=== PATIENT | male | born 1940 | race Caucasian/White ===

== ENCOUNTER 2017-02-22 09:05 | Inpatient (IN) | payer MEDICARE, OTHER, SELFPAY ==
[2017-02-22 09:07] VITALS: BP 136/71; PULSE 72; RESP 18; TEMP 36.7; O2SAT 98; BMI 29.0
--- NOTE | 2017-02-22 09:27 | CT_ITS ---
STUDY: CT ABDOMEN WITH CONTRAST REASON FOR EXAM: Male, 77 years old. Abdominal pain. The patient has a history of chronic lymphocytic leukemia. RADIATION DOSAGE (If Supplied By Facility): CTDIvol = ( 19.66 ) mGy, DLP = ( 1001.85 ) mGycm TECHNIQUE: Transaxial images were obtained post I.V. administration of 100 ml of Isovue 300 contrast, and without oral contrast. Sagittal and coronal images were reconstructed. Individualized dose optimization techniques were used for this CT. COMPARISON: Comparison is made with prior study dated February 20, 2017. FINDINGS: Mild degree of increased interstitial markings at the lung bases suggestive of scarring. The visualized portions of the heart are within normal limits. There is a 1.1 cm hypodensity in the posterior aspect of the dome of the right lobe of the liver. This is unchanged. There are multiple gallstones. There is severe splenomegaly. There now is evidence of a small amount of perisplenic fluid. Mild interval originating of the spleen. Normal pancreas. Normal bilateral adrenal glands. Normal right kidney. There is a 1.8 cm cyst in the inferior lateral portion of the left kidney. Normal visualized stomach. Normal small intestine. There are multiple colonic diverticula consistent with diverticulosis. The appendix is visualized and appears normal. There is diffuse atherosclerotic calcification of the abdominal aorta, without a demonstrated aneurysm. Normal inferior vena cava. There is borderline retroperitoneal lymphadenopathy with enlarged nodes no greater than 10mm in the short axis diameter. Nonspecific increased markings within the fat involving the root of the mesentery as well as in the bilateral thyroid colloid gutters and pelvis. This is nonspecific. There is a small umbilical hernia containing fat. There are diffuse degenerative changes of the visualized lumbar spine. Status post right total hip replacement. CT/Abdomen/Pelvis W IV Cont ONLY IMPRESSION: Small amount of perisplenic fluid. Marked splenomegaly. Nonspecific increased markings in the peritoneal fat as described. This is unchanged. Electronically Signed: Theron Whitehead MD at 11:29 EDT Tel [phone], Service support ,
--- NOTE | 2017-02-22 09:39 | ED.VISSUMM ---
- ER Visit Summary Date of Service: 02/22/17 Chief Complaint: Abdominal pain History of Present Illness: The patient is a 77 M with medical history significant for CLL who just started chemotherapy a week ago presents to the emergency Department abdominal pain. Patient was actually seen here 2 days ago. At that time, he had lab work is relatively unremarkable. He underwent a noncontrast CT of the abdomen pelvis which showed reactive adenopathy within the pelvis. There is concerned that it may be a diverticulitis or colitis given history of immunosuppression. He was continued on the Cipro and Flagyl. He states that it seems that every time he takes antibiotics, the pain worsens. His stool has become more firm, but he continues to have some loose bowel movements. He states today, he had move his bowels twice. He was getting severe bouts of pain that he describes as a band across his abdomen into his back. He has had similar symptoms in the past with colitis. Physical Examination: Vital signs reviewed General: Well-nourished, well-developed Head: Normocephalic, atraumatic Eyes: Pupils equal and reactive, extraocular muscles intact Neck, supple, no lymphadenopathy Heart: Regular rate and rhythm Respiratory: No distress, clear bilaterally Abdomen: Soft, tender in the left lower quadrant without guarding, nondistended, no peritoneal signs Back: Nontender Extremities: Nontender, no edema, no cords Skin: Normal color no rash Neuro: Alert and oriented, no focal or lateralizing deficits Test Results: [] Emergency Department Course and Treatment: Patient presents with worsening abdominal pain. I did discuss the patient with Dr. Beyer on his arrival. There was concern that he may have intra-abdominal abscess. Screening labs show pancytopenia, consistent with the patient's history of cancer. The CT does not demonstrate any acute abscess or significant colitis. However, the patient has had persistent pain despite home analgesics. I am going to broaden his antibiotics. The patient was discussed with the hospitalist will be admitted for pain control and reevaluation. Treatment Plan: [] Disposition: Admission 1. Impression: 1. Acute abdominal pain 2. History of CLL 3. Adenitis versus colitis ED Disposition - Plan for ED Patient: Disposition: Acute Care Hospital [facility] Chief Complaint: Abd Pain
[2017-02-22] MEDS: Ondansetron 4 MG/2 ML Vial IV ×3 (09:46→14:22)
[2017-02-22] MEDS: 0.9% Normal Saline 1,000 ML 1000 ML IV (09:46)
[2017-02-22] MEDS: HYDROmorphone 1 MG/ML Syringe IV ×4 (09:46→15:36)
[2017-02-22 09:53] LABS: Absolute Lymphocyte Count 0.14 X10^3/ul (0.83-4.51); Absolute Neutrophil Count 1.8 X10^3/uL (2.0-7.7); Basophil# 0.01 X10^3/uL; Basophil% 0.5 % (0-1); Eosinophil# 0.07 X10^3/uL; Eosinophils% 3.2 % (0-5); Hematocrit 35.1 % (40-54); Lymphocyte # 0.14 X10^3/ul (4.0); Lymphocyte % 6.5 % (19-41); Mean Corp Hgb Conc 31.3 g/gl (32-36); Mean Corpuscular Hgb 24.3 pg (27.0-32.0); Mean Corpuscular Volume 77.7 fL (80-94); Monocyte# 0.15 X10^3/uL; Monocyte% 6.9 % (0-10); Neutrophil # 1.77 X10^3/uL (2.7-7.7); Platelet Count 83 K/mm3 (150-450); RBC Distribution Width CV 15.8 % (11.6-14.6); RBC Distribution Width SD 43.2 fl (35.1-43.9); Red Blood Count 4.52 M/mm3 (4.6-6.2); White Blood Count 2.2 K/mm3 (4.4-11.0)
[2017-02-22 09:54] LABS: Differential Indicated SCAN CRITERIA MET; POSITIVE COUNT NO; POSITIVE DIFFERENTIAL YES; POSITIVE MORPHOLOGY NO
[2017-02-22 10:19] LABS: Differential Comment SCANNED; Hypochromasia 1+; Microcytosis 2+; Platelet Estimate MKD DEC (ADEQ)
[2017-02-22 10:26] LABS: ALB/GLOB Ratio 0.9 RATIO (0.9-2.4); AST(SGOT) 32 U/L (15-37); Alanine Aminotransfer ALT/SGPT 38 U/L (12-78); Albumin, Serum 3.2 g/dL (3.4-5.0); Alkaline Phosphatase 110 U/L (45-117); Anion Gap 8 (5-15); BUN 12 mg/dL (7-18); BUN/Creat Ratio 12.9 RATIO (10-20); Calcium,Total 8.7 mg/dL (8.5-10.1); Chloride 104 mmol/L (98-107); Creatinine, Serum 0.93 mg/dL (0.70-1.30); EST Glomerular Filtration Rate 84 mL/min (>60); Est Glom Filt Rate - Afr Amer 102 mL/min (>60); Globulin 3.7 g/dL (2.2-4.2); Glucose 168 mg/dL (70-110); Potassium 3.6 mmol/L (3.5-5.1); Protein, Total 6.9 g/dL (6.4-8.2); Sodium Level 139 mmol/L (136-145)
[2017-02-22 11:16] VITALS: BP 108/53; PULSE 64; RESP 18; O2SAT 96
[2017-02-22 12:04] VITALS: BP 116/59; PULSE 60; RESP 18; O2SAT 95
--- NOTE | 2017-02-22 12:08 | HP.PCM_ITS ---
Problem List (1) CLL (chronic lymphocytic leukemia) Status: Chronic (2) Diarrhea Status: Acute Qualifiers: Diarrhea type: unspecified type Qualified Code(s): R19.7 - Diarrhea, unspecified (3) Type 2 diabetes mellitus Status: Chronic Qualifiers: Diabetes mellitus complication status: with unspecified complications Diabetes mellitus ad terminal makeup operator insulin use: without ad terminal makeup operator use Qualified Code( s): E11.8 - Type 2 diabetes mellitus with unspecified complications History of Present Illness Date of Admission: 02/22/17 Chief Complaint: Diarrhea, abdominal pain The patient is a 77 year old M with CLL, on chemotherapy, following Dr. Mitchell in the outpatient, hypertension, hyperlipidemia who comes in with complaints of abdominal pain and diarrhea, on-going for the past 12 days. Patient appears to be in so much pain, most of the history was taken from his . He last had chemotherapy exactly a week ago. He had the back and anterior abdominal wall pain before his chemotherapy. He describes his pain as starting from the low back, CVA more than 10 out of 10, radiates to the anterior abdominal wall, nothing makes it better or worse, no tingling or numbness with this. Associated with the pain is nonbloody diarrhea about 4 times a day. Of note is that he had not had any diarrhea since he is being admitted. he denied any fever or chills. Admits to nausea but no vomiting. He was in the emergency department 2 days ago, and at that time lab work was unremarkable and noncontrast CT scan of the abdomen and pelvis showed reactive adenopathy within the pelvis. Discharge home on Cipro and Flagyl but pain persisted as well as diarrhea and he came back to the ED. Repeat CT scan of the abdomen did not demonstrate any acute abscess or significant colitis. Patient is being admitted for pain control because of persistent pain despite home analgesics. Past Medical History Past Medical History (Chronic Problems): Chronic Problems CLL (chronic lymphocytic leukemia) (Chronic) GERD (gastroesophageal reflux disease) (Chronic) Hyperlipemia (Chronic) Osteoarthritis (Chronic) Type 2 diabetes mellitus (Chronic) Allergies acetaminophen [From Vicodin] Allergy (Verified 02/22/17 09:09) Rash cefazolin sodium [From Ancef] Allergy (Verified 02/22/17 09:09) Rash hydrocodone bitartrate [From Vicodin] Allergy (Verified 02/22/17 09:09) Rash Home Medications: Ambulatory Orders Medication Instructions Recorded Aspirin [Aspirin, Baby] 81 mg PO DAILY@0800 03/25/15 Glimepiride [Amaryl] 4 mg PO DAILY 03/25/15 Metformin HCl [Glucophage] 1,000 mg PO BIDCM 03/25/15 Naproxen Sodium [Aleve] 220 mg PO DAILY PRN PRN 03/25/15 [place]-3 Fatty Acids/Fish Oil 1 each PO DAILY 03/25/15 [[place] 3 1,000 mg Softgel] Rosuvastatin Calcium [Crestor] 20 mg PO QHS 03/25/15 Allopurinol 300 mg PO DAILY 02/20/17 Ciprofloxacin [Cipro] 500 mg PO BID 02/20/17 Famotidine [Pepcid] 20 mg PO BID 02/20/17 Hydrochlorothiazide 12.5 mg PO DAILY 02/20/17 Loperamide [Imodium] 2 mg PO Q2H PRN PRN 02/20/17 Losartan Potassium 100 mg PO 02/20/17 Melatonin 1 mg PO QHS 02/20/17 Metronidazole [Flagyl] 500 mg PO TID 02/20/17 MorphINE Soln [Roxanol] 5 mg PO Q3H PRN 02/20/17 Prochlorperazine Maleate 10 mg PO Q6H PRN 02/20/17 [Compazine] Sitagliptin Phosphate [Januvia] 50 mg PO DAILY 02/20/17 Tamsulosin HCl [Flomax] 0.8 mg PO DAILY 02/20/17 Surgical History: total hip arthroplasty, - - Hip surgery Psychiatric History: No pertinent psych hx Lives: Spouse/ Significant Other Smoking Status: Former smoker Tobacco Use: Non-smoker Alcohol: None Drugs: None - *Family History Paternal History Items: - - Parkinson's disease Maternal History Items: No pertinent history Sibling History Items: Heart Disease Review of Systems Constitutional: Denies: Anorexia, Chills, Fever, Malaise, Weakness, Weight Change Eyes: Denies: Blurred vision, Cataracts, Conjunctivae Inflammation HEENT: Denies: Difficulty Hearing, Difficulty Swallowing, Head Aches, Nasal Congestion, Sinus Congestion, Sinus Drainage, Sore Throat Cardiovascular: Denies: Chest Pain, Claudication, Orthopnea, Palpitations, Paroxysmal Noc. Dyspnea, Syncope Respiratory: Denies: Cough, Shortness of Breath, Shortness of breath at rest, Shortness of breath upon exertion, Sputum production Gastrointestinal: Reports: Abdominal Pain, Diarrhea, Nausea. Denies: Hematemesis, Hematochezia, Melena, Vomiting Genitourinary: Denies: Dysuria, Frequency Musculoskeletal: Denies: Joint Pain, Joint stiffness, Joint swelling, Joint Tenderness Skin: Denies: Dryness, Jaundice, Rash, Wounds Neurological: Denies: Difficulty swallowing, Focal weakness, Numbness, Tingling Psychiatric: Denies: Anxiety, Depression, Homicidal Ideations, Suicidal Ideations Hematologic/ Lymphatic: Denies: Easy Bruising, Easy Bleeding VTE Information - Inpt Only VTE Present on Admission: No VTE Pharm Prophylaxis ordered?: Yes - Physical Exam General: Alert, Oriented x3, Cooperative, - - in distress HEENT: Atraumatic, PERRLA, EOMI, Normocephalic Oral: Moist Mucosa Neck: Supple, No JVD Lungs: Clear to auscultation, Normal air movement Cardiovascular: Regular rate, Regular Rhythm, Normal S1, Normal S2, No murmurs Abdomen: Bowel Sounds Present, Soft, Non-Distended, No Hepato-splenomegaly, Obese, Tender Extremities: No edema Skin: No rashes Musculoskeletal: No Tenderness to Palpation of Joints or Extremities Lymphatic: No Cervical, Supraclavicular, or Inguinal Adenopathy Neurological: Cranial nerves II-XII grossly intact, Neuro grossly intact Psych/Mental Status: Normal Affect, Appropriate Vital Signs Temp Pulse Resp BP Pulse Ox 98.1 F 64 18 108/53 96 02/22/17 09:07 02/22/17 11:16 02/22/17 11:16 02/22/17 11:16 02/22/17 11:16 Oxygen Delivery Method Room Air Weight: 86.5 kg Body Mass Index (BMI) 29.0 Laboratory Tests Past 24 Hrs 02/22/17 02/22/17 02/22/17 09:41 09:41 09:41 WBC 2.2 L RBC 4.52 L Hgb 11.0 L Hct 35.1 L MCV 77.7 L MCH 24.3 L MCHC 31.3 L RDW 15.8 H RDW Differential 43.2 Plt Count 83 L MPV 10.0 Immature Gran % (Auto) 0.900 Neut % (Auto) 82.0 H Lymph % (Auto) 6.5 L [place] % (Auto) 6.9 Eos % (Auto) 3.2 Baso % (Auto) 0.5 Absolute Neuts (auto) 1.8 L Absolute Lymphs (auto) 0.14 L Total Counted Not Reportable Differential Comment SCANNED Diff Path Review May foll Platelet Estimate MKD DEC Hypochromasia 1+ Microcytosis 2+ Sodium 139 Potassium 3.6 Chloride 104 Carbon Dioxide 27.0 Anion Gap 8 BUN 12 Creatinine 0.93 Estim Creat Clear Calc 66.40 Est GFR (MDRD) Af Amer 102 Est GFR (MDRD) Non-Af 84 BUN/Creatinine Ratio 12.9 Glucose 168 H Lactic Acid 1.0 Calcium 8.7 Total Bilirubin 0.60 AST 32 ALT 38 Alkaline Phosphatase 110 Total Protein 6.9 Albumin 3.2 L Globulin 3.7 Albumin/Globulin Ratio 0.9 Assessment/Plan 77-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 Abdominal pain, unclear etiology, CT scan of the abdomen and pelvis showed non-specific increased marking within peritoneal fat at the root of the mesentery and pericolic gutters. Likely related to gastroenteritis Plan: Admit patient for pain control, Dilaudid IV 1 mg every 3 hours, add stool prophylaxis if constipation develops, continue to monitor patient. 2. Diarrhea, acute, history of Salmonella gastroenteritis a couple of years ago , will need to rule out C. difficile, will place on contact isolation, stool for enteric panel, continue IV hydration, will continue on meropenem stay in the ER, if laboratory investigations come back negative and no improvement in diarrhea would discontinue meropenem. 3. Pancytopenia due to recent chemotherapy, ANC count is 2000, would monitor with repeat labs in am. 4. CLL, following oncology in the outpatient, last chemotherapy was a week ago, will consult Dr. Mitchell 5. Hypertension, controlled 6. Hyperlipidemia, on statin 7. Type II DM, on glimepiride, Januvia and metformin, would hold Januvia and metformin, continue glimepiride, will check blood sugars. Accu-Cheks and low- dose insulin sliding scale 8. DVT prophylaxis with Lovenox subcu
[2017-02-22 12:49] VITALS: BMI 27.6
[2017-02-22 13:02] LABS: Bacteria 0 SEEN /hpf (None Seen); Mucous, Urine 0 SEEN /hpf (<or=2+); Squamous Epithelial Cells - UA 0 SEEN /hpf (0-5)
[2017-02-22 13:03] LABS: Color, Urine Yellow (Yellow); Glucose, Dipstick Normal (Normal); Ketone-Dipstick 5 mg/dl (Negative); Leukocyte Esterase-Dipstick 25 /ul (Negative); Nitrite-Dipstick Negative (Negative); Occult Blood-Urine 10 /ul (Negative); Protein-Dipstick 15 mg/dl (Negative); Urine Bilirubin Dipstick Negative (Negative); Urine Clarity Clear (Clear); Urine Urobilinogen Normal (Normal)
[2017-02-22 13:06] VITALS: BP 127/64; PULSE 77; RESP 16; TEMP 35.4; O2SAT 94
[2017-02-22 13:08] LABS: Red Blood Cells-Urine 0-5 SEEN /hpf (0-5); White Blood Cells 0-5 SEEN /hpf (0-5)
[2017-02-22] MEDS: 0.9% Normal Saline 1,000 ML 100 ML IV (15:36)
[2017-02-22 17:59] VITALS: BP 119/57; PULSE 69; RESP 16; TEMP 36.3; O2SAT 97
[2017-02-22 20:10] VITALS: BP 121/60; PULSE 74; RESP 16; TEMP 36.5; O2SAT 94
[2017-02-22] MEDS: Famotidine 20 MG Tablet PO (21:59)
[2017-02-22] MEDS: Atorvastatin Calcium 40 MG Tablet PO (21:59)
[2017-02-22 22:00] LABS: Bedside Glucose 173 mg/dL (70-110)
[2017-02-23] MEDS: 0.9% Normal Saline 1,000 ML 100 ML IV (01:52)
[2017-02-23 03:30] VITALS: BP 119/61; PULSE 65; RESP 16; TEMP 36.8; O2SAT 97
[2017-02-23 06:31] LABS: Bedside Glucose 138 mg/dL (70-110)
--- NOTE | 2017-02-23 07:39 | CON.PCM_ITS ---
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 My final recommendation will be communicated to Dr. Treviño and also by electronic medical records. 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 He also has a history of hypertension, hyperlipidemia who comes in with complaints of abdominal pain and diarrhea, on-going for the past 2 weeks. He has symptom of colitis with diarrhea but initially improved with Imodium. After starting chemotherapy last week, patient presented with severe acute abdominal pain at the left lower quadrant. Patient was diagnosed with acute diverticulitis and was started on oral ciprofloxacin and Flagyl last . He was also taking morphine and instructed to go on a full liquid mechanically soft diet. Although he has no fever or chills, nausea, vomiting, patient continues to have loose stool and diarrhea. He was in the emergency room on Wednesday with severe pain in the left lower quadrant and left flank area. CT scan of the abdomen show no evidence of perforation or abscess. Nonspecific mesenteric fat stranding seen. After he was given pain medication he was sent home on full liquid diet and continue antibiotics. He turned to emergency room yesterday with severe back and lower abdominal pain. He describes his pain as starting from the low back, left CVA more than 10 out of 10, radiates to the anterior abdominal wall to the lower abdomen, nothing makes it better or worse. Lower abdominal pain is sharp and stabbing. He denied per a chest pain or left shoulder pain. Associated with the dominant pain pain is nonbloody diarrhea about [address] scan of the abdomen did not demonstrate any acute abscess or significant colitis or perforation. There is nonspecific fluid in the pelvis. Patient is being admitted for pain control because of persistent pain despite home analgesics and antibiotics for acute diverticulitis/colitis. Past Medical History Past Medical History (Chronic Problems): Chronic Problems CLL (chronic lymphocytic leukemia) (Chronic) GERD (gastroesophageal reflux disease) (Chronic) Hyperlipemia (Chronic) Osteoarthritis (Chronic) Type 2 diabetes mellitus (Chronic) Allergies acetaminophen [From Vicodin] Allergy (Verified 02/22/17 09:09) Rash cefazolin sodium [From Ancef] Allergy (Verified 02/22/17 09:09) Rash hydrocodone bitartrate [From Vicodin] Allergy (Verified 02/22/17 09:09) Rash Home Medications: Ambulatory Orders Medication Instructions Recorded Aspirin [Aspirin, Baby] 81 mg PO DAILY@0800 03/25/15 Glimepiride [Amaryl] 4 mg PO DAILY 03/25/15 Metformin HCl [Glucophage] 1,000 mg PO BIDCM 03/25/15 Naproxen Sodium [Aleve] 220 mg PO DAILY PRN PRN 03/25/15 [place]-3 Fatty Acids/Fish Oil 1 each PO DAILY 03/25/15 [[place] 3 1,000 mg Softgel] Rosuvastatin Calcium [Crestor] 20 mg PO QHS 03/25/15 Allopurinol 300 mg PO DAILY 02/20/17 Ciprofloxacin [Cipro] 500 mg PO BID 02/20/17 Famotidine [Pepcid] 20 mg PO BID 02/20/17 Hydrochlorothiazide 12.5 mg PO DAILY 02/20/17 Loperamide [Imodium] 2 mg PO Q2H PRN PRN 02/20/17 Losartan Potassium 100 mg PO 02/20/17 Melatonin 1 mg PO QHS 02/20/17 Metronidazole [Flagyl] 500 mg PO TID 02/20/17 MorphINE Soln [Roxanol] 5 mg PO Q3H PRN 02/20/17 Prochlorperazine Maleate 10 mg PO Q6H PRN 02/20/17 [Compazine] Sitagliptin Phosphate [Januvia] 50 mg PO DAILY 02/20/17 Tamsulosin HCl [Flomax] 0.8 mg PO DAILY 02/20/17 Surgical History: total hip arthroplasty, - - Hip surgery Psychiatric History: No pertinent psych hx Lives: Spouse/ Significant Other Smoking Status: Former smoker Tobacco Use: Non-smoker Alcohol: None Drugs: None - *Family History Paternal History Items: - - Parkinson's disease Maternal History Items: No pertinent history Sibling History Items: Heart Disease Review of Systems Constitutional: Denies: Anorexia, Chills, Fever, Malaise, Weakness, Weight Change Eyes: Denies: Blurred vision, Cataracts, Conjunctivae Inflammation HEENT: Denies: Difficulty Hearing, Difficulty Swallowing, Head Aches, Nasal Congestion, Sinus Congestion, Sinus Drainage, Sore Throat Cardiovascular: Denies: Chest Pain, Claudication, Orthopnea, Palpitations, Paroxysmal Noc. Dyspnea, Syncope Respiratory: Denies: Cough, Shortness of Breath, Shortness of breath at rest, Shortness of breath upon exertion, Sputum production Gastrointestinal: Reports: Abdominal Pain, Diarrhea, Nausea. Denies: Hematemesis, Hematochezia, Melena, Vomiting Genitourinary: Denies: Dysuria, Frequency Musculoskeletal: Denies: Joint Pain, Joint stiffness, Joint swelling, Joint Tenderness Skin: Denies: Dryness, Jaundice, Rash, Wounds Neurological: Denies: Difficulty swallowing, Focal weakness, Numbness, Tingling Psychiatric: Denies: Anxiety, Depression, Homicidal Ideations, Suicidal Ideations Hematologic/ Lymphatic: Denies: Easy Bruising, Easy Bleeding - Physical Exam General: Alert, Oriented x3, Cooperative, - - in distress HEENT: Atraumatic, PERRLA, EOMI, Normocephalic Oral: Moist Mucosa Neck: Supple, No JVD Lungs: Clear to auscultation, Normal air movement Cardiovascular: Regular rate, Regular Rhythm, Normal S1, Normal S2, No murmurs Abdomen: Bowel Sounds Present, Soft, Non-Distended, + splenomegaly down to the left pelvic area but nontender to palpation, no tenderness left lower quadrant, no rebound tenderness or guarding. Extremities: No edema Skin: No rashes Musculoskeletal: No Tenderness to Palpation of Joints or Extremities Lymphatic: No Cervical, Supraclavicular, or Inguinal Adenopathy Neurological: Cranial nerves II-XII grossly intact, Neuro grossly intact Psych/Mental Status: Normal Affect, Appropriate Vital Signs - 24 hr Temp Pulse Resp BP Pulse Ox 02/23/17 03:30 98.2 F 65 16 119/61 97 02/22/17 20:10 97.7 F 74 16 121/60 94 02/22/17 17:59 97.4 F 69 16 119/57 97 02/22/17 13:06 95.8 F 77 16 127/64 94 02/22/17 12:04 60 18 116/59 95 02/22/17 11:16 64 18 108/53 96 02/22/17 09:07 98.1 F 72 18 136/71 98 Oxygen Delivery Method Room Air Weight: 86.5 kg Body Mass Index (BMI) 29.0 Laboratory Tests Past 24 Hrs 02/22/17 02/22/17 02/22/17 09:41 09:41 09:41 WBC 2.2 L RBC 4.52 L Hgb 11.0 L Hct 35.1 L MCV 77.7 L MCH 24.3 L MCHC 31.3 L RDW 15.8 H RDW Differential 43.2 Plt Count 83 L MPV 10.0 Immature Gran % (Auto) 0.900 Neut % (Auto) 82.0 H Lymph % (Auto) 6.5 L [place] % (Auto) 6.9 Eos % (Auto) 3.2 Baso % (Auto) 0.5 Absolute Neuts (auto) 1.8 L Absolute Lymphs (auto) 0.14 L Total Counted Not Reportable Differential Comment SCANNED Diff Path Review May foll Platelet Estimate MKD DEC Hypochromasia 1+ Microcytosis 2+ Sodium 139 Potassium 3.6 Chloride 104 Carbon Dioxide 27.0 Anion Gap 8 BUN 12 Creatinine 0.93 Estim Creat Clear Calc 66.40 Est GFR (MDRD) Af Amer 102 Est GFR (MDRD) Non-Af 84 BUN/Creatinine Ratio 12.9 Glucose 168 H Lactic Acid 1.0 Calcium 8.7 Total Bilirubin 0.60 AST 32 ALT 38 Alkaline Phosphatase 110 Total Protein 6.9 Albumin 3.2 L Globulin 3.7 Albumin/Globulin Ratio 0.9 Assessment/Plan 77-year-old male with stage IV SLL, on chemotherapy days ago. history of diarrhea and abdominal pain consistent with acute diverticulitis/colitis, failed outpatient management with diet and oral antibiotics. Diarrhea and abdominal pain improved since he been kept nothing by mouth with IV antibiotics. 1. Abdominal pain secondary to colitis/diverticulitis CT scan of the abdomen and pelvis showed non-specific increased marking within peritoneal fat at the root of the mesentery and pericolic gutters. There are no further thickening of the sigmoid colon seen in his previous scan. Plan: Admit patient for pain control, Dilaudid IV 1 mg every 3 hours, -continue NPO and advance diet later tonight or tomorrow morning if he has no pain or diarrhea. -Continue IV antibiotics. 2. Diarrhea secondary to colitis, rule out C. difficile, will place on contact isolation, stool for enteric panel pending -continue IV hydration 3. Pancytopenia due to recent chemotherapy, ANC count is 2000 -Platelet count stable after chemotherapy. 4. CLL/SLL, -following oncology in the outpatient this Wednesday. 5. Back pain- probably secondary arthritis - Muscle relaxant and pain medication for back pain. - Consult pain management if needed. cc: Dr. Joe Mitchell; Dr. Olamide Singer; Dr. Sherman De Los Santos III
[2017-02-23 08:22] LABS: Absolute Lymphocyte Count 0.12 X10^3/ul (0.83-4.51); Absolute Neutrophil Count 1.1 X10^3/uL (2.0-7.7); Basophil# 0.01 X10^3/uL; Basophil% 0.7 % (0-1); Eosinophil# 0.07 X10^3/uL; Eosinophils% 4.9 % (0-5); Hematocrit 33.3 % (40-54); Lymphocyte # 0.12 X10^3/ul (4.0); Lymphocyte % 8.3 % (19-41); Mean Corpuscular Hgb 23.9 pg (27.0-32.0); Mean Corpuscular Volume 79.7 fL (80-94); Mean Platelet Vol. 9.4 fl (6.2-12.0); Monocyte# 0.13 X10^3/uL; Neutrophil # 1.11 X10^3/uL (2.7-7.7); Neutrophil % 77.1 % (47-70); Platelet Count 61 K/mm3 (150-450); RBC Distribution Width CV 16.2 % (11.6-14.6); RBC Distribution Width SD 46.4 fl (35.1-43.9); Red Blood Count 4.18 M/mm3 (4.6-6.2)
[2017-02-23 08:24] LABS: Differential Indicated SCAN CRITERIA MET; POSITIVE COUNT YES; POSITIVE DIFFERENTIAL YES; POSITIVE MORPHOLOGY NO; White Blood Count 1.4 K/mm3 (4.4-11.0)
[2017-02-23 08:42] LABS: Anion Gap 8 (5-15); BUN 10 mg/dL (7-18); BUN/Creat Ratio 10.4 RATIO (10-20); Calcium,Total 7.7 mg/dL (8.5-10.1); Chloride 106 mmol/L (98-107); Creatinine, Serum 0.96 mg/dL (0.70-1.30); EST Glomerular Filtration Rate 81 mL/min (>60); Est Glom Filt Rate - Afr Amer 98 mL/min (>60); Estimated Creatinine Clearance 64.32 ml/min; Glucose 178 mg/dL (70-110); Potassium 3.4 mmol/L (3.5-5.1); Sodium Level 142 mmol/L (136-145)
[2017-02-23] MEDS: Glimepiride 2 MG Tablet 4 MG PO (08:56)
[2017-02-23] MEDS: Aspirin 81 MG TAB.CHEW PO (08:56)
[2017-02-23] MEDS: Allopurinol 300 MG Tablet PO (08:56)
[2017-02-23] MEDS: HYDROmorphone 1 MG/ML Syringe 2 MG IV ×2 (08:59→19:26)
[2017-02-23] MEDS: HYDROCHLOROTHIAZIDE 12.5 MG CAPSULE PO (09:02)
[2017-02-23] MEDS: Famotidine 20 MG Tablet PO ×2 (09:02→21:40)
[2017-02-23 09:31] VITALS: BP 131/65; PULSE 76; RESP 18; TEMP 36.6; O2SAT 94
[2017-02-23 10:36] LABS: Pathologist Review Reviewed
[2017-02-23 12:16] LABS: Bedside Glucose 149 mg/dL (70-110)
[2017-02-23] MEDS: Piperacil/Tazobactam 3.375 GM/50 ML ML IV ×2 (14:08→21:44)
[2017-02-23 16:30] VITALS: BP 139/66; PULSE 68; RESP 16; TEMP 36.6; O2SAT 97
[2017-02-23] MEDS: Tamsulosin HCl 0.4 MG Capsule 0.8 MG PO (16:49)
[2017-02-23 17:01] LABS: Bedside Glucose 93 mg/dL (70-110)
--- NOTE | 2017-02-23 17:23 | PCM.PN.HOSP ---
Subjective: Patient seen and examined. No abdominal pain, has been having frequent stools more than 10 times this morning, nonbloody, watery, stool for C. difficile has been negative, stool enteric panel negative. He denied any fever or chills. Objective: Physical Exam General: Alert, Oriented x3, Cooperative, not pale, not jaundiced HEENT: Atraumatic, PERRLA, EOMI, Normocephalic Oral: Moist Mucosa Neck: Supple, No JVD Lungs: Clear to auscultation, Normal air movement Cardiovascular: Regular rate, Regular Rhythm, Normal S1, Normal S2, No murmurs Abdomen: Bowel Sounds Present, Soft, Non-Distended, No Hepato-splenomegaly, Obese, non-tender Extremities: No edema Skin: No rashes Musculoskeletal: No Tenderness to Palpation of Joints or Extremities Lymphatic: No Cervical, Supraclavicular, or Inguinal Adenopathy Neurological: Cranial nerves II-XII grossly intact, Neuro grossly intact Psych/Mental Status: Normal Affect, Appropriate Vitals/I&O's: Vital Signs Temp Pulse Resp BP Pulse Ox 97.8 F 68 16 139/66 97 02/23/17 16:30 02/23/17 16:30 02/23/17 16:30 02/23/17 16:30 02/23/17 16:30 Oxygen Delivery Method Room Air Laboratory Results 02/23/17 16:38: POC Glucose 93 Current Medications Allopurinol (Zyloprim) 300 mg PO DAILY@0800 [facility] Last Admin: 02/23/17 08:56 Dose: 300 mg Aspirin (Aspirin, Baby) 81 mg PO DAILY@0800 [facility] Last Admin: 02/23/17 08:56 Dose: 81 mg Atorvastatin Calcium (Lipitor) 40 mg PO QHS [facility] Last Admin: 02/22/17 21:59 Dose: 40 mg Dextrose (D50w Syringe) 0 gm IV X1 PRN; Protocol PRN Reason: Hypoglycemia Famotidine (Pepcid) 20 mg PO BID [facility] Last Admin: 02/23/17 09:02 Dose: 20 mg Glimepiride (Amaryl) 4 mg PO DAILYCM [facility] Last Admin: 02/23/17 08:56 Dose: 4 mg Glucagon () 1 mg IM .X1 PRN PRN Reason: Hypoglycemia Hydrochlorothiazide (Hydrochlorothiazide) 12.5 mg PO DAILY [facility] Last Admin: 02/23/17 09:02 Dose: 12.5 mg Hydromorphone HCl (Dilaudid) 2 mg IV Q3H PRN PRN PRN Reason: SEVERE PAIN (6-02/09) Last Admin: 02/23/17 08:59 Dose: 2 mg Piperacillin Sod/Tazobactam Sod (Zosyn) 3.375 gm in 50 mls @ 12.5 mls/hr IV Q8 [facility] Last Admin: 02/23/17 14:08 Dose: 12.5 mls/hr Insulin Aspart (Novolog Flexpen (Bkc)) 0 units SC ACHS [facility] PRN Reason: Protocol Last Admin: 02/23/17 16:49 Dose: Not Given Loperamide HCl (Imodium) 2 mg PO Q2H PRN PRN PRN Reason: Diarrhea Ondansetron HCl (Zofran) 4 mg IV Q6H PRN PRN PRN Reason: NAUSEA Last Admin: 02/22/17 14:22 Dose: 4 mg Prochlorperazine Maleate (Compazine) 10 mg PO Q6H PRN PRN Reason: NAUSEA Sodium Chloride () 5 - 30 ml IV UD PRN PRN Reason: SALINE FLUSH Tamsulosin HCl (Flomax) 0.8 mg PO DAILY@1730 [facility] Last Admin: 02/23/17 16:49 Dose: 0.8 mg Assessment/Plan 77-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 Abdominal pain, unclear etiology, likely related to gastroenteritis, improved, CT scan of the abdomen and pelvis showed non-specific increased marking within peritoneal fat at the root of the mesentery and pericolic gutters. Plan: Will continue to manage conservatively 2. Diarrhea, acute, stool lactoferrin positive, c. diff negative, enteric panel negative, continue on meropenem for now, will consider de-escalating it tomorrow to Cipro and Flagyl. 3. Pancytopenia due to recent chemotherapy, ANC count is 1000, would continue to monitor 4. CLL, following Dr. Mitchell, last chemotherapy was a week ago 5. Hypertension, controlled 6. Hyperlipidemia, on statin 7. Type II DM, blood sugars have been stable, continue glimepiride 8. DVT prophylaxis with Lovenox subcu
--- NOTE | 2017-02-23 17:30 | PN_ITS ---
Subjective: Patient seen and examined. No abdominal pain, has been having frequent stools more than 10 times this morning, nonbloody, watery, stool for C. difficile has been negative, stool enteric panel negative. He denied any fever or chills. Objective: Physical Exam General: Alert, Oriented x3, Cooperative, not pale, not jaundiced HEENT: Atraumatic, PERRLA, EOMI, Normocephalic Oral: Moist Mucosa Neck: Supple, No JVD Lungs: Clear to auscultation, Normal air movement Cardiovascular: Regular rate, Regular Rhythm, Normal S1, Normal S2, No murmurs Abdomen: Bowel Sounds Present, Soft, Non-Distended, No Hepato-splenomegaly, Obese, non-tender Extremities: No edema Skin: No rashes Musculoskeletal: No Tenderness to Palpation of Joints or Extremities Lymphatic: No Cervical, Supraclavicular, or Inguinal Adenopathy Neurological: Cranial nerves II-XII grossly intact, Neuro grossly intact Psych/Mental Status: Normal Affect, Appropriate Vitals/I&O's: Vital Signs Temp Pulse Resp BP Pulse Ox 97.8 F 68 16 139/66 97 02/23/17 16:30 02/23/17 16:30 02/23/17 16:30 02/23/17 16:30 02/23/17 16:30 Oxygen Delivery Method Room Air Laboratory Results 02/23/17 16:38: POC Glucose 93 Current Medications Allopurinol (Zyloprim) 300 mg PO DAILY@0800 [facility] Last Admin: 02/23/17 08:56 Dose: 300 mg Aspirin (Aspirin, Baby) 81 mg PO DAILY@0800 [facility] Last Admin: 02/23/17 08:56 Dose: 81 mg Atorvastatin Calcium (Lipitor) 40 mg PO QHS [facility] Last Admin: 02/22/17 21:59 Dose: 40 mg Dextrose (D50w Syringe) 0 gm IV X1 PRN; Protocol PRN Reason: Hypoglycemia Famotidine (Pepcid) 20 mg PO BID [facility] Last Admin: 02/23/17 09:02 Dose: 20 mg Glimepiride (Amaryl) 4 mg PO DAILYCM [facility] Last Admin: 02/23/17 08:56 Dose: 4 mg Glucagon () 1 mg IM .X1 PRN PRN Reason: Hypoglycemia Hydrochlorothiazide (Hydrochlorothiazide) 12.5 mg PO DAILY [facility] Last Admin: 02/23/17 09:02 Dose: 12.5 mg Hydromorphone HCl (Dilaudid) 2 mg IV Q3H PRN PRN PRN Reason: SEVERE PAIN (6-02/09) Last Admin: 02/23/17 08:59 Dose: 2 mg Piperacillin Sod/Tazobactam Sod (Zosyn) 3.375 gm in 50 mls @ 12.5 mls/hr IV Q8 [facility] Last Admin: 02/23/17 14:08 Dose: 12.5 mls/hr Insulin Aspart (Novolog Flexpen (Bkc)) 0 units SC ACHS [facility] PRN Reason: Protocol Last Admin: 02/23/17 16:49 Dose: Not Given Loperamide HCl (Imodium) 2 mg PO Q2H PRN PRN PRN Reason: Diarrhea Ondansetron HCl (Zofran) 4 mg IV Q6H PRN PRN PRN Reason: NAUSEA Last Admin: 02/22/17 14:22 Dose: 4 mg Prochlorperazine Maleate (Compazine) 10 mg PO Q6H PRN PRN Reason: NAUSEA Sodium Chloride () 5 - 30 ml IV UD PRN PRN Reason: SALINE FLUSH Tamsulosin HCl (Flomax) 0.8 mg PO DAILY@1730 [facility] Last Admin: 02/23/17 16:49 Dose: 0.8 mg Assessment/Plan 77-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 Abdominal pain, unclear etiology, likely related to gastroenteritis, improved, CT scan of the abdomen and pelvis showed non-specific increased marking within peritoneal fat at the root of the mesentery and pericolic gutters. Plan: Will continue to manage conservatively 2. Diarrhea, acute, stool lactoferrin positive, c. diff negative, enteric panel negative, continue on meropenem for now, will consider de-escalating it tomorrow to Cipro and Flagyl. 3. Pancytopenia due to recent chemotherapy, ANC count is 1000, would continue to monitor 4. CLL, following Dr. Mitchell, last chemotherapy was a week ago 5. Hypertension, controlled 6. Hyperlipidemia, on statin 7. Type II DM, blood sugars have been stable, continue glimepiride 8. DVT prophylaxis with Lovenox subcu
[2017-02-23] MEDS: Atorvastatin Calcium 40 MG Tablet PO (21:39)
[2017-02-23 21:46] VITALS: BP 131/69; PULSE 69; RESP 16; TEMP 36.8; O2SAT 98
[2017-02-23 23:51] LABS: Bedside Glucose 126 mg/dL (70-110)
[2017-02-24 03:45] VITALS: BP 132/64; PULSE 68; RESP 16; TEMP 35.9; O2SAT 95
[2017-02-24] MEDS: Piperacil/Tazobactam 3.375 GM/50 ML ML IV ×3 (06:29→21:27)
[2017-02-24] MEDS: Loperamide 2 MG Capsule PO (07:15)
[2017-02-24 07:16] LABS: Bedside Glucose 149 mg/dL (70-110)
--- NOTE | 2017-02-24 08:17 | PCM.PROGNOTE ---
Subjective: Patient denies sharp lower abdominal pain at this time. However, he had several episode of diarrhea after eating, and later abdominal cramps. He has no fever, nausea, vomiting or stomatitis. Stool culture and C. difficile toxins were negative. He is currently on Zosyn. - Physical Exam General: Alert, No apparent distress Oral: No Gingival or Mucosal Lesions/ Ulcerations Neck: Supple, No JVD Lungs: Clear to auscultation Cardiovascular: Regular rate, Regular Rhythm, Normal S1, Normal S2, No murmurs Abdomen: Bowel Sounds Present, Non Tender, Splenomegaly Extremities: No clubbing, No cyanosis, No edema Skin: No rashes Lymphatic: No Cervical, Supraclavicular, or Inguinal Adenopathy Neurological: Neuro grossly intact Psych/Mental Status: Normal Affect Vital Signs Temp Pulse Resp BP Pulse Ox 96.6 F 68 16 132/64 95 02/24/17 03:45 02/24/17 03:45 02/24/17 03:45 02/24/17 03:45 02/24/17 03:45 Oxygen Delivery Method Room Air Intake and Output for Last 24 Hours 02/22/17 02/23/17 02/24/17 23:59 23:59 23:59 Intake Total 436 Balance 436 POC Glucose 02/24/17 02/23/17 02/23/17 07:08 21:38 16:38 POC Glucose 149 H 126 H 93 Assessment/Plan 1. Abdominal pain secondary to colitis/diverticulitis CT scan of the abdomen and pelvis showed non-specific increased marking within peritoneal fat at the root of the mesentery and pericolic gutters. There are no further thickening of the sigmoid colon seen in his previous scan. Plan: -Continue Dilaudid IV 1 mg every 3 hours, -continue NPO because of diarrhea. May resume clear liquid diet when diarrhea improved. -Continue IV Zosyn. 2. Diarrhea secondary to colitis, rule out C. difficile, will place on contact isolation, stool for enteric panel was negative. -continue IV hydration -Start Sandostatin 100mcg IV 3 times a day 3. Pancytopenia due to recent chemotherapy, ANC count is 1000 -Platelet count stable after chemotherapy. -Start Granix 300 mcg sq daily if ANC < 1000 today. 4. 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 -follow up with me in the outpatient office this Wednesday.
[2017-02-24 08:58] LABS: Absolute Lymphocyte Count 0.16 X10^3/ul (0.83-4.51); Absolute Neutrophil Count 1.1 X10^3/uL (2.0-7.7); Basophil# 0.01 X10^3/uL; Basophil% 0.7 % (0-1); Eosinophil# 0.04 X10^3/uL; Hematocrit 31.9 % (40-54); Hemoglobin 9.6 g/dl (13.0-16.5); Lymphocyte # 0.16 X10^3/ul (4.0); Lymphocyte % 11.9 % (19-41); Mean Corp Hgb Conc 30.1 g/gl (32-36); Mean Corpuscular Hgb 23.9 pg (27.0-32.0); Mean Corpuscular Volume 79.4 fL (80-94); Mean Platelet Vol. 9.7 fl (6.2-12.0); Monocyte# 0.08 X10^3/uL; Monocyte% 5.9 % (0-10); Neutrophil # 1.06 X10^3/uL (2.7-7.7); Neutrophil % 78.5 % (47-70); Platelet Count 56 K/mm3 (150-450); RBC Distribution Width CV 15.9 % (11.6-14.6); RBC Distribution Width SD 45.8 fl (35.1-43.9); Red Blood Count 4.02 M/mm3 (4.6-6.2)
[2017-02-24] MEDS: HYDROCHLOROTHIAZIDE 12.5 MG CAPSULE PO (08:59)
[2017-02-24] MEDS: Aspirin 81 MG TAB.CHEW PO (08:59)
[2017-02-24] MEDS: Glimepiride 2 MG Tablet 4 MG PO (08:59)
[2017-02-24] MEDS: Allopurinol 300 MG Tablet PO (08:59)
[2017-02-24] MEDS: Famotidine 20 MG Tablet PO ×2 (09:00→21:29)
[2017-02-24 09:01] LABS: Differential Indicated SCAN CRITERIA MET; POSITIVE COUNT YES; POSITIVE DIFFERENTIAL YES; POSITIVE MORPHOLOGY NO
[2017-02-24 09:02] LABS: White Blood Count 1.4 K/mm3 (4.4-11.0)
[2017-02-24 09:07] VITALS: BP 140/68; PULSE 73; RESP 18; TEMP 36.4; O2SAT 98
[2017-02-24 09:26] LABS: Anion Gap 9 (5-15); BUN 8 mg/dL (7-18); BUN/Creat Ratio 9.2 RATIO (10-20); Calcium,Total 7.9 mg/dL (8.5-10.1); Chloride 105 mmol/L (98-107); Creatinine, Serum 0.87 mg/dL (0.70-1.30); EST Glomerular Filtration Rate 91 mL/min (>60); Est Glom Filt Rate - Afr Amer 110 mL/min (>60); Estimated Creatinine Clearance 70.98 ml/min; Glucose 142 mg/dL (70-110); Potassium 3.2 mmol/L (3.5-5.1); Sodium Level 141 mmol/L (136-145)
--- NOTE | 2017-02-24 09:36 | PN_ITS ---
Subjective: Patient was seen and examined. Had 2 episodes of abdominal pain requiring the use of Dilaudid. Still having diarrhea, 3 times this morning, kept n.p.o. by Dr. Mitchell. Denies any fever or chills. Not in isolation because his C. difficile and stool for enteric panel was negative. Denies any nausea or vomiting Objective: Physical Exam General: Alert, Oriented x3, Cooperative, not pale, not jaundiced HEENT: Atraumatic, PERRLA, EOMI, Normocephalic Oral: Moist Mucosa Neck: Supple, No JVD Lungs: Clear to auscultation, Normal air movement Cardiovascular: Regular rate, Regular Rhythm, Normal S1, Normal S2, No murmurs Abdomen: Bowel Sounds Present, Soft, Non-Distended, No Hepato-splenomegaly, Obese, non-tender Extremities: No edema Skin: No rashes Musculoskeletal: No Tenderness to Palpation of Joints or Extremities Lymphatic: No Cervical, Supraclavicular, or Inguinal Adenopathy Neurological: Cranial nerves II-XII grossly intact, Neuro grossly intact Psych/Mental Status: Normal Affect, Appropriate Vitals/I&O's: Vital Signs Temp Pulse Resp BP Pulse Ox 97.6 F 73 18 140/68 98 02/24/17 09:07 02/24/17 09:07 02/24/17 09:07 02/24/17 09:07 02/24/17 09:07 Oxygen Delivery Method Room Air Intake and Output for Last 24 Hours 02/22/17 02/23/17 02/24/17 23:59 23:59 23:59 Intake Total 436 Balance 436 Laboratory Results 02/23/17 16:38: POC Glucose 93 02/23/17 21:38: POC Glucose 126 H 02/24/17 07:08: POC Glucose 149 H 02/24/17 08:40: WBC 1.4 L*, RBC 4.02 L, Hgb 9.6 L, Hct 31.9 L, MCV 79.4 L, MCH 23.9 L, MCHC 30.1 L, RDW 15.9 H, RDW Differential 45.8 H, Plt Count 56 L, MPV 9.7, Immature Gran % (Auto) 0.000, Neut % (Auto) 78.5 H, Lymph % (Auto) 11.9 L, Bryan % (Auto) 5.9, Eos % (Auto) 3.0, Baso % (Auto) 0.7, Absolute Neuts (auto) 1.1 L, Absolute Lymphs (auto) 0.16 L, Total Counted Pending 02/24/17 08:40: Sodium 141, Potassium 3.2 L, Chloride 105, Carbon Dioxide 27.0, Anion Gap 9, BUN 8, Creatinine 0.87, Estim Creat Clear Calc 70.98, Est GFR (MDRD ) Af Amer 110, Est GFR (MDRD) Non-Af 91, BUN/Creatinine Ratio 9.2 L, Glucose 142 H, Calcium 7.9 L Current Medications Allopurinol (Zyloprim) 300 mg PO DAILY@0800 [facility] Last Admin: 02/24/17 08:59 Dose: 300 mg Aspirin (Aspirin, Baby) 81 mg PO DAILY@0800 [facility] Last Admin: 02/24/17 08:59 Dose: 81 mg Atorvastatin Calcium (Lipitor) 40 mg PO QHS [facility] Last Admin: 02/23/17 21:39 Dose: 40 mg Dextrose (D50w Syringe) 0 gm IV X1 PRN; Protocol PRN Reason: Hypoglycemia Famotidine (Pepcid) 20 mg PO BID [facility] Last Admin: 02/24/17 09:00 Dose: 20 mg [facility] ([facility]l) [facility] Last Admin: 02/24/17 08:59 Dose: 4 mg Glucagon () 1 mg IM .X1 PRN PRN Reason: Hypoglycemia Hydrochlorothiazide (Hydrochlorothiazide) 12.5 mg PO DAILY [facility] Last Admin: 02/24/17 08:59 Dose: 12.5 mg Hydromorphone HCl (Dilaudid) 2 mg IV Q3H PRN PRN PRN Reason: SEVERE PAIN (6-1010) Last Admin: 02/23/17 19:26 Dose: 2 mg Piperacillin Sod/Tazobactam Sod (Zosyn) 3.375 gm in 50 mls @ 12.5 mls/hr IV Q8 [facility] Last Admin: 02/24/17 06:29 Dose: 12.5 mls/hr Insulin Aspart (Novolog Flexpen (Bkc)) 0 units SC ACHS [facility] PRN Reason: Protocol Last Admin: 02/24/17 07:04 Dose: Not Given Loperamide HCl (Imodium) 2 mg PO Q2H PRN PRN PRN Reason: Diarrhea Last Admin: 02/24/17 07:15 Dose: 2 mg Octreotide Acetate (Sandostatin) 0.1 mg IV TID [facility] Ondansetron HCl (Zofran) 4 mg IV Q6H PRN PRN PRN Reason: NAUSEA Last Admin: 02/22/17 14:22 Dose: 4 mg Prochlorperazine Maleate (Compazine) 10 mg PO Q6H PRN PRN Reason: NAUSEA Sodium Chloride () 5 - 30 ml IV UD PRN PRN Reason: SALINE FLUSH Tamsulosin HCl (Flomax) 0.8 mg PO DAILY@1730 [facility] Last Admin: 02/23/17 16:49 Dose: 0.8 mg Assessment/Plan 77-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 Abdominal pain, unclear etiology, likely related to gastroenteritis, improved, continue to monitor and treat conservatively 2. Diarrhea, acute, etiology is likely viral vs partially treated bacteria infection; partially treated because he was on antibiotics prior to admission, stool lactoferrin is positive, c. diff negative, enteric panel negative, will continue on Zosyn until tomorrow and then was switched to oral antibiotics to complete a total of 7 days of antibiotics. We will add lactobacillus to prevent C. difficile. We will continue on IV fluids and Imodium as needed whilst kept n.p.o. 3. Pancytopenia due to recent chemotherapy, ANC count is 1000, would continue to monitor 4. CLL, following Dr. Mitchell, last chemotherapy was a week ago 5. Hypertension, controlled 6. Hyperlipidemia, on statin 7. Type II DM, blood sugars have been stable, continue glimepiride 8. DVT prophylaxis with Lovenox subcu This note was generated with [employer] dictation software. It may contain incorrect words, spelling, and punctuation that were not noted in checking the note before signing.
[2017-02-24 09:58] LABS: Pathologist Review Reviewed
[2017-02-24] MEDS: 0.9% Normal Saline 1,000 ML 75 ML IV (12:36)
[2017-02-24] MEDS: 0.9% NaCl Peripheral Flush Adult/Peds IV (12:40)
[2017-02-24 12:46] LABS: Bedside Glucose 142 mg/dL (70-110)
[2017-02-24 14:16] LABS: Pathologist Review Reviewed
--- NOTE | 2017-02-24 14:20 | CASEMGMT ---
RN CM met [id number] with patient to complete RN CM assessment. Patient laying in bed with spouse at bedside, patient is alert and oriented, agreeable to participate in RN CM assessment. See attached link for full assessment. Disposition Plan: Home with support of spouse and with follow-up plans in place. Patient is to follow-up with Dr. Mitchell on Wednesday.
[2017-02-24] MEDS: Octreotide 0.1 MG/ML ML IV ×2 (14:46→21:25)
[2017-02-24 15:00] VITALS: BP 133/48; PULSE 62; RESP 18; TEMP 36.7; O2SAT 97
[2017-02-24] MEDS: Tamsulosin HCl 0.4 MG Capsule 0.8 MG PO (17:55)
[2017-02-24 18:11] LABS: Bedside Glucose 115 mg/dL (70-110)
[2017-02-24 20:25] VITALS: BP 138/63; PULSE 64; RESP 18; TEMP 36.6; O2SAT 98
[2017-02-24] MEDS: Atorvastatin Calcium 40 MG Tablet PO (21:29)
--- NOTE | 2017-02-24 23:40 | NURSING ---
when pt informed I would be back between 2 and 3 am to get his blood pressure and assess him, he requested I let him sleep. Pt was agreeable to being waken up between 4 and 5.
[2017-02-24 23:46] LABS: Bedside Glucose 118 mg/dL (70-110)
[2017-02-25] MEDS: 0.9% Normal Saline 1,000 ML 75 ML IV (01:50)
[2017-02-25 05:10] VITALS: BP 131/64; PULSE 61; RESP 20; TEMP 36.6; O2SAT 98
[2017-02-25] MEDS: Octreotide 0.1 MG/ML ML IV ×3 (05:19→22:14)
[2017-02-25] MEDS: Piperacil/Tazobactam 3.375 GM/50 ML ML IV ×3 (05:21→22:05)
[2017-02-25 05:37] LABS: Bedside Glucose 113 mg/dL (70-110)
[2017-02-25 05:59] LABS: Absolute Lymphocyte Count 0.14 X10^3/ul (0.83-4.51); Absolute Neutrophil Count 0.8 X10^3/uL (2.0-7.7); Basophil# 0.01 X10^3/uL; Basophil% 0.9 % (0-1); Eosinophil# 0.04 X10^3/uL; Eosinophils% 3.4 % (0-5); Hematocrit 29.5 % (40-54); Hemoglobin 8.9 g/dl (13.0-16.5); Lymphocyte # 0.14 X10^3/ul (4.0); Lymphocyte % 12.1 % (19-41); Mean Corp Hgb Conc 30.2 g/gl (32-36); Mean Corpuscular Volume 79.5 fL (80-94); Mean Platelet Vol. 10.4 fl (6.2-12.0); Monocyte# 0.16 X10^3/uL; Monocyte% 13.8 % (0-10); Neutrophil # 0.81 X10^3/uL (2.7-7.7); Neutrophil % 69.8 % (47-70); Platelet Count 65 K/mm3 (150-450); RBC Distribution Width CV 16.2 % (11.6-14.6); Red Blood Count 3.71 M/mm3 (4.6-6.2)
[2017-02-25 06:02] LABS: Differential Indicated SCAN CRITERIA MET; POSITIVE COUNT YES; POSITIVE DIFFERENTIAL YES; POSITIVE MORPHOLOGY NO; White Blood Count 1.2 K/mm3 (4.4-11.0)
[2017-02-25 06:11] LABS: Anion Gap 9 (5-15); BUN 8 mg/dL (7-18); BUN/Creat Ratio 10.3 RATIO (10-20); Calcium,Total 7.7 mg/dL (8.5-10.1); Chloride 107 mmol/L (98-107); Creatinine, Serum 0.77 mg/dL (0.70-1.30); EST Glomerular Filtration Rate 104 mL/min (>60); Est Glom Filt Rate - Afr Amer 126 mL/min (>60); Estimated Creatinine Clearance 61.75 ml/min; Glucose 109 mg/dL (70-110); Potassium 3.3 mmol/L (3.5-5.1); Sodium Level 143 mmol/L (136-145)
--- NOTE | 2017-02-25 07:50 | PN_ITS ---
Subjective: Patient was seen and examined. Denies any abdominal pain the last 24 hours. Has had 2 bowel movements in the last 24 hours. Denies any fever or chills. No nausea or vomiting. Diet has been advanced by Dr. Mitchell. Objective: Physical Exam General: Alert, Oriented x3, Cooperative, not pale, not jaundiced HEENT: Atraumatic, PERRLA, EOMI, Normocephalic Oral: Moist Mucosa Neck: Supple, No JVD Lungs: Clear to auscultation, Normal air movement Cardiovascular: Regular rate, Regular Rhythm, Normal S1, Normal S2, No murmurs Abdomen: Bowel Sounds Present, Soft, Non-Distended, No Hepato-splenomegaly, Obese, non-tender Extremities: No edema Skin: No rashes Musculoskeletal: No Tenderness to Palpation of Joints or Extremities Lymphatic: No Cervical, Supraclavicular, or Inguinal Adenopathy Neurological: Cranial nerves II-XII grossly intact, Neuro grossly intact Psych/Mental Status: Normal Affect, Appropriate Vitals/I&O's: Vital Signs Temp Pulse Resp BP Pulse Ox 97.8 F 61 20 131/64 98 02/25/17 05:10 02/25/17 05:10 02/25/17 05:10 02/25/17 05:10 02/25/17 05:10 Oxygen Delivery Method Room Air Intake and Output for Last 24 Hours 02/23/17 02/24/17 02/25/17 23:59 23:59 23:59 Intake Total 938 1089 Balance 938 1089 Laboratory Results 02/24/17 08:40: WBC 1.4 L*, RBC 4.02 L, Hgb 9.6 L, Hct 31.9 L, MCV 79.4 L, MCH 23.9 L, MCHC 30.1 L, RDW 15.9 H, RDW Differential 45.8 H, Plt Count 56 L, MPV 9.7, Immature Gran % (Auto) 0.000, Neut % (Auto) 78.5 H, Lymph % (Auto) 11.9 L, Millard % (Auto) 5.9, Eos % (Auto) 3.0, Baso % (Auto) 0.7, Absolute Neuts (auto) 1.1 L, Absolute Lymphs (auto) 0.16 L, Total Counted Not Reportable, Differential Comment , Diff Path Review Reviewed 02/24/17 08:40: Sodium 141, Potassium 3.2 L, Chloride 105, Carbon Dioxide 27.0, Anion Gap 9, BUN 8, Creatinine 0.87, Estim Creat Clear Calc 70.98, Est GFR (MDRD ) Af Amer 110, Est GFR (MDRD) Non-Af 91, BUN/Creatinine Ratio 9.2 L, Glucose 142 H, Calcium 7.9 L 02/24/17 12:35: POC Glucose 142 H 02/24/17 17:53: POC Glucose 115 H 02/24/17 23:36: POC Glucose 118 H 02/25/17 05:22: WBC 1.2 L*, RBC 3.71 L, Hgb 8.9 L, Hct 29.5 L, MCV 79.5 L, MCH 24.0 L, MCHC 30.2 L, RDW 16.2 H, RDW Differential 44.0 H, Plt Count 65 L, MPV 10.4, Immature Gran % (Auto) 0.000, Neut % (Auto) 69.8, Lymph % (Auto) 12.1 L, Millard % (Auto) 13.8 H, Eos % (Auto) 3.4, Baso % (Auto) 0.9, Absolute Neuts (auto ) 0.8 L, Absolute Lymphs (auto) 0.14 L, Total Counted Not Reportable, Diff Path Review May 02/25/17 05:22: Sodium 143, Potassium 3.3 L, Chloride 107, Carbon Dioxide 27.0, Anion Gap 9, BUN 8, Creatinine 0.77, Estim Creat Clear Calc 61.75, Est GFR (MDRD ) Af Amer 126, Est GFR (MDRD) Non-Af 104, BUN/Creatinine Ratio 10.3, Glucose 109 , Calcium 7.7 L 02/25/17 05:26: POC Glucose 113 H Current Medications Allopurinol (Zyloprim) 300 mg PO DAILY@0800 [facility] Last Admin: 02/24/17 08:59 Dose: 300 mg Aspirin (Aspirin, Baby) 81 mg PO DAILY@0800 [facility] Last Admin: 02/24/17 08:59 Dose: 81 mg Atorvastatin Calcium (Lipitor) 40 mg PO QHS [facility] Last Admin: 02/24/17 21:29 Dose: 40 mg Dextrose (D50w Syringe) 0 gm IV X1 PRN; Protocol PRN Reason: Hypoglycemia Famotidine (Pepcid) 20 mg PO BID [facility] Last Admin: 02/24/17 21:29 Dose: 20 mg [facility]) [facility] Last Admin: 02/24/17 08:59 Dose: 4 mg Glucagon () 1 mg IM .X1 PRN PRN Reason: Hypoglycemia Hydrochlorothiazide (Hydrochlorothiazide) 12.5 mg PO DAILY [facility] Last Admin: 02/24/17 08:59 Dose: 12.5 mg Hydromorphone HCl (Dilaudid) 2 mg IV Q3H PRN PRN PRN Reason: SEVERE PAIN (6-02/09) Last Admin: 02/23/17 19:26 Dose: 2 mg Piperacillin Sod/Tazobactam Sod (Zosyn) 3.375 gm in 50 mls @ 12.5 mls/hr IV Q8 [facility] Last Admin: 02/25/17 05:21 Dose: 12.5 mls/hr Sodium Chloride () 1,000 mls @ 75 mls/hr IV .[id number] [facility] Stop: 02/25/17 14:34 Last Admin: 02/25/17 01:50 Dose: 75 mls/hr Insulin Aspart (Novolog Flexpen (Bkc)) 0 units SC Q6 [facility] PRN Reason: Protocol Last Admin: 02/25/17 05:28 Dose: Not Given Lactobacillus Acidophilus (Acidophilus) 1 tablet PO TID [facility] Last Admin: 02/25/17 05:22 Dose: 1 tablet Loperamide HCl (Imodium) 2 mg PO Q2H PRN PRN PRN Reason: Diarrhea Last Admin: 02/24/17 07:15 Dose: 2 mg Octreotide Acetate (Sandostatin) 0.1 mg IV TID [facility] Last Admin: 02/25/17 05:19 Dose: 0.1 mg Ondansetron HCl (Zofran) 4 mg IV Q6H PRN PRN PRN Reason: NAUSEA Last Admin: 02/22/17 14:22 Dose: 4 mg Potassium Chloride (K-Dur) 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 Abdominal pain likely related to gastroenteritis, improving 2. Diarrhea, acute, likely bacteria gastroenteritis, worsened with last chemotherapy. I do not think this is due to acute diverticulitis as the CT scan of the abdomen did not point to diverticulitis. Stool lactoferrin was positive but stool for enteric panel and C. difficile were negative. Been on antibiotics in the outpatient for which he failed, on IV antibiotics in the last 24 hours. will continue on Zosyn until tomorrow and will stop IV antibiotics as he would have had 5 days parenteral antibiotics. Upon review of the clinical picture, would not recommend follow-up in the outpatient with antibiotics 3. Pancytopenia due to recent chemotherapy, ANC count is 800, started on Granix by oncology. 4. CLL, following Dr. Mitchell, last chemotherapy was a week ago 5. Hypertension, controlled 6. Hyperlipidemia, on statin 7. Type II DM, blood sugars have been stable, continue glimepiride 8. DVT prophylaxis with Lovenox subcu This note was generated with [employer] dictation software. It may contain incorrect words, spelling, and punctuation that were not noted in checking the note before signing.
--- NOTE | 2017-02-25 07:57 | PN_ITS ---
Subjective: Overall, feeling better. He denies abdominal pain. No fever or chills, nausea or stomatitis. He had 2 episodes of diarrhea last night and this morning, but stool is thickening. No blood per rectum. - Physical Exam General: Alert, Oriented x3, Cooperative, No apparent distress HEENT: Atraumatic, PERRLA, EOMI Oral: Moist Mucosa, No Gingival or Mucosal Lesions/ Ulcerations Neck: Supple, No JVD Lungs: Clear to auscultation Cardiovascular: Regular rate, Regular Rhythm, Normal S1, Normal S2 Abdomen: Bowel Sounds Present, Soft, Non Tender, Non-Distended, Splenomegaly Extremities: No clubbing, No cyanosis, No edema Skin: No rashes Lymphatic: No Cervical, Supraclavicular, or Inguinal Adenopathy Neurological: Neuro grossly intact Psych/Mental Status: Normal Affect Vital Signs Temp Pulse Resp BP Pulse Ox 97.8 F 61 20 131/64 98 02/25/17 05:10 02/25/17 05:10 02/25/17 05:10 02/25/17 05:10 02/25/17 05:10 Oxygen Delivery Method Room Air Intake and Output for Last 24 Hours 02/23/17 02/24/17 02/25/17 23:59 23:59 23:59 Intake Total 938 1089 Balance 938 1089 Laboratory Tests Past 24 Hrs 02/24/17 02/24/17 02/25/17 08:40 08:40 05:22 WBC 1.4 L* 1.2 L* RBC 4.02 L 3.71 L Hgb 9.6 L 8.9 L Hct 31.9 L 29.5 L MCV 79.4 L 79.5 L MCH 23.9 L 24.0 L MCHC 30.1 L 30.2 L RDW 15.9 H 16.2 H RDW Differential 45.8 H 44.0 H Plt Count 56 L 65 L MPV 9.7 10.4 Immature Gran % (Auto) 0.000 0.000 Neut % (Auto) 78.5 H 69.8 Lymph % (Auto) 11.9 L 12.1 L Saunders % (Auto) 5.9 13.8 H Eos % (Auto) 3.0 3.4 Baso % (Auto) 0.7 0.9 Absolute Neuts (auto) 1.1 L 0.8 L Absolute Lymphs (auto) 0.16 L 0.14 L Total Counted Not Reportable Not Reportable Differential Comment Diff Path Review Reviewed May foll Sodium 141 Potassium 3.2 L Chloride 105 Carbon Dioxide 27.0 Anion Gap 9 BUN 8 Creatinine 0.87 Estim Creat Clear Calc 70.98 Est GFR (MDRD) Af Amer 110 Est GFR (MDRD) Non-Af 91 BUN/Creatinine Ratio 9.2 L Glucose 142 H Calcium 7.9 L 02/25/17 05:22 WBC RBC Hgb Hct MCV MCH MCHC RDW RDW Differential Plt Count MPV Immature Gran % (Auto) Neut % (Auto) Lymph % (Auto) Saunders % (Auto) Eos % (Auto) Baso % (Auto) Absolute Neuts (auto) Absolute Lymphs (auto) Total Counted Differential Comment Diff Path Review Sodium 143 Potassium 3.3 L Chloride 107 Carbon Dioxide 27.0 Anion Gap 9 BUN 8 Creatinine 0.77 Estim Creat Clear Calc 61.75 Est GFR (MDRD) Af Amer 126 Est GFR (MDRD) Non-Af 104 BUN/Creatinine Ratio 10.3 Glucose 109 Calcium 7.7 L POC Glucose 02/25/17 02/24/17 02/24/17 05:26 23:36 17:53 POC Glucose 113 H 118 H 115 H 02/24/17 12:35 POC Glucose 142 H Assessment/Plan 1. Abdominal pain secondary to colitis/diverticulitis CT scan of the abdomen and pelvis showed non-specific increased marking within peritoneal fat at the root of the mesentery and pericolic gutters. There are no further thickening of the sigmoid colon seen in his previous scan. Plan: -Continue Dilaudid IV 1 mg every 3 hours, -May resume clear liquid diet today and advance as tolerated. -Continue IV Zosyn. -May switch back to oral Flagyl & ciprofloxacin as a symptom improved. 2. Diarrhea secondary to colitis, rule out C. difficile, stool for enteric panel was negative. -continue IV hydration and replace potassium -Continue Sandostatin 100mcg IV 3 times a day 3. Pancytopenia due to recent chemotherapy, ANC count is 1000 -Platelet count stable after chemotherapy. -Start Granix 300 mcg sq daily neutropenia. 4. 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 -follow up with me in the outpatient office in 2 weeks.
[2017-02-25 08:38] VITALS: BP 132/62; PULSE 65; RESP 16; TEMP 36.7; O2SAT 98
[2017-02-25] MEDS: Allopurinol 300 MG Tablet PO (09:35)
[2017-02-25] MEDS: HYDROCHLOROTHIAZIDE 12.5 MG CAPSULE PO (09:35)
[2017-02-25] MEDS: Famotidine 20 MG Tablet PO ×2 (09:36→22:06)
[2017-02-25] MEDS: TBO-FILGRASTIM 300 MCG/0.5 ML ML SC (09:39)
[2017-02-25 11:56] VITALS: BP 133/67; PULSE 68; RESP 16; TEMP 36.4; O2SAT 98
[2017-02-25 16:09] VITALS: BP 129/73; PULSE 60; RESP 16; TEMP 36.2; O2SAT 97
[2017-02-25 16:25] LABS: Bedside Glucose 179 mg/dL (70-110)
[2017-02-25] MEDS: Tamsulosin HCl 0.4 MG Capsule 0.8 MG PO (18:00)
[2017-02-25 20:00] VITALS: BP 126/74; PULSE 66; RESP 18; TEMP 36.8; O2SAT 100
[2017-02-25] MEDS: 0.9% NaCl Peripheral Flush Adult/Peds IV ×3 (20:25→22:29)
[2017-02-25] MEDS: Atorvastatin Calcium 40 MG Tablet PO (22:08)
[2017-02-25 23:41] LABS: Bedside Glucose 130 mg/dL (70-110)
[2017-02-26 06:14] LABS: Absolute Lymphocyte Count 0.34 X10^3/ul (0.83-4.51); Absolute Neutrophil Count 4.2 X10^3/uL (2.0-7.7); Basophil# 0.03 X10^3/uL; Basophil% 0.6 % (0-1); Eosinophil# 0.06 X10^3/uL; Eosinophils% 1.2 % (0-5); Hemoglobin 9.6 g/dl (13.0-16.5); Lymphocyte # 0.34 X10^3/ul (4.0); Mean Corpuscular Hgb 24.4 pg (27.0-32.0); Mean Corpuscular Volume 78.9 fL (80-94); Mean Platelet Vol. 9.7 fl (6.2-12.0); Monocyte# 0.22 X10^3/uL; Monocyte% 4.5 % (0-10); Neutrophil # 4.23 X10^3/uL (2.7-7.7); Neutrophil % 86.5 % (47-70); POSITIVE COUNT NO; POSITIVE DIFFERENTIAL YES; POSITIVE MORPHOLOGY NO; Platelet Count 73 K/mm3 (150-450); RBC Distribution Width CV 16.4 % (11.6-14.6); RBC Distribution Width SD 44.2 fl (35.1-43.9); Red Blood Count 3.93 M/mm3 (4.6-6.2); White Blood Count 4.9 K/mm3 (4.4-11.0)
[2017-02-26 06:15] LABS: Differential Indicated SCAN CRITERIA MET
[2017-02-26 06:35] LABS: Anion Gap 9 (5-15); BUN 6 mg/dL (7-18); BUN/Creat Ratio 6.9 RATIO (10-20); Calcium,Total 7.8 mg/dL (8.5-10.1); Chloride 108 mmol/L (98-107); Creatinine, Serum 0.87 mg/dL (0.70-1.30); EST Glomerular Filtration Rate 91 mL/min (>60); Est Glom Filt Rate - Afr Amer 110 mL/min (>60); Estimated Creatinine Clearance 70.98 ml/min; Glucose 139 mg/dL (70-110); Potassium 3.6 mmol/L (3.5-5.1); Sodium Level 142 mmol/L (136-145)
[2017-02-26] MEDS: Piperacil/Tazobactam 3.375 GM/50 ML ML IV (06:43)
[2017-02-26] MEDS: Octreotide 0.1 MG/ML ML IV (06:44)
[2017-02-26] MEDS: 0.9% NaCl Peripheral Flush Adult/Peds IV (06:45)
[2017-02-26 06:51] VITALS: BP 124/55; PULSE 62; RESP 18; TEMP 36.5; O2SAT 97
[2017-02-26 07:01] LABS: Bedside Glucose 133 mg/dL (70-110)
[2017-02-26 07:31] VITALS: BP 126/64; PULSE 61; RESP 16; TEMP 36.9; O2SAT 98
--- NOTE | 2017-02-26 07:46 | PCM.PROGNOTE ---
Subjective: Patient has no complaint today. Denied abdominal pain or diarrhea. Tolerating diet. No nausea, vomiting or stomatitis. Denied cough or shortness of breath. No fever since admission. - Physical Exam General: Alert, Oriented x3, Cooperative, No apparent distress HEENT: Atraumatic, PERRLA, EOMI Oral: Moist Mucosa, No Gingival or Mucosal Lesions/ Ulcerations Neck: Supple, No JVD Lungs: Clear to auscultation, Normal air movement Cardiovascular: Regular rate, Regular Rhythm, Normal S1, Normal S2, No murmurs Abdomen: Bowel Sounds Present, Soft, Non Tender, Non-Distended, Splenomegaly Extremities: No clubbing, No cyanosis, No edema Skin: No rashes Lymphatic: No Cervical, Supraclavicular, or Inguinal Adenopathy Neurological: Neuro grossly intact Psych/Mental Status: Normal Affect Vital Signs Temp Pulse Resp BP Pulse Ox 98.4 F 61 16 126/64 98 02/26/17 07:31 02/26/17 07:31 02/26/17 07:31 02/26/17 07:31 02/26/17 07:31 Oxygen Delivery Method Room Air Weight: 181 lb 7.047 oz Intake and Output for Last 24 Hours 02/24/17 02/25/17 02/26/17 23:59 23:59 23:59 Intake Total 938 2276 527 Balance 938 2276 527 Laboratory Tests Past 24 Hrs 02/26/17 02/26/17 05:36 05:36 WBC 4.9 RBC 3.93 L Hgb 9.6 L Hct 31.0 L MCV 78.9 L MCH 24.4 L MCHC 31.0 L RDW 16.4 H RDW Differential 44.2 H Plt Count 73 L MPV 9.7 Immature Gran % (Auto) 0.200 Neut % (Auto) 86.5 H Lymph % (Auto) 7.0 L Hardin % (Auto) 4.5 Eos % (Auto) 1.2 Baso % (Auto) 0.6 Absolute Neuts (auto) 4.2 Absolute Lymphs (auto) 0.34 L Total Counted Not Reportable Sodium 142 Potassium 3.6 Chloride 108 H Carbon Dioxide 25.0 Anion Gap 9 BUN 6 L Creatinine 0.87 Estim Creat Clear Calc 70.98 Est GFR (MDRD) Af Amer 110 Est GFR (MDRD) Non-Af 91 BUN/Creatinine Ratio 6.9 L Glucose 139 H Calcium 7.8 L POC Glucose 02/26/17 02/25/17 02/25/17 06:40 22:13 16:06 POC Glucose 133 H 130 H 179 H Assessment/Plan 1. Abdominal pain secondary to colitis/diverticulitis (resolved) Plan: -May advance as tolerated. -Discontinue IV Zosyn. -May switch back to oral Flagyl & ciprofloxacin as a symptom improved. -Possible discharge home this afternoon. 2. Diarrhea secondary to colitis, rule out C. difficile, stool for enteric panel was negative. (Resolved) -Continue Flagyl ciprofloxacin x 5 more days at home 3. Pancytopenia due to recent chemotherapy, ANC is improving with G-CSF -Platelet count and anemia stable after chemotherapy. -Give Granix 300 mcg sq today. -Stop allopurinol. 4. 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 -follow up with me in the outpatient office in 2 weeks before his next cycle of chemotherapy. cc: Dr. Joe Mitchell
[2017-02-26] MEDS: HYDROCHLOROTHIAZIDE 12.5 MG CAPSULE PO (10:32)
[2017-02-26] MEDS: Famotidine 20 MG Tablet PO (10:32)
[2017-02-26] MEDS: TBO-FILGRASTIM 300 MCG/0.5 ML ML SC (10:32)
[2017-02-26] MEDS: Glimepiride 2 MG Tablet 4 MG PO (10:32)
[2017-02-26 11:08] LABS: Pathologist Review Reviewed
--- NOTE | 2017-02-26 11:14 | PCM.DC ---
- Discharge Diagnoses Current Active Problems: Current Active and Chronic Problems CLL (chronic lymphocytic leukemia) (Chronic) Reason(s) for Visit for Discharge Instructions: Abdominal pain, diarrhea You will use the following diet at home:: Calorie/Carbohydrate Controlled (specify 1200, 1400, etc) Your food should be the consistency of: Regular Your liquids should be the consistency of: Regular/Thin Discharge Activity: Return to Normal Activity Allergies/Adverse Reactions: Allergies acetaminophen [From Vicodin] Allergy (Verified 02/22/17 09:09) Rash cefazolin sodium [From Ancef] Allergy (Verified 02/22/17 09:09) Rash hydrocodone bitartrate [From Vicodin] Allergy (Verified 02/22/17 09:09) Rash Medications to take at Discharge Aspirin [Aspirin, Baby] 81 mg PO DAILY@0800 03/25/15 Glimepiride [Amaryl] 4 mg PO DAILY 03/25/15 Metformin HCl [Glucophage] 1,000 mg PO BIDCM 03/25/15 Naproxen Sodium [Aleve] 220 mg PO DAILY PRN PRN 03/25/15 [place]-3 Fatty Acids/Fish Oil [[place] 3 1,000 mg Softgel] 1 each PO DAILY 03/25/15 Rosuvastatin Calcium [Crestor] 20 mg PO QHS 03/25/15 Famotidine [Pepcid] 20 mg PO BID 02/20/17 Hydrochlorothiazide 12.5 mg PO DAILY 02/20/17 Loperamide [Imodium] 2 mg PO Q2H PRN PRN 02/20/17 Losartan Potassium 100 mg PO 02/20/17 Melatonin 1 mg PO QHS 02/20/17 MorphINE Soln [Roxanol] 5 mg PO Q3H PRN 02/20/17 Prochlorperazine Maleate [Compazine] 10 mg PO Q6H PRN 02/20/17 Sitagliptin Phosphate [Januvia] 50 mg PO DAILY 02/20/17 Tamsulosin HCl [Flomax] 0.8 mg PO DAILY 02/20/17 Ciprofloxacin [Cipro] 500 mg PO BID #10 tablet 02/26/17 Lactobacillus Acidophilus [Acidophilus] 1 tablet PO TID #14 tablet 02/26/17 Metronidazole [Flagyl] 500 mg PO TID #15 tab 02/26/17 Potassium Chloride [K-Dur] 40 meq PO BIDCM #6 tablet 02/26/17 The following prescriptions were given: Ciprofloxacin [Cipro] 500 mg PO BID #10 tablet Potassium Chloride [K-Dur] 40 meq PO BIDCM #6 tablet Lactobacillus Acidophilus [Acidophilus] 1 tablet PO TID #14 tablet Metronidazole [Flagyl] 500 mg PO TID #15 tab Orders to be completed after discharge: Basic Metabolic Profile (BMP) Time Frame: 3 Days, Location: Determined By Patient Primary Care Physician: Sherman De Los Santos III, MD [Primary Care Provider] - Please follow up with your Primary Care Physician in: within 1-2 weeks Proposed Discharge Date: 02/26/17
--- NOTE | 2017-02-26 11:20 | DCINST_ITS ---
- Discharge Diagnoses Current Active Problems: Current Active and Chronic Problems CLL (chronic lymphocytic leukemia) (Chronic) Reason(s) for Visit for Discharge Instructions: Abdominal pain, diarrhea You will use the following diet at home:: Calorie/Carbohydrate Controlled ( specify 1200, 1400, etc) Your food should be the consistency of: Regular Your liquids should be the consistency of: Regular/Thin Discharge Activity: Return to Normal Activity Allergies/Adverse Reactions: Allergies acetaminophen [From Vicodin] Allergy (Verified 02/22/17 09:09) Rash cefazolin sodium [From Ancef] Allergy (Verified 02/22/17 09:09) Rash hydrocodone bitartrate [From Vicodin] Allergy (Verified 02/22/17 09:09) Rash Medications to take at Discharge Aspirin [Aspirin, Baby] 81 mg PO DAILY@0800 03/25/15 Glimepiride [Amaryl] 4 mg PO DAILY 03/25/15 Metformin HCl [Glucophage] 1,000 mg PO BIDCM 03/25/15 Naproxen Sodium [Aleve] 220 mg PO DAILY PRN PRN 03/25/15 [place]-3 Fatty Acids/Fish Oil [[place] 3 1,000 mg Softgel] 1 each PO DAILY Rosuvastatin Calcium [Crestor] 20 mg PO QHS 03/25/15 Famotidine [Pepcid] 20 mg PO BID 02/20/17 Hydrochlorothiazide 12.5 mg PO DAILY 02/20/17 Loperamide [Imodium] 2 mg PO Q2H PRN PRN 02/20/17 Losartan Potassium 100 mg PO 02/20/17 Melatonin 1 mg PO QHS 02/20/17 MorphINE Soln [Roxanol] 5 mg PO Q3H PRN 02/20/17 Prochlorperazine Maleate [Compazine] 10 mg PO Q6H PRN 02/20/17 Sitagliptin Phosphate [Januvia] 50 mg PO DAILY 02/20/17 Tamsulosin HCl [Flomax] 0.8 mg PO DAILY 02/20/17 Ciprofloxacin [Cipro] 500 mg PO BID #10 tablet 02/26/17 Lactobacillus Acidophilus [Acidophilus] 1 tablet PO TID #14 tablet 02/26/17 Metronidazole [Flagyl] 500 mg PO TID #15 tab 02/26/17 Potassium Chloride [K-Dur] 40 meq PO BIDCM #6 tablet 02/26/17 The following prescriptions were given: Ciprofloxacin [Cipro] 500 mg PO BID #10 tablet Potassium Chloride [K-Dur] 40 meq PO BIDCM #6 tablet Lactobacillus Acidophilus [Acidophilus] 1 tablet PO TID #14 tablet Metronidazole [Flagyl] 500 mg PO TID #15 tab Orders to be completed after discharge: Basic Metabolic Profile (BMP) Time Frame: 3 Days, Location: Determined By Patient Primary Care Physician: Sherman De Los Santos III, MD [Primary Care Provider] - Please follow up with your Primary Care Physician in: within 1-2 weeks Proposed Discharge Date: 02/26/17
--- NOTE | 2017-02-26 16:48 | PCM.DC.SUM ---
Discharge Date and Diagnosis Date of Admission: 02/22/17 Date of Discharge: 02/26/17 - Primary Discharge Diagnosis Abdominal pain Diarrhea - Secondary Discharge Diagnosis Chronic Problems CLL (chronic lymphocytic leukemia) (Chronic) GERD (gastroesophageal reflux disease) (Chronic) Hyperlipemia (Chronic) Osteoarthritis (Chronic) Type 2 diabetes mellitus (Chronic) Hospital Course and Treatment Imaging Results: Clinical Impression(s) from Imaging Studies Abdomen/Pelvis CT 02/22/17 09:27 IMPRESSION: Small amount of perisplenic fluid. Marked splenomegaly. Nonspecific increased markings in the peritoneal fat as described. This is unchanged. Electronically Signed: Theron Whitehead MD at 11:29 EDT Tel [phone], Service support , Oncology Dr. Mitchell Operations: None Procedures: None Summary of Care Provided: 77-year-old male with CLL, on chemotherapy who comes in with a 12 day history of diarrhea and severe abdominal pain, status post failed outpatient management with antibiotics. Active management has been as follows: 1. Abdominal pain likely related to gastroenteritis, improved with conservative management with pain medication (parenteral) IV fluids, IV antibiotics, 2. Diarrhea, acute, likely gastroenteritis, worsened with last chemotherapy. No acute diverticulitis seen on the CT scan of the abdomen. Stool lactoferrin was positive but stool for enteric panel and C. difficile were negative. Managed by oncologist as acute diverticulitis, antibiotics was continued in the hospital and oncologist wanted patient discharged on Cipro and Flagyl for the next 5 days-up in the outpatient with antibiotics. 3. Pancytopenia due to recent chemotherapy, given Granix by oncology 2 days before discharge, with improvement in the white cell count, need to follow-up with oncology in the outpatient 4. CLL, following Dr. Mitchell, 5. Hypertension, controlled. 6. Hyperlipidemia, on statin. 7. Type II DM, blood sugars have been stable, on glimepiride. Discharge Diet: Low fat/ Low Cholesterol, 2000 mg Sodium Diet Discharge Activity: Return to Normal Activity Home Medications: Medications to take at Discharge RX: Aspirin [Aspirin, Baby] 81 mg PO DAILY@0800 03/25/15 RX: Glimepiride [Amaryl] 4 mg PO DAILY 03/25/15 RX: Metformin HCl [Glucophage] 1,000 mg PO BIDCM 03/25/15 RX: Naproxen Sodium [Aleve] 220 mg PO DAILY PRN PRN 03/25/15 RX: [place]-3 Fatty Acids/Fish Oil [[place] 3 1,000 mg Softgel] 1 each PO DAILY 03/25/15 RX: Rosuvastatin Calcium [Crestor] 20 mg PO QHS 03/25/15 RX: Famotidine [Pepcid] 20 mg PO BID 02/20/17 RX: Hydrochlorothiazide 12.5 mg PO DAILY 02/20/17 RX: Loperamide [Imodium] 2 mg PO Q2H PRN PRN 02/20/17 RX: Losartan Potassium 100 mg PO 02/20/17 RX: Melatonin 1 mg PO QHS 02/20/17 RX: MorphINE Soln [Roxanol] 5 mg PO Q3H PRN 02/20/17 RX: Prochlorperazine Maleate [Compazine] 10 mg PO Q6H PRN 02/20/17 RX: Sitagliptin Phosphate [Januvia] 50 mg PO DAILY 02/20/17 RX: Tamsulosin HCl [Flomax] 0.8 mg PO DAILY 02/20/17 Ciprofloxacin [Cipro] 500 mg PO BID #10 tablet 02/26/17 RX: Lactobacillus Acidophilus [Acidophilus] 1 tablet PO TID #14 tablet 02/26/17 RX: Metronidazole [Flagyl] 500 mg PO TID #15 tab 02/26/17 RX: Potassium Chloride [K-Dur] 40 meq PO BIDCM #6 tablet 02/26/17 Following Prescrptions Were Given to Patient: Ciprofloxacin [Cipro] 500 mg PO BID #10 tablet RX: Potassium Chloride [K-Dur] 40 meq PO BIDCM #6 tablet RX: Lactobacillus Acidophilus [Acidophilus] 1 tablet PO TID #14 tablet RX: Metronidazole [Flagyl] 500 mg PO TID #15 tab Other Amb Orders: Basic Metabolic Profile (BMP) Time Frame: 3 Days, Location: Determined By Patient Primary Care Physician: Sherman De Los Santos III, MD [Primary Care Provider] - Please follow up with your Primary Care Physician in: within 1-2 weeks Disposition: Home Minutes spent on discharge:: 25 Patient Condition:: Stable Meaningful Use Info Meaningful Use Diagnoses (Choose all that apply): None applicable
--- NOTE | 2017-02-26 16:56 | DS.PCM_ITS ---
Discharge Date and Diagnosis Date of Admission: 02/22/17 Date of Discharge: 02/26/17 - Primary Discharge Diagnosis Abdominal pain Diarrhea - Secondary Discharge Diagnosis Chronic Problems CLL (chronic lymphocytic leukemia) (Chronic) GERD (gastroesophageal reflux disease) (Chronic) Hyperlipemia (Chronic) Osteoarthritis (Chronic) Type 2 diabetes mellitus (Chronic) Hospital Course and Treatment Imaging Results: Clinical Impression(s) from Imaging Studies Abdomen/Pelvis CT 02/22/17 09:27 IMPRESSION: Small amount of perisplenic fluid. Marked splenomegaly. Nonspecific increased markings in the peritoneal fat as described. This is unchanged. Electronically Signed: Theron Whitehead MD at 11:29 EDT Tel [phone], Service support , Oncology Dr. Mitchell Operations: None Procedures: None Summary of Care Provided: 77-year-old male with CLL, on chemotherapy who comes in with a 12 day history of diarrhea and severe abdominal pain, status post failed outpatient management with antibiotics. Active management has been as follows: 1. Abdominal pain likely related to gastroenteritis, improved with conservative management with pain medication (parenteral) IV fluids, IV antibiotics, 2. Diarrhea, acute, likely gastroenteritis, worsened with last chemotherapy. No acute diverticulitis seen on the CT scan of the abdomen. Stool lactoferrin was positive but stool for enteric panel and C. difficile were negative. Managed by oncologist as acute diverticulitis, antibiotics was continued in the hospital and oncologist wanted patient discharged on Cipro and Flagyl for the next 5 days-up in the outpatient with antibiotics. 3. Pancytopenia due to recent chemotherapy, given Granix by oncology 2 days before discharge, with improvement in the white cell count, need to follow-up with oncology in the outpatient 4. CLL, following Dr. Mitchell, 5. Hypertension, controlled. 6. Hyperlipidemia, on statin. 7. Type II DM, blood sugars have been stable, on glimepiride. Discharge Diet: Low fat/ Low Cholesterol, 2000 mg Sodium Diet Discharge Activity: Return to Normal Activity Home Medications: Medications to take at Discharge RX: Aspirin [Aspirin, Baby] 81 mg PO DAILY@0800 03/25/15 RX: Glimepiride [Amaryl] 4 mg PO DAILY 03/25/15 RX: Metformin HCl [Glucophage] 1,000 mg PO BIDCM 03/25/15 RX: Naproxen Sodium [Aleve] 220 mg PO DAILY PRN PRN 03/25/15 RX: [place]-3 Fatty Acids/Fish Oil [[place] 3 1,000 mg Softgel] 1 each PO DAILY RX: Rosuvastatin Calcium [Crestor] 20 mg PO QHS 03/25/15 RX: Famotidine [Pepcid] 20 mg PO BID 02/20/17 RX: Hydrochlorothiazide 12.5 mg PO DAILY 02/20/17 RX: Loperamide [Imodium] 2 mg PO Q2H PRN PRN 02/20/17 RX: Losartan Potassium 100 mg PO 02/20/17 RX: Melatonin 1 mg PO QHS 02/20/17 RX: MorphINE Soln [Roxanol] 5 mg PO Q3H PRN 02/20/17 RX: Prochlorperazine Maleate [Compazine] 10 mg PO Q6H PRN 02/20/17 RX: Sitagliptin Phosphate [Januvia] 50 mg PO DAILY 02/20/17 RX: Tamsulosin HCl [Flomax] 0.8 mg PO DAILY 02/20/17 Ciprofloxacin [Cipro] 500 mg PO BID #10 tablet 02/26/17 RX: Lactobacillus Acidophilus [Acidophilus] 1 tablet PO TID #14 tablet 02/26/17 RX: Metronidazole [Flagyl] 500 mg PO TID #15 tab 02/26/17 RX: Potassium Chloride [K-Dur] 40 meq PO BIDCM #6 tablet 02/26/17 Following Prescrptions Were Given to Patient: Ciprofloxacin [Cipro] 500 mg PO BID #10 tablet RX: Potassium Chloride [K-Dur] 40 meq PO BIDCM #6 tablet RX: Lactobacillus Acidophilus [Acidophilus] 1 tablet PO TID #14 tablet RX: Metronidazole [Flagyl] 500 mg PO TID #15 tab Other Amb Orders: Basic Metabolic Profile (BMP) Time Frame: 3 Days, Location: Determined By Patient Primary Care Physician: Sherman De Los Santos III, MD [Primary Care Provider] - Please follow up with your Primary Care Physician in: within 1-2 weeks Disposition: Home Minutes spent on discharge:: 25 Patient Condition:: Stable Meaningful Use Info Meaningful Use Diagnoses (Choose all that apply): None applicable
== END 2017-02-26 13:30 | disposition home or self-care (01) | DRG 391 ==
PROVIDERS: Internal Medicine Hematology & Oncology; Admitting Provider Internal Medicine; Emergency Provider Emergency Medicine; Family Provider Family Medicine; PCP Family Medicine; Visit Provider Internal Medicine
DX: K52.9 Noninfective gastroenteritis and colitis, unspecified (principal); D61.810 Antineoplastic chemotherapy induced pancytopenia; E43 Unspecified severe protein-calorie malnutrition; C91.10 Chronic lymphocytic leukemia of B-cell type not having achieved remission; E11.9 Type 2 diabetes mellitus without complications; I88.9 Nonspecific lymphadenitis, unspecified; K57.92 Diverticulitis of intestine, part unspecified, without perforation or abscess without bleeding; I10 Essential (primary) hypertension; E78.5 Hyperlipidemia, unspecified; Z79.84 Long term (current) use of oral hypoglycemic drugs; M19.90 Unspecified osteoarthritis, unspecified site; Z87.891 Personal history of nicotine dependence; T45.1X5A Adverse effect of antineoplastic and immunosuppressive drugs, initial encounter; Z68.29 Body mass index [BMI] 29.0-29.9, adult; K21.9 Gastro-esophageal reflux disease without esophagitis; Z79.899 Other long term (current) drug therapy; K57.90 Diverticulosis of intestine, part unspecified, without perforation or abscess without bleeding; R16.1 Splenomegaly, not elsewhere classified; E66.9 Obesity, unspecified; Z79.2 Long term (current) use of antibiotics; Z79.82 Long term (current) use of aspirin; Z79.4 Long term (current) use of insulin
CPT/HCPCS: 36415; 74176; 80048; 80053; 80076; 81001; 82962; 83605; 83630; 83690; 85025; 87086; 87493; 87506; 96361; 96374; 96375; 97802; 99284; J2185; J7030; A4216; J1447; J2354; J2405

== ENCOUNTER 2018-03-10 09:00 | Outpatient (RCR) | payer MEDICARE, OTHER, SELFPAY ==
--- NOTE | 2018-02-21 14:33 | HP.PTEVAL ---
Patient's Visit Information ALIZA OSEI is a 78 year old M referred to Physical Therapy by Sherman De Los Santos with a diagnosis of Bilateral Shoulder Pain. Date of Evaluation: 02/21/18 Physical Therapist: Vinita Adan - Visit Plan Frequency: 2-3x /Week Duration: 4 Weeks Plan: Focus on UE ROM, strength, scapular s/s with TENS modality - Subjective Subjective: Pain in bilateral shoulders- about 4-5 weeks- putting on/off a coat has really bothered him. Pain is located in the upper trap and into the shoulder and into the neck. Left is worse than the right- right hand dominate. has a massage that helped but the pain came back. Pain radiates to the elbow. Puts his coat on left arm first. Describes the pain as sharp/shooting pain. The pain goes down when he returnes his arms to neutral. Worst: 1010 Agg: putting on his coat or moving his arms above 90 degrees. Eases: nothing Best: 10. It comes and goes. Sleep: side sleeper- disturbed- wakes him up. Has had back problems and had an MRI on Wednesday for his back-Dr. Robbins does injections. No LIANG, blurred vision and dizziness. Retired- so he does some work around the house but is not as active as he was before- does not exercise- was doing it in the pool for years but not currently. PMHx:cancer about a year ago (remission), right THR 2000, right knee is shot with injections, problems with his liver, DM Meds: see list. - Objective Posture: poor in sitting and standing- FH, RS, increased kyphosis- required verbal and tacile cues to facilitate normal posture but was unable to maintain. Gait: little trunk sway and decreased arm swing- slight rigidity. Palpation: tender along medial border of the scapula, supraspinatus above the spine of the scapula, bicipital groove and down to the elbow bilaterally left worse than right. Pain along cervical paraspinals and into the insertion of the levator scapulae. ROM: cervical spine: flexion: decreased by 50%, extn: decreased by 50%, Sb: decreased bt 75% with pain, Rot: decreased by 75% with pain. Shoulder: AROM: LEFT: Flexion- 150 degrees, abd: 80 degrees, IR: L2, ER: 50 degrees RIGHT: flexion: 160 degrees, abd: 100 degrees, IR: L4. AAROM: WFL in all planes PROM: guarding- more ROM gained with cane exercises. patient reported pain in all directions with PROM, AROM, and AAROM. 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 Special Test: impingment: positive, empty can: positive - Goals Goal 1:: Patient will be I with HEP and progression Goal Time Frame: 4-6 Weeks Goal 2:: Patient will demo full AROM of bilateral shoulders Goal Time Frame: 4-6 Weeks Goal 3:: Patient will maintain proper posture t/o tx session to demo increased scap s/s. Goal Time Frame: 4-6 Weeks Goal 4:: Patient will demo ability to put on his coat wtih 0/10 pain Goal Time Frame: 4-6 Weeks - Rehabilitation Potential Physical Therapy Diagnosis: Patient presents with hypomobility-he has decreased ROM, strength and muscular endurance leading to poor posture and increased pain with ADL's. Rehabilitation Potential: Good - Anticipated Interventions Patient/Client Instruction: Educate patient on: Benefits of Fitness Program Therapeutic Exercise to Include: Strength training, Endurance training, Balance training, Agility training, Body mechanics, Postural training, Passive ROM, Active ROM, Scapular Strength/Stabilization For the Purpose of:: To improve muscle performance and motor function TENS: Yes Cryotherapy (ice pack, ice massage): Yes Thermo therapy (hot pack): Yes Ultrasound (thermal/non thermal): No - Secondary to Leukemia For the Purpose of:: To decrease pain Thank you for the opportunity to evaluate your patient. For Medicare and Medicare HMO plans, please review the plan of care and approve it. It will need to be FAXED BACK to us at [phone] for Medicare purposes. Please let me know if there are questions or concerns regarding this plan of care. Physician Signature: Date:
== END 2018-03-10 19:00 | disposition home or self-care (01) ==
LOC: PT 09:00
PROVIDERS: Family Provider Family Medicine; PCP Family Medicine; Referring Provider Family Medicine; Visit Provider Family Medicine
DX: M25.511 Pain in right shoulder (principal); M25.512 Pain in left shoulder
CPT/HCPCS: 97110; 97161

== ENCOUNTER 2019-03-09 09:19 | Emergency (ER) | payer MEDICARE, OTHER, SELFPAY ==
[2019-03-09 09:19] VITALS: BP 130/53; PULSE 84; RESP 18; TEMP 36.6; O2SAT 98; BMI 27.6
[2019-03-09 10:02] LABS: Absolute Lymphocyte Count 0.37 X10^3/uL (0.83-4.51); Absolute Neutrophil Count 2.5 X10^3/uL (2.0-7.7); Basophil# 0.01 X10^3/uL; Basophil% 0.3 % (0-1); Eosinophil# 0.05 X10^3/uL; Eosinophils% 1.5 % (0-5); Hematocrit 36.7 % (40-54); Hemoglobin 11.8 g/dL (13.0-16.5); Lymphocyte # 0.37 X10^3/ul (4.0); Lymphocyte % 11.3 % (19-41); Mean Corp Hgb Conc 32.2 g/dL (32-36); Mean Corpuscular Volume 90.2 fL (80-94); Mean Platelet Vol. 10.8 fl (6.2-12.0); Monocyte# 0.27 X10^3/uL; Monocyte% 8.3 % (0-10); NRBC Flagged by Analyzer 0 % (0-5); Neutrophil # 2.54 X10^3/uL (2.7-7.7); POSITIVE COUNT YES; POSITIVE DIFFERENTIAL YES; RBC Distribution Width CV 14.6 % (11.6-14.6); RBC Distribution Width SD 48.1 fl (35.1-43.9); Red Blood Count 4.07 M/mm3 (4.6-6.2); White Blood Count 3.3 K/mm3 (4.4-11.0)
[2019-03-09 10:06] LABS: Differential Indicated SCAN CRITERIA MET; Platelet Count 17 K/mm3 (150-450)
--- NOTE | 2019-03-09 10:33 | ED.DCSUM_ITS ---
History of Present Illness Chief Complaint: Nosebleed Informant: Patient Onset: Today Current Severity: Mild Maximum Severity: Mild Narrative: Patient presents with nosebleed from the right nare that started this morning. He denies any recent URI symptoms or trauma. Patient does have a history of CLL and is followed for low platelet count. He had no other source of bleeding. Past Medical History - Allergies and Home Meds Allergies/Adverse Reactions: Allergies acetaminophen [From Vicodin] Allergy (Verified 03/09/19 09:21) Rash cefazolin sodium [From Ancef] Allergy (Verified 03/09/19 09:21) Rash clindamycin Allergy (Verified 03/09/19 09:22) Chest tightness hydrocodone bitartrate [From Vicodin] Allergy (Verified 03/09/19 09:21) Rash Primary Care Physician: Butch Mascorro MD [STAFF PHYSICIAN] - 3-5 Days Doctors: Dr. Mitchell Prior records reviewed: Yes Past Medical History: - - Reviewed Surgical History: total hip arthroplasty, - - Hip surgery Smoking Status: Former smoker - Family History Paternal Family History: Reports: - - Parkinson's disease Maternal Family History: Reports: No pertinent history Sibling Family History: Reports: Heart Disease Review of Systems General: Denies: Chills, Fever Eyes: Denies: Visual changes - bilaterally ENT: Reports: - - Epistaxis right nare. Denies: Bilateral ear pain Cardiovascular: Denies: Chest pain Respiratory: Denies: Dyspnea, Cough Gastrointestinal: Denies: Abdominal pain, Nausea, Vomiting, Diarrhea Musculoskeletal: Denies: Extremity Pain Skin: Denies: Rash Neurological: Denies: Headache Allergy: Denies: Uticaria Physical Exam Vital Signs/Narrative: Vital Signs Temp Pulse Resp BP Pulse Ox 03/09/19 09:19 97.9 F 84 18 130/53 H 98 Inital Vital Signs reviewed: Yes General: Well nourished, Well developed ENT: - - Nasal clamp in place. Mild bleeding noted proximal right nare. Left nare clear. Neck: Supple Cardiovascular: Regular rate, Regular rhythm Respiratory: No distress, CTA bilaterally Abdomen: Soft, Nontender Extremities: Nontender Skin: Normal color, - - Appearing ecchymoses on arms. No petechiae. Neurological: Alert, Oriented x3 Psychological: Normal affect Diagnostic/Tx/Re-eval Laboratory Results 03/09/19 09:53 WBC 3.3 L RBC 4.07 L Hgb 11.8 L Hct 36.7 L MCV 90.2 MCH 29.0 MCHC 32.2 RDW Std Deviation 48.1 H RDW Coeff of Trell 14.6 Plt Count 17 L* MPV 10.8 Immature Gran % (Auto) 0.600 Neut % (Auto) 78.0 H Lymph % (Auto) 11.3 L [place] % (Auto) 8.3 Eos % (Auto) 1.5 Baso % (Auto) 0.3 Absolute Neuts (auto) 2.5 Absolute Lymphs (auto) 0.37 L Nucleated RBC % 0 Differential Comment COMMENT Diff Path Review May foll - Medical Decision Making Cetacaine and Afrin were applied to the right nares. Initially a 5.5 cm Rhino Rocket was placed which controlled bleeding well. Due to the patient's thrombocytopenia I did contact his oncologist. Dr. Mitchell advises that as long as the bleeding is controlled with the packing there is nothing further needs to be done now. When I went back into explain this to the family he had started to bleed slightly around the anterior portion of the packing. 5.5 cm Rhino Rocket is changed out to a 7.5 cm. Following this bleeding has subsided. Patient is given antibiotic to cover for sinusitis and will be referred to ENT for follow- up. ED Disposition - Plan for ED Patient: Disposition: Home or Assisted Living Diagnosis: Epistaxis, Thrombocytopenia Instructions: Nosebleed Prescriptions: Azithromycin [Zithromax Z-Joseph] 250 mg PO UD #1 box Prescription Printed Referrals: Butch Mascorro MD [STAFF PHYSICIAN] - 3-5 Days
[2019-03-09] MEDS: Acetaminophen 325 MG Tablet 650 MG PO (12:20)
[2019-03-09] MEDS: Tetracaine/Benzocaine/Butamben 1 APPLIC TOPICAL (12:33)
[2019-03-09] MEDS: Oxymetazoline 0.05% 1 SPRAY SPRAY.BTL 2 SPRAY NASAL (12:33)
[2019-03-10 13:45] LABS: Pathologist Review Reviewed
== END 2019-03-09 13:16 | disposition home or self-care (01) ==
PROVIDERS: Emergency Provider Emergency Medicine; Family Provider Family Medicine; PCP Family Medicine
DX: R04.0 Epistaxis (principal); D69.6 Thrombocytopenia, unspecified; Z85.6 Personal history of leukemia; Z79.899 Other long term (current) drug therapy; Z87.891 Personal history of nicotine dependence
CPT/HCPCS: 30901; 85025; 99282

== ENCOUNTER → 2019-05-10 13:53 | Outpatient (CLI) | payer MEDICARE, OTHER, SELFPAY ==
[2019-04-20 13:11] VITALS: BMI 28.4
--- NOTE | 2019-05-10 13:55 | ECHOD_ITS ---
Reason For Study: ARRHYTHMIA Procedure This was a 2D Doppler, Color Flow transthoracic echocardiogram. The exam was of adequate technical quality. Exam performed in department. Left Ventricle Normal LV size. Left ventricular systolic function is normal. The estimated ejection fraction is 65 %. No evidence for diastolic dysfunction. No regional wall motion abnormalities noted. Right Ventricle Normal RV size. Normal systolic function. Atria The left atrium is mildly enlarged. Normal right atrium. No doppler evidence for ASD. Mitral Valve There is no mitral annular calcification. Normal mitral valve. Trivial mitral valve insufficiency. Tricuspid Valve Mild tricuspid valve insufficiency. Right ventricular systolic pressure estimated to be 27 mmHg. Aortic Valve Trisinus/trileaflet aortic valve. Normal aortic valve. Pulmonic Valve The pulmonic valve is not well visualized. Trivial pulmonic valve insufficiency. Great Vessels Borderline to mildly dilated aortic root. Pericardium/Pleural No pericardial effusion. MMode/2D Measurements & Calculations LVIDd: 5.2 cm IVSd: 1.0 cm Ao root diam: 3.9 cm LVIDs: 3.2 cm LVPWd: 0.99 cm RVDd: 3.7 cm FS: 38.7 % LAV(MOD-bp): 68.3 ml LA A4 area: 21.2 cm2 LA dimension(2D): 3.9 cm LAV(MOD-bp) Indexed: 34.4 ml/m2 LAV(MOD-sp2): 68.0 ml LAV(MOD-sp4): 69.5 ml RA A4 area: 15.5 cm2 Time Measurements MV dec time: 0.18 sec Doppler Measurements & Calculations MV E max rené: 83.4 cm/sec Lat Peak E' René: 9.2 cm/sec Med Peak E' René: 6.1 cm/sec MV A max rené: 91.0 cm/sec E/E' lat: 9.1 E/E' med: 13.7 MV E/A: 0.92 Ao V2 max: 109.7 cm/sec LV V1 max: 87.1 cm/sec PA V2 max: 108.9 cm/sec Ao max P.8 mmHg LV V1 max P.0 mmHg TR max rené: 245.0 cm/sec TR max P.0 mmHg Interpretation Summary Left ventricular systolic function is normal. The estimated ejection fraction is 65 %. The left atrium is mildly enlarged. Trivial mitral valve insufficiency. Mild tricuspid valve insufficiency. Trivial pulmonic valve insufficiency. Borderline to mildly dilated aortic root. Right ventricular systolic pressure estimated to be 27 mmHg. No evidence for diastolic dysfunction. Ordering Physician: Rock Guzman Referring Physician: Sherman De Los Santos Performed By: Kerri Carrington, VALE, RVT
== END ==
PROVIDERS: Family Provider Family Medicine; PCP Family Medicine; Referring Provider Internal Medicine Cardiovascular Disease; Visit Provider Internal Medicine Cardiovascular Disease
DX: I48.0 Paroxysmal atrial fibrillation (principal)
CPT/HCPCS: 93306

== ENCOUNTER → 2019-09-30 09:47 | Outpatient (CLI) | payer MEDICARE, OTHER, SELFPAY ==
[2019-04-20 13:11] VITALS: BMI 28.4
[2019-09-30] VITALS (8 sets, daily range): BP systolic 108–123; BP diastolic 54–62; PULSE 63–73; RESP 16; TEMP 36.2–37.1; O2SAT 97–100; BMI 25.7
[2019-09-30 10:23] LABS: Hematocrit 34.9 % (40-54); Hemoglobin 11.1 g/dL (13.0-16.5); Mean Corp Hgb Conc 31.8 g/dL (32-36); Mean Corpuscular Hgb 27.8 pg (27.0-32.0); Mean Corpuscular Volume 87.3 fL (80-94); POSITIVE COUNT YES; RBC Distribution Width CV 15.6 % (11.6-14.6); RBC Distribution Width SD 49.2 fl (35.1-43.9); White Blood Count 3.9 K/mm3 (4.4-11.0)
[2019-09-30 10:29] LABS: Scan Indicated on CBC? Y/N YES- FLAGS NOTED
[2019-09-30 10:51] LABS: Platelet Count 7 K/mm3 (150-450)
[2019-09-30] MEDS: Acetaminophen 325 MG Tablet 650 MG PO (12:24)
[2019-09-30] MEDS: Immune Globulin 20 gm Premixed Solution 36 BAG IV (12:32)
[2019-09-30] MEDS: Immune Globulin 20 gm Premixed Solution 2 BAG IV (14:45)
--- NOTE | 2019-09-30 15:21 | NURSING ---
1330- golf ball hematoma obs to lt old iv attempt site. monika wrap on with compression. will monitor
[2019-09-30] MEDS: Immune Globulin 20 gm Premixed Solution 4 BAG IV (16:03)
[2019-09-30] MEDS: Immune Globulin 10 gm Premixed Solution 4.5 BAG IV (16:51)
[2019-10-02 11:57] LABS: Pathologist Review Reviewed
== END ==
PROVIDERS: PCP Family Medicine; Visit Provider Internal Medicine Hematology & Oncology
DX: C91.11 Chronic lymphocytic leukemia of B-cell type in remission (principal); D69.6 Thrombocytopenia, unspecified; K76.6 Portal hypertension; D61.818 Other pancytopenia; D73.1 Hypersplenism; K70.30 Alcoholic cirrhosis of liver without ascites
CPT/HCPCS: 36415; 36430; 85027; 86644; 86900; 86901; 86965; P9037; J1568

== ENCOUNTER → 2019-10-31 09:00 | Outpatient (CLI) | payer MEDICARE, OTHER, SELFPAY ==
[2019-10-26 06:24] VITALS: BMI 26.6
[2019-10-31] VITALS (8 sets, daily range): BP systolic 81–118; BP diastolic 38–58; PULSE 66–90; RESP 16; TEMP 36.4–37; O2SAT 96–100; BMI 24.4
[2019-10-31] MEDS: 0.9% NaCl PICC Flush IV (09:42)
[2019-10-31] MEDS: Acetaminophen 325 MG Tablet 650 MG PO (09:42)
== END ==
PROVIDERS: PCP Family Medicine; Referring Provider Internal Medicine Hematology & Oncology; Visit Provider Internal Medicine Hematology & Oncology
DX: K92.2 Gastrointestinal hemorrhage, unspecified (principal)
CPT/HCPCS: 36430; 86850; 86900; 86901; 86920; 86922; J7040; P9016; A4216

== ENCOUNTER 2020-12-01 11:24 | Inpatient (IN) | payer MEDICARE, OTHER, SELFPAY ==
[2020-07-01 10:13] VITALS: BMI 27.8
[2020-12-01] VITALS (20 sets, daily range): BP systolic 83–119; BP diastolic 41–55; PULSE 90–117; RESP 18–36; TEMP 36.9–39.4; O2SAT 91–98; BMI 27.9
--- NOTE | 2020-12-01 12:01 | EKG12_ITS ---
Test Reason : FALL Blood Pressure : / mmHG Vent. Rate : 101 BPM Atrial Rate : 101 BPM P-R Int : 146 ms QRS Dur : 098 ms QT Int : 374 ms P-R-T Axes : 026 017 024 degrees QTc Int : 484 ms Sinus tachycardia Low voltage QRS Incomplete right bundle branch block Borderline ECG Confirmed by CELESTE WAKEFIELD, LUCINA ([id number]), sound editor NANCY VAZQUEZ ([id number]) on 12/05/2020 1:24:27 PM Referred By: ANSON Confirmed By:LUCINA ALONSO MD
--- NOTE | 2020-12-01 12:01 | CT_ITS ---
EXAM: CT ABDOMEN AND PELVIS WITH INTRAVENOUS CONTRAST : 1940 CLINICAL INDICATION: abd pain -- IV PO Contrast, weakness, fever, hx-cll TECHNIQUE: Helically acquired images were obtained of the abdomen and pelvis with intravenous contrast. This CT exam was performed using one or more of the following dose reduction techniques: automated exposure control, adjustment of the mA and/or kV according to patient size, and/or use of iterative reconstruction technique. This report was created using [employer] report generation technology. CONTRAST: IV 100mL Isovue-370 COMPARISON: 02/22/2017 FINDINGS: LOWER THORAX: Unremarkable. Lung bases are clear. No cardiomegaly. No significant pericardial effusion. ABDOMEN: LIVER: There is a low-density lesion near the dome of the liver which is stable and may represent a cyst or hemangioma. GALLBLADDER AND BILE DUCTS: There are several gallstones present but no obvious inflammation. No gallbladder distention or wall edema. No intra- or extrahepatic biliary ductal dilation. PANCREAS: Unremarkable. No focal cystic or solid mass. SPLEEN: The spleen is enlarged measuring 20.4 cm. ADRENALS: Unremarkable. No nodules. KIDNEYS AND URETERS: There is a low-density mass in the left kidney compatible with a cyst which is stable. No follow-up imaging is necessary. No hydronephrosis. STOMACH AND BOWEL: There are scattered sigmoid diverticula. There is one large diverticulum with scarring or inflammation in the distal sigmoid region however this is not significantly changed from the reference examination. Possibility of acute diverticulitis cannot be excluded. No stomach or bowel distention. PELVIS: APPENDIX: No evidence of acute appendicitis. BLADDER: Unremarkable. REPRODUCTIVE: Unremarkable as visualized. No mass. ABDOMEN and PELVIS: INTRAPERITONEAL SPACE: There is a trace amount of free fluid anterior to the liver margin compatible with ascites. No free air. BONES/JOINTS: There is beam hardening artifact from right hip prosthesis. No suspicious lytic or blastic abnormality. SOFT TISSUES: Unremarkable. No discrete abdominal or pelvic wall hernia. VASCULATURE: There are multiple splenic varices which have increased since the reference exam. There are also paraesophageal and gastric varices present. Abdominal aorta is non-dilated. LYMPH NODES: Unremarkable. No enlarged lymph nodes. CT/Abdomen/Pelvis WITH Contrast IMPRESSION: 1. Sigmoid diverticula with a single large diverticulum in the distal descending colon with surrounding inflammation or scar. This is stable from the reference examination may represent chronic scarring around a diverticulum however acute diverticulitis cannot be excluded. There is no abscess or perforation. 2. Splenomegaly with gastric, splenic and esophageal varices compatible with portal hypertension. Individualized dose optimization techniques were used for this CT. at 1453 Reported and signed by: Uli Stanton MD Electronically Signed: Uli Stanton MD at 14:52 EDT Tel , Service support ,
[2020-12-01 12:12] LABS: Absolute Lymphocyte Count 0.18 X10^3/uL (0.83-4.51); Absolute Neutrophil Count 2.4 X10^3/uL (2.0-7.7); Basophil# 0.01 X10^3/uL; Basophil% 0.4 % (0-1); Eosinophil# 0.02 X10^3/uL; Eosinophils% 0.8 % (0-5); Hematocrit 36.1 % (40-54); Hemoglobin 11.2 g/dL (13.0-16.5); Lymphocyte # 0.18 X10^3/ul (0.83-4.51); Lymphocyte % 6.8 % (19-41); Mean Corpuscular Hgb 29.7 pg (27.0-32.0); Mean Corpuscular Volume 95.8 fL (80-94); Mean Platelet Vol. 9.5 fl (6.2-12.0); Monocyte# 0.01 X10^3/uL; Monocyte% 0.4 % (0-10); NRBC Flagged by Analyzer 0 % (0-5); Neutrophil # 2.42 X10^3/uL (2.7-7.7); Neutrophil % 90.8 % (47-70); POSITIVE COUNT YES; POSITIVE DIFFERENTIAL YES; RBC Distribution Width CV 14.8 % (11.6-14.6); RBC Distribution Width SD 52.5 fl (35.1-43.9); Red Blood Count 3.77 M/mm3 (4.6-6.2); White Blood Count 2.7 K/mm3 (4.4-11.0)
[2020-12-01 12:19] LABS: Differential Indicated SCAN CRITERIA MET; Platelet Count 40 K/mm3 (150-450)
[2020-12-01 12:24] LABS: AST(SGOT) 47 U/L (15-37); Alanine Aminotransfer ALT/SGPT 48 U/L (16-61); Albumin, Serum 3.1 g/dL (3.2-5.0); Alkaline Phosphatase 127 U/L (45-117); Anion Gap 6 (5-15); BUN 23 mg/dL (7-18); BUN/Creat Ratio 17.6 RATIO (10-20); Bilirubin, Direct 0.54 mg/dL (0.00-0.30); Calcium,Total 8.3 mg/dL (8.5-10.1); Chloride 110 mmol/L (98-107); Creatinine, Serum 1.31 mg/dL (0.70-1.30); EST Glomerular Filtration Rate 56 mL/min (>60); Est Glom Filt Rate - Afr Amer 68 mL/min (>60); Estimated Creatinine Clearance 44.96 ml/min; Glucose 111 mg/dL (74-106); Potassium 4.2 mmol/L (3.5-5.1); Protein, Total 6.1 g/dL (6.4-8.2); Sodium Level 141 mmol/L (136-145)
[2020-12-01 12:27] LABS: Differential Comment SCANNED; Platelet Estimate MKD DEC (ADEQ); Platelet Morphology LARGE
[2020-12-01] MEDS: Acetaminophen 500 MG Tablet 1000 MG PO (12:36)
[2020-12-01] MEDS: 0.9% Normal Saline 1,000 ML 1000 ML IV (12:36)
[2020-12-01 13:27] LABS: Bacteria 0 SEEN /hpf (None Seen); Mucous, Urine 0 SEEN /hpf (<or=2+); Red Blood Cells-Urine 0 SEEN /hpf (0-5); Squamous Epithelial Cells - UA 0 SEEN /hpf (0-5); White Blood Cells 0 SEEN /hpf (0-5)
[2020-12-01 13:33] LABS: Color, Urine Yellow (Yellow); Glucose, Dipstick Normal (Normal); Ketone-Dipstick Negative (Negative); Leukocyte Esterase-Dipstick Negative /ul (Negative); Nitrite-Dipstick Negative (Negative); Occult Blood-Urine 10 /ul (Negative); Protein-Dipstick 15 mg/dl (Negative); Specific Gravity, Urine 1.015 (1.002-1.030); Urine Bilirubin Dipstick Negative (Negative); Urine Clarity Clear (Clear); Urine Urobilinogen Normal (Normal)
[2020-12-01 13:45] LABS: Amorphous Sediment 1+
[2020-12-01] MEDS: 0.9% Normal Saline 1,000 ML 150 ML IV (14:09)
[2020-12-01] MEDS: 0.9% Normal Saline 1,000 ML 999 ML IV ×2 (14:40→17:59)
[2020-12-01] MEDS: Ciprofloxacin 400 MG/200 ML BAG 200 MG IV (16:30)
[2020-12-01 17:02] LABS: Lactic Acid 3.4 mmol/L (0.4-1.9)
--- NOTE | 2020-12-01 17:27 | EX.ED.DYSGE1 ---
HPI History of Present Illness Chief Complaint: Abd Pain Informant: patient, spouse/S.O. and family Onset/Context/Timing Onset: Today Current Severity: Moderate Maximum Severity: Moderate Narrative Narrative: Patient presents via EMS secondary to abdominal pain and diarrhea. He had chills this morning. He denies chest pain or shortness of breath. He did have a fall at home this morning. When getting out of bed he tripped over his shoe and slid to the floor. He denies any injury from the fall. [facility] Medical History (Updated 12/01/20 @ 18:[address] Willian Rojo MD) Abdominal pain BPH (benign prostatic hyperplasia) CLL (chronic lymphocytic leukemia) Diarrhea Essential hypertension Generalized weakness GERD (gastroesophageal reflux disease) Hyperlipemia Mixed hyperlipidemia VALERIE (obstructive sleep apnea) Osteoarthritis Paroxysmal atrial fibrillation Splenomegaly Thoracic aortic aneurysm without rupture Thrombocytopenia Type 2 diabetes mellitus Home Medications glimepiride 4 mg PO DAILY 03/25/15 [History Last Taken 02/26/17] metformin 1,000 mg PO BIDCM 03/25/15 [History Last Taken 02/26/17] rosuvastatin 20 mg PO QHS 03/25/15 [History Last Taken 02/26/17] losartan 100 mg PO DAILY 02/20/17 [History Last Taken 02/26/17] sitagliptin 50 mg PO DAILY 02/20/17 [History Last Taken 02/26/17] hydromorphone 2 mg PO Q3H PRN 03/09/19 [History Last Taken Unknown] trazodone 50 mg PO QHS 03/09/19 [History Last Taken Unknown] Bifidobacterium infantis 4 mg capsule 4 mg PO DAILY 04/17/19 [History Last Taken Unknown] allopurinol 300 mg tablet 300 mg PO DAILY 07/01/20 [History Last Taken Unknown] furosemide 20 mg tablet 20 mg PO DAILY 07/01/20 [History Last Taken Unknown] gabapentin 100 mg capsule 300 mg PO TIDCM cap 07/01/20 [History Last Taken Unknown] pantoprazole 40 mg tablet,delayed release 40 mg PO BID tab 07/01/20 [History Last Taken Unknown] polysaccharide iron complex 150 mg iron capsule 150 mg PO BID cap 07/01/20 [History Last Taken Unknown] spironolactone 25 mg tablet 25 mg PO DAILY 07/01/20 [History Last Taken Unknown] baclofen 5 mg PO TID 12/01/20 [History Last Taken Unknown] Allergy/AdvReac Type Severity Reaction Status Date / Time acetaminophen [From Vicodin] Allergy Rash Verified 07/01/20 10:13 cefazolin sodium [From Ancef] Allergy Rash Verified 07/01/20 10:13 clindamycin Allergy Chest Verified 07/01/20 10:13 tightness hydrocodone bitartrate Allergy Rash Verified 07/01/20 10:13 [From Vicodin] Family History Father Parkinson disease Brother Heart disease Diabetes Sister Atrial fibrillation Breast cancer Surgical History History of colonoscopy (~2018) History of hip replacement Social History Smoking Status: Former smoker alcohol intake: never substance use type: does not use caffeine: Yes Type: coffee Number of servings: 2 ROS ROS ED Constitutional Constitutional ED: Reports chills and fever(s) Eyes Eyes: Denies change in vision ENT ENT ED: Denies sore throat Cardiovascular Cardiovascular: Denies chest pain Respiratory/Chest Respiratory/Chest: Denies cough or dyspnea Gastrointestinal Gastrointestinal: Reports abdominal pain, diarrhea and nausea; Denies vomiting Genitourinary Genitourinary ED: Denies dysuria Musculoskeletal Musculoskeletal: Reports back pain and myalgias Integumentary Denies rash Neurologic Neurologic: Reports weakness; Denies headache(s) Psychiatric Psychiatric: Denies anxiety or depression EXAM Physical Exam Const Vital Signs: 12/01/20 11:26 12/01/20 11:30 12/01/20 12:42 Temperature 101.1 F H 101.1 F H Temperature Source Oral Oral Pulse Rate 117 H 117 H 99 Respiratory Rate 35 H 21 H 20 H Blood Pressure 113/46 L 119/45 L Blood Pressure Mean 68 69 Pulse Ox 91 95 98 Oxygen Delivery Method Room Air Nasal Cannula Nasal Cannula Oxygen Flow Rate (L/min) 2 2 12/01/20 13:30 12/01/20 14:41 12/01/20 15:04 Temperature 100.7 F H 98.8 F Temperature Source Oral Oral Pulse Rate 95 90 94 Respiratory Rate 24 H 24 H 22 H Blood Pressure 93/50 L 83/41 L 84/48 L Blood Pressure Mean 64 55 60 Pulse Ox 94 93 93 Oxygen Delivery Method Room Air Room Air Room Air Oxygen Flow Rate (L/min) 12/01/20 16:31 12/01/20 17:39 Temperature 98.4 F 100.1 F H Temperature Source Temporal Oral Pulse Rate 102 H 96 Respiratory Rate 25 H 20 H Blood Pressure 102/55 L 95/50 L Blood Pressure Mean 70 65 Pulse Ox 96 96 Oxygen Delivery Method Room Air Room Air Oxygen Flow Rate (L/min) Positive well developed General Appearance ED: well developed HEENT Reports moist mucous membranes Eyes PERRL and EOMs intact bilaterally Neck supple Chest Wall inspection of chest normal and palpation of chest normal Resp normal respiratory effort and clear to auscultation bilaterally Cardio regular rhythm Rate: tachycardic GI normal to inspection, nondistended, normoactive bowel sounds Palpation: soft and tender LLQ (Minimal tenderness left lower quadrant.) Extremity normal to inspection Neuro oriented x3 Sensorium / Orientation: alert Psych mental status grossly normal Skin no rashes or lesions noted MDM MDM MDM Narrative Medical decision making narrative: Patient was given Tylenol for fever. Labs and urinalysis ordered. Patient given IV fluids. Lab Data Attestation: I reviewed the patient's lab results. Labs: Laboratory Results - last 24 hr 12/01/20 12/01/20 12/01/20 11:58 11:58 13:20 WBC 2.7 L RBC 3.77 L Hgb 11.2 L Hct 36.1 L MCV 95.8 H MCH 29.7 MCHC 31.0 L RDW Std Deviation 52.5 H RDW Coeff of Trell 14.8 H Plt Count 40 L* MPV 9.5 Immature Gran % (Auto) 0.800 Neut % (Auto) 90.8 H Lymph % (Auto) 6.8 L [place] % (Auto) 0.4 Eos % (Auto) 0.8 Baso % (Auto) 0.4 Absolute Neuts (auto) 2.4 Absolute Lymphs (auto) 0.18 L Nucleated RBC % 0 Differential Comment SCANNED Diff Path Review May foll Platelet Estimate MKD DEC Plt Morphology Comment LARGE Sodium 141 Potassium 4.2 Chloride 110 H Carbon Dioxide 25.0 Anion Gap 6 BUN 23 H Creatinine 1.31 H Estim Creat Clear Calc 44.96 Est GFR (MDRD) Af Amer 68 Est GFR (MDRD) Non-Af 56 L BUN/Creatinine Ratio 17.6 Glucose 111 H Lactic Acid Calcium 8.3 L Total Bilirubin 1.20 H Direct Bilirubin 0.54 H AST 47 H ALT 48 Alkaline Phosphatase 127 H Total Protein 6.1 L Albumin 3.1 L Globulin 3.0 Urine Color Yellow Urine Clarity Clear Urine pH 5.0 Ur Specific [place] 1.015 Urine Protein 15 H Urine Glucose (UA) Normal Urine Ketones Negative Urine Occult Blood 10 H Urine Nitrite Negative Urine Bilirubin Negative Urine Urobilinogen Normal Ur Leukocyte Esterase Negative Urine RBC 0 SEEN Urine WBC 0 SEEN Ur Squamous Epith Cells 0 SEEN Amorphous Sediment 1+ Urine Bacteria 0 SEEN Urine Mucus 0 SEEN 12/01/20 16:10 WBC RBC Hgb Hct MCV MCH MCHC RDW Std Deviation RDW Coeff of Trell Plt Count MPV Immature Gran % (Auto) Neut % (Auto) Lymph % (Auto) [place] % (Auto) Eos % (Auto) Baso % (Auto) Absolute Neuts (auto) Absolute Lymphs (auto) Nucleated RBC % Differential Comment Diff Path Review Platelet Estimate Plt Morphology Comment Sodium Potassium Chloride Carbon Dioxide Anion Gap BUN Creatinine Estim Creat Clear Calc Est GFR (MDRD) Af Amer Est GFR (MDRD) Non-Af BUN/Creatinine Ratio Glucose Lactic Acid 3.4 H* Calcium Total Bilirubin Direct Bilirubin AST ALT Alkaline Phosphatase Total Protein Albumin Globulin Urine Color Urine Clarity Urine pH Ur Specific [place] Urine Protein Urine Glucose (UA) Urine Ketones Urine Occult Blood Urine Nitrite Urine Bilirubin Urine Urobilinogen Ur Leukocyte Esterase Urine RBC Urine WBC Ur Squamous Epith Cells Amorphous Sediment Urine Bacteria Urine Mucus Radiography Diagnostic Testing: Radiology Impression Abdomen/Pelvis CT 12/01/20 12:01 IMPRESSION: 1. Sigmoid diverticula with a single large diverticulum in the distal descending colon with surrounding inflammation or scar. This is stable from the reference examination may represent chronic scarring around a diverticulum however acute diverticulitis cannot be excluded. There is no abscess or perforation. 2. Splenomegaly with gastric, splenic and esophageal varices compatible with portal hypertension. Individualized dose optimization techniques were used for this CT. at 1453 Reported and signed by: Uli Stanton MD Electronically Signed: Uli Stanton MD at 14:52 EDT Tel , Service support , EKG Initial EKG: Attestation: I personally reviewed and interpreted this EKG as follows: Interpretation: Sinus Tachycardia (Sinus tach at 101. No acute ischemia.) Treatment and Re-Evaluation Comments:: Repeat evaluation patient's blood pressure is in the 80s to 90s. states his blood pressure often will run high 90s to low 100. Patient's labs are reviewed. Lactic acid is elevated. He has already received 30 cc/kg. Blood pressure is currently in the low 100s. Patient has a history of pancytopenia. Platelet count is currently 40,000 which is actually improved from his baseline. Other values are at baseline. Creatinine is elevated to 1.3 and baseline appears to be around 0.8. CT scan reveals evidence of a large diverticula of the sigmoid colon with surrounding inflammation. They do, this could be scar tissue versus acute diverticulitis. Patient has tenderness to this area, fever, diarrhea. I do believe this is an acute infection. Patient is given Cipro and Flagyl. He will be discussed with hospitalist for admission. Discharge Plan Dx/Rx/DC Orders Clinical Impression: Diverticulitis, Sepsis Disposition Disposition: Acute Care Hospital [facility] Discharge Date/Time: 12/01/20 18:37
[2020-12-01] MEDS: metroNIDAZOLE 500 MG/100 ML BAG 100 MG IV (17:30)
[2020-12-01] MEDS: fentaNYL 100 MCG/2 ML Ampul 25 MCG IV (17:30)
--- NOTE | 2020-12-01 18:04 | PCM.HP.STD ---
HPI - General General Date of Admission: 12/01/20 Date of Service: 12/01/20 Chief Complaint: Chills and rigors HPI Narrative ALIZA OSEI, is a 80 M with past medical history significant for diabetes mellitus type 2, history of chronic lymphocytic leukemia currently in remission, chronic thrombocytopenia, splenomegaly and chemo induced cirrhosis of the liver who presents with fever and chills. Patient symptoms started on the morning of his admission. Woke up with abdominal pain located in the left lower quadrant. He later developed significant fever as well as chills. Patient also did experience progressive generalized weakness. Per patient he had a fall he however attributed his fall to tripping on his shoe. Patient's was with him in the room felt patient was incoherent anytime the EMS squad was subsequently called. Patient was found to be febrile with temperature 105. Transferred to the ED and subsequently admitted to the intensive care unit for further management [facility] Medical History (Updated 12/01/20 @ 18:[address] Willian Rojo MD) Abdominal pain BPH (benign prostatic hyperplasia) CLL (chronic lymphocytic leukemia) Diarrhea Essential hypertension Generalized weakness GERD (gastroesophageal reflux disease) Hyperlipemia Mixed hyperlipidemia VALERIE (obstructive sleep apnea) Osteoarthritis Paroxysmal atrial fibrillation Splenomegaly Thoracic aortic aneurysm without rupture Thrombocytopenia Type 2 diabetes mellitus Home Medications glimepiride 4 mg PO DAILY 03/25/15 [History Last Taken 02/26/17] metformin 1,000 mg PO BIDCM 03/25/15 [History Last Taken 02/26/17] rosuvastatin 20 mg PO QHS 03/25/15 [History Last Taken 02/26/17] losartan 100 mg PO DAILY 02/20/17 [History Last Taken 02/26/17] sitagliptin 50 mg PO DAILY 02/20/17 [History Last Taken 02/26/17] hydromorphone 2 mg PO Q3H PRN 03/09/19 [History Last Taken Unknown] trazodone 50 mg PO QHS 03/09/19 [History Last Taken Unknown] Bifidobacterium infantis 4 mg capsule 4 mg PO DAILY 04/17/19 [History Last Taken Unknown] allopurinol 300 mg tablet 300 mg PO DAILY 07/01/20 [History Last Taken Unknown] furosemide 20 mg tablet 20 mg PO DAILY 07/01/20 [History Last Taken Unknown] gabapentin 100 mg capsule 300 mg PO TIDCM cap 07/01/20 [History Last Taken Unknown] pantoprazole 40 mg tablet,delayed release 40 mg PO BID tab 07/01/20 [History Last Taken Unknown] polysaccharide iron complex 150 mg iron capsule 150 mg PO BID cap 07/01/20 [History Last Taken Unknown] spironolactone 25 mg tablet 25 mg PO DAILY 07/01/20 [History Last Taken Unknown] baclofen 5 mg PO TID 12/01/20 [History Last Taken Unknown] Allergy/AdvReac Type Severity Reaction Status Date / Time acetaminophen [From Vicodin] Allergy Rash Verified 07/01/20 10:13 cefazolin sodium [From Ancef] Allergy Rash Verified 07/01/20 10:13 clindamycin Allergy Chest Verified 07/01/20 10:13 tightness hydrocodone bitartrate Allergy Rash Verified 07/01/20 10:13 [From Vicodin] Family History Father Parkinson disease Brother Heart disease Diabetes Sister Atrial fibrillation Breast cancer Surgical History History of colonoscopy (~2018) History of hip replacement Social History Smoking Status: Former smoker alcohol intake: never substance use type: does not use caffeine: Yes Type: coffee Number of servings: 2 ROS ROS Narrative GENERAL: fever, chills, night sweats, HEENT: denies headache, sinus congestion, RESPIRATORY: denies cough, sputum production, CARDIAC: denies chest pain, palpitations, orthopnea, GASTROINTESTINAL: abdominal pain, nausea, GENITOURINARY: denies dysuria, urgency, frequency, EXTREMITY: denies swelling MUSCULOSKELETAL: denies current joint pain or tenderness NEUROLOGIC: denies focal numbness, weakness, tingling HEMATOLOGIC: denies easy bruising and/or hemorrhage INTEGUMENT: denies rashes PSYCHIATRIC: denies suicidal or homicidal ideation Vital Signs Vital Signs Vital Signs: 12/01/20 11:26 12/01/20 11:30 12/01/20 12:42 Temperature 101.1 F H 101.1 F H Temperature Source Oral Oral Pulse Rate 117 H 117 H 99 Respiratory Rate 35 H 21 H 20 H Blood Pressure 113/46 L 119/45 L Blood Pressure Mean 68 69 Pulse Ox 91 95 98 Oxygen Delivery Method Room Air Nasal Cannula Nasal Cannula Oxygen Flow Rate (L/min) 2 2 12/01/20 13:30 12/01/20 14:41 12/01/20 15:04 Temperature 100.7 F H 98.8 F Temperature Source Oral Oral Pulse Rate 95 90 94 Respiratory Rate 24 H 24 H 22 H Blood Pressure 93/50 L 83/41 L 84/48 L Blood Pressure Mean 64 55 60 Pulse Ox 94 93 93 Oxygen Delivery Method Room Air Room Air Room Air Oxygen Flow Rate (L/min) 12/01/20 16:31 12/01/20 17:39 12/01/20 18:01 Temperature 98.4 F 100.1 F H 100.1 F H Temperature Source Temporal Oral Oral Pulse Rate 102 H 96 100 Respiratory Rate 25 H 20 H 20 H Blood Pressure 102/55 L 95/50 L 107/52 L Blood Pressure Mean 70 65 70 Pulse Ox 96 96 95 Oxygen Delivery Method Room Air Room Air Room Air Oxygen Flow Rate (L/min) Weight Weight: 83.3 kg Body Mass Index (BMI) 27.9 Physical Exam Narrative GENERAL: cooperative HEENT: Atraumatic; EYES; Anicteric, Normal Conjunctiva NECK; supple, normal thyroid, RESPIRATORY: Diminished to auscultation CARDIOVASCULAR: Regular S1 S2, GI: Left lower quadrant tenderness, splenomegaly : No Renal angle tenderness; EXTREMITIES: No edema, no clubbing, MUSCULOSKELETAL: no muscle waisting NEURO: Awake; no lateralizing signs. SKIN: No Rash PSYCH; Flat affect Results Lab / Micro Data Result Diagrams: 12/01/20 11:58 12/01/20 11:58 Labs: Laboratory Results - last 24 hr 12/01/20 11:58: WBC 2.7 L, RBC 3.77 L, Hgb 11.2 L, Hct 36.1 L, MCV 95.8 H, MCH 29.7, MCHC 31.0 L, RDW Std Deviation 52.5 H, RDW Coeff of Trell 14.8 H, Plt Count 40 L*, MPV 9.5, Immature Gran % (Auto) 0.800, Neut % (Auto) 90.8 H, Lymph % (Auto) 6.8 L, [place] % (Auto) 0.4, Eos % (Auto) 0.8, Baso % (Auto) 0.4, Absolute Neuts (auto) 2.4, Absolute Lymphs (auto) 0.18 L, Nucleated RBC % 0, Differential Comment SCANNED, Diff Path Review May foll, Platelet Estimate MKD DEC, Plt Morphology Comment LARGE 12/01/20 11:58: Sodium 141, Potassium 4.2, Chloride 110 H, Carbon Dioxide 25.0, Anion Gap 6, BUN 23 H, Creatinine 1.31 H, Estim Creat Clear Calc 44.96, Est GFR (MDRD) Af Amer 68, Est GFR (MDRD) Non-Af 56 L, BUN/Creatinine Ratio 17.6, Glucose 111 H, Calcium 8.3 L, Total Bilirubin 1.20 H, Direct Bilirubin 0.54 H, AST 47 H, ALT 48, Alkaline Phosphatase 127 H, Total Protein 6.1 L, Albumin 3.1 L, Globulin 3.0 12/01/20 13:20: Urine Color Yellow, Urine Clarity Clear, Urine pH 5.0, Ur Specific [place] 1.015, Urine Protein 15 H, Urine Glucose (UA) Normal, Urine Ketones Negative, Urine Occult Blood 10 H, Urine Nitrite Negative, Urine Bilirubin Negative, Urine Urobilinogen Normal, Ur Leukocyte Esterase Negative, Urine RBC 0 SEEN, Urine WBC 0 SEEN, Ur Squamous Epith Cells 0 SEEN, Amorphous Sediment 1+, Urine Bacteria 0 SEEN, Urine Mucus 0 SEEN 12/01/20 16:10: Lactic Acid 3.4 H* Radiology Impression Abdomen/Pelvis CT 12/01/20 12:01 IMPRESSION: 1. Sigmoid diverticula with a single large diverticulum in the distal descending colon with surrounding inflammation or scar. This is stable from the reference examination may represent chronic scarring around a diverticulum however acute diverticulitis cannot be excluded. There is no abscess or perforation. 2. Splenomegaly with gastric, splenic and esophageal varices compatible with portal hypertension. Individualized dose optimization techniques were used for this CT. at 1453 Reported and signed by: Uli Stanton MD Electronically Signed: Uli Stanton MD at 14:52 EDT Tel , Service support , Assessment & Plan Assessment/Plan (1) Diverticulitis: (2) Severe sepsis: (3) Thrombocytopenia: (4) Essential hypertension: (5) Mixed hyperlipidemia: (6) CLL (chronic lymphocytic leukemia): (7) Type 2 diabetes mellitus: QUALIFIERS: Diabetes mellitus complication status: with unspecified complications Diabetes mellitus nursing home insulin use: without intermediate manager use Qualified Code(s): E11.8 - Type 2 diabetes mellitus with unspecified complications (8) GERD (gastroesophageal reflux disease): (9) VALERIE (obstructive sleep apnea): PLAN: Patient is a 80-year-old gentleman presented with fever chills and abdominal pain 1. Severe sepsis ?Secondary to suspected sigmoid diverticulitis. Patient has been admitted to the intensive care unit currently being managed with aggressive IV fluid resuscitation, broad-spectrum antibiotic with Zosyn and cultures sent. Patient progressed to be monitored with serial lactic acid level 3. Essential hypertension ?Patient antihypertensives and diuretics placed on hold. Patient was relatively hypotensive in the ED with systolic blood pressure in the 90s resuscitated with IV fluids with subsequent monitoring of vitals 3. Chronic lymphocytic leukemia ?Currently in remission 4. Diabetes mellitus type II -patient's oral hypoglycemics held. Placed on long acting insulin, Accu-Cheks a.c. and at bedtime and covered with sliding scale insulin 5. 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 Patient has stigmata of portal hypertension with splenomegaly and gastric and splenic and esophageal varices as noted on CT of the abdomen. Will avoid potential hepatotoxic medications and monitor patient's progress with daily CMP's 6. Thrombocytopenia ?Secondary to cirrhosis of the liver monitoring with daily CBCs 7. Dyslipidemia -Patient is on statin therapy, continued at home dose 8. DVT prophylaxis ?Avoided the use of chemoprophylaxis in view of patient's significant thrombocytopenia he wasPlaced on bilateral SCDs Advance planning; did discuss with the patient and family () regarding advanced directives as well as CODE STATUS. Did explain the various scenarios involved ( FULL CODE, DNR CCA, DNR CCA with no intubation, and DNR CC and what each meant) patient elected to full code with CPR and intubation if needed. Order was placed. Time spent on discussion 18 minutes. Charges/Coding Visit Charges Inpatient E&M: 28685 Init Hosp L3 Procedures Hospitalists Procedures: [id number] Advncd Care Plan 30 Min
[2020-12-01] MEDS: 0.9% Normal Saline 1,000 ML 200 ML IV (19:18)
[2020-12-01 19:29] LABS: Probe Check PASS; Specimen Processing Control PASS
[2020-12-01 20:13] LABS: Reflex Lactate? Y
[2020-12-01 21:15] LABS: Lactic Acid 4.4 mmol/L (0.4-1.9)
[2020-12-01] MEDS: Baclofen 10 MG Tablet 5 MG PO (21:58)
[2020-12-01] MEDS: Iron Polysaccharide Complex 150 MG CAPSULE PO (21:58)
[2020-12-01] MEDS: Pantoprazole Sodium 40 MG Tablet PO (21:59)
[2020-12-01] MEDS: Atorvastatin Calcium 40 MG Tablet PO (21:59)
[2020-12-01 22:01] LABS: Bedside Glucose 68 mg/dL (70-110)
[2020-12-01] MEDS: 0.9% Saline Lock 10 ML Syringe IV ×2 (22:03→23:39)
[2020-12-01 22:35] LABS: Bedside Glucose 82 mg/dL (70-110)
[2020-12-01] MEDS: Acetaminophen 325 MG Tablet 650 MG PO (22:50)
[2020-12-01] MEDS: traZODone 50 MG Tablet PO (23:39)
[2020-12-02] VITALS (42 sets, daily range): BP systolic 79–137; BP diastolic 38–66; PULSE 38–93; RESP 18–36; TEMP 36.6–37.5; O2SAT 92–100
[2020-12-02 00:08] LABS: Reflex Lactate? N
[2020-12-02] MEDS: 0.9% Normal Saline 1,000 ML 150 ML IV ×2 (00:08→06:49)
[2020-12-02 00:40] LABS: Troponin-I HS 27.7 pg/mL (3.0-78.5)
[2020-12-02 00:42] LABS: Lactic Acid 4.1 mmol/L (0.4-1.9)
[2020-12-02 04:14] LABS: Reflex Lactate? Y
[2020-12-02] MEDS: Baclofen 10 MG Tablet 5 MG PO ×3 (06:27→21:49)
[2020-12-02 06:35] LABS: Bedside Glucose 153 mg/dL (70-110)
[2020-12-02 07:16] LABS: Absolute Lymphocyte Count 0.08 X10^3/uL (0.83-4.51); Absolute Neutrophil Count 4.9 X10^3/uL (2.0-7.7); Basophil# 0.01 X10^3/uL; Basophil% 0.2 % (0-1); Hematocrit 28.5 % (40-54); Hemoglobin 9.1 g/dL (13.0-16.5); Lymphocyte # 0.08 X10^3/ul (0.83-4.51); Lymphocyte % 1.5 % (19-41); Mean Corp Hgb Conc 31.9 g/dL (32-36); Mean Corpuscular Hgb 30.2 pg (27.0-32.0); Mean Corpuscular Volume 94.7 fL (80-94); Mean Platelet Vol. 12.9 fl (6.2-12.0); Monocyte# 0.26 X10^3/uL; Monocyte% 4.9 % (0-10); NRBC Flagged by Analyzer 0 % (0-5); Neutrophil # 4.91 X10^3/uL (2.7-7.7); Neutrophil % 91.9 % (47-70); POSITIVE COUNT YES; POSITIVE DIFFERENTIAL YES; POSITIVE MORPHOLOGY YES; RBC Distribution Width CV 15.2 % (11.6-14.6); RBC Distribution Width SD 52.8 fl (35.1-43.9); Red Blood Count 3.01 M/mm3 (4.6-6.2); White Blood Count 5.3 K/mm3 (4.4-11.0)
[2020-12-02] MEDS: Acetaminophen 325 MG Tablet 650 MG PO (07:36)
[2020-12-02 07:51] LABS: Platelet Count 22 K/mm3 (150-450)
[2020-12-02 07:52] LABS: Differential Indicated SCAN CRITERIA MET
[2020-12-02 08:02] LABS: AST(SGOT) 99 U/L (15-37); Alanine Aminotransfer ALT/SGPT 93 U/L (16-61); Albumin, Serum 2.4 g/dL (3.2-5.0); Alkaline Phosphatase 117 U/L (45-117); Anion Gap 8 (5-15); BUN 25 mg/dL (7-18); BUN/Creat Ratio 17.9 RATIO (10-20); Bilirubin, Direct 0.46 mg/dL (0.00-0.30); Calcium,Total 6.8 mg/dL (8.5-10.1); Chloride 111 mmol/L (98-107); EST Glomerular Filtration Rate 52 mL/min (>60); Est Glom Filt Rate - Afr Amer 63 mL/min (>60); Estimated Creatinine Clearance 42.07 ml/min; Globulin 2.8 g/dL (2.2-4.2); Glucose 161 mg/dL (74-106); Magnesium 1.6 mg/dL (1.6-2.6); Phosphorus 3.1 mg/dL (2.5-4.9); Potassium 4.3 mmol/L (3.5-5.1); Protein, Total 5.2 g/dL (6.4-8.2); Sodium Level 139 mmol/L (136-145)
[2020-12-02 08:23] LABS: Differential Comment SCANNED; Platelet Estimate MKD DEC (ADEQ)
[2020-12-02] MEDS: Insulin Lispro 100 UNIT/ML INSULN.PEN SC ×3 (09:34→22:07)
[2020-12-02] MEDS: Allopurinol 300 MG Tablet PO (09:36)
[2020-12-02] MEDS: Gabapentin 300 MG Capsule PO ×3 (09:36→17:29)
[2020-12-02] MEDS: Iron Polysaccharide Complex 150 MG CAPSULE PO ×2 (09:37→21:46)
[2020-12-02] MEDS: Pantoprazole Sodium 40 MG Tablet PO ×2 (09:37→21:45)
--- NOTE | 2020-12-02 09:58 | EKG12_ITS ---
Test Reason : LOW HEART RATE Blood Pressure : / mmHG Vent. Rate : 061 BPM Atrial Rate : 061 BPM P-R Int : 146 ms QRS Dur : 104 ms QT Int : 494 ms P-R-T Axes : -16 052 010 degrees QTc Int : 497 ms Normal sinus rhythm Low voltage QRS Prolonged QT Abnormal ECG Confirmed by CELESTE WAKEFIELD, LUCINA ([id number]), movie editor NANCY VAZQUEZ ([id number]) on 12/06/2020 9:18:04 AM Referred By: JANETH Confirmed By:LUCINA ALONSO MD
--- NOTE | 2020-12-02 10:05 | EX.PCM.CONCC ---
Assessment & Plan Assessment/Plan (1) Severe sepsis: (2) Diverticulitis: (3) Thrombocytopenia: (4) CLL (chronic lymphocytic leukemia): PLAN: RECOMMENDATIONS: 1. Place PICC line 2. Hold IV fluids. Initiate pressors. Hold baseline antihypertensives and diuretics 3. Continue to monitor abdominal exam and signs or symptoms of bleeding 4. Continue sliding scale insulin 5. Electrolyte repletion as indicated IMPRESSIONS: 1. Septic shock secondary to probable diverticulitis Patient with progressive hypotension after initiation of antibiotics. Patient does have gram variables in the blood in less than [address] of the abdomen is suggestive of diverticulitis as a possible etiology. Patient does have chronic thrombocytopenia complicating overall condition. Patient likely has lower blood pressure secondary to cirrhosis. May need to have a surgical consultation, but abdomen does not appear to be acute at this time. 2. Cirrhosis/thrombocytopenia/CLL Patient with lower blood pressures at baseline. Patient likely has an element of hemodilution secondary to volume resuscitation associated with problem #1. No active bleeding has been noted. We will hold off on a platelet transfusion at this time. 3. Diabetes mellitus/hypertension/dyslipidemia/advanced age/poor cooperation/obesity Complicates care, management, recovery and prognosis. Agree with holding oral hypoglycemics. Can continue on statin therapy for now, but diuretics and antihypertensives will need to be held given problem #1. Did stressed to the patient that he needs to allow for interventions if he wants to be aggressive. Patient is currently a full code, but is very resistant to interventions as simple as lab draws. Patient reluctantly agrees. TIME: 40 minutes critical care time spent addressing patient's septic shock, thrombocytopenia, diabetes mellitus, review of all data and collaboration with care team (6:30 AM to 7:30 AM) HPI Consult Data Date of Consult: 12/02/20 HPI Narrative HPI Narrative: ALIZA OSEI is a 80 M, with past medical history listed below, who presents to [facility] on 12/01/2020 secondary to abdominal pain that was described as moderate with associated chills and fever. Patient reportedly had had abdominal pain and diarrhea for 24 hours. Patient reportedly had a fall this morning when he tripped over his shoe and slid to the floor. Patient did not have any injuries associated with the fall. Patient is on diuretics, ARB and spironolactone at baseline. On presentation to the ER, patient was 101.1 ?F, tachycardic at 117 and saturating 91% on room air. Patient did develop hypotension while in the ER. Laboratory work-up showed a white blood cell count of 2.7, hemoglobin of 11.2 and platelet count of 40. Creatinine was slightly elevated at 1.3, along with total and direct bilirubin at 1.2 and 0.54 respectively. Urinalysis was relatively unremarkable. Lactate was elevated at 3.[address] of the abdomen showing sigmoid diverticula with inflammation. Patient was admitted to the intensive care unit for further evaluation. However, patient has been very resistant to care. Patient states that he does not like the fact that he does not have a bathroom. Patient has been very resistant to any intervention such as lab draws and supplemental oxygen. At approximately 9 AM, patient became more hypotensive following antibiotics. Patient had to be initiated on peripheral Levophed. Patient did have some bradycardia associated with its initial start as low as 32, but subsequently has gone up to 60 and EKG showed normal sinus rhythm with no blocks or ST change. Patient does report thrombocytopenia in the past. Patient also carries a diagnosis of cirrhosis that is reportedly secondary to chemotherapy. Review of systems otherwise negative from a constitutional, HEENT, respiratory, cardiovascular, GI, genitourinary, musculoskeletal, skin, neurologic, psychiatric and hematologic system unless stated above. [facility] Medical History (Updated 12/01/20 @ 18:[address] Willian Rojo MD) Abdominal pain BPH (benign prostatic hyperplasia) CLL (chronic lymphocytic leukemia) Diarrhea Essential hypertension Generalized weakness GERD (gastroesophageal reflux disease) Hyperlipemia Mixed hyperlipidemia VALERIE (obstructive sleep apnea) Osteoarthritis Paroxysmal atrial fibrillation Splenomegaly Thoracic aortic aneurysm without rupture Thrombocytopenia Type 2 diabetes mellitus Home Medications glimepiride 4 mg PO DAILY 03/25/15 [History Last Taken 02/26/17] metformin 1,000 mg PO BIDCM 03/25/15 [History Last Taken 02/26/17] rosuvastatin 20 mg PO QHS 03/25/15 [History Last Taken 02/26/17] losartan 100 mg PO DAILY 02/20/17 [History Last Taken 02/26/17] sitagliptin 50 mg PO DAILY 02/20/17 [History Last Taken 02/26/17] hydromorphone 2 mg PO Q3H PRN 03/09/19 [History Last Taken Unknown] trazodone 50 mg PO QHS 03/09/19 [History Last Taken Unknown] Bifidobacterium infantis 4 mg capsule 4 mg PO DAILY 04/17/19 [History Last Taken Unknown] allopurinol 300 mg tablet 300 mg PO DAILY 07/01/20 [History Last Taken Unknown] furosemide 20 mg tablet 20 mg PO DAILY 07/01/20 [History Last Taken Unknown] gabapentin 100 mg capsule 300 mg PO TIDCM cap 07/01/20 [History Last Taken Unknown] pantoprazole 40 mg tablet,delayed release 40 mg PO BID tab 07/01/20 [History Last Taken Unknown] polysaccharide iron complex 150 mg iron capsule 150 mg PO BID cap 07/01/20 [History Last Taken Unknown] spironolactone 25 mg tablet 25 mg PO DAILY 07/01/20 [History Last Taken Unknown] baclofen 5 mg PO TID 12/01/20 [History Last Taken Unknown] Allergy/AdvReac Type Severity Reaction Status Date / Time acetaminophen [From Vicodin] Allergy Rash Verified 07/01/20 10:13 cefazolin sodium [From Ancef] Allergy Rash Verified 07/01/20 10:13 clindamycin Allergy Chest Verified 07/01/20 10:13 tightness hydrocodone bitartrate Allergy Rash Verified 07/01/20 10:13 [From Vicodin] Family History Father Parkinson disease Brother Heart disease Diabetes Sister Atrial fibrillation Breast cancer Surgical History History of colonoscopy (~2018) History of hip replacement Social History Smoking Status: Former smoker alcohol intake: never substance use type: does not use caffeine: Yes Type: coffee Number of servings: 2 ROS ROS Narrative See HPI Physical Exam Const alert, oriented x3 and no apparent distress Constitutional Narrative: Intermittently cooperative General Appearance: well developed HEENT normocephalic, head/scalp atraumatic and moist oral mucous membranes Eyes PERRL and EOMs intact bilaterally Neck full ROM and no lymphadenopathy Chest inspection of chest normal Resp normal respiratory effort and no use of accessory muscles Effort and Inspection: able to speak in complete sentences Auscultation: clear to auscultation bilaterally; Negative for rales, rhonchi or wheezes Percussion: Negative for dullness Cardio regular rate, regular rhythm, S1 normal heart sound, S2 normal heart sound, no murmurs, no rub and no gallops GI normal to inspection, nondistended, normoactive bowel sounds no CVA tenderness Extremity no clubbing, cyanosis or edema Skin no rashes or lesions noted Neuro oriented x3, CN's II-XII intact bilaterally, moves all extremities and no focal motor deficits Psych cooperative and affect normal Lab / Micro Data Result Diagrams: 12/02/20 07:10 12/02/20 07:10 Labs: Laboratory Results - last 24 hr 12/01/20 11:58: WBC 2.7 L, RBC 3.77 L, Hgb 11.2 L, Hct 36.1 L, MCV 95.8 H, MCH 29.7, MCHC 31.0 L, RDW Std Deviation 52.5 H, RDW Coeff of Trell 14.8 H, Plt Count 40 L*, MPV 9.5, Immature Gran % (Auto) 0.800, Neut % (Auto) 90.8 H, Lymph % (Auto) 6.8 L, [place] % (Auto) 0.4, Eos % (Auto) 0.8, Baso % (Auto) 0.4, Absolute Neuts (auto) 2.4, Absolute Lymphs (auto) 0.18 L, Nucleated RBC % 0, Differential Comment SCANNED, Diff Path Review August maren, Platelet Estimate MKD DEC, Plt Morphology Comment LARGE 12/01/20 11:58: Sodium 141, Potassium 4.2, Chloride 110 H, Carbon Dioxide 25.0, Anion Gap 6, BUN 23 H, Creatinine 1.31 H, Estim Creat Clear Calc 44.96, Est GFR (MDRD) Af Amer 68, Est GFR (MDRD) Non-Af 56 L, BUN/Creatinine Ratio 17.6, Glucose 111 H, Calcium 8.3 L, Total Bilirubin 1.20 H, Direct Bilirubin 0.54 H, AST 47 H, ALT 48, Alkaline Phosphatase 127 H, Total Protein 6.1 L, Albumin 3.1 L, Globulin 3.0 12/01/20 13:20: Urine Color Yellow, Urine Clarity Clear, Urine pH 5.0, Ur Specific [place] 1.015, Urine Protein 15 H, Urine Glucose (UA) Normal, Urine Ketones Negative, Urine Occult Blood 10 H, Urine Nitrite Negative, Urine Bilirubin Negative, Urine Urobilinogen Normal, Ur Leukocyte Esterase Negative, Urine RBC 0 SEEN, Urine WBC 0 SEEN, Ur Squamous Epith Cells 0 SEEN, Amorphous Sediment 1+, Urine Bacteria 0 SEEN, Urine Mucus 0 SEEN 12/01/20 16:10: Lactic Acid 3.4 H* 12/01/20 18:17: COVID-19 (JUNE) Negative 12/01/20 20:15: Lactic Acid 4.4 H* 12/01/20 20:20: Troponin I High Sens 25.0 12/01/20 21:53: POC Glucose 68 L 12/01/20 22:30: POC Glucose 82 12/02/20 00:05: Troponin I High Sens 27.7 12/02/20 00:05: Lactic Acid 4.1 H* 12/02/20 06:24: POC Glucose 153 H 12/02/20 07:10: WBC 5.3, RBC 3.01 L, Hgb 9.1 L, Hct 28.5 L, MCV 94.7 H, MCH 30.2, MCHC 31.9 L, RDW Std Deviation 52.8 H, RDW Coeff of Trell 15.2 H, Plt Count 22 L*, MPV 12.9 H, Immature Gran % (Auto) 1.500 H, Neut % (Auto) 91.9 H, Lymph % (Auto) 1.5 L, [place] % (Auto) 4.9, Eos % (Auto) 0.0, Baso % (Auto) 0.2, Absolute Neuts (auto) 4.9, Absolute Lymphs (auto) 0.08 L, Nucleated RBC % 0, Differential Comment SCANNED, Diff Path Review August foll, Platelet Estimate MKD 12/02/20 07:10: Sodium 139, Potassium 4.3, Chloride 111 H, Carbon Dioxide 20.0 L, Anion Gap 8, BUN 25 H, Creatinine 1.40 H, Estim Creat Clear Calc 42.07, Est GFR (MDRD) Af Amer 63, Est GFR (MDRD) Non-Af 52 L, BUN/Creatinine Ratio 17.9, Glucose 161 H, Calcium 6.8 L, Phosphorus 3.1, Magnesium 1.6, Total Bilirubin 1.00, Direct Bilirubin 0.46 H, AST 99 H, ALT 93 H, Alkaline Phosphatase 117, Total Protein 5.2 L, Albumin 2.4 L, Globulin 2.8 Micro: Microbiology 12/01/20 11:58 Blood Culture (Wb) - Anticubital Left Blood Culture - Preliminary Radiology Impression Abdomen/Pelvis CT 12/01/20 12:01 IMPRESSION: 1. Sigmoid diverticula with a single large diverticulum in the distal descending colon with surrounding inflammation or scar. This is stable from the reference examination may represent chronic scarring around a diverticulum however acute diverticulitis cannot be excluded. There is no abscess or perforation. 2. Splenomegaly with gastric, splenic and esophageal varices compatible with portal hypertension. Individualized dose optimization techniques were used for this CT. at 1453 Reported and signed by: Uli Stanton MD Electronically Signed: Uli Stanton MD at 14:52 EDT Tel , Service support , Charges/Coding Procedures Hospitalists Procedures: [id number] [facility]
--- NOTE | 2020-12-02 10:35 | CASEMGMT ---
CHEN MAXWELL Face to Face with patient for initial transition planning/care coordination assessment. RN CM introduced self and role at [facility]. Patient lying in bed, alert and oriented. Patient willing to participate in assessment and is able to answer all questions appropriately. Care providers, pharmacy, and demographics verified. Patient wishes to discharge home, denies need for home health at this time. Patient states he has no further needs or concerns at this time. CM to follow for discharge planning needs that may arise. PCP: Steph Specialists: Paula, vice president residential solar sales; [facility] Liver specialist Preferred Pharmacy: [facility] Insurance: [employer], [id number] other Prescription Benefit: yes Living Will/HPOA: yes, Diana Church LNOK: , son Living Arrangements: Patient lives with in a single story home with no steps to enter. Patient states he is independent at home and able to ambulate stairs. Transportation: self, DME/HHC: Patient states he has shower chair, raised toilet, cane, walker, grab bars at home. Patient denies previous HHC or SNF. Disposition Plan: Patient to discharge home with family support and follow-up plans in place. Yael LUA, RN, CM
--- NOTE | 2020-12-02 11:37 | RAD_ITS ---
STUDY: X-RAY CHEST REASON FOR EXAM: Male, 80 years old. picc line placement TECHNIQUE: AP COMPARISON: 03/25/2015 FINDINGS: EKG leads project over the chest. Right arm PICC present with tip overlying the mid SVC. No airspace consolidation. There is no demonstrated pleural abnormality. Normal size heart. Normal mediastinum and leticia. Normal visualized pulmonary arteries. There is atherosclerotic calcification of the aortic arch with tortuosity. Normal visualized thoracic spine. Normal visualized ribs, clavicles, and shoulders. There is no demonstrated abnormality of the visualized soft tissue structures of the upper abdomen. RAD/CXR for Line Placement IMPRESSION: Right arm PICC tip overlies the right mid SVC. Electronically Signed: Thierry Mustafa MD ([place]) at 12:26 EDT , Service support ,
[2020-12-02 11:41] LABS: Bedside Glucose 124 mg/dL (70-110)
[2020-12-02 13:29] LABS: Pathologist Review Reviewed
[2020-12-02 13:37] LABS: Pathologist Review Reviewed
--- NOTE | 2020-12-02 14:28 | PN.HOSP_ITS ---
Subjective Subjective Feeling better, no issues overnight. Had to be placed on pressors today to support his blood pressure secondary to his gram-negative juan pablo bacteremia Objective Data Objective Data Vital Signs: Vital Signs Temp Pulse Resp BP Pulse Ox 99.3 F H 63 22 H 124/55 H 96 12/02/20 04:00 12/02/20 13:00 12/02/20 13:00 12/02/20 13:00 12/02/20 13:00 Oxygen Flow Rate (L/min) 2 Oxygen Delivery Method Room Air Weight: 200 lb 6.4 oz Body Mass Index (BMI) 27.9 Intake & Output: Intake and Output for Last 24 Hours 12/01/20 12/02/20 12/03/20 03:59 03:59 03:59 Intake Total 5575.0 / 5575.0 2298.05 / 2298.05 Output Total 350 / 525 275 / 275 Balance 5225.0 / 5050.0 2023.05 / 2023.05 Medical Nutrition Assessment Dietitian: Nutrition Therapy Diagnosis Start: 12/02/20 11:51 Freq: Status: Active Protocol: Document 12/02/20 12:02 SLA (Rec: 12/02/20 12:02 SLA [id number]) Nutrition Malnutrition Evidence of Malnutrition Exists No Clinical Problem Altered Nutrient-Related Laboratory Values Etiology related to DM Signs/Symptoms as evidenced by gluc 161 Status Active Problem Recommendation Dietitian Recommendations/Changes Will continue diet as ordered. Lab / Micro Data Result Diagrams: 12/02/20 07:10 12/02/20 07:10 Labs: Laboratory Results - last 24 hr 12/01/20 11:58: Diff Path Review Reviewed 12/01/20 16:10: Lactic Acid 3.4 H* 12/01/20 18:17: COVID-19 (JUNE) Negative 12/01/20 20:15: Lactic Acid 4.4 H* 12/01/20 20:20: Troponin I High Sens 25.0 12/01/20 21:53: POC Glucose 68 L 12/01/20 22:30: POC Glucose 82 12/02/20 00:05: Troponin I High Sens 27.7 12/02/20 00:05: Lactic Acid 4.1 H* 12/02/20 06:24: POC Glucose 153 H 12/02/20 07:10: WBC 5.3, RBC 3.01 L, Hgb 9.1 L, Hct 28.5 L, MCV 94.7 H, MCH 30.2, MCHC 31.9 L, RDW Std Deviation 52.8 H, RDW Coeff of Trell 15.2 H, Plt Count 22 L*, MPV 12.9 H, Immature Gran % (Auto) 1.500 H, Neut % (Auto) 91.9 H, Lymph % (Auto) 1.5 L, [place] % (Auto) 4.9, Eos % (Auto) 0.0, Baso % (Auto) 0.2, Absolute Neuts (auto) 4.9, Absolute Lymphs (auto) 0.08 L, Nucleated RBC % 0, Differential Comment SCANNED, Diff Path Review Reviewed, Platelet Estimate MKD 12/02/20 07:10: Sodium 139, Potassium 4.3, Chloride 111 H, Carbon Dioxide 20.0 L , Anion Gap 8, BUN 25 H, Creatinine 1.40 H, Estim Creat Clear Calc 42.07, Est GFR (MDRD) Af Amer 63, Est GFR (MDRD) Non-Af 52 L, BUN/Creatinine Ratio 17.9, Glucose 161 H, Calcium 6.8 L, Phosphorus 3.1, Magnesium 1.6, Total Bilirubin 1. 00, Direct Bilirubin 0.46 H, AST 99 H, ALT 93 H, Alkaline Phosphatase 117, Total Protein 5.2 L, Albumin 2.4 L, Globulin 2.8 12/02/20 11:37: POC Glucose 124 H Micro: Microbiology 12/01/20 11:58 Blood Culture (Wb) - Anticubital Left Blood Culture - Preliminary Radiography Diagnostic Testing: Radiology Impression Abdomen/Pelvis CT 12/01/20 12:01 IMPRESSION: 1. Sigmoid diverticula with a single large diverticulum in the distal descending colon with surrounding inflammation or scar. This is stable from the reference examination may represent chronic scarring around a diverticulum however acute diverticulitis cannot be excluded. There is no abscess or perforation. 2. Splenomegaly with gastric, splenic and esophageal varices compatible with portal hypertension. Individualized dose optimization techniques were used for this CT. at 1453 Reported and signed by: Uli Stanton MD Electronically Signed: Uli Stanton MD at 14:52 EDT Tel , Service support , Chest X-Ray 12/02/20 11:37 IMPRESSION: Right arm PICC tip overlies the right mid SVC. Electronically Signed: Thierry Mustafa MD ([place]) at 12:26 EDT , Service support , Physical Exam Const alert, oriented x3 and no apparent distress General Appearance: cooperative HEENT normocephalic and moist oral mucous membranes Eyes PERRL, EOMs intact bilaterally and conjunctivae normal Neck supple and no JVD Resp normal respiratory effort, no retractions, no use of accessory muscles and clear to auscultation bilaterally Auscultation: Negative for crackles, rales, rhonchi or wheezes Cardio regular rate, regular rhythm, S1 normal heart sound, S2 normal heart sound and no murmurs GI soft to palpation, non-tender and non-distended; Negative for hepatosplenomegaly Extremity no clubbing, cyanosis or edema Skin no rashes or lesions noted Neuro no focal motor deficits and no sensory deficits noted Psych affect normal Appearance: appropriate Assessment & Plan Assessment/Plan (1) Septic shock: (2) Diverticulitis: (3) Type 2 diabetes mellitus: QUALIFIERS: Diabetes mellitus complication status: with unspecified complications Diabetes mellitus superintendent terminal insulin use: without care home use Qualified Code(s): E11.8 - Type 2 diabetes mellitus with unspecified complications PLAN: 1. Septic shock secondary to gram-negative juan pablo bacteremia from diverticulitis ?Secondary to suspected sigmoid diverticulitis. Patient has been admitted to the intensive care unit currently being managed with aggressive IV fluid resuscitation, broad-spectrum antibiotic with Zosyn and cultures sent. Patient progressed to be monitored with serial lactic acid level 12/02/2020: Continue with IV antibiotics, he had a line placed and is started on IV pressors to control and maintain his blood pressure. 3. Essential hypertension ?Patient antihypertensives and diuretics placed on hold. Patient was relatively hypotensive in the ED with systolic blood pressure in the 90s resuscitated with IV fluids with subsequent monitoring of vitals 12/02/20: Continue to hold his antihypertensive medication secondary to his hypot ension and need for pressor support 3. Chronic lymphocytic leukemia ?Currently in remission 4. Diabetes mellitus type II -patient's oral hypoglycemics held. Placed on long acting insulin, Accu-Cheks a.c. and at bedtime and covered with sliding scale insulin 12/02/20: Continue to monitor blood sugar and make adjustments as necessary 5. 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 Patient has stigmata of portal hypertension with splenomegaly and gastric and splenic and esophageal varices as noted on CT of the abdomen. Will avoid potential hepatotoxic medications and monitor patient's progress with daily CMP's 6. Thrombocytopenia ?Secondary to cirrhosis of the liver monitoring with daily CBCs 12/02/20: We will continue to monitor, but platelets have decreased today likely reactive to his sepsis 7. Dyslipidemia -Patient is on statin therapy, continued at home dose 8. DVT prophylaxis ?Avoided the use of chemoprophylaxis in view of patient's significant thrombocytopenia he wasPlaced on bilateral SCDs Charges/Coding Visit Charges Inpatient E&M: 92524 Subs Hosp L2
[2020-12-02 16:51] LABS: Bedside Glucose 191 mg/dL (70-110)
[2020-12-02] MEDS: TITRATION PARAMETER CHANGE 1 EACH IV (19:53)
[2020-12-02] MEDS: Atorvastatin Calcium 40 MG Tablet PO (21:45)
[2020-12-02] MEDS: traZODone 50 MG Tablet PO (21:46)
[2020-12-02 22:15] LABS: Bedside Glucose 151 mg/dL (70-110)
[2020-12-03] VITALS (32 sets, daily range): BP systolic 96–114; BP diastolic 42–61; PULSE 60–71; RESP 16–23; TEMP 36.5–36.8; O2SAT 95–100
[2020-12-03 04:50] LABS: Absolute Lymphocyte Count 0.52 X10^3/uL (0.83-4.51); Absolute Neutrophil Count 6.2 X10^3/uL (2.0-7.7); Basophil# 0.01 X10^3/uL; Basophil% 0.1 % (0-1); Eosinophil# 0.05 X10^3/uL; Eosinophils% 0.7 % (0-5); Hematocrit 28.7 % (40-54); Hemoglobin 9.4 g/dL (13.0-16.5); Lymphocyte # 0.52 X10^3/ul (0.83-4.51); Lymphocyte % 7.3 % (19-41); Mean Corp Hgb Conc 32.8 g/dL (32-36); Mean Corpuscular Hgb 30.1 pg (27.0-32.0); Monocyte# 0.31 X10^3/uL; Monocyte% 4.3 % (0-10); NRBC Flagged by Analyzer 0 % (0-5); Neutrophil # 6.17 X10^3/uL (2.7-7.7); Neutrophil % 86.5 % (47-70); POSITIVE COUNT YES; POSITIVE DIFFERENTIAL YES; POSITIVE MORPHOLOGY YES; RBC Distribution Width CV 15.3 % (11.6-14.6); Red Blood Count 3.12 M/mm3 (4.6-6.2); White Blood Count 7.1 K/mm3 (4.4-11.0)
[2020-12-03 04:55] LABS: Differential Indicated SCAN CRITERIA MET
[2020-12-03 04:56] LABS: Platelet Count 33 K/mm3 (150-450)
[2020-12-03 04:59] LABS: Anion Gap 6 (5-15); BUN 18 mg/dL (7-18); BUN/Creat Ratio 18.5 RATIO (10-20); Calcium,Total 7.4 mg/dL (8.5-10.1); Chloride 112 mmol/L (98-107); Creatinine, Serum 0.98 mg/dL (0.70-1.30); EST Glomerular Filtration Rate 79 mL/min (>60); Est Glom Filt Rate - Afr Amer 96 mL/min (>60); Glucose 118 mg/dL (74-106); Potassium 3.8 mmol/L (3.5-5.1); Sodium Level 141 mmol/L (136-145)
[2020-12-03 05:22] LABS: Platelet Estimate MKD DEC (ADEQ)
[2020-12-03] MEDS: Baclofen 10 MG Tablet 5 MG PO ×3 (05:52→21:13)
--- NOTE | 2020-12-03 06:53 | PCM.PN.INT ---
Assessment & Plan Assessment/Plan (1) Severe sepsis: (2) Diverticulitis: (3) Thrombocytopenia: (4) CLL (chronic lymphocytic leukemia): PLAN: RECOMMENDATIONS: 1. Wean off pressors 2. Hold IV fluids. Continue to hold baseline antihypertensives and diuretics 3. Continue to monitor abdominal exam and signs or symptoms of bleeding 4. Continue sliding scale insulin 5. No platelet transfusion at this time 6. Continue empiric antibiotics pending culture results IMPRESSIONS: 1. Septic shock secondary to gram-negative juan pablo secondary to probable diverticulitis Patient with progressive hypotension after initiation of antibiotics. Patient does have gram negatives in the blood in less than [address] of the abdomen is suggestive of diverticulitis as a possible etiology. Patient does have chronic thrombocytopenia complicating overall condition. Patient likely has lower blood pressure secondary to cirrhosis. Patient with significant improvement over the last 24 hours. We will continue to wean off the pressors. Abdominal exam has completely resolved. Unlikely need for surgical evaluation. Await species and sensitivities prior to narrowing antibiotic spectrum. Would likely continue to hold baseline antihypertensives and diuretics for another 24 hours. 2. Cirrhosis/thrombocytopenia/CLL Patient with lower blood pressures at baseline. Patient likely has an element of hemodilution secondary to volume resuscitation associated with problem #1. No active bleeding has been noted. We will hold off on a platelet transfusion at this time. 3. Diabetes mellitus/hypertension/dyslipidemia/advanced age/poor cooperation/obesity Complicates care, management, recovery and prognosis. Agree with holding oral hypoglycemics. Can continue on statin therapy for now, but diuretics and antihypertensives will need to be held given problem #1. Did stressed to the patient that he needs to allow for interventions if he wants to be aggressive. Patient is currently a full code, but is very resistant to interventions as simple as lab draws. Patient reluctantly agrees. TIME: 32 minutes critical care time spent addressing patient's septic shock, thrombocytopenia, diabetes mellitus, review of all data and collaboration with care team (5:25 AM to 6:25 AM) Subjective Subjective Patient did well overnight. Patient remains on pressors to maintain appropriate blood pressure. Patient states his abdominal pain is much improved compared to previous. Patient is not reporting any chest pain or shortness of breath, but has had loose bowel movements frequently over the last 24 hours. Objective Data Objective Data Vital Signs: Vital Signs Temp Pulse Resp BP Pulse Ox 36.5 C L 64 20 H 110/53 L 98 12/03/20 05:30 12/03/20 06:45 12/03/20 05:30 12/03/20 06:45 12/03/20 05:30 Oxygen Flow Rate (L/min) 2 Oxygen Delivery Method Room Air Weight: 86.591 kg Body Mass Index (BMI) 27.9 Intake & Output: Intake and Output for Last 24 Hours 12/01/20 12/02/20 12/03/20 23:59 23:59 23:59 Intake Total 5197.5 / 5297.5 3589.60 / 3595.20 139.26 / 139.26 Output Total 350 / 350 725 / 725 400 / 400 Balance 4847.5 / 4947.5 2864.60 / 2870.20 -260.74 / -260.74 Medical Nutrition Assessment Dietitian: Nutrition Therapy Diagnosis Start: 12/02/20 11:51 Freq: Status: Active Protocol: Document 12/02/20 12:02 NAHOMY (Rec: 12/02/20 12:02 SLA [id number]) Nutrition Malnutrition Evidence of Malnutrition Exists No Clinical Problem Altered Nutrient-Related Laboratory Values Etiology related to DM Signs/Symptoms as evidenced by gluc 161 Status Active Problem Recommendation Dietitian Recommendations/Changes Will continue diet as ordered. Lab / Micro Data Result Diagrams: 12/03/20 04:15 12/03/20 04:15 Labs: Laboratory Results - last 24 hr 12/01/20 11:58: Diff Path Review Reviewed 12/02/20 07:10: WBC 5.3, RBC 3.01 L, Hgb 9.1 L, Hct 28.5 L, MCV 94.7 H, MCH 30.2, MCHC 31.9 L, RDW Std Deviation 52.8 H, RDW Coeff of Trell 15.2 H, Plt Count 22 L*, MPV 12.9 H, Immature Gran % (Auto) 1.500 H, Neut % (Auto) 91.9 H, Lymph % (Auto) 1.5 L, [place] % (Auto) 4.9, Eos % (Auto) 0.0, Baso % (Auto) 0.2, Absolute Neuts (auto) 4.9, Absolute Lymphs (auto) 0.08 L, Nucleated RBC % 0, Differential Comment SCANNED, Diff Path Review Reviewed, Platelet Estimate MKD 12/02/20 07:10: Sodium 139, Potassium 4.3, Chloride 111 H, Carbon Dioxide 20.0 L, Anion Gap 8, BUN 25 H, Creatinine 1.40 H, Estim Creat Clear Calc 42.07, Est GFR (MDRD) Af Amer 63, Est GFR (MDRD) Non-Af 52 L, BUN/Creatinine Ratio 17.9, Glucose 161 H, Calcium 6.8 L, Phosphorus 3.1, Magnesium 1.6, Total Bilirubin 1.00, Direct Bilirubin 0.46 H, AST 99 H, ALT 93 H, Alkaline Phosphatase 117, Total Protein 5.2 L, Albumin 2.4 L, Globulin 2.8 12/02/20 11:37: POC Glucose 124 H 12/02/20 16:45: POC Glucose 191 H 12/02/20 22:05: POC Glucose 151 H 12/03/20 04:15: WBC 7.1, RBC 3.12 L, Hgb 9.4 L, Hct 28.7 L, MCV 92.0, MCH 30.1, MCHC 32.8, RDW Std Deviation 52.0 H, RDW Coeff of Trell 15.3 H, Plt Count 33 L*, MPV 13.0 H, Immature Gran % (Auto) 1.100 H, Neut % (Auto) 86.5 H, Lymph % (Auto) 7.3 L, [place] % (Auto) 4.3, Eos % (Auto) 0.7, Baso % (Auto) 0.1, Absolute Neuts (auto) 6.2, Absolute Lymphs (auto) 0.52 L, Nucleated RBC % 0, Diff Path Review May foll, Platelet Estimate [facility] 12/03/20 04:15: Sodium 141, Potassium 3.8, Chloride 112 H, Carbon Dioxide 23.0, Anion Gap 6, BUN 18, Creatinine 0.98, Estim Creat Clear Calc 60.10, Est GFR (MDRD) Af Amer 96, Est GFR (MDRD) Non-Af 79, BUN/Creatinine Ratio 18.5, Glucose 118 H, Calcium 7.4 L Micro: Microbiology 12/01/20 11:58 Blood Culture (Wb) - Anticubital Left Blood Culture - Preliminary Radiography Diagnostic Testing: Radiology Impression Chest X-Ray 12/02/20 11:37 IMPRESSION: Right arm PICC tip overlies the right mid SVC. Electronically Signed: Thierry Mustafa MD ([place]) at 12:26 EDT , Service support , Physical Exam Const alert, oriented x3 and no apparent distress Constitutional Narrative: Much more pleasant today. General Appearance: well developed HEENT normocephalic, head/scalp atraumatic and moist oral mucous membranes Eyes PERRL and EOMs intact bilaterally Neck full ROM and no lymphadenopathy Chest inspection of chest normal Resp normal respiratory effort and no use of accessory muscles Effort and Inspection: able to speak in complete sentences Auscultation: clear to auscultation bilaterally; Negative for rales, rhonchi or wheezes Percussion: Negative for dullness Cardio regular rate, regular rhythm, S1 normal heart sound, S2 normal heart sound, no murmurs, no rub and no gallops GI normal to inspection, nondistended, normoactive bowel sounds no CVA tenderness Extremity no clubbing, cyanosis or edema Skin no rashes or lesions noted Neuro oriented x3, CN's II-XII intact bilaterally, moves all extremities and no focal motor deficits Psych cooperative and affect normal Charges/Coding Procedures Hospitalists Procedures: 62112 Critial Care 1st Hr
[2020-12-03] MEDS: Allopurinol 300 MG Tablet PO (08:19)
[2020-12-03] MEDS: Iron Polysaccharide Complex 150 MG CAPSULE PO ×2 (08:19→21:14)
[2020-12-03] MEDS: Gabapentin 300 MG Capsule PO ×3 (08:19→16:30)
[2020-12-03] MEDS: Pantoprazole Sodium 40 MG Tablet PO ×2 (08:19→21:14)
[2020-12-03 08:20] LABS: Bedside Glucose 116 mg/dL (70-110)
--- NOTE | 2020-12-03 09:53 | PCM.PN.HOSP ---
Subjective Subjective Doing well, no issues overnight. Denies any significant abdominal pain though he still has some diarrhea. He has been off of pressors since 6:30 AM Objective Data Objective Data Vital Signs: Vital Signs Temp Pulse Resp BP Pulse Ox 97.9 F 62 16 97/51 L 100 12/03/20 07:15 12/03/20 07:15 12/03/20 07:15 12/03/20 07:15 12/03/20 07:15 Oxygen Flow Rate (L/min) 2 Oxygen Delivery Method Room Air Weight: 190 lb 14.4 oz Body Mass Index (BMI) 27.9 Intake & Output: Intake and Output for Last 24 Hours 12/02/20 12/03/20 12/04/20 03:59 03:59 03:59 Intake Total 5575.0 / 5575.0 3284.50 / 3340.10 66.86 / 66.86 Output Total 350 / 525 1125 / 1125 400 / 400 Balance 5225.0 / 5050.0 2159.50 / 2215.10 -333.14 / -333.14 Medical Nutrition Assessment Dietitian: Nutrition Therapy Diagnosis Start: 12/02/20 11:51 Freq: Status: Active Protocol: Document 12/02/20 12:02 NAHOMY (Rec: 12/02/20 12:02 NAHOMY [id number]) Nutrition Malnutrition Evidence of Malnutrition Exists No Clinical Problem Altered Nutrient-Related Laboratory Values Etiology related to DM Signs/Symptoms as evidenced by gluc 161 Status Active Problem Recommendation Dietitian Recommendations/Changes Will continue diet as ordered. Lab / Micro Data Result Diagrams: 12/03/20 04:15 12/03/20 04:15 Labs: Laboratory Results - last 24 hr 12/01/20 11:58: Diff Path Review Reviewed 12/02/20 07:10: Diff Path Review Reviewed 12/02/20 11:37: POC Glucose 124 H 12/02/20 16:45: POC Glucose 191 H 12/02/20 22:05: POC Glucose 151 H 12/03/20 04:15: WBC 7.1, RBC 3.12 L, Hgb 9.4 L, Hct 28.7 L, MCV 92.0, MCH 30.1, MCHC 32.8, RDW Std Deviation 52.0 H, RDW Coeff of Trell 15.3 H, Plt Count 33 L*, MPV 13.0 H, Immature Gran % (Auto) 1.100 H, Neut % (Auto) 86.5 H, Lymph % (Auto) 7.3 L, [place] % (Auto) 4.3, Eos % (Auto) 0.7, Baso % (Auto) 0.1, Absolute Neuts (auto) 6.2, Absolute Lymphs (auto) 0.52 L, Nucleated RBC % 0, Diff Path Review August, Platelet Estimate MKD 12/03/20 04:15: Sodium 141, Potassium 3.8, Chloride 112 H, Carbon Dioxide 23.0, Anion Gap 6, BUN 18, Creatinine 0.98, Estim Creat Clear Calc 60.10, Est GFR (MDRD) Af Amer 96, Est GFR (MDRD) Non-Af 79, BUN/Creatinine Ratio 18.5, Glucose 118 H, Calcium 7.4 L 12/03/20 08:07: POC Glucose 116 H Micro: Microbiology 12/01/20 11:58 Blood Culture (Wb) - Anticubital Left Blood Culture - Preliminary Gram negative juan pablo Radiography Diagnostic Testing: Radiology Impression Chest X-Ray 12/02/20 11:37 IMPRESSION: Right arm PICC tip overlies the right mid SVC. Electronically Signed: Thierry Mustafa MD ([place]) at 12:26 EDT , Service support , Physical Exam Const alert, oriented x3 and no apparent distress General Appearance: cooperative HEENT normocephalic and moist oral mucous membranes Eyes PERRL, EOMs intact bilaterally and conjunctivae normal Neck supple and no JVD Resp normal respiratory effort, no retractions, no use of accessory muscles and clear to auscultation bilaterally Auscultation: Negative for crackles, rales, rhonchi or wheezes Cardio regular rate, regular rhythm, S1 normal heart sound, S2 normal heart sound and no murmurs GI soft to palpation, non-tender and non-distended; Negative for hepatosplenomegaly Extremity no clubbing, cyanosis or edema Skin no rashes or lesions noted Neuro no focal motor deficits and no sensory deficits noted Psych affect normal Appearance: appropriate Assessment & Plan Assessment/Plan (1) Septic shock: (2) Diverticulitis: (3) Type 2 diabetes mellitus: QUALIFIERS: Diabetes mellitus complication status: with unspecified complications Diabetes mellitus correction insulin use: without terminal carman use Qualified Code(s): E11.8 - Type 2 diabetes mellitus with unspecified complications PLAN: 1. Septic shock secondary to gram-negative juan pablo bacteremia from diverticulitis ?Secondary to suspected sigmoid diverticulitis. Patient has been admitted to the intensive care unit currently being managed with aggressive IV fluid resuscitation, broad-spectrum antibiotic with Zosyn and cultures sent. Patient progressed to be monitored with serial lactic acid level 12/02/2020: Continue with IV antibiotics, he had a line placed and is started on IV pressors to control and maintain his blood pressure. 12/03/2020: Continue with IV antibiotics, awaiting culture results from his blood cultures. He is tolerating a diet, will continue 3. Essential hypertension ?Patient antihypertensives and diuretics placed on hold. Patient was relatively hypotensive in the ED with systolic blood pressure in the 90s resuscitated with IV fluids with subsequent monitoring of vitals 12/02/20: Continue to hold his antihypertensive medication secondary to his hypotension and need for pressor support 3. Chronic lymphocytic leukemia ?Currently in remission 4. Diabetes mellitus type II -patient's oral hypoglycemics held. Placed on long acting insulin, Accu-Cheks a.c. and at bedtime and covered with sliding scale insulin 12/02/20: Continue to monitor blood sugar and make adjustments as necessary 5. 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 Patient has stigmata of portal hypertension with splenomegaly and gastric and splenic and esophageal varices as noted on CT of the abdomen. Will avoid potential hepatotoxic medications and monitor patient's progress with daily CMP's 6. Thrombocytopenia ?Secondary to cirrhosis of the liver monitoring with daily CBCs 12/02/20: We will continue to monitor, but platelets have decreased today likely reactive to his sepsis 12/03/2020: Platelets have risen today, will continue to monitor 7. Dyslipidemia -Patient is on statin therapy, continued at home dose 8. DVT prophylaxis ?Avoided the use of chemoprophylaxis in view of patient's significant thrombocytopenia he wasPlaced on bilateral SCDs Charges/Coding Visit Charges Inpatient E&M: 70569 Subs Hosp L2
--- NOTE | 2020-12-03 10:35 | CASEMGMT ---
CHEN MAXWELL NOTE: Pt screened with [facility] Palliative Care Screening Tool for strata 3, pt did not meet criteria. Raine BOYKINN RN CM
[2020-12-03 11:35] LABS: Bedside Glucose 169 mg/dL (70-110)
[2020-12-03] MEDS: Insulin Lispro 100 UNIT/ML INSULN.PEN SC ×3 (12:16→21:14)
[2020-12-03 12:51] LABS: Pathologist Review Reviewed
[2020-12-03 16:31] LABS: Bedside Glucose 155 mg/dL (70-110)
[2020-12-03] MEDS: Atorvastatin Calcium 40 MG Tablet PO (21:13)
[2020-12-03] MEDS: traZODone 50 MG Tablet PO (21:14)
[2020-12-03] MEDS: 0.9% Saline Lock 10 ML Syringe IV (21:16)
[2020-12-03 21:35] LABS: Bedside Glucose 182 mg/dL (70-110)
[2020-12-04 03:00] VITALS: PULSE 74
[2020-12-04 03:06] VITALS: BP 102/49; PULSE 62; RESP 18; TEMP 36.7; O2SAT 98
[2020-12-04 06:05] LABS: Absolute Lymphocyte Count 0.28 X10^3/uL (0.83-4.51); Absolute Neutrophil Count 2.5 X10^3/uL (2.0-7.7); Basophil# 0.01 X10^3/uL; Basophil% 0.3 % (0-1); Eosinophil# 0.03 X10^3/uL; Hematocrit 28.6 % (40-54); Lymphocyte # 0.28 X10^3/ul (0.83-4.51); Lymphocyte % 9.6 % (19-41); Mean Corp Hgb Conc 31.5 g/dL (32-36); Mean Corpuscular Hgb 30.1 pg (27.0-32.0); Mean Corpuscular Volume 95.7 fL (80-94); Mean Platelet Vol. 12.8 fl (6.2-12.0); Monocyte# 0.11 X10^3/uL; Monocyte% 3.8 % (0-10); NRBC Flagged by Analyzer 0 % (0-5); Neutrophil # 2.46 X10^3/uL (2.7-7.7); Neutrophil % 84.6 % (47-70); POSITIVE COUNT YES; POSITIVE DIFFERENTIAL YES; Platelet Count 28 K/mm3 (150-450); RBC Distribution Width CV 15.4 % (11.6-14.6); RBC Distribution Width SD 53.8 fl (35.1-43.9); Red Blood Count 2.99 M/mm3 (4.6-6.2)
[2020-12-04 06:15] LABS: Differential Indicated SCAN CRITERIA MET; White Blood Count 2.9 K/mm3 (4.4-11.0)
[2020-12-04] MEDS: 0.9% Saline Lock 10 ML Syringe IV (06:31)
[2020-12-04] MEDS: Baclofen 10 MG Tablet 5 MG PO (06:31)
[2020-12-04 06:39] LABS: ALB/GLOB Ratio 0.8 RATIO (0.9-2.4); AST(SGOT) 54 U/L (15-37); Alanine Aminotransfer ALT/SGPT 78 U/L (16-61); Albumin, Serum 2.3 g/dL (3.2-5.0); Alkaline Phosphatase 118 U/L (45-117); Anion Gap 6 (5-15); BUN 15 mg/dL (7-18); BUN/Creat Ratio 14.9 RATIO (10-20); Calcium,Total 7.6 mg/dL (8.5-10.1); Chloride 113 mmol/L (98-107); Creatinine, Serum 1.01 mg/dL (0.70-1.30); EST Glomerular Filtration Rate 76 mL/min (>60); Est Glom Filt Rate - Afr Amer 92 mL/min (>60); Estimated Creatinine Clearance 58.32 ml/min; Globulin 2.9 g/dL (2.2-4.2); Glucose 198 mg/dL (74-106); Potassium 3.8 mmol/L (3.5-5.1); Protein, Total 5.2 g/dL (6.4-8.2); Sodium Level 140 mmol/L (136-145)
[2020-12-04 07:00] VITALS: PULSE 61
[2020-12-04] MEDS: Pantoprazole Sodium 40 MG Tablet PO (07:57)
[2020-12-04] MEDS: Iron Polysaccharide Complex 150 MG CAPSULE PO (07:57)
[2020-12-04] MEDS: Gabapentin 300 MG Capsule PO ×2 (07:57→11:59)
[2020-12-04] MEDS: Allopurinol 300 MG Tablet PO (07:57)
[2020-12-04] MEDS: Insulin Lispro 100 UNIT/ML INSULN.PEN SC ×2 (07:58→11:59)
[2020-12-04 08:11] LABS: Bedside Glucose 175 mg/dL (70-110)
[2020-12-04 09:00] VITALS: BP 121/46; PULSE 68; RESP 16; TEMP 36.7; O2SAT 98
--- NOTE | 2020-12-04 10:53 | PCM.DC ---
Discharge Instructions Diet Discharge Diet: No restrictions Activity Discharge Activity: Return to Normal Activity Dressing / Incision Call your doctor if you observe: Fever of 101 or Higher, Shortness of breath, Dizziness, Swelling in the ankles, Chest pain and Increased palpitations (irregular heartbeat) Follow Up Care Test Results: Test results from this visit will be discussed in further detail at your follow-up appointment, if applicable. 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 Instructions Additional Instructions / Restrictions: We will discharge you on Flagyl, recommend he do not drink any alcohol until you complete your Flagyl Discharge Orders/Prescriptions Prescriptions: New levofloxacin 750 mg tablet 750 mg PO DAILY Qty: 10 RF: 0 metronidazole [Flagyl] 500 mg tablet 500 mg PO Q8H 7 Days Qty: 21 RF: 0 Continued Align 4 mg capsule 4 mg PO DAILY RF: 0 pantoprazole 40 mg tablet,delayed release (DR/EC) 40 mg PO BID RF: 0 spironolactone 25 mg tablet 25 mg PO DAILY RF: 0 furosemide 20 mg tablet 20 mg PO DAILY RF: 0 allopurinol 300 mg tablet 300 mg PO DAILY RF: 0 polysaccharide iron complex [Ferrex 150] 150 mg iron capsule 150 mg PO BID RF: 0 glimepiride 2 MG tablet 4 mg PO DAILY RF: 0 metformin 1,000 MG tablet 1,000 mg PO BIDCM RF: 0 rosuvastatin 20 MG tablet 20 mg PO QHS RF: 0 losartan 100 MG tablet 100 mg PO DAILY RF: 0 sitagliptin 50 MG tablet 50 mg PO DAILY RF: 0 trazodone 50 MG tablet 50 mg PO QHS RF: 0 hydromorphone 2 MG tablet 2 mg PO Q3H PRN (Reason: Pain/Inflammation) RF: 0 gabapentin 100 mg capsule 300 mg PO TIDCM RF: 0 baclofen 10 mg tablet 5 mg PO TID RF: 0 Referrals / Follow Up: Kervin Choi MD [Primary Care Provider] - In 1 Week Disposition Disposition (needs filled in before D/C Order can be placed): Home, Self Care
--- NOTE | 2020-12-04 10:57 | PCM.DC.SUM ---
Providers Date of Admission: 12/01/20 Primary Care Physician: Dr. Kervin Choi MD Consultations 12/01/20 18:49 Consult: Natural Resource Economist / Pulmonary Medicine Routine Consulting Provider: Pulmonary Medicine ruddy [place] Reason for Consult: Severe sepsis EMERGENT Consult: No MD Notified: Yes Date Notified: 12/01/20 Time Notified: 19:08 Method of Notification: Text Reason For Visit: SEVERE SEPSIS ACUTE DIVERTICULITIS Diagnosis Discharge Diagnosis (1) Septic shock: Status: Acute Code(s): A41.9 - Sepsis, unspecified organism; R65.21 - Severe sepsis with septic shock (2) Diverticulitis: Status: Acute Code(s): K57.92 - Diverticulitis of intestine, part unspecified, without perforation or abscess without bleeding (3) Type 2 diabetes mellitus: Status: Chronic Code(s): E11.9 - Type 2 diabetes mellitus without complications Qualifiers: Diabetes mellitus complication status: with unspecified complications Diabetes mellitus road design draftsperson insulin use: without road design draftsperson use Qualified Code(s): E11.8 - Type 2 diabetes mellitus with unspecified complications Medications at Discharge Home Medications glimepiride 4 mg PO DAILY 03/25/15 metformin 1,000 mg PO BIDCM 03/25/15 rosuvastatin 20 mg PO QHS 03/25/15 losartan 100 mg PO DAILY 02/20/17 sitagliptin 50 mg PO DAILY 02/20/17 hydromorphone 2 mg PO Q3H PRN 03/09/19 trazodone 50 mg PO QHS 03/09/19 Bifidobacterium infantis 4 mg capsule 4 mg PO DAILY 04/17/19 allopurinol 300 mg tablet 300 mg PO DAILY 07/01/20 furosemide 20 mg tablet 20 mg PO DAILY 07/01/20 gabapentin 100 mg capsule 300 mg PO TIDCM cap 07/01/20 pantoprazole 40 mg tablet,delayed release 40 mg PO BID tab 07/01/20 polysaccharide iron complex 150 mg iron capsule 150 mg PO BID cap 07/01/20 spironolactone 25 mg tablet 25 mg PO DAILY 07/01/20 baclofen 5 mg PO TID 12/01/20 levofloxacin 750 mg PO DAILY #10 tab 12/04/20 metronidazole [Flagyl] 500 mg PO Q8H 7 Days #21 tab 12/04/20 Hospital Course Operations None Procedures None Summary of Care Provided Minutes Spent on Discharge: 40 Hospital Course: Per HPI: ALIZA OSEI, is a 80 M with past medical history significant for diabetes mellitus type 2, history of chronic lymphocytic leukemia currently in remission, chronic thrombocytopenia, splenomegaly and chemo induced cirrhosis of the liver who presents with fever and chills. Patient symptoms started on the morning of his admission. Woke up with abdominal pain located in the left lower quadrant. He later developed significant fever as well as chills. Patient also did experience progressive generalized weakness. Per patient he had a fall he however attributed his fall to tripping on his shoe. Patient's was with him in the room felt patient was incoherent anytime the EMS squad was subsequently called. Patient was found to be febrile with temperature 105. Transferred to the ED and subsequently admitted to the intensive care unit for further management Hospital Course: 1. Septic shock secondary to Morganella and E. coli bacteremia from diverticulitis/HVC-39-uiid-old male presented from home with abdominal pain as well as fevers and chills. The pain was located in the left lower quadrant. He was found to have diverticulitis on CT scan and was admitted for IV antibiotics. He did have blood cultures which 1 of 2 cultures came back positive for gram-negative juan pablo bacteremia. He was on pressors for on 24 hours and then was able to come off of these. He is tolerating a diet without any significant abdominal pain. Cultures came back with Morganella and E. coli therefore we will continue with Levaquin for another 10 days to complete 14 days total of antibiotics to clear his blood cultures and will also place him on Flagyl for 7 days to complete treatment for diverticulitis and anaerobic coverage. I recommend that he follow-up with his PCP in 3 to 5days. I discussed with him the plan for discharge today and he expressed understanding of the risk and benefits of going home and would like to go home today. 2. Hypertension, CLL, type 2 diabetes, cirrhosis, thrombocytopenia, hyperlipidemia are all chronic medical conditions which complicate his care. His home medications were continued where appropriate. Physical Exam Const alert, oriented x3 and no apparent distress General Appearance: cooperative HEENT normocephalic and moist oral mucous membranes Eyes PERRL, EOMs intact bilaterally and conjunctivae normal Neck supple and no JVD Resp normal respiratory effort, no retractions, no use of accessory muscles and clear to auscultation bilaterally Auscultation: Negative for crackles, rales, rhonchi or wheezes Cardio regular rate, regular rhythm, S1 normal heart sound, S2 normal heart sound and no murmurs GI soft to palpation, non-tender and non-distended; Negative for hepatosplenomegaly Extremity no clubbing, cyanosis or edema Skin no rashes or lesions noted Neuro no focal motor deficits and no sensory deficits noted Psych affect normal Appearance: appropriate Medical Records Data Medical Nutrition Assessment Dietitian: Nutrition Therapy Diagnosis Start: 12/02/20 11:51 Freq: Status: Active Protocol: Document 12/02/20 12:02 NAHOMY (Rec: 12/02/20 12:02 [facility] [id number]) Nutrition Malnutrition Evidence of Malnutrition Exists No Clinical Problem Altered Nutrient-Related Laboratory Values Etiology related to DM Signs/Symptoms as evidenced by gluc 161 Status Active Problem Recommendation Dietitian Recommendations/Changes Will continue diet as ordered. Weight / BMI Weight Weight: 191 lb 2.252 oz Body Mass Index (BMI) 27.9 ABG / Lab / Microbiology Data Result Diagrams: 12/04/20 05:58 12/04/20 05:58 Laboratory: Laboratory Results - last 24 hr 12/03/20 04:15: Diff Path Review Reviewed 12/03/20 11:30: POC Glucose 169 H 12/03/20 16:21: POC Glucose 155 H 12/03/20 21:11: POC Glucose 182 H 12/04/20 05:58: WBC 2.9 L, RBC 2.99 L, Hgb 9.0 L, Hct 28.6 L, MCV 95.7 H, MCH 30.1, MCHC 31.5 L, RDW Std Deviation 53.8 H, RDW Coeff of Trell 15.4 H, Plt Count 28 L*, MPV 12.8 H, Immature Gran % (Auto) 0.700, Neut % (Auto) 84.6 H, Lymph % (Auto) 9.6 L, [place] % (Auto) 3.8, Eos % (Auto) 1.0, Baso % (Auto) 0.3, Absolute Neuts (auto) 2.5, Absolute Lymphs (auto) 0.28 L, Nucleated RBC % 0, Diff Path Review May 12/04/20 05:58: Sodium 140, Potassium 3.8, Chloride 113 H, Carbon Dioxide 21.0, Anion Gap 6, BUN 15, Creatinine 1.01, Estim Creat Clear Calc 58.32, Est GFR (MDRD) Af Amer 92, Est GFR (MDRD) Non-Af 76, BUN/Creatinine Ratio 14.9, Glucose 198 H, Calcium 7.6 L, Total Bilirubin 0.80, AST 54 H, ALT 78 H, Alkaline Phosphatase 118 H, Total Protein 5.2 L, Albumin 2.3 L, Globulin 2.9, Albumin/Globulin Ratio 0.8 L 12/04/20 07:54: POC Glucose 175 H Microbiology: Microbiology 12/01/20 11:58 Blood Culture (Wb) - Anticubital Left Blood Culture - Final Morganella morganii sp morgani Escherichia coli 12/01/20 12:18 Blood Culture (Wb) - Right Forearm Blood Culture - Preliminary No growth in 48 hours. D/C Instructions Discharge Diet: No restrictions Call your doctor if you observe: Fever of 101 or Higher, Shortness of breath, Dizziness, Swelling in the ankles, Chest pain and Increased palpitations (irregular heartbeat) Meaningful Use Info Meaningful Use Diagnoses (Choose all that apply): None applicable Discharge Plan Admission Admit Date/Time: 12/01/20 17:51 Attending Provider: Nathanael De Leon Primary Care Provider: Kervin Choi Consulting Providers: Chidi Powell ; Antonio Longoria ; Leslie Arriaga GOLF BALL INSPECTOR Instructions Additional Instructions / Restrictions: We will discharge you on Flagyl, recommend he do not drink any alcohol until you complete your Flagyl Discharge Orders/Prescriptions Prescriptions: New levofloxacin 750 mg tablet 750 mg PO DAILY Qty: 10 RF: 0 metronidazole [Flagyl] 500 mg tablet 500 mg PO Q8H 7 Days Qty: 21 RF: 0 Continued Align 4 mg capsule 4 mg PO DAILY RF: 0 pantoprazole 40 mg tablet,delayed release (DR/EC) 40 mg PO BID RF: 0 spironolactone 25 mg tablet 25 mg PO DAILY RF: 0 furosemide 20 mg tablet 20 mg PO DAILY RF: 0 allopurinol 300 mg tablet 300 mg PO DAILY RF: 0 polysaccharide iron complex [Ferrex 150] 150 mg iron capsule 150 mg PO BID RF: 0 glimepiride 2 MG tablet 4 mg PO DAILY RF: 0 metformin 1,000 MG tablet 1,000 mg PO BIDCM RF: 0 rosuvastatin 20 MG tablet 20 mg PO QHS RF: 0 losartan 100 MG tablet 100 mg PO DAILY RF: 0 sitagliptin 50 MG tablet 50 mg PO DAILY RF: 0 trazodone 50 MG tablet 50 mg PO QHS RF: 0 hydromorphone 2 MG tablet 2 mg PO Q3H PRN (Reason: Pain/Inflammation) RF: 0 gabapentin 100 mg capsule 300 mg PO TIDCM RF: 0 baclofen 10 mg tablet 5 mg PO TID RF: 0 Referrals / Follow Up: Kervin Choi MD [Primary Care Provider] - In 1 Week Disposition Disposition (needs filled in before D/C Order can be placed): Home, Self Care Charges/Coding Visit Charges Inpatient E&M: 41869 Disch Hosp
--- NOTE | 2020-12-04 11:27 | PHA.DC.MC ---
Pharmacy Service has performed discharge medication reconciliation and counseling for this patient. 1. LEVOFLOXACIN 750MG PO DAILY X 10 DAYS 2. METRONIDAZOLE 500MG PO TID X 7 DAYS The patient's discharge medication list was reviewed for discrepancies and discrepancies were resolved. Home Medications glimepiride 4 mg PO DAILY 03/25/15 metformin 1,000 mg PO BIDCM 03/25/15 rosuvastatin 20 mg PO QHS 03/25/15 losartan 100 mg PO DAILY 02/20/17 sitagliptin 50 mg PO DAILY 02/20/17 hydromorphone 2 mg PO Q3H PRN 03/09/19 trazodone 50 mg PO QHS 03/09/19 Bifidobacterium infantis 4 mg capsule 4 mg PO DAILY 04/17/19 allopurinol 300 mg tablet 300 mg PO DAILY 07/01/20 furosemide 20 mg tablet 20 mg PO DAILY 07/01/20 gabapentin 100 mg capsule 300 mg PO TIDCM cap 07/01/20 pantoprazole 40 mg tablet,delayed release 40 mg PO BID tab 07/01/20 polysaccharide iron complex 150 mg iron capsule 150 mg PO BID cap 07/01/20 spironolactone 25 mg tablet 25 mg PO DAILY 07/01/20 baclofen 5 mg PO TID 12/01/20 levofloxacin 750 mg PO DAILY #10 tab 12/04/20 metronidazole [Flagyl] 500 mg PO Q8H 7 Days #21 tab 12/04/20 The patient was counseled on the following discharge medications and changes in medications for homegoing were reviewed. The Reason for Use, instructions for use, and potential side effects were reviewed for all new medications. The patient's questions regarding all of their medications were answered. The patient was able to verbally demonstrate an understanding of their discharge medications.
--- NOTE | 2020-12-04 11:33 | PN.CC_ITS ---
Assessment & Plan Assessment/Plan (1) Severe sepsis: (2) Diverticulitis: (3) Thrombocytopenia: (4) CLL (chronic lymphocytic leukemia): PLAN: RECOMMENDATIONS: 1. Increase activity as tolerated 2. Okay to resume baseline antihypertensives and diuretics 3. Continue to monitor abdominal exam and signs or symptoms of bleeding 4. Continue sliding scale insulin 5. No platelet transfusion at this time 6. Okay to discharge from a pulmonary perspective IMPRESSIONS: 1. Septic shock secondary to gram-negative juan pablo secondary to probable diver ticulitis Resolved. Patient with progressive hypotension after initiation of antibiotics. Patient does have gram negatives in the blood in less than [address] of the abdomen is suggestive of diverticulitis as a possible etiology. Patient does have chronic thrombocytopenia complicating overall condition. Patient likely has lower blood pressure secondary to cirrhosis. Patient with significant improvement over the last 24 hours. Patient is doing well from a hemodynamic standpoint. Patient should complete 10 days total of antibiotics. Patient likely has lower blood pressures related to baseline cirrhosis. Patient is not reporting any orthostatic symptoms. 2. Cirrhosis/thrombocytopenia/CLL Patient with lower blood pressures at baseline. Patient likely has an element of hemodilution secondary to volume resuscitation associated with pro blem #1. No active bleeding has been noted. We will hold off on a platelet transfusion at this time. 3. Diabetes mellitus/hypertension/dyslipidemia/advanced age/poor cooperation/obesity Complicates care, management, recovery and prognosis. Agree with holding oral hypoglycemics. Can continue on statin therapy for now, but diuretics and antihypertensives will need to be held given problem #1. Did stressed to the patient that he needs to allow for interventions if he wants to be aggressive. Subjective Subjective Patient did well overnight. Patient states he feels back to his normal. Patient is not reporting any bowel discomfort. Patient is tolerating a p.o. diet well. Patient is not reporting any shortness of breath on exertion and is not requiring any supplemental oxygen. Objective Data Objective Data Vital Signs: Vital Signs Temp Pulse Resp BP Pulse Ox 36.7 C 68 16 121/46 H 98 12/04/20 09:00 12/04/20 09:00 12/04/20 09:00 12/04/20 09:00 12/04/20 09:00 Oxygen Flow Rate (L/min) 2 Oxygen Delivery Method Room Air Weight: 86.7 kg Body Mass Index (BMI) 27.9 Intake & Output: Intake and Output for Last 24 Hours 12/02/20 12/03/20 12/04/20 23:59 23:59 23:59 Intake Total 3589.60 / 3595.20 1739.26 / 1739.26 340 / 340 Output Total 725 / 725 1120 / 1120 Balance 2864.60 / 2870.20 619.26 / 619.26 340 / 340 Medical Nutrition Assessment Dietitian: Nutrition Therapy Diagnosis Start: 12/02/20 11:51 Freq: Status: Active Protocol: Document 12/02/20 12:02 NAHOMY (Rec: 12/02/20 12:02 SLA [id number]) Nutrition Malnutrition Evidence of Malnutrition Exists No Clinical Problem Altered Nutrient-Related Laboratory Values Etiology related to DM Signs/Symptoms as evidenced by gluc 161 Status Active Problem Recommendation Dietitian Recommendations/Changes Will continue diet as ordered. Lab / Micro Data Result Diagrams: 12/04/20 05:58 12/04/20 05:58 Labs: Laboratory Results - last 24 hr 12/03/20 04:15: Diff Path Review Reviewed 12/03/20 11:30: POC Glucose 169 H 12/03/20 16:21: POC Glucose 155 H 12/03/20 21:11: POC Glucose 182 H 12/04/20 05:58: WBC 2.9 L, RBC 2.99 L, Hgb 9.0 L, Hct 28.6 L, MCV 95.7 H, MCH 30.1, MCHC 31.5 L, RDW Std Deviation 53.8 H, RDW Coeff of Trell 15.4 H, Plt Count 28 L*, MPV 12.8 H, Immature Gran % (Auto) 0.700, Neut % (Auto) 84.6 H, Lymph % (Auto) 9.6 L, [place] % (Auto) 3.8, Eos % (Auto) 1.0, Baso % (Auto) 0.3, Absolute Neuts (auto) 2.5, Absolute Lymphs (auto) 0.28 L, Nucleated RBC % 0, Diff Path Review May 12/04/20 05:58: Sodium 140, Potassium 3.8, Chloride 113 H, Carbon Dioxide 21.0, Anion Gap 6, BUN 15, Creatinine 1.01, Estim Creat Clear Calc 58.32, Est GFR (MDRD) Af Amer 92, Est GFR (MDRD) Non-Af 76, BUN/Creatinine Ratio 14.9, Glucose 198 H, Calcium 7.6 L, Total Bilirubin 0.80, AST 54 H, ALT 78 H, Alkaline Phosphatase 118 H, Total Protein 5.2 L, Albumin 2.3 L, Globulin 2.9, Albumin/Globulin Ratio 0.8 L 12/04/20 07:54: POC Glucose 175 H Micro: Microbiology 12/01/20 11:58 Blood Culture (Wb) - Anticubital Left Blood Culture - Final Morganella morganii sp morgani Escherichia coli 12/01/20 12:18 Blood Culture (Wb) - Right Forearm Blood Culture - Preliminary No growth in 48 hours. Physical Exam Const alert, oriented x3 and no apparent distress Constitutional Narrative: Much more pleasant today. General Appearance: well developed HEENT normocephalic, head/scalp atraumatic and moist oral mucous membranes Eyes PERRL and EOMs intact bilaterally Neck full ROM and no lymphadenopathy Chest inspection of chest normal Resp normal respiratory effort and no use of accessory muscles Effort and Inspection: able to speak in complete sentences Auscultation: clear to auscultation bilaterally; Negative for rales, rhonchi or wheezes Percussion: Negative for dullness Cardio regular rate, regular rhythm, S1 normal heart sound, S2 normal heart sound, no murmurs, no rub and no gallops GI normal to inspection, nondistended, normoactive bowel sounds no CVA tenderness Extremity no clubbing, cyanosis or edema Skin no rashes or lesions noted Neuro oriented x3, CN's II-XII intact bilaterally, moves all extremities and no focal motor deficits Psych cooperative and affect normal Charges/Coding Visit Charges Inpatient E&M: 65833 Subs Hosp L2
[2020-12-04 12:06] LABS: Bedside Glucose 201 mg/dL (70-110)
[2020-12-04 12:41] LABS: Pathologist Review Reviewed
--- NOTE | 2020-12-05 14:23 | CASEMGMT ---
Addendum entered by Yael Leone 12/06/20 13:52: CHEN MAXWELL completed follow-up phone call with patient. Patient states he is doing well and feeling much better. Patient has no questions regarding discharge instructions. Patient was able to fill prescriptions without any issues. Patient had no further questions or concerns at this time. Original Note: CHEN MAXWELL Discharge Follow-up Phone Call: SAEE: 11 Strata: 3 Call Date: 12/05/20 Discharge Date: 12/04/20 Time of Call: 1420 Duration: 1 min Admitting Diagnosis: Severe Sepsis Acute Diverticulitis CHEN MAXWELL attempted to complete follow-up phone call after recent hospitalization. No answer, phone rang about 12 times, unable to leave voice message. Will attempt again at later time.
== END 2020-12-04 14:12 | disposition home or self-care (01) | DRG 871 ==
LOC: ED 17:33 → ICU 17:54 → PCU 12-03 16:27
PROVIDERS: Family Medicine; Internal Medicine; Internal Medicine Critical Care Medicine; Admitting Provider Internal Medicine; Emergency Provider Emergency Medicine; PCP Family Medicine; Visit Provider Family Medicine
DX: A41.50 Gram-negative sepsis, unspecified (principal); R65.21 Severe sepsis with septic shock; K57.32 Diverticulitis of large intestine without perforation or abscess without bleeding; K76.6 Portal hypertension; N17.9 Acute kidney failure, unspecified; C91.11 Chronic lymphocytic leukemia of B-cell type in remission; I85.10 Secondary esophageal varices without bleeding; D61.818 Other pancytopenia; K71.7 Toxic liver disease with fibrosis and cirrhosis of liver; T45.1X5A Adverse effect of antineoplastic and immunosuppressive drugs, initial encounter; Y92.9 Unspecified place or not applicable; I86.8 Varicose veins of other specified sites; I95.9 Hypotension, unspecified; W18.09XA Striking against other object with subsequent fall, initial encounter; Y93.9 Activity, unspecified; D69.6 Thrombocytopenia, unspecified; E11.9 Type 2 diabetes mellitus without complications; E78.2 Mixed hyperlipidemia; G47.33 Obstructive sleep apnea (adult) (pediatric); I10 Essential (primary) hypertension; I48.0 Paroxysmal atrial fibrillation; I71.2 Thoracic aortic aneurysm, without rupture; K21.9 Gastro-esophageal reflux disease without esophagitis; M19.90 Unspecified osteoarthritis, unspecified site; N40.0 Benign prostatic hyperplasia without lower urinary tract symptoms; Z87.891 Personal history of nicotine dependence; Z79.899 Other long term (current) drug therapy; Z79.84 Long term (current) use of oral hypoglycemic drugs
CPT/HCPCS: 36415; 36569; 71045; 74177; 80048; 80053; 80076; 81001; 82962; 83605; 83735; 84100; 84484; 85025; 87040; 87077; 87186; 87635; 93005; 97161; 97165; 97802; 97803; 99285; J7030; J7040; J7050; Q9967; U0005; A4216; J0744; U0003

== ENCOUNTER 2021-06-02 08:51 | Emergency (ER) | payer MEDICARE, OTHER, SELFPAY ==
[2021-06-02 08:52] VITALS: BP 122/54; PULSE 95; RESP 18; TEMP 36.6; O2SAT 98; BMI 28.1
[2021-06-02] MEDS: Mixture 30 ML Bottle 5 ML TOPICAL (09:17)
--- NOTE | 2021-06-02 09:23 | EDS_ITS ---
HPI HPI - URI History of Present Illness Chief Complaint: Nosebleed Informant: patient Onset/Context/Timing Onset: Today (about 45 min) Context: Sudden Onset Timing: Continuous Quality: oozing. atraumatic. Location: R naris primarily Current Severity: Mild Maximum Severity: Moderate Worsened by: - (nothing) Relieved by: - (holding pressure doesn't seem to help) Associated Symptoms Associated Symptoms: Positive for - (swallowing some blood. no lightheadedness, chest pain, systemic sx.) Narrative Narrative: Patient has history recurrent nosebleeds. states he has a history of thrombocytopenia. He takes no antiplatelet or anticoagulant medications. No recent illness. States he is swallowing some blood but not la rge amounts. Has had some clots. ROS [facility] ED Constitutional Constitutional ED: Denies chills or fever(s) ENT ENT ED: Reports as per HPI and epistaxis; Denies sinus pain Cardiovascular Cardiovascular: Denies chest pain or palpitations Respiratory/Chest Respiratory/Chest: Denies cough or dyspnea Gastrointestinal Gastrointestinal: Denies abdominal pain, diarrhea, nausea or vomiting Genitourinary Genitourinary ED: Denies dysuria or hematuria Musculoskeletal Musculoskeletal: Denies myalgias or neck pain Integumentary Denies abscess or rash Neurologic Neurologic: Denies headache(s), paresthesias or weakness Psychiatric Psychiatric: Denies depression or suicidal thoughts Endocrine Endocrinology: Denies polydipsia or polyuria [facility] Medical History BPH (benign prostatic hyperplasia) CLL (chronic lymphocytic leukemia) Diarrhea Essential hypertension Generalized weakness GERD (gastroesophageal reflux disease) Hyperlipemia Mixed hyperlipidemia VALERIE (obstructive sleep apnea) Osteoarthritis Paroxysmal atrial fibrillation Splenomegaly Thoracic aortic aneurysm without rupture Thrombocytopenia Type 2 diabetes mellitus Home Medications glimepiride 4 mg PO DAILY 03/25/15 [History Last Taken 02/26/17] metformin 1,000 mg PO BIDCM 03/25/15 [History Last Taken 02/26/17] rosuvastatin 20 mg PO QHS 03/25/15 [History Last Taken 02/26/17] losartan 100 mg PO DAILY 02/20/17 [History Last Taken 02/26/17] sitagliptin 50 mg PO DAILY 02/20/17 [History Last Taken 02/26/17] hydromorphone 2 mg PO Q3H PRN 03/09/19 [History Last Taken Unknown] trazodone 50 mg PO QHS 03/09/19 [History Last Taken Unknown] Bifidobacterium infantis 4 mg capsule 4 mg PO DAILY 04/17/19 [History Last Taken Unknown] allopurinol 300 mg tablet 300 mg PO DAILY 07/01/20 [History Last Taken Unknown] furosemide 20 mg tablet 20 mg PO DAILY 07/01/20 [History Last Taken Unknown] gabapentin 100 mg capsule 300 mg PO TIDCM cap 07/01/20 [History Last Taken Unknown] pantoprazole 40 mg tablet,delayed release 40 mg PO BID tab 07/01/20 [History Last Taken Unknown] polysaccharide iron complex 150 mg iron capsule 150 mg PO BID cap 07/01/20 [History Last Taken Unknown] spironolactone 25 mg tablet 25 mg PO DAILY 07/01/20 [History Last Taken Unknown] baclofen 5 mg PO TID 12/01/20 [History Last Taken Unknown] acetaminophen 500 mg tablet 500 mg PO Q6H PRN 01/01/21 [History Last Taken Unknown] Allergy/AdvReac Type Severity Reaction Status Date / Time acetaminophen [From Vicodin] Allergy Rash Verified 06/02/21 08:53 cefazolin sodium [From Ancef] Allergy Rash Verified 06/02/21 08:53 clindamycin Allergy Chest Verified 06/02/21 08:53 tightness hydrocodone bitartrate Allergy Rash Verified 06/02/21 08:53 [From Vicodin] Family History Father Parkinson disease Brother Heart disease Diabetes Sister Atrial fibrillation Breast cancer Surgical History History of colonoscopy (~2018) History of hip replacement Social History Smoking Status: Former smoker alcohol intake: never substance use type: does not use caffeine: Yes Type: coffee Number of servings: 2 EXAM Physical Exam Const Vital Signs: 06/02/21 08:52 Temperature 97.8 F Temperature Source Temporal Pulse Rate 95 Respiratory Rate 18 Blood Pressure 122/54 H Blood Pressure Mean 76 Pulse Ox 98 Oxygen Delivery Method Room Air Positive well nourished and well developed General Appearance ED: well developed and NAD HEENT Reports moist mucous membranes HEENT Narrative: Trace amount of blood in posterior oropharynx without active bleeding. Removing nasal clip from nose, there is blood in the right anterior naris with mild active oozing of blood, trace amount of blood in the left side without active bleeding there. normocephalic and atraumatic Throat: Negative for posterior oropharynx abnormal Eyes PERRL and EOMs intact bilaterally Neck no lymphadenopathy, supple and no meningeal signs Resp normal respiratory effort and clear to auscultation bilaterally Cardio no murmurs Rate: regular rate Rhythm: regular rhythm Neuro oriented x3, CN's II-XII intact bilaterally and no sensory deficits noted Sensorium / Orientation: alert Motor Exam: strength 5/5 throughout Skin Lesions: no lesions Rashes: no rashes MDM MDM MDM Narrative Medical decision making narrative: After obtaining local anesthetic, had the patient evacuated nasal cavity with tissues, and then instilled 2.5 cc of Subha solution into the right naris, followed by a pledget soaked in it and allow the patient to rest. Afterwards, removing the pledget and inspecting, bleeding is well controlled, there is a small area at the nasal septum in the right naris where the bleeding appeared to have come from, and was not actively bleeding. This was cauterized, he was observed for short time there is no recurrent bleeding he was discharged home in stable condition. He has a history of CLL, it is in remission, he does have thrombocytopenia but at 49 he does not require transfusion at this time. Lab Data Labs: Laboratory Results - last 24 hr 06/02/21 10:00 WBC 3.5 L RBC 3.39 L Hgb 10.7 L Hct 32.2 L MCV 95.0 H MCH 31.6 MCHC 33.2 RDW Std Deviation 52.3 H RDW Coeff of Trell 15.0 H Plt Count 47 L* MPV 11.0 Procedures Other Procedures Procedure(s): Epistaxis care-see above. Silver nitrate stick cauterization, well-tolerated no complications. Good hemostasis. Discharge Plan Triage Chief Complaint: Nosebleed ED Provider: Mazin Valentino Dx/Rx/DC Orders Clinical Impression: Acute anterior epistaxis, Thrombocytopenia Instructions: ED Epistaxis (Adult) Prescriptions: No Action Align 4 mg capsule 4 mg PO DAILY RF: 0 pantoprazole 40 mg tablet,delayed release (DR/EC) 40 mg PO BID RF: 0 spironolactone 25 mg tablet 25 mg PO DAILY RF: 0 furosemide 20 mg tablet 20 mg PO DAILY RF: 0 allopurinol 300 mg tablet 300 mg PO DAILY RF: 0 polysaccharide iron complex [Ferrex 150] 150 mg iron capsule 150 mg PO BID RF: 0 acetaminophen 500 mg tablet 500 mg PO Q6H PRNRF: 0 glimepiride 2 MG tablet 4 mg PO DAILY RF: 0 metformin 1,000 MG tablet 1,000 mg PO BIDCM RF: 0 rosuvastatin 20 MG tablet 20 mg PO QHS RF: 0 losartan 100 MG tablet 100 mg PO DAILY RF: 0 sitagliptin 50 MG tablet 50 mg PO DAILY RF: 0 trazodone 50 MG tablet 50 mg PO QHS RF: 0 hydromorphone 2 MG tablet 2 mg PO Q3H PRN (Reason: Pain/Inflammation) RF: 0 gabapentin 100 mg capsule 300 mg PO TIDCM RF: 0 baclofen 10 mg tablet 5 mg PO TID RF: 0 Primary Care Provider: Kervin Choi Referrals: Kervin Choi MD [Primary Care Provider] - Butch Mascorro MD [STAFF PHYSICIAN] - As Needed Disposition Disposition: Home, Self Care
[2021-06-02 10:09] LABS: Hematocrit 32.2 % (40-54); Hemoglobin 10.7 g/dL (13.0-16.5); Mean Corp Hgb Conc 33.2 g/dL (32-36); Mean Corpuscular Hgb 31.6 pg (27.0-32.0); POSITIVE COUNT YES; RBC Distribution Width SD 52.3 fl (35.1-43.9); Red Blood Count 3.39 M/mm3 (4.6-6.2); White Blood Count 3.5 K/mm3 (4.4-11.0)
[2021-06-02] MEDS: Silver Nitrate (BKC) 1 EACH TOPICAL (10:11)
[2021-06-02 10:40] LABS: Platelet Count 47 K/mm3 (150-450); Scan Indicated on CBC? Y/N YES- FLAGS NOTED
[2021-06-04 09:43] LABS: Pathologist Review Reviewed
== END 2021-06-02 10:46 | disposition home or self-care (01) ==
PROVIDERS: Emergency Provider Emergency Medicine; PCP Family Medicine; Visit Provider Emergency Medicine
DX: R04.0 Epistaxis (principal); C91.11 Chronic lymphocytic leukemia of B-cell type in remission; I48.0 Paroxysmal atrial fibrillation; D69.6 Thrombocytopenia, unspecified; E11.9 Type 2 diabetes mellitus without complications; I10 Essential (primary) hypertension; E78.2 Mixed hyperlipidemia; N40.0 Benign prostatic hyperplasia without lower urinary tract symptoms; M19.90 Unspecified osteoarthritis, unspecified site; G47.33 Obstructive sleep apnea (adult) (pediatric); E78.5 Hyperlipidemia, unspecified; K21.9 Gastro-esophageal reflux disease without esophagitis; Z79.84 Long term (current) use of oral hypoglycemic drugs; Z79.899 Other long term (current) drug therapy; Z87.891 Personal history of nicotine dependence
CPT/HCPCS: 30901; 85027; 99282

== ENCOUNTER 2021-07-30 09:40 | Outpatient (CLI) | payer MEDICARE, OTHER, SELFPAY ==
[2021-07-30 12:33] LABS: AST(SGOT) 27 U/L (15-37); Alanine Aminotransfer ALT/SGPT 25 U/L (16-61); Albumin, Serum 3.3 g/dL (3.2-5.0); Alkaline Phosphatase 95 U/L (45-117); Cholesterol 120 mg/dL (200); Globulin 3.3 g/dL (2.2-4.2); High Density Lipoprotein 51 mg/dL; Protein, Total 6.6 g/dL (6.4-8.2); Triglycerides 89 mg/dL; Very Low Density Lipoprotein 18 mg/dL (5-40)
== END 2021-07-30 23:59 | disposition home or self-care (01) ==
LOC: MTLAB 09:41
PROVIDERS: PCP Family Medicine; Referring Provider Nurse Practitioner Gerontology; Visit Provider Nurse Practitioner Gerontology
DX: E78.5 Hyperlipidemia, unspecified (principal)
CPT/HCPCS: 36415; 80061; 80076

== ENCOUNTER 2021-08-18 13:52 | Outpatient (CLI) | payer MEDICARE, OTHER, SELFPAY ==
--- NOTE | 2021-08-18 13:55 | ECHOD_ITS ---
Reason For Study: Thoracic Aortic Aneurysm Procedure This was a 2D Doppler, Color Flow transthoracic echocardiogram. The exam was of adequate technical quality. Exam performed in department. Left Ventricle Normal LV size. Left ventricular systolic function is normal. The estimated ejection fraction is 65 %. No evidence for diastolic dysfunction. No regional wall motion abnormalities noted. Right Ventricle Normal RV size. Normal systolic function. Atria The left atrium is mildly enlarged. Normal right atrium. No doppler evidence for ASD. Mitral Valve There is no mitral annular calcification. Normal mitral valve. Mild (1+) mitral valve insufficiency. Tricuspid Valve Normal tricuspid valve. Mild tricuspid valve insufficiency. Right ventricular systolic pressure estimated to be 32 mmHg. Aortic Valve Trisinus/trileaflet aortic valve. Normal aortic valve. Trivial aortic valve insufficiency. Pulmonic Valve The pulmonic valve is not well visualized. Trivial pulmonic valve insufficiency. Great Vessels Borderline enlarged aortic root. Pericardium/Pleural No pericardial effusion. MMode/2D Measurements & Calculations LVIDd: 4.9 cm IVSd: 1.2 cm Ao root diam: 3.6 cm LVIDs: 2.7 cm LVPWd: 1.1 cm RVDd: 3.7 cm FS: 45.8 % LAV(MOD-bp): 62.7 ml LVAd ap4: 28.6 cm2 SV(MOD-sp4): 62.5 ml LAV(MOD-bp) Indexed: 31.6 ml/m2 LVLd ap4: 7.5 cm LAV(MOD-sp2): 63.3 ml EDV(MOD-sp4): 90.8 ml LAV(MOD-sp4): 58.0 ml EDV(sp4-el): 92.6 ml LVAs ap4: 14.1 cm2 LVLs ap4: 5.9 cm ESV(MOD-sp4): 28.3 ml ESV(sp4-el): 28.3 ml EF(MOD-sp4): 68.9 % EF(sp4-el): 69.4 % SV(sp4-el): 64.2 ml LA A4 area: 19.5 cm2 LA dimension(2D): 4.1 cm RA A4 area: 19.5 cm2 Doppler Measurements & Calculations MV E max rené: 109.8 cm/sec Lat Peak E' René: 10.4 cm/sec Med Peak E' René: 6.8 cm/sec MV A max rené: 78.5 cm/sec E/E' lat: 10.6 E/E' med: 16.2 MV E/A: 1.4 Ao V2 max: 153.2 cm/sec LV V1 max: 123.4 cm/sec PA V2 max: 112.7 cm/sec Ao max P.4 mmHg LV V1 max P.1 mmHg Ao V2 mean: 109.1 cm/sec Ao mean P.2 mmHg Ao V2 VTI: 34.9 cm PI end-d rené: 66.4 cm/sec TR max rené: 268.4 cm/sec TR max P.8 mmHg ECHO/Echo Complete Interpretation Summary Left ventricular systolic function is normal. The estimated ejection fraction is 65 %. The left atrium is mildly enlarged. Mild (1+) mitral valve insufficiency. Mild tricuspid valve insufficiency. Trivial aortic valve insufficiency. Trivial pulmonic valve insufficiency. Borderline enlarged aortic root. Right ventricular systolic pressure estimated to be 32 mmHg. No evidence for diastolic dysfunction. Ordering Physician: Birdie Chaudhari Referring Physician: Kervin Choi Performed By: Madeline Humphrey, RDCS, RVT
== END 2021-08-18 23:59 | disposition home or self-care (01) ==
LOC: CVS 13:54
PROVIDERS: PCP Family Medicine; Referring Provider Nurse Practitioner Gerontology; Visit Provider Nurse Practitioner Gerontology
DX: I71.2 Thoracic aortic aneurysm, without rupture (principal)
CPT/HCPCS: 93306

== ENCOUNTER 2021-11-23 01:54 | Inpatient (IN) | payer MEDICARE, OTHER, SELFPAY ==
[2021-11-23] VITALS (41 sets, daily range): BP systolic 79–140; BP diastolic 4–75; PULSE 67–113; RESP 12–109; TEMP 36.6–39.6; O2SAT 89–99; BMI 27.6; BMI 29.2; BMI 29.1
--- NOTE | 2021-11-23 02:06 | EKG12_ITS ---
Test Reason : fever Blood Pressure : / mmHG Vent. Rate : 106 BPM Atrial Rate : 106 BPM P-R Int : 142 ms QRS Dur : 096 ms QT Int : 366 ms P-R-T Axes : -29 010 044 degrees QTc Int : 486 ms Sinus tachycardia Incomplete right bundle branch block Borderline ECG Confirmed by MIGNON WAKEFIELD, WILLIAM ([id number]), manager editorial NANCY VAZQUEZ ([id number]) on 11/25/2021 9:06:57 AM Referred By: Confirmed By:WILLIAM CROW MD
--- NOTE | 2021-11-23 02:08 | EDS_ITS ---
HPI History of Present Illness Chief Complaint: General Illness Detail of Chief Complaint: Fever and weakness Informant: patient and spouse/S.O. Onset/Context/Timing Onset: Today Narrative Narrative: Patient presents via EMS secondary to fever. He reportedly felt fine when he went to bed last night but woke up with fever. He has not taken anything for his temperature. He has no complaints of pain. Has had no vomiting or diarrhea. He does have a history of CLL, not on treatment the last 2 years. did state that his oncologist mentioned anemia and was recently started on iron infusions. [facility] Medical History BPH (benign prostatic hyperplasia) CLL (chronic lymphocytic leukemia) Diarrhea Essential hypertension Generalized weakness GERD (gastroesophageal reflux disease) Hyperlipemia Mixed hyperlipidemia VALERIE (obstructive sleep apnea) Osteoarthritis Paroxysmal atrial fibrillation Splenomegaly Thoracic aortic aneurysm without rupture Thrombocytopenia Type 2 diabetes mellitus Home Medications glimepiride 2 mg tablet (Amaryl) 4 mg PO DAILY 03/25/15 [History Last Taken 02/26/17] metformin 1,000 mg tablet 1,000 mg PO BIDCM 03/25/15 [History Last Taken 02/26/17] rosuvastatin 20 mg tablet 20 mg PO QHS 03/25/15 [History Last Taken 02/26/17] losartan 100 mg tablet 50 mg PO DAILY 02/20/17 [History Last Taken 02/26/17] sitagliptin 50 mg tablet (Januvia) 50 mg PO DAILY 02/20/17 [History Last Taken 02/26/17] hydromorphone 2 mg tablet 2 mg PO Q3H PRN Pain/Inflammation 03/09/19 [History Last Taken Unknown] trazodone 50 mg tablet 50 mg PO QHS 03/09/19 [History Last Taken Unknown] Bifidobacterium infantis 4 mg capsule (Align) 4 mg PO DAILY 04/17/19 [History Last Taken Unknown] allopurinol 300 mg tablet 300 mg PO DAILY 07/01/20 [History Last Taken Unknown] furosemide 20 mg tablet 20 mg PO DAILY 07/01/20 [History Last Taken Unknown] gabapentin 100 mg capsule 300 mg PO TIDCM 07/01/20 [History Last Taken Unknown] pantoprazole 40 mg tablet,delayed release 40 mg PO BID 07/01/20 [History Last Taken Unknown] polysaccharide iron complex 150 mg iron capsule (Ferrex) 150 mg PO BID 07/01/20 [History Last Taken Unknown] spironolactone 25 mg tablet 25 mg PO DAILY 07/01/20 [History Last Taken Unknown] baclofen 10 mg tablet 5 mg PO TID 12/01/20 [History Last Taken Unknown] acetaminophen 500 mg tablet 500 mg PO Q6H PRN Pain (Scale Score 1-3) 01/01/21 [History Last Taken Unknown] ropinirole 0.5 mg tablet 0.5 mg PO QHS 07/14/21 [History Last Taken Unknown] Allergy/AdvReac Type Severity Reaction Status Date / Time acetaminophen [From Vicodin] Allergy Rash Verified 11/23/21 01:58 cefazolin sodium [From Ancef] Allergy Rash Verified 07/14/21 13:07 clindamycin Allergy Chest Verified 07/14/21 13:07 tightness hydrocodone bitartrate Allergy Rash Verified 07/14/21 13:07 [From Vicodin] Family History Father Parkinson disease Brother Heart disease Diabetes Sister Atrial fibrillation Breast cancer Surgical History History of colonoscopy (~2018) History of hip replacement Social History Smoking Status: Former smoker alcohol intake: never substance use type: does not use caffeine: Yes Type: coffee Number of servings: 2 ROS ROS ED Constitutional Constitutional ED: Reports fever(s); Denies chills Eyes Eyes: Denies change in vision or discharge from eye(s) ENT ENT ED: Denies discharge from eye(s), rhinorrhea or sore throat Cardiovascular Cardiovascular: Denies chest pain or palpitations Respiratory/Chest Respiratory/Chest: Denies cough or dyspnea Gastrointestinal Gastrointestinal: Denies abdominal pain, diarrhea, nausea or vomiting Genitourinary Genitourinary ED: Denies difficulty urinating or dysuria Musculoskeletal Musculoskeletal: Denies back pain or extremity pain Integumentary Denies Abrasions or rash Neurologic Neurologic: Reports weakness; Denies headache(s) Psychiatric Psychiatric: Denies anxiety or depression Allergic/Immunologic Allergic/Immunologic ED: Denies lip swelling or urticaria EXAM Physical Exam Const Vital Signs: 11/23/21 01:55 11/23/21 01:57 11/23/21 02:02 Temperature 103.2 F H 103.2 F H Temperature Source Oral Temporal Pulse Rate 113 H 111 H Respiratory Rate 109 H 19 H Respiratory Pattern Normal Blood Pressure 126/75 H 126/45 H Blood Pressure Mean 92 72 Pulse Ox 93 93 Oxygen Delivery Method Room Air Room Air Oxygen Flow Rate (L/min) 11/23/21 02:38 11/23/21 02:39 11/23/21 02:41 Temperature 100.5 F H 100.5 F H Temperature Source Oral Oral Pulse Rate 109 H Respiratory Rate 16 Respiratory Pattern Blood Pressure 140/45 H Blood Pressure Mean 76 Pulse Ox 89 94 Oxygen Delivery Method Room Air Nasal Cannula Oxygen Flow Rate (L/min) 2 2 11/23/21 03:33 11/23/21 03:33 11/23/21 03:33 Temperature 98.5 F 98.5 F Temperature Source Temporal Oral Pulse Rate 105 H Respiratory Rate 23 H Respiratory Pattern Blood Pressure 109/41 L Blood Pressure Mean 63 Pulse Ox 96 97 Oxygen Delivery Method Nasal Cannula Nasal Cannula Oxygen Flow Rate (L/min) 2 2 11/23/21 04:02 11/23/21 04:02 11/23/21 04:04 Temperature 99.2 F H 99.2 F H Temperature Source Oral Temporal Pulse Rate 108 H 103 H Respiratory Rate 25 H 23 H Respiratory Pattern Blood Pressure 115/44 L 115/4 L 115/44 L Blood Pressure Mean 67 41 67 Pulse Ox 98 98 Oxygen Delivery Method Nasal Cannula Nasal Cannula Oxygen Flow Rate (L/min) 2 2 11/23/21 04:05 11/23/21 04:05 11/23/21 04:06 Temperature 99.2 F H Temperature Source Oral Pulse Rate Respiratory Rate 24 H Respiratory Pattern Blood Pressure Blood Pressure Mean Pulse Ox 98 Oxygen Delivery Method Nasal Cannula Oxygen Flow Rate (L/min) 2 11/23/21 04:04 11/23/21 04:04 11/23/21 04:04 Temperature 99.2 F H 99.2 F H Temperature Source Oral Oral Pulse Rate 103 H Respiratory Rate 24 H Respiratory Pattern Blood Pressure 115/44 L 115/44 L Blood Pressure Mean 67 67 Pulse Ox 98 Oxygen Delivery Method Nasal Cannula Oxygen Flow Rate (L/min) 2 Positive well nourished and well developed General Appearance ED: well developed HEENT Reports normocephalic and head/scalp atraumatic Eyes PERRL and EOMs intact bilaterally Neck supple Chest Wall inspection of chest normal and palpation of chest normal Resp normal respiratory effort and clear to auscultation bilaterally Cardio regular rate and regular rhythm GI non-tender Auscultation: hypoactive bowel sounds Palpation: soft Extremity Extremity Narrative: Ecchymoses on left forearm. No sign of infection. Neuro oriented x3 and no sensory deficits noted Sensorium / Orientation: alert Motor Exam: strength 5/5 throughout Psych mental status grossly normal Skin no rashes or lesions noted MDM MDM MDM Narrative Medical decision making narrative: Patient given Tylenol along with IV fluids. Sepsis work-up initiated. Swab for COVID and influenza ordered. Lab Data Attestation: I reviewed the patient's lab results. Labs: Laboratory Results - last 24 hr 11/23/21 11/23/21 11/23/21 02:20 02:20 02:20 WBC 1.3 L* RBC 3.05 L Hgb 8.8 L Hct 28.4 L MCV 93.1 MCH 28.9 MCHC 31.0 L RDW Std Deviation 51.2 H RDW Coeff of Trell 14.9 H Plt Count 42 L* MPV 11.5 Immature Gran % (Auto) 0.000 Neut % (Auto) 87.2 H Lymph % (Auto) 9.6 L Armstrong % (Auto) 2.4 Eos % (Auto) 0.8 Baso % (Auto) 0.0 Absolute Neuts (auto) 1.1 L Absolute Lymphs (auto) 0.12 L Nucleated RBC % 0 Differential Comment SCANNED Diff Path Review May foll Platelet Estimate MKD DEC Hypochromasia 1+ PT 14.5 INR 1.2 APTT 24.1 Sodium 138 Potassium 4.2 Chloride 104 Carbon Dioxide 24.0 Anion Gap 10 BUN 32 H Creatinine 1.70 H Estim Creat Clear Calc 34.09 Est GFR (MDRD) Af Amer 50 L Est GFR (MDRD) Non-Af 41 L BUN/Creatinine Ratio 18.8 Glucose 160 H Lactic Acid Calcium 8.8 Total Bilirubin 0.60 AST 23 ALT 23 Alkaline Phosphatase 76 Total Protein 6.1 L Albumin 3.0 L Globulin 3.1 Albumin/Globulin Ratio 1.0 Urine Color Urine Clarity Urine pH Ur Specific [place] Urine Protein Urine Glucose (UA) Urine Ketones Urine Occult Blood Urine Nitrite Urine Bilirubin Urine Urobilinogen Ur Leukocyte Esterase Urine RBC Urine WBC Ur Squamous Epith Cells Urine Bacteria Urine Mucus 11/23/21 11/23/21 02:20 03:05 WBC RBC Hgb Hct MCV MCH MCHC RDW Std Deviation RDW Coeff of Trell Plt Count MPV Immature Gran % (Auto) Neut % (Auto) Lymph % (Auto) Armstrong % (Auto) Eos % (Auto) Baso % (Auto) Absolute Neuts (auto) Absolute Lymphs (auto) Nucleated RBC % Differential Comment Diff Path Review Platelet Estimate Hypochromasia PT INR APTT Sodium Potassium Chloride Carbon Dioxide Anion Gap BUN Creatinine Estim Creat Clear Calc Est GFR (MDRD) Af Amer Est GFR (MDRD) Non-Af BUN/Creatinine Ratio Glucose Lactic Acid 5.1 H* Calcium Total Bilirubin AST ALT Alkaline Phosphatase Total Protein Albumin Globulin Albumin/Globulin Ratio Urine Color Yellow Urine Clarity Clear Urine pH 6.0 Ur Specific [place] 1.010 Urine Protein 30 H Urine Glucose (UA) Normal Urine Ketones Negative Urine Occult Blood 10 H Urine Nitrite Negative Urine Bilirubin Negative Urine Urobilinogen Normal Ur Leukocyte Esterase Negative Urine RBC 0 SEEN Urine WBC 0-5 SEEN Ur Squamous Epith Cells 0 SEEN Urine Bacteria RARE Urine Mucus 0 SEEN Radiography Chest X-Ray - ED: 1 View, Read by ED Physician, Normal, Heart, Lungs and Mediastinum Diagnostic Testing: Clinical Impression(s) from Imaging Studies Chest X-Ray 11/23/21 03:08 IMPRESSION: No acute findings in the chest. Electronically Signed: Otilio Hong MD at 3:20 EDT Reading Location ID and State: [facility] / [place] Tel , Service support , EKG Initial EKG: Attestation: I personally reviewed and interpreted this EKG as follows: Interpretation: Sinus Tachycardia (Sinus tach at 106. No acute ischemia.) Treatment and Re-Evaluation Narrative: Patient's lab work reveals white count low at 1.3. Absolute neutrophil count is 1.1. Platelet count is low at 42,000. He does have a history of thrombocytopenia. Hemoglobin is 8.8. Coags are unremarkable. Chemistry studies reveal a BUN of 32 and a creatinine of 1.7. His baseline creatinine is around 1.0. Lactic acid is elevated at 5.1. Urinalysis reveals no obvious infection. COVID and influenza swabs are negative. At this time patient is ordered 30 cc/kg IV fluid bolus. He is given Zosyn and vancomycin for sepsis of undetermined source. Blood and urine cultures have been sent. I will speak with hospitalist regarding admission. Critical Care Time Critical Care Time: Yes Critical care time (excluding procedures): 30-74 minutes (30 mins), Including time spent:, Discussing w/Patient &/or Family/[facility], Arranging Admission or Transfer and Performing Direct Patient Care at Bedside Discharge Plan Dx/Rx/DC Orders Clinical Impression: Sepsis, Acute kidney injury, Generalized weakness, Acidosis, lactic Disposition Disposition: Acute Care Hospital [facility] Discharge Date/Time: 11/23/21 05:27
[2021-11-23 02:40] LABS: Absolute Lymphocyte Count 0.12 X10^3/uL (0.83-4.51); Absolute Neutrophil Count 1.1 X10^3/uL (2.0-7.7); Eosinophil# 0.01 X10^3/uL; Eosinophils% 0.8 % (0-5); Hematocrit 28.4 % (40-54); Hemoglobin 8.8 g/dL (13.0-16.5); Lymphocyte # 0.12 X10^3/ul (0.83-4.51); Lymphocyte % 9.6 % (19-41); Mean Corpuscular Hgb 28.9 pg (27.0-32.0); Mean Corpuscular Volume 93.1 fL (80-94); Mean Platelet Vol. 11.5 fl (6.2-12.0); Monocyte# 0.03 X10^3/uL; Monocyte% 2.4 % (0-10); NRBC Flagged by Analyzer 0 % (0-5); Neutrophil # 1.09 X10^3/uL (2.7-7.7); Neutrophil % 87.2 % (47-70); POSITIVE COUNT YES; POSITIVE DIFFERENTIAL YES; RBC Distribution Width CV 14.9 % (11.6-14.6); RBC Distribution Width SD 51.2 fl (35.1-43.9); Red Blood Count 3.05 M/mm3 (4.6-6.2)
[2021-11-23] MEDS: 0.9% Normal Saline 1,000 ML 150 ML IV (02:42)
[2021-11-23 02:48] LABS: Platelet Count 42 K/mm3 (150-450); White Blood Count 1.3 K/mm3 (4.4-11.0)
[2021-11-23 02:49] LABS: Differential Indicated SCAN CRITERIA MET
--- NOTE | 2021-11-23 02:51 | ED.RN ---
dropped pills on floor. opt able to take tylenol just not hydrocodone
[2021-11-23] MEDS: Acetaminophen 500 MG Tablet 1000 MG PO (02:54)
[2021-11-23 02:55] LABS: AST(SGOT) 23 U/L (15-37); Alanine Aminotransfer ALT/SGPT 23 U/L (16-61); Alkaline Phosphatase 76 U/L (45-117); Anion Gap 10 (5-15); BUN 32 mg/dL (7-18); BUN/Creat Ratio 18.8 RATIO (10-20); Calcium,Total 8.8 mg/dL (8.5-10.1); Chloride 104 mmol/L (98-107); EST Glomerular Filtration Rate 41 mL/min (>60); Est Glom Filt Rate - Afr Amer 50 mL/min (>60); Estimated Creatinine Clearance 34.09 ml/min; Globulin 3.1 g/dL (2.2-4.2); Glucose 160 mg/dL (74-106); Potassium 4.2 mmol/L (3.5-5.1); Protein, Total 6.1 g/dL (6.4-8.2); Sodium Level 138 mmol/L (136-145)
[2021-11-23 02:59] LABS: International Normalized Ratio 1.2; Partial Thromboplast Time 24.1 Seconds (24.1-36.2); Prothrombin Time (Protime)PT. 14.5 SECONDS (11.7-14.9)
--- NOTE | 2021-11-23 03:08 | RAD_ITS ---
EXAM: XR CHEST, 1 VIEW CLINICAL INDICATION: fever TECHNIQUE: Frontal view of the chest. This report was created using [employer] report generation technology. COMPARISON: 12/02/20 FINDINGS: LUNGS AND PLEURAL SPACES: Unremarkable. No consolidation or edema. No pneumothorax. No effusion. HEART: Unremarkable. Cardiac silhouette not enlarged. MEDIASTINUM: Central airways and mediastinal contour are unremarkable. BONES/JOINTS: Degenerative changes of the spine. SOFT TISSUES: Unremarkable. VASCULATURE: Atherosclerotic calcifications of the nonenlarged thoracic arch. RAD/Chest 1 View (Portable) IMPRESSION: No acute findings in the chest. Electronically Signed: Otilio Hong MD at 3:20 EDT ,
[2021-11-23 03:12] LABS: Mucous, Urine 0 SEEN /hpf (<or=2+); Red Blood Cells-Urine 0 SEEN /hpf (0-5); Squamous Epithelial Cells - UA 0 SEEN /hpf (0-5)
[2021-11-23 03:15] LABS: Color, Urine Yellow (Yellow); Glucose, Dipstick Normal (Normal); Ketone-Dipstick Negative (Negative); Leukocyte Esterase-Dipstick Negative /ul (Negative); Nitrite-Dipstick Negative (Negative); Occult Blood-Urine 10 /ul (Negative); Protein-Dipstick 30 mg/dl (Negative); Urine Bilirubin Dipstick Negative (Negative); Urine Clarity Clear (Clear); Urine Urobilinogen Normal (Normal)
[2021-11-23 03:17] LABS: Lactic Acid 5.1 mmol/L (0.4-1.9)
[2021-11-23 03:21] LABS: Bacteria RARE /hpf (None Seen); White Blood Cells 0-5 SEEN /hpf (0-5)
[2021-11-23 03:25] LABS: Differential Comment SCANNED
[2021-11-23 03:26] LABS: Hypochromasia 1+; Platelet Estimate MKD DEC (ADEQ)
[2021-11-23] MEDS: 0.9% Normal Saline 1,000 ML 999 ML IV ×3 (04:15→05:14)
--- NOTE | 2021-11-23 04:50 | PCM.HP.STD ---
HPI - General General Date of Admission: 11/23/21 Date of Service: 11/23/21 Chief Complaint: chills HPI Narrative ALIZA OSEI, is a 81 M with a significant history of liver cirrhosis and CLL who presents to the emergency department with chills that started few hours before presentation. His symptoms started when he was asleep. He woke his up. Patient's upon checking patient's temperature found out that patient's temperature was about 99 ?F. Patient's thinks that the home thermometer did not give an accurate reading. At the emergency department initial temperature was 103.2. Patient was somewhat confused. Patient reports anorexia. Because patient was found to be anemic outpatient; patient has been scheduled for outpatient infusions. Also patient is to see his GI doctor who did variceal banding two years ago for possible re-scoping. [facility] Medical History BPH (benign prostatic hyperplasia) CLL (chronic lymphocytic leukemia) Diarrhea Essential hypertension Generalized weakness GERD (gastroesophageal reflux disease) Hyperlipemia Mixed hyperlipidemia VALERIE (obstructive sleep apnea) Osteoarthritis Paroxysmal atrial fibrillation Splenomegaly Thoracic aortic aneurysm without rupture Thrombocytopenia Type 2 diabetes mellitus Home Medications glimepiride 2 mg tablet (Amaryl) 4 mg PO DAILY 03/25/15 [History Last Taken 02/26/17] metformin 1,000 mg tablet 1,000 mg PO BIDCM 03/25/15 [History Last Taken 02/26/17] rosuvastatin 20 mg tablet 20 mg PO QHS 03/25/15 [History Last Taken 02/26/17] losartan 100 mg tablet 50 mg PO DAILY 02/20/17 [History Last Taken 02/26/17] sitagliptin 50 mg tablet (Januvia) 50 mg PO DAILY 02/20/17 [History Last Taken 02/26/17] hydromorphone 2 mg tablet 2 mg PO Q3H PRN Pain/Inflammation 03/09/19 [History Last Taken Unknown] trazodone 50 mg tablet 50 mg PO QHS 03/09/19 [History Last Taken Unknown] Bifidobacterium infantis 4 mg capsule (Align) 4 mg PO DAILY 04/17/19 [History Last Taken Unknown] allopurinol 300 mg tablet 300 mg PO DAILY 07/01/20 [History Last Taken Unknown] furosemide 20 mg tablet 20 mg PO DAILY 07/01/20 [History Last Taken Unknown] gabapentin 100 mg capsule 300 mg PO TIDCM 07/01/20 [History Last Taken Unknown] pantoprazole 40 mg tablet,delayed release 40 mg PO BID 07/01/20 [History Last Taken Unknown] polysaccharide iron complex 150 mg iron capsule (Ferrex) 150 mg PO BID 07/01/20 [History Last Taken Unknown] spironolactone 25 mg tablet 25 mg PO DAILY 07/01/20 [History Last Taken Unknown] baclofen 10 mg tablet 5 mg PO TID 12/01/20 [History Last Taken Unknown] acetaminophen 500 mg tablet 500 mg PO Q6H PRN Pain (Scale Score 1-3) 01/01/21 [History Last Taken Unknown] ropinirole 0.5 mg tablet 0.5 mg PO QHS 07/14/21 [History Last Taken Unknown] Allergy/AdvReac Type Severity Reaction Status Date / Time acetaminophen [From Vicodin] Allergy Rash Verified 11/23/21 01:58 cefazolin sodium [From Ancef] Allergy Rash Verified 07/14/21 13:07 clindamycin Allergy Chest Verified 07/14/21 13:07 tightness hydrocodone bitartrate Allergy Rash Verified 07/14/21 13:07 [From Vicodin] Family History Father Parkinson disease Brother Heart disease Diabetes Sister Atrial fibrillation Breast cancer Surgical History History of colonoscopy (~2018) History of hip replacement Social History Smoking Status: Former smoker alcohol intake: never substance use type: does not use caffeine: Yes Type: coffee Number of servings: 2 ROS ROS Narrative Pertinent positives and pertinent negatives as noted in HPI. All other systems were reviewed and are negative. Vital Signs Vital Signs Vital Signs: 11/23/21 01:55 11/23/21 01:57 11/23/21 02:02 Temperature 103.2 F H 103.2 F H Temperature Source Oral Temporal Pulse Rate 113 H 111 H Respiratory Rate 109 H 19 H Respiratory Pattern Normal Blood Pressure 126/75 H 126/45 H Blood Pressure Mean 92 72 Pulse Ox 93 93 Oxygen Delivery Method Room Air Room Air Oxygen Flow Rate (L/min) 11/23/21 02:38 11/23/21 02:39 11/23/21 02:41 Temperature 100.5 F H 100.5 F H Temperature Source Oral Oral Pulse Rate 109 H Respiratory Rate 16 Respiratory Pattern Blood Pressure 140/45 H Blood Pressure Mean 76 Pulse Ox 89 94 Oxygen Delivery Method Room Air Nasal Cannula Oxygen Flow Rate (L/min) 2 2 11/23/21 03:33 11/23/21 03:33 11/23/21 03:33 Temperature 98.5 F 98.5 F Temperature Source Temporal Oral Pulse Rate 105 H Respiratory Rate 23 H Respiratory Pattern Blood Pressure 109/41 L Blood Pressure Mean 63 Pulse Ox 96 97 Oxygen Delivery Method Nasal Cannula Nasal Cannula Oxygen Flow Rate (L/min) 2 2 11/23/21 04:02 11/23/21 04:02 11/23/21 04:04 Temperature 99.2 F H 99.2 F H Temperature Source Oral Temporal Pulse Rate 108 H 103 H Respiratory Rate 25 H 23 H Respiratory Pattern Blood Pressure 115/44 L 115/4 L 115/44 L Blood Pressure Mean 67 41 67 Pulse Ox 98 98 Oxygen Delivery Method Nasal Cannula Nasal Cannula Oxygen Flow Rate (L/min) 2 2 11/23/21 04:05 11/23/21 04:05 11/23/21 04:06 Temperature 99.2 F H Temperature Source Oral Pulse Rate Respiratory Rate 24 H Respiratory Pattern Blood Pressure Blood Pressure Mean Pulse Ox 98 Oxygen Delivery Method Nasal Cannula Oxygen Flow Rate (L/min) 2 11/23/21 04:04 11/23/21 04:04 11/23/21 04:04 Temperature 99.2 F H 99.2 F H Temperature Source Oral Oral Pulse Rate 103 H Respiratory Rate 24 H Respiratory Pattern Blood Pressure 115/44 L 115/44 L Blood Pressure Mean 67 67 Pulse Ox 98 Oxygen Delivery Method Nasal Cannula Oxygen Flow Rate (L/min) 2 11/23/21 04:38 11/23/21 04:41 Temperature 99.1 F 99.2 F H Temperature Source Temporal Oral Pulse Rate 103 H 74 Respiratory Rate 24 H 15 Respiratory Pattern Blood Pressure 106/44 L 106/44 L Blood Pressure Mean 64 64 Pulse Ox 97 97 Oxygen Delivery Method CPAP Nasal Cannula Oxygen Flow Rate (L/min) 2 2 Weight Weight: 87.1 kg Body Mass Index (BMI) 29.2 Physical Exam Narrative Physical exam: General: Well-nourished, well-developed. Head: Normocephalic, atraumatic, no tenderness Eyes: Vision is grossly intact. EOMI ENT, no trauma, moist mucous membranes, no rhinorrhea Neck: Nontender, full range of motion, no spinal tenderness, deformities, step-off CVS: Regular rate and rhythm. S1-S2 present. No murmur, gallop or rub. Respiratory : clear to auscultation bilaterally, chest wall nontender, no wheezing Abdomen: Soft, nontender, nondistended, normal bowel sounds, no masses : Deferred Back: Nontender, no CVA tenderness, no midline spinal tenderness, deformities, step-offs Extremities: Nontender full range of motion, no trauma Skin: Normal color, no trauma, abrasions Neuro: Alert, oriented, cranial nerves II through XII grossly intact. Psychiatry: Normal mood. Normal affect. Not depressed. Not anxious. Results Lab / Micro Data Result Diagrams: 11/23/21 02:20 11/23/21 02:20 Labs: Laboratory Results - last 24 hr 11/23/21 02:20: WBC 1.3 L*, RBC 3.05 L, Hgb 8.8 L, Hct 28.4 L, MCV 93.1, MCH 28.9, MCHC 31.0 L, RDW Std Deviation 51.2 H, RDW Coeff of Trell 14.9 H, Plt Count 42 L*, MPV 11.5, Immature Gran % (Auto) 0.000, Neut % (Auto) 87.2 H, Lymph % (Auto) 9.6 L, [place] % (Auto) 2.4, Eos % (Auto) 0.8, Baso % (Auto) 0.0, Absolute Neuts (auto) 1.1 L, Absolute Lymphs (auto) 0.12 L, Nucleated RBC % 0, Differential Comment SCANNED, Diff Path Review May maren, Platelet Estimate MKD DEC, Hypochromasia 1+ 11/23/21 02:20: PT 14.5, INR 1.2, APTT 24.1 11/23/21 02:20: Sodium 138, Potassium 4.2, Chloride 104, Carbon Dioxide 24.0, Anion Gap 10, BUN 32 H, Creatinine 1.70 H, Estim Creat Clear Calc 34.09, Est GFR (MDRD) Af Amer 50 L, Est GFR (MDRD) Non-Af 41 L, BUN/Creatinine Ratio 18.8, Glucose 160 H, Calcium 8.8, Total Bilirubin 0.60, AST 23, ALT 23, Alkaline Phosphatase 76, Total Protein 6.1 L, Albumin 3.0 L, Globulin 3.1, Albumin/Globulin Ratio 1.0 11/23/21 02:20: Lactic Acid 5.1 H* 11/23/21 03:05: Urine Color Yellow, Urine Clarity Clear, Urine pH 6.0, Ur Specific [place] 1.010, Urine Protein 30 H, Urine Glucose (UA) Normal, Urine Ketones Negative, Urine Occult Blood 10 H, Urine Nitrite Negative, Urine Bilirubin Negative, Urine Urobilinogen Normal, Ur Leukocyte Esterase Negative, Urine RBC 0 SEEN, Urine WBC 0-5 SEEN, Ur Squamous Epith Cells 0 SEEN, Urine Bacteria RARE, Urine Mucus 0 SEEN Micro: Microbiology 11/23/21 02:43 Nasal Secretion SARS-CoV-2 & FLU Antigen (Rapid) - Final Radiology Impression Chest X-Ray 11/23/21 03:08 IMPRESSION: No acute findings in the chest. Electronically Signed: Otilio Hong MD at 3:20 EDT , Assessment & Plan Assessment/Plan (1) Neutropenic fever: (2) Acute kidney injury: PLAN: Plan Neutropenic fever No definite source of infection to classify as sepsis. Doubt sepsis. T-max of 103.2 Fahrenheit. WBC of 1.3 with ANC count of 1100. Mild neutropenia. Patient denies any new urinary symptoms and urinalysis is unremarkable. Patient has no lines. Chest x-ray was visualized and independently interpreted. I agree with radiologist interpretation of no acute cardiopulmonary process. Review of previous records show the patient presented with similar symptoms and was diagnosed with diverticulitis. However this time around patient has no abdominal pain. Patient received vancomycin and Zosyn in the emergency department. Vancomycin will be continued. Will trend CBC. Blood culture ordered at the emergency department, follow. Lactic acidosis Lactic acid on presentation was 5.1. Cannot rule out infection. However patient is also on metformin that can be contributing. Trend lactic acid. Admit intensive care unit. Received IV fluid bolus at emergency department. Normal saline infusion continued in the settings of IRASEMA. Trend Lactic acid IRASEMA Creatinine on presentation was 1.70 Creatinine on 12/04/2020 was 1.01 on 12/03/2020 was 0.98. BUN is 32. BUN over creatinine is 18.8. Likely prerenal leading to ATN. IV fluids as above. Hold spironolactone and Lasix. Trend BMP. Acute on chronic pancytopenia. Check ferritin; check iron studies. Check reticulocyte. No chemical thromboprophylaxis secondary to thrombocytopenia. Diabetes mellitus Patient with hyperglycemia on presentation Hold home metformin. Sitagliptin continued Monitor Accu-Cheks Correction scale insulin ordered. Cirrhosis of the liver Lasix and spironolactone held as above. Cautious use of IV fluids. DVT prophylaxis: SCDs ordered. Charges/Coding Visit Charges Inpatient E&M: 11819 Init Hosp L3
--- NOTE | 2021-11-23 04:54 | ED.RN ---
report given to Marjan in Er who says to wait 30 minutes before bringing the patient to the floor.
--- NOTE | 2021-11-23 06:05 | NURSING ---
pt admitted from Ed to cvic[facility] 202, at bedside, a&o no distress noted, to placed om tele and bp monitor, call light given to pt. will monitor
[2021-11-23 06:35] LABS: Reflex Lactate? Y
--- NOTE | 2021-11-23 06:36 | PCM.RX.CS ---
Consult Pharmacy has been consulted to manage selected antiobiotic: Vancomycin Type of Consult: New start Suspected Infection: Other Prior Doses of Antibiotics Received/Current Regimen: Medications Vancomycin HCl 1,250 mg/ (Sodium Chloride) 275 mls @ 167 mls/hr IV Q24H INGRID Discontinued Medications Vancomycin HCl 2,000 mg/ (Sodium Chloride) 540 mls @ 250 mls/hr IV X1 ONE Stop: 11/23/21 05:26 Last Admin: 11/23/21 04:01 Dose: 250 mls/hr Labs: Sodium 138 mmol/L (136-145) 11/23/21 02:20 Potassium 4.2 mmol/L (3.5-5.1) 11/23/21 02:20 Chloride 104 mmol/L (98-107) 11/23/21 02:20 Carbon Dioxide 24.0 mmol/L (21.0-32.0) 11/23/21 02:20 Anion Gap 10 (5-15) 11/23/21 02:20 BUN 32 mg/dL (7-18) H 11/23/21 02:20 Creatinine 1.70 mg/dL (0.70-1.30) H 11/23/21 02:20 Est GFR (MDRD) Af Amer 50 mL/min (>60) L 11/23/21 02:20 Est GFR (MDRD) Non-Af 41 mL/min (>60) L 11/23/21 02:20 BUN/Creatinine Ratio 18.8 RATIO (10-20) 11/23/21 02:20 Glucose 160 mg/dL (74-106) H 11/23/21 02:20 Microbiology: Microbiology 11/23/21 02:43 Nasal Secretion SARS-CoV-2 & FLU Antigen (Rapid) - Final Weight used for dosin.1 kg Estimated Creatinine Clearance: 34 Goal Trough: 15-20 mcg/mL Pharmacy Plan for Drug Dosing: Pharmacy Service will continue to monitor and adjust dosing as required. Follow-Up Labs: Trough Vancomycin Labs to be done on [date and time ordered]: 11/25/21 @3184
--- NOTE | 2021-11-23 07:41 | PCM.PN.BLA ---
Progress Note Admitted a few hours ago with neutropenic fever. Urinalysis looks okay and chest x-ray is unremarkable. The last time this happened he had diverticulitis so continue with broad-spectrum antibiotics while awaiting culture data. Appreciate ICU help, currently afebrile. Pressures are borderline low we will continue with volume resuscitation but may need to initiate pressors
--- NOTE | 2021-11-23 08:08 | CON.PCM.CC_ITS ---
Assessment & Plan Assessment/Plan (1) Sepsis: (2) Acute kidney injury: (3) Neutropenic fever: PLAN: Plan RECOMMENDATIONS: 1. Initiate pressors 2. PICC versus central line 3. Continue broad-spectrum antibiotics 4. Encourage incentive spirometer 5. Repeat lactate per sepsis protocol 6. Hold baseline antihypertensives and hypoglycemic medications IMPRESSIONS: 1. Sepsis secondary to probable gram-negative Patient's urinalysis is not suggestive of UTI. Patient does have leukopenia, but this may be secondary to baseline CLL. Patient has not received recent chemotherapy. Patient has had previous issues with diverticulitis. Patient does not appear to have an acute abdomen at this time, but timing of antibiotics and hypotensive episode are suggestive of a gram-negative source. We will continue with vancomycin and Zosyn for now. Anticipate discontinuation of vancomycin in the next 24 to 48 hours once culture data is available. Patient has received significant volume resuscitation and blood pressure still remained marginal. Anticipate initiation of pressors. We will continue with maintenance fluids given acute kidney injury. We will need to watch urine output closely. Cannot exclude the need for a Sarah catheter. 2. Acute kidney injury Patient with a creatinine of approximately 1 in December 2020. Creatinine on presentation is 1.7. Clinical suspicion for prerenal etiology secondary to problem #1. No indication for renal replacement therapy at this time. We will hold spironolactone and Lasix for now. 3. Pancytopenia/cirrhosis/history of esophageal varices Patient with some decreased counts compared to previous per . Patient is not showing any obvious signs of acute blood loss anemia at this time, but will need to follow closely. 4. Diabetes mellitus Consider discontinuation of baseline hyperglycemic medications. Patient can be monitored on sliding scale insulin. 5. Advanced age/BPH/CLL (in remission)/osteoarthritis/hyperlipidemia/GERD/hypertension Complicates care, management, recovery and prognosis. Did confirm patient is a full code. Hypertensive and diuretics have been held secondary to problem #1. Patient can likely continue with p.o. PPI. No indication for GI consultation at this time, but will follow closely. TIME: 35 minutes critical care time spent addressing patient's sepsis, acute kidney injury, pancytopenia, diabetes mellitus, review of all data and collaboration with care team HPI Consult Data Date of Consult: 11/23/21 HPI Narrative Reason for Consultation: Hypotension HPI Narrative: ALIZA OSEI is a 81 M, with past medical history listed below, who presents to [facility] on 11/23/2021 secondary to waking up with chills overnight. Patient reportedly had not felt well for the last couple of days. Patient was seen by his oncologist and was told that he had anemia and was started on iron infusions. Patient's reports that he has had low blood counts at baseline. Patient's was concerned and EMS was called. On arrival to the ER, patient was noted to have a temperature of 103.2 ?F. Patient was tachycardic at 113 bpm, but normotensive at 126/75. Patient was saturating well on room air initially, but then required 2 L nasal cannula to maintain saturations. Laboratory work-up showed a white blood cell count of 1.3. Hemoglobin was 8.8 and platelets were 42. Coagulation studies were within normal limits. Creatinine was slightly elevated at 1.7 and lactate was elevated at 5.1. UA was unremarkable. Chest x-ray showed no acute infiltrates. EKG showed only sinus tachycardia with no obvious ST changes. Patient was subsequently given 30 cc/kg IV bolus. Patient was then placed on Zosyn and vancomycin and admitted to the intensive care unit for further evaluation. Since being in the intensive care unit, patient has had marginal blood pressures. Patient is accompanied by his at the bedside. She reports that he is a little bit harder to wake up than normal. Patient's is unclear how much sleep he got overnight as he reportedly was not complaining yesterday of symptoms. Patient reportedly has a history of not communicating problems. Patient has a history of cirrhosis with previous esophageal banding. Patient also was admitted a year ago with septic shock secondary to diverticulitis. Patient and his are reporting that an endoscopy was requested, but no hematemesis, melena or hematochezia has been noticed. Patient has not been complaining of any abdominal pain. Patient's is unclear on his last bowel movement. Patient's is requesting a PICC line as he had this a year ago. She understands that pressor agents will likely be required and there is significant concern for gram-negative sepsis. Await timing. If delayed, may proceed with a central line. Majority of the review of systems was per the . Patient is not interested in extensive conversation and reports we should look at what I have already pineda d to other doctors. Review of systems otherwise negative from a constitutional, HEENT, respiratory, cardiovascular, GI, genitourinary, musculoskeletal, skin, neurologic, psychiatric and hematologic system unless stated above. [facility] Medical History BPH (benign prostatic hyperplasia) CLL (chronic lymphocytic leukemia) Diarrhea Essential hypertension Generalized weakness GERD (gastroesophageal reflux disease) Hyperlipemia Mixed hyperlipidemia VALERIE (obstructive sleep apnea) Osteoarthritis Paroxysmal atrial fibrillation Splenomegaly Thoracic aortic aneurysm without rupture Thrombocytopenia Type 2 diabetes mellitus Home Medications glimepiride 2 mg tablet (Amaryl) 4 mg PO DAILY 03/25/15 [History Last Taken 02/26/17] metformin 1,000 mg tablet 1,000 mg PO BIDCM 03/25/15 [History Last Taken 02/26/17] rosuvastatin 20 mg tablet 20 mg PO QHS 03/25/15 [History Last Taken 02/26/17] losartan 100 mg tablet 50 mg PO DAILY 02/20/17 [History Last Taken 02/26/17] sitagliptin 50 mg tablet (Januvia) 50 mg PO DAILY 02/20/17 [History Last Taken 02/26/17] hydromorphone 2 mg tablet 2 mg PO Q3H PRN Pain/Inflammation 03/09/19 [History Last Taken Unknown] trazodone 50 mg tablet 50 mg PO QHS 03/09/19 [History Last Taken Unknown] Bifidobacterium infantis 4 mg capsule (Align) 4 mg PO DAILY 04/17/19 [History Last Taken Unknown] allopurinol 300 mg tablet 300 mg PO DAILY 07/01/20 [History Last Taken Unknown] furosemide 20 mg tablet 20 mg PO DAILY 07/01/20 [History Last Taken Unknown] gabapentin 100 mg capsule 300 mg PO TIDCM 07/01/20 [History Last Taken Unknown] pantoprazole 40 mg tablet,delayed release 40 mg PO BID 07/01/20 [History Last Taken Unknown] polysaccharide iron complex 150 mg iron capsule (Ferrex) 150 mg PO BID 07/01/20 [History Last Taken Unknown] spironolactone 25 mg tablet 25 mg PO DAILY 07/01/20 [History Last Taken Unknown] baclofen 10 mg tablet 5 mg PO TID 12/01/20 [History Last Taken Unknown] acetaminophen 500 mg tablet 500 mg PO Q6H PRN Pain (Scale Score 1-3) 01/01/21 [History Last Taken Unknown] ropinirole 0.5 mg tablet 0.5 mg PO QHS 07/14/21 [History Last Taken Unknown] Allergy/AdvReac Type Severity Reaction Status Date / Time acetaminophen [From Vicodin] Allergy Rash Verified 11/23/21 01:58 cefazolin sodium [From Ancef] Allergy Rash Verified 07/14/21 13:07 clindamycin Allergy Chest Verified 07/14/21 13:07 tightness hydrocodone bitartrate Allergy Rash Verified 07/14/21 13:07 [From Vicodin] Family History Father Parkinson disease Brother Heart disease Diabetes Sister Atrial fibrillation Breast cancer Surgical History History of colonoscopy (~2018) History of hip replacement Social History Smoking Status: Former smoker alcohol intake: never substance use type: does not use caffeine: Yes Type: coffee Number of servings: 2 ROS ROS Narrative See HPI Physical Exam Const oriented x3 and no apparent distress Constitutional Narrative: Opens eyes and interacts, but quickly closes them. Appears to be voluntary General Appearance: well developed and lethargic HEENT normocephalic and head/scalp atraumatic HEENT Narrative: Dry mucous membranes General Ear: No hearing grossly impaired Eyes PERRL and EOMs intact bilaterally Neck full ROM and no lymphadenopathy Chest inspection of chest normal Resp normal respiratory effort and no use of accessory muscles Effort and Inspection: able to speak in complete sentences Auscultation: clear to auscultation bilaterally; Negative for rales, rhonchi or wheezes Percussion: Negative for dullness Cardio regular rate, regular rhythm, S1 normal heart sound, S2 normal heart sound, no murmurs, no rub and no gallops GI GI Narrative: Slight abdominal distention without fluid wave or rebound. Palpation: Negative for guarding or rigid no CVA tenderness Extremity no clubbing, cyanosis or edema Skin no rashes or lesions noted Neuro oriented x3, CN's II-XII intact bilaterally, moves all extremities and no focal motor deficits Psych Mood & Affect: flat affect Medical Records Data Attestation: I reviewed the patient's medical records Medical records narrative: Previous records were reviewed. Patient has grown E. coli and Moraxella 1 year ago from blood cultures. Patient does follow with cardiology secondary to paroxysmal A. fib and a thoracic aortic aneurysm with a last known aortic root size of 3.9 cm. Lab / Micro Data Attestation: I reviewed the patient's lab results. Result Diagrams: 11/23/21 02:20 11/23/21 02:20 Labs: Laboratory Results - last 24 hr 11/23/21 02:20: WBC 1.3 L*, RBC 3.05 L, Hgb 8.8 L, Hct 28.4 L, MCV 93.1, MCH 28.9, MCHC 31.0 L, RDW Std Deviation 51.2 H, RDW Coeff of Trell 14.9 H, Plt Count 42 L*, MPV 11.5, Immature Gran % (Auto) 0.000, Neut % (Auto) 87.2 H, Lymph % (Auto) 9.6 L, [place] % (Auto) 2.4, Eos % (Auto) 0.8, Baso % (Auto) 0.0, Absolute Neuts (auto) 1.1 L, Absolute Lymphs (auto) 0.12 L, Nucleated RBC % 0, Differential Comment SCANNED, Diff Path Review May , Platelet Estimate MKD DEC, Hypochromasia 1+ 11/23/21 02:20: PT 14.5, INR 1.2, APTT 24.1 11/23/21 02:20: Sodium 138, Potassium 4.2, Chloride 104, Carbon Dioxide 24.0, Anion Gap 10, BUN 32 H, Creatinine 1.70 H, Estim Creat Clear Calc 34.09, Est GFR (MDRD) Af Amer 50 L, Est GFR (MDRD) Non-Af 41 L, BUN/Creatinine Ratio 18.8, Glucose 160 H, Calcium 8.8, Total Bilirubin 0.60, AST 23, ALT 23, Alkaline Phosphatase 76, Total Protein 6.1 L, Albumin 3.0 L, Globulin 3.1, Albumin/Globulin Ratio 1.0 11/23/21 02:20: Lactic Acid 5.1 H* 11/23/21 03:05: Urine Color Yellow, Urine Clarity Clear, Urine pH 6.0, Ur Specific [place] 1.010, Urine Protein 30 H, Urine Glucose (UA) Normal, Urine Ketones Negative, Urine Occult Blood 10 H, Urine Nitrite Negative, Urine Bilirubin Negative, Urine Urobilinogen Normal, Ur Leukocyte Esterase Negative, Urine RBC 0 SEEN, Urine WBC 0-5 SEEN, Ur Squamous Epith Cells 0 SEEN, Urine Bacteria RARE, Urine Mucus 0 SEEN Micro: Microbiology 11/23/21 02:43 Nasal Secretion SARS-CoV-2 & FLU Antigen (Rapid) - Final Rhythm Strip Rhythm Strip: Sinus Rhythm Rate: 88 Ectopy: None Radiology Impression Chest X-Ray 11/23/21 03:08 IMPRESSION: No acute findings in the chest. Electronically Signed: Otilio Hong MD at 3:20 EDT , Charges/Coding Procedures Hospitalists Procedures: 52764 Critial Care 1st Hr
[2021-11-23 08:57] LABS: Platelet Count 43 K/mm3 (150-450); RET-HE 28.7 pg (30-35); Reticulocyte Count 2.03 % (0.5-1.5)
[2021-11-23 09:06] LABS: Ferritin 12 ng/mL (26-388); Iron 30 ug/dL (65-175); Iron Binding Capacity,Total 389 ug/dL (250-450); PERCENT IRON SATURATION 7.7 % (15.0-55.0)
[2021-11-23 09:27] LABS: Lactic Acid 1.5 mmol/L (0.4-1.9)
[2021-11-23] MEDS: 0.9% Normal Saline 1,000 ML 100 ML IV ×2 (09:41→17:34)
[2021-11-23] MEDS: Baclofen 10 MG Tablet 5 MG PO ×3 (09:41→22:09)
[2021-11-23] MEDS: Insulin Lispro 100 UNIT/ML INSULN.PEN SC ×3 (09:41→17:33)
[2021-11-23] MEDS: Allopurinol 300 MG Tablet PO (09:42)
[2021-11-23] MEDS: Pantoprazole Sodium 40 MG Tablet PO ×2 (09:43→22:09)
[2021-11-23] MEDS: Iron Polysaccharide Complex 150 MG CAPSULE PO ×2 (09:43→22:09)
[2021-11-23] MEDS: LINAGLIPTIN 5 MG TABLET PO (09:43)
[2021-11-23 09:46] LABS: Bedside Glucose 160 mg/dL (74-106)
[2021-11-23] MEDS: Gabapentin 100 MG Capsule 200 MG PO ×3 (09:56→17:34)
[2021-11-23 13:06] LABS: Bedside Glucose 165 mg/dL (74-106)
[2021-11-23 18:01] LABS: Bedside Glucose 163 mg/dL (74-106)
[2021-11-23] MEDS: traZODone 50 MG Tablet PO (22:09)
[2021-11-23] MEDS: Pramipexole Di-HCl 0.25 MG Tablet PO (22:09)
[2021-11-23] MEDS: Atorvastatin Calcium 40 MG Tablet PO (22:09)
[2021-11-23 22:31] LABS: Bedside Glucose 110 mg/dL (74-106)
[2021-11-24] VITALS (28 sets, daily range): BP systolic 84–142; BP diastolic 35–101; PULSE 58–156; RESP 16–27; TEMP 36.4–37.2; O2SAT 91–100
[2021-11-24] MEDS: 0.9% Normal Saline 1,000 ML 100 ML IV ×2 (03:52→13:36)
[2021-11-24 05:32] LABS: Absolute Lymphocyte Count 0.21 X10^3/uL (0.83-4.51); Absolute Neutrophil Count 1.6 X10^3/uL (2.0-7.7); Basophil# 0.01 X10^3/uL; Basophil% 0.5 % (0-1); Eosinophil# 0.05 X10^3/uL; Eosinophils% 2.4 % (0-5); Lymphocyte # 0.21 X10^3/ul (0.83-4.51); Lymphocyte % 10.1 % (19-41); Mean Corp Hgb Conc 30.4 g/dL (32-36); Mean Corpuscular Hgb 29.2 pg (27.0-32.0); Mean Corpuscular Volume 95.8 fL (80-94); Mean Platelet Vol. 11.8 fl (6.2-12.0); Monocyte% 9.7 % (0-10); NRBC Flagged by Analyzer 0 % (0-5); Neutrophil # 1.59 X10^3/uL (2.7-7.7); Neutrophil % 76.8 % (47-70); POSITIVE COUNT YES; POSITIVE DIFFERENTIAL YES; Platelet Count 28 K/mm3 (150-450); RBC Distribution Width CV 15.1 % (11.6-14.6); RBC Distribution Width SD 52.4 fl (35.1-43.9); White Blood Count 2.1 K/mm3 (4.4-11.0)
[2021-11-24 05:34] LABS: Differential Indicated SCAN CRITERIA MET
[2021-11-24 05:42] LABS: Macrocytosis 1+
[2021-11-24 05:43] LABS: Anisocytosis 1+; Platelet Estimate MKD DEC (ADEQ)
[2021-11-24 05:44] LABS: Anion Gap 3 (5-15); BUN 21 mg/dL (7-18); BUN/Creat Ratio 17.9 RATIO (10-20); Calcium,Total 7.6 mg/dL (8.5-10.1); Chloride 115 mmol/L (98-107); Creatinine, Serum 1.17 mg/dL (0.70-1.30); EST Glomerular Filtration Rate 64 mL/min (>60); Est Glom Filt Rate - Afr Amer 77 mL/min (>60); Estimated Creatinine Clearance 49.53 ml/min; Glucose 116 mg/dL (74-106); Potassium 3.9 mmol/L (3.5-5.1); Sodium Level 142 mmol/L (136-145)
--- NOTE | 2021-11-24 06:02 | PCM.PN.INT ---
Assessment & Plan Assessment/Plan (1) Sepsis: PLAN: Plan RECOMMENDATIONS: 1. Continue broad-spectrum antimicrobials, pending finalized culture results. 2. Vasopressor support, if needed, to maintain a mean arterial pressure at or above 65 mmHg. 3. Transfuse blood products as ordered. Check H&H posttransfusion. 4. Continue PPI therapy twice daily as ordered. 5. Encourage incentive spirometer use and mobilize patient as tolerated. IMPRESSIONS: 1. Gram-negative sepsis The patient appears to have gram-negative bacteremia of unclear source. Urine analysis was certainly not suggestive of UTI. Therefore, an intra-abdominal source is a possibility. However, the patient is without any abdominal pain complaints. Plan to continue current supportive measures including antimicrobials until cultures have finalized. The patient has yet to require any form of vasopressor support. Plan to continue to monitor in light of his tenuous hemodynamics. 2. Acute kidney injury Prerenal in etiology in the setting of #1. Creatinine has improved with volume expansion. Continue to monitor urine output for now. No current indication for renal replacement therapy. 3. Pancytopenia The patient's baseline anemia and thrombocytopenia have worsened. In light of his drop in hemoglobin, will transfuse packed red blood cells as ordered. Check H&H posttransfusion. No current indication for transfusion of platelets. Continue PPI therapy as ordered. 4. History of cirrhosis and esophageal varices/diabetes mellitus/BPH/CLL in remission Complicates care, management, recovery and prognosis. Continue to hold home Lasix and losartan, given tenuous hemodynamics. This note was generated with [employer] dictation software. It may contain incorrect words, spelling, and punctuation that were not noted in checking the note before signing. Subjective Subjective The patient was seen and examined at the bedside this morning. Events from the last 24 hours have been reviewed. The patient is currently afebrile, hemodynamically stable and maintaining appropriate oxygen saturations on room air. The patient remains pancytopenic with a hemoglobin of 7.0 and platelet count of 28,000. The patient is not currently on any vasopressor support and stated that his blood pressure typically runs on the low side. He is without any specific complaints this morning. He is currently documented to be overall net +5.8 L for the hospitalization. Objective Data Objective Data The patient's most recent lab work, culture data and imaging studies have all been personally reviewed. Surface echocardiogram from August 2021 demonstrated normal LV size and function with an ejection fraction of 65%. Right ventricular systolic pressure was estimated to be 32 mmHg. Preliminary blood cultures are positive for gram-negative rods. Rapid COVID and influenza testing were negative. Vital Signs: Vital Signs Temp Pulse Resp BP Pulse Ox O2 Del Method O2 Flow Rate 97.7 F L 59 L 21 H 98/48 L 91 Room Air 2 11/24/21 04:00 11/24/21 05:00 11/24/21 05:00 11/24/21 05:00 11/24/21 05:00 11/24/21 05:00 11/23/21 11:00 Oxygen Flow Rate (L/min) 2 Oxygen Delivery Method Room Air Weight: 191 lb 9.6 oz Body Mass Index (BMI) 29.1 Intake & Output: Intake and Output for Last 24 Hours 11/22/21 11/23/21 11/24/21 23:59 23:59 23:59 Intake Total 6044.02 / 6044.02 906.67 / 906.67 Output Total 1350 / 1350 Balance 4694.02 / 4694.02 906.67 / 906.67 Lab / Micro Data Attestation: I reviewed the patient's lab results. Result Diagrams: 11/24/21 05:00 11/24/21 05:00 Labs: Laboratory Results - last 24 hr 11/23/21 02:20: Immature Plt Fraction 4.8, Retic Count 2.03 H, Immature Retic Fraction 11.10, Retic Hgb Equivalent 28.7 L 11/23/21 02:20: Iron 30 L, TIBC 389, Iron Saturation 7.7 L, Ferritin 12 L 11/23/21 08:55: Lactic Acid 1.5 11/23/21 09:08: POC Glucose 160 H 11/23/21 12:25: POC Glucose 165 H 11/23/21 17:32: POC Glucose 163 H 11/23/21 22:05: POC Glucose 110 H 11/24/21 05:00: WBC 2.1 L, RBC 2.40 L, Hgb 7.0 L, Hct 23.0 L, MCV 95.8 H, MCH 29.2, MCHC 30.4 L, RDW Std Deviation 52.4 H, RDW Coeff of Trell 15.1 H, Plt Count 28 L*, MPV 11.8, Immature Gran % (Auto) 0.500, Neut % (Auto) 76.8 H, Lymph % (Auto) 10.1 L, Long % (Auto) 9.7, Eos % (Auto) 2.4, Baso % (Auto) 0.5, Absolute Neuts (auto) 1.6 L, Absolute Lymphs (auto) 0.21 L, Nucleated RBC % 0, Diff Path Review August, Platelet Estimate MKD DEC, Anisocytosis 1+, Macrocytosis 1+ 11/24/21 05:00: Sodium 142, Potassium 3.9, Chloride 115 H, Carbon Dioxide 24.0, Anion Gap 3 L, BUN 21 H, Creatinine 1.17, Estim Creat Clear Calc 49.53, Est GFR (MDRD) Af Amer 77, Est GFR (MDRD) Non-Af 64, BUN/Creatinine Ratio 17.9, Glucose 116 H, Calcium 7.6 L Micro: Microbiology 11/23/21 03:30 Blood Culture (Wb) - Right Forearm Blood Culture - Preliminary 11/23/21 02:43 Nasal Secretion SARS-CoV-2 & FLU Antigen (Rapid) - Final Rhythm Strip Rhythm Strip: Sinus Rhythm Rate: 88 Ectopy: None Physical Exam Const alert and no apparent distress General Appearance: cooperative HEENT normocephalic and head/scalp atraumatic Eyes PERRL, EOMs intact bilaterally and conjunctivae normal Neck supple General: trachea midline Chest inspection of chest normal Resp normal respiratory effort Auscultation: Negative for rales, rhonchi or wheezes Cardio regular rate and regular rhythm GI normal to inspection, nondistended, normoactive bowel sounds Extremity no clubbing, cyanosis or edema Skin no rashes or lesions noted Neuro CN's II-XII intact bilaterally, moves all extremities and no focal motor deficits Psych Mood & Affect: flat affect Charges/Coding Visit Charges Inpatient E&M: 85371 Subs Hosp L3
--- NOTE | 2021-11-24 06:43 | PCM.RX.CS ---
Consult Pharmacy has been consulted to manage selected antiobiotic: Vancomycin Type of Consult: Follow-up Labs: Sodium 142 mmol/L (136-145) 11/24/21 05:00 Potassium 3.9 mmol/L (3.5-5.1) 11/24/21 05:00 Chloride 115 mmol/L (98-107) H 11/24/21 05:00 Carbon Dioxide 24.0 mmol/L (21.0-32.0) 11/24/21 05:00 Anion Gap 3 (5-15) L 11/24/21 05:00 BUN 21 mg/dL (7-18) H 11/24/21 05:00 Creatinine 1.17 mg/dL (0.70-1.30) 11/24/21 05:00 Est GFR (MDRD) Af Amer 77 mL/min (>60) 11/24/21 05:00 Est GFR (MDRD) Non-Af 64 mL/min (>60) 11/24/21 05:00 BUN/Creatinine Ratio 17.9 RATIO (10-20) 11/24/21 05:00 Glucose 116 mg/dL (74-106) H 11/24/21 05:00 Microbiology: Microbiology 11/23/21 03:30 Blood Culture (Wb) - Right Forearm Blood Culture - Preliminary 11/23/21 02:43 Nasal Secretion SARS-CoV-2 & FLU Antigen (Rapid) - Final Goal Trough: 15-20 mcg/mL Pharmacy Plan for Drug Dosing: DAILY ASSESSMENT Current Vancomycin Dose:1250MG IV Q24H Number of Doses Received: 2 (initial + 1 scheduled) Current Renal Function: 1.17/ 49 mL/min Renal Function Trend: significant improvement from admitting labs Lab/Micro: pending Any Change in Vanc Plan: Patient with improved renal function. Will adjust dose to 750mg IV Q12hr, reschedule trough Pending Level: 11/25/21 @1530 Pharmacy Service will continue to monitor and adjust dosing as required.
[2021-11-24] MEDS: 0.9% Saline Lock 10 ML Syringe IV (06:52)
[2021-11-24] MEDS: Baclofen 10 MG Tablet 5 MG PO ×3 (06:52→21:21)
[2021-11-24] MEDS: Allopurinol 300 MG Tablet PO (08:57)
[2021-11-24] MEDS: Iron Polysaccharide Complex 150 MG CAPSULE PO ×2 (08:57→21:22)
[2021-11-24] MEDS: LINAGLIPTIN 5 MG TABLET PO (08:57)
[2021-11-24] MEDS: Pantoprazole Sodium 40 MG Tablet PO ×2 (08:57→21:22)
[2021-11-24] MEDS: Gabapentin 100 MG Capsule 200 MG PO ×3 (09:00→16:36)
[2021-11-24] MEDS: Insulin Lispro 100 UNIT/ML INSULN.PEN SC ×3 (12:23→21:22)
[2021-11-24 12:46] LABS: Bedside Glucose 207 mg/dL (74-106)
[2021-11-24 13:13] LABS: Pathologist Review Reviewed
[2021-11-24 13:13] LABS: Pathologist Review Reviewed
--- NOTE | 2021-11-24 13:20 | CASEMGMT ---
RN ALISSA Face to Face with patient for initial transition planning/care coordination assessment. RN CM introduced self and role at [facility]. Patient lying in bed, alert and oriented, at bedside. Patient willing to participate in assessment and is able to answer all questions appropriately. Care providers, pharmacy, and demographics verified. Patient wishes to discharge home, denies need for home health at this time. Patient states he has no further needs or concerns at this time. CM to follow for discharge planning needs that may arise. PCP: Steph Specialists: Paula, oncologist; Bertha, GI/Liver, [facility] Preferred Pharmacy: [facility] Insurance: [employer], [employer] other Prescription Benefit: yes Living Will/HPOA: yes, Diana Church LNOK: Living Arrangements: Patient lives with in a single story home with 2 steps to enter. Patient states he is independent at home. Transportation: self, DME/HHC: Patient states he has shower chair, raised toilet, cane, grab bars, walker at home. Patient denies previous HHC or SNF Disposition Plan: Patient to discharge home with family support and follow-up plans in place. Yael LUA, RN, CM
[2021-11-24 13:25] LABS: Immature Platelet Fraction 4.8 % (1.0-7.9)
--- NOTE | 2021-11-24 13:53 | RAD_ITS ---
EXAM: XR ABDOMEN, 1 VIEW CLINICAL INDICATION: abdominal distention TECHNIQUE: Frontal supine view of the abdomen/pelvis. This report was created using [employer] report generation technology. COMPARISON: None. FINDINGS: LOWER THORAX: No acute pathology. GASTROINTESTINAL TRACT: Unremarkable. Non-obstructive. No bowel or stomach distention. ORGANS: Unremarkable as visualized. No organomegaly. No abnormal calcifications. BONES/JOINTS: There is a total right hip prosthesis in anatomic alignment. SOFT TISSUES: No acute pathology. RAD/Abdomen Single View (Portable) IMPRESSION: No acute findings. Electronically Signed: Uli Stanton MD at 17:55 EDT ,
[2021-11-24 14:06] LABS: Hematocrit 25.1 % (40-54); Hemoglobin 7.9 g/dL (13.0-16.5)
[2021-11-24 17:00] LABS: Bedside Glucose 224 mg/dL (74-106)
--- NOTE | 2021-11-24 17:04 | PCM.PN.HOSP ---
Subjective Subjective Patient was seen and examined in ICU today, talked extensively with the patient as well as his about his medical condition and care plan. Patient was given packed red blood cells today due to his anemia, I talked briefly with critical care about his care and patient was ordered 1 unit of packed red blood cells to be transfused today. Patient had some abdominal distention and was complaining about some vague abdominal pain today, I ordered a KUB which result is pending at this time. 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 It is unclear whether he follows regularly with a GI physician, they are going to send a note from his PCPs office concerning the 1 GI visit that the patient has had. Objective Data Objective Data Vital Signs: Vital Signs Temp Pulse Resp BP Pulse Ox O2 Del Method O2 Flow Rate 97.8 F 59 L 25 H 109/53 L 95 Room Air 2 11/24/21 12:05 11/24/21 16:00 11/24/21 16:00 11/24/21 16:00 11/24/21 16:00 11/24/21 16:00 11/23/21 11:00 Oxygen Flow Rate (L/min) 2 Oxygen Delivery Method Room Air Weight: 85.4 kg Body Mass Index (BMI) 29.1 Intake & Output: Intake and Output for Last 24 Hours 11/22/21 11/23/21 11/24/21 23:59 23:59 23:59 Intake Total 6044.02 / 6044.02 2325.00 / 2325.00 Output Total 1350 / 1350 Balance 4694.02 / 4694.02 2325.00 / 2325.00 Lab / Micro Data Result Diagrams: 11/24/21 14:00 11/24/21 05:00 Labs: Laboratory Results - last 24 hr 11/23/21 02:20: Diff Path Review Reviewed 11/23/21 02:20: Immature Plt Fraction 4.8 11/23/21 17:32: POC Glucose 163 H 11/23/21 22:05: POC Glucose 110 H 11/24/21 05:00: WBC 2.1 L, RBC 2.40 L, Hgb 7.0 L, Hct 23.0 L, MCV 95.8 H, MCH 29.2, MCHC 30.4 L, RDW Std Deviation 52.4 H, RDW Coeff of Trell 15.1 H, Plt Count 28 L*, MPV 11.8, Immature Gran % (Auto) 0.500, Neut % (Auto) 76.8 H, Lymph % (Auto) 10.1 L, Gage % (Auto) 9.7, Eos % (Auto) 2.4, Baso % (Auto) 0.5, Absolute Neuts (auto) 1.6 L, Absolute Lymphs (auto) 0.21 L, Nucleated RBC % 0, Diff Path Review Reviewed, Platelet Estimate MKD DEC, Anisocytosis 1+, Macrocytosis 1+ 11/24/21 05:00: Sodium 142, Potassium 3.9, Chloride 115 H, Carbon Dioxide 24.0, Anion Gap 3 L, BUN 21 H, Creatinine 1.17, Estim Creat Clear Calc 49.53, Est GFR (MDRD) Af Amer 77, Est GFR (MDRD) Non-Af 64, BUN/Creatinine Ratio 17.9, Glucose 116 H, Calcium 7.6 L 11/24/21 06:50: Blood Type A POSITIVE, Antibody Screen NEGATIVE 11/24/21 06:50: Crossmatch See Detail 11/24/21 12:20: POC Glucose 207 H 11/24/21 14:00: Hgb 7.9 L, Hct 25.1 L 11/24/21 16:35: POC Glucose 224 H Micro: Microbiology 11/23/21 03:05 Urine, Clean Catch Urine Culture - Final Mixed Gram Pos & Gram Neg Org 11/23/21 03:30 Blood Culture (Wb) - Right Forearm Blood Culture - Preliminary 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 11/23/21 02:43 Nasal Secretion SARS-CoV-2 & FLU Antigen (Rapid) - Final Rhythm Strip Rhythm Strip: Sinus Rhythm Rate: 88 Ectopy: None Physical Exam Const alert, oriented x3 and no apparent distress General Appearance: cooperative, well kempt and well developed Orientation / Consciousness: awake, oriented to person, oriented to place and oriented to time HEENT normocephalic, head/scalp atraumatic and moist oral mucous membranes Eyes PERRL, EOMs intact bilaterally and conjunctivae normal Neck supple, no JVD and thyroid normal General: trachea midline Resp normal respiratory effort, no retractions, no use of accessory muscles and clear to auscultation bilaterally Auscultation: Negative for rales, rhonchi or wheezes Cardio regular rate, regular rhythm, S1 normal heart sound, S2 normal heart sound, no murmurs, no rub and no gallops GI normal to inspection, nondistended, normoactive bowel sounds, soft to palpation and non-tender GI Narrative: Patient has mild abdominal distention, patient has no abdominal tenderness on palpation, there is no rebound abdominal tenderness. Extremity no clubbing, cyanosis or edema Skin no rashes or lesions noted General Skin Exam: no breakdown Neuro oriented x3, CN's II-XII intact bilaterally, moves all extremities, no focal motor deficits and no sensory deficits noted Sensorium / Orientation: awake, alert, oriented to person, oriented to place and oriented to time Speech: speech normal Psych affect normal Assessment & Plan Assessment/Plan (1) Sepsis: PLAN: Plan 1. Gram-negative sepsis-organism unknown at this time, patient will remain on antibiotic coverage for now, critical care is participating in his care. The etiology of the gram-negative sepsis is unknown at this time, it is felt he could have originated from the GI tract. 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
[2021-11-24] MEDS: Acetaminophen 325 MG Tablet 650 MG PO (21:21)
[2021-11-24] MEDS: traZODone 50 MG Tablet PO (21:22)
[2021-11-24] MEDS: Atorvastatin Calcium 40 MG Tablet PO (21:22)
[2021-11-24] MEDS: Pramipexole Di-HCl 0.25 MG Tablet PO (21:22)
[2021-11-24 21:45] LABS: Bedside Glucose 212 mg/dL (74-106)
[2021-11-25] VITALS (27 sets, daily range): BP systolic 93–135; BP diastolic 39–87; PULSE 49–82; RESP 14–26; TEMP 36.2–37.1; O2SAT 91–99
[2021-11-25] MEDS: 0.9% Normal Saline 1,000 ML 100 ML IV ×3 (02:00→23:57)
[2021-11-25 04:54] LABS: Absolute Lymphocyte Count 0.37 X10^3/uL (0.83-4.51); Absolute Neutrophil Count 1.5 X10^3/uL (2.0-7.7); Basophil# 0.01 X10^3/uL; Basophil% 0.4 % (0-1); Differential Indicated SCAN CRITERIA MET; Eosinophil# 0.07 X10^3/uL; Hematocrit 25.6 % (40-54); Hemoglobin 8.1 g/dL (13.0-16.5); Lymphocyte # 0.37 X10^3/ul (0.83-4.51); Mean Corp Hgb Conc 31.6 g/dL (32-36); Mean Corpuscular Hgb 29.2 pg (27.0-32.0); Mean Corpuscular Volume 92.4 fL (80-94); Mean Platelet Vol. 10.5 fl (6.2-12.0); Monocyte# 0.33 X10^3/uL; Monocyte% 14.3 % (0-10); NRBC Flagged by Analyzer 0 % (0-5); Neutrophil # 1.51 X10^3/uL (2.7-7.7); Neutrophil % 65.4 % (47-70); POSITIVE COUNT YES; POSITIVE DIFFERENTIAL YES; Platelet Count 37 K/mm3 (150-450); RBC Distribution Width CV 15.3 % (11.6-14.6); RBC Distribution Width SD 51.8 fl (35.1-43.9); Red Blood Count 2.77 M/mm3 (4.6-6.2); White Blood Count 2.3 K/mm3 (4.4-11.0)
[2021-11-25 04:57] LABS: Anisocytosis 1+
[2021-11-25 04:58] LABS: Platelet Estimate MKD DEC (ADEQ)
[2021-11-25 05:22] LABS: Magnesium 2.1 mg/dL (1.6-2.6); Phosphorus 2.5 mg/dL (2.5-4.9)
[2021-11-25 05:30] LABS: ALB/GLOB Ratio 0.8 RATIO (0.9-2.4); AST(SGOT) 24 U/L (15-37); Alanine Aminotransfer ALT/SGPT 24 U/L (16-61); Albumin, Serum 2.2 g/dL (3.2-5.0); Alkaline Phosphatase 60 U/L (45-117); Anion Gap 5 (5-15); BUN 16 mg/dL (7-18); BUN/Creat Ratio 14.5 RATIO (10-20); Calcium,Total 8.1 mg/dL (8.5-10.1); Chloride 114 mmol/L (98-107); EST Glomerular Filtration Rate 69 mL/min (>60); Est Glom Filt Rate - Afr Amer 83 mL/min (>60); Estimated Creatinine Clearance 52.68 ml/min; Globulin 2.7 g/dL (2.2-4.2); Glucose 187 mg/dL (74-106); Potassium 3.8 mmol/L (3.5-5.1); Protein, Total 4.9 g/dL (6.4-8.2); Sodium Level 143 mmol/L (136-145)
--- NOTE | 2021-11-25 05:51 | PCM.PN.INT ---
Assessment & Plan Assessment/Plan (1) Sepsis: PLAN: Plan RECOMMENDATIONS: 1. Continue antibiotics. Obtain ID consultation to assist with management and duration of treatment. 2. Vasopressor support, if needed, to maintain a mean arterial pressure at or above 65 mmHg. 3. Continue to monitor H&H daily. Transfuse if hemoglobin drops below 7 g/dL. 4. Continue PPI therapy twice daily as ordered. 5. Encourage incentive spirometer use and mobilize patient as tolerated. IMPRESSIONS: 1. Gram-negative sepsis The patient appears to have gram-negative bacteremia of unclear source. Urine analysis was certainly not suggestive of UTI. Therefore, an intra-abdominal source is a possibility. However, the patient is without any abdominal pain complaints. Plan to continue current supportive measures including antimicrobials until cultures have finalized. Vasopressor support can be utilized, if needed, to maintain hemodynamic stability. Infectious diseases consultation will be obtained to assist with antibiotic management and duration of treatment. 2. Acute kidney injury Resolved. Prerenal in etiology in the setting of #1. Creatinine has improved with volume expansion. Continue to monitor urine output for now. No current indication for renal replacement therapy. 3. Pancytopenia The patient's baseline anemia and thrombocytopenia have worsened, likely secondary to #1. Continue to monitor blood counts daily. Transfuse if hemoglobin drops below 7 g/dL. 4. History of cirrhosis and esophageal varices/diabetes mellitus/BPH/CLL in remission Complicates care, management, recovery and prognosis. Continue to hold home Lasix and losartan, given tenuous hemodynamics. This note was generated with [employer] dictation software. It may contain incorrect words, spelling, and punctuation that were not noted in checking the note before signing. Subjective Subjective The patient was seen and examined at the bedside this morning. Events from the last 24 hours have been reviewed. The patient is currently afebrile, hemodynamically stable and maintaining appropriate oxygen saturations on room air. The patient is currently documented to be overall net +8.3 L for the hospitalization. The patient was transfused 1 unit of packed red blood cells yesterday. Hemoglobin is improved this morning at 8.1 g/dL. The patient remains thrombocytopenic with a platelet count of 37,000. According to nursing report, the patient had periods of nonsustained V. tach last night, which was then followed by periods of bradycardia. He did have to be placed transiently on Levophed for several hours as well to maintain hemodynamic stability. Objective Data Objective Data The patient's most recent lab work, culture data and imaging studies have all been personally reviewed. Surface echocardiogram from August 2021 demonstrated normal LV size and function with an ejection fraction of 65%. Right ventricular systolic pressure was estimated to be 32 mmHg. Preliminary blood cultures are positive for gram-negative rods. Rapid COVID and influenza testing were negative. Vital Signs: Vital Signs Temp Pulse Resp BP Pulse Ox O2 Del Method O2 Flow Rate 98 F 49 L 21 H 95/49 L 92 Room Air 2 11/25/21 04:00 11/25/21 05:00 11/25/21 05:00 11/25/21 05:00 11/25/21 05:00 11/25/21 05:00 11/23/21 11:00 Oxygen Flow Rate (L/min) 2 Oxygen Delivery Method Room Air Weight: 191 lb 6.4 oz Body Mass Index (BMI) 29.1 Intake & Output: Intake and Output for Last 24 Hours 11/23/21 11/24/21 11/25/21 23:59 23:59 23:59 Intake Total 6044.02 / 6044.02 2375.00 / 2575.00 1250 / 1250 Output Total 1350 / 1350 Balance 4694.02 / 4694.02 2375.00 / 2575.00 1250 / 1250 Lab / Micro Data Attestation: I reviewed the patient's lab results. Result Diagrams: 11/25/21 04:46 11/25/21 04:46 Labs: Laboratory Results - last 24 hr 11/23/21 02:20: Diff Path Review Reviewed 11/23/21 02:20: Immature Plt Fraction 4.8 11/24/21 05:00: Diff Path Review Reviewed 11/24/21 06:50: Blood Type A POSITIVE, Antibody Screen NEGATIVE 11/24/21 06:50: Crossmatch See Detail 11/24/21 12:20: POC Glucose 207 H 11/24/21 14:00: Hgb 7.9 L, Hct 25.1 L 11/24/21 16:35: POC Glucose 224 H 11/24/21 21:20: POC Glucose 212 H 11/25/21 04:46: WBC 2.3 L, RBC 2.77 L, Hgb 8.1 L, Hct 25.6 L, MCV 92.4, MCH 29.2, MCHC 31.6 L, RDW Std Deviation 51.8 H, RDW Coeff of Trell 15.3 H, Plt Count 37 L*, MPV 10.5, Immature Gran % (Auto) 0.900, Neut % (Auto) 65.4, Lymph % (Auto) 16.0 L, Charlton % (Auto) 14.3 H, Eos % (Auto) 3.0, Baso % (Auto) 0.4, Absolute Neuts (auto) 1.5 L, Absolute Lymphs (auto) 0.37 L, Nucleated RBC % 0, Diff Path Review August, Platelet Estimate MKD DEC, Anisocytosis 1+ 11/25/21 04:46: Sodium 143, Potassium 3.8, Chloride 114 H, Carbon Dioxide 24.0, Anion Gap 5, BUN 16, Creatinine 1.10, Estim Creat Clear Calc 52.68, Est GFR (MDRD) Af Amer 83, Est GFR (MDRD) Non-Af 69, BUN/Creatinine Ratio 14.5, Glucose 187 H, Calcium 8.1 L, Total Bilirubin 0.80, AST 24, ALT 24, Alkaline Phosphatase 60, Total Protein 4.9 L, Albumin 2.2 L, Globulin 2.7, Albumin/Globulin Ratio 0.8 L 11/25/21 04:46: Phosphorus 2.5, Magnesium 2.1 Micro: Microbiology 11/23/21 03:05 Urine, Clean Catch Urine Culture - Final Mixed Gram Pos & Gram Neg Org 11/23/21 03:30 Blood Culture (Wb) - Right Forearm Blood Culture - Preliminary GNR non supervisor lime 11/23/21 02:43 Nasal Secretion SARS-CoV-2 & FLU Antigen (Rapid) - Final Radiography Diagnostic Testing: Radiology Impression KUB X-Ray 11/24/21 13:53 IMPRESSION: No acute findings. Electronically Signed: Uli Stanton MD at 17:55 EDT , Rhythm Strip Rhythm Strip: Sinus Rhythm Rate: 88 Ectopy: None Physical Exam Const alert and no apparent distress General Appearance: cooperative HEENT normocephalic and head/scalp atraumatic Eyes PERRL, EOMs intact bilaterally and conjunctivae normal Neck supple General: trachea midline Chest inspection of chest normal Resp normal respiratory effort Auscultation: Negative for rales, rhonchi or wheezes Cardio regular rhythm Rate: bradycardia GI normal to inspection, nondistended, normoactive bowel sounds Extremity no clubbing, cyanosis or edema Skin no rashes or lesions noted Neuro CN's II-XII intact bilaterally, moves all extremities and no focal motor deficits Psych Mood & Affect: flat affect Charges/Coding Visit Charges Inpatient E&M: 16219 Subs Hosp L3
[2021-11-25] MEDS: Baclofen 10 MG Tablet 5 MG PO ×3 (06:36→21:02)
[2021-11-25] MEDS: Insulin Lispro 100 UNIT/ML INSULN.PEN SC ×4 (08:32→21:12)
[2021-11-25] MEDS: Iron Polysaccharide Complex 150 MG CAPSULE PO ×2 (08:33→21:22)
[2021-11-25] MEDS: Allopurinol 300 MG Tablet PO (08:33)
[2021-11-25] MEDS: LINAGLIPTIN 5 MG TABLET PO (08:33)
[2021-11-25] MEDS: Gabapentin 100 MG Capsule 200 MG PO ×3 (08:33→16:51)
[2021-11-25] MEDS: Pantoprazole Sodium 40 MG Tablet PO ×2 (08:34→21:06)
[2021-11-25 09:10] LABS: Bedside Glucose 173 mg/dL (74-106)
[2021-11-25 09:58] LABS: Pathologist Review Reviewed
--- NOTE | 2021-11-25 10:37 | CT_ITS ---
STUDY: CT ABDOMEN AND PELVIS WITH CONTRAST REASON FOR EXAM: Male, 81 years old. GNR bacteremia. IV and oral contrast. History of CLL. RADIATION DOSAGE (If Supplied By Facility): CTDIvol = ( 16.09 ) mGy, DLP = ( 1134.44 ) mGycm TECHNIQUE: Transaxial images were obtained from the dome of the diaphragm to the symphysis pubis with oral contrast. Oral and amp; IV Gastrografin and amp; 100mL Isovue-300 was administered. Sagittal and coronal images were reconstructed. Individualized dose optimization techniques were used for this CT. COMPARISON: Comparison is made with prior study 12/01/2020. FINDINGS: Small bilateral pleural effusions with bibasilar atelectasis. There is thickening of the left major fissure. Coronary artery calcification. There is a diffuse contour abnormality of the liver consistent with cirrhotic changes. There is evidence of esophageal varices extending to the region of the splenic hilum and the gastroepiploic ligament. The portal vein is patent. There are multiple small gallstones. There is moderate splenomegaly. There is diffuse atrophy of the pancreas.. An perisplenic fluid. Fluid is also seen in the para colic gutters. Normal bilateral adrenal glands. Normal right kidney. There is a 1.7 cm cyst in the lateral midportion of the left kidney. There is diffuse gastric wall thickening worse along the greater curvature. Heterogeneous appearance and thickening of the distal stomach. Findings suggestive of a 2.5 cm x 2.3 cm soft tissue density in the second portion of the duodenum. There is evidence of thickening of the third and fourth portions of the duodenum with increased markings in the surrounding fat. Normal small intestine. There are multiple colonic diverticula consistent with diverticulosis. There is non-visualization of the appendix. There is diffuse atherosclerotic calcification of the abdominal aorta, without a demonstrated aneurysm. Normal inferior vena cava. Normal retroperitoneum. Normal urinary bladder. Normal abdominal wall. There are diffuse degenerative changes of the visualized lumbar spine. Mild levoscoliosis of the lumbar spine. The patient is status post right total hip replacement. CT/Abdomen/Pelvis WITH Contrast IMPRESSION: Splenomegaly. Perihepatic and perisplenic fluid as well as fluid in the paracolic gutters. Multiple small gallstones. Esophageal varices with varices seen in the region of the splenic hilum and gastroepiploic ligament. Heterogeneous appearance of the distal stomach and duodenum as described with possible mass in the second portion of the duodenum. Small bilateral pleural effusions with bibasilar atelectasis. Electronically Signed: Theron Whitehead MD at 13:51 EDT ,
--- NOTE | 2021-11-25 10:39 | CON.PCM.ID_ITS ---
Assessment & Plan Assessment/Plan (1) Sepsis: (2) E coli bacteremia: PLAN: Unclear source of ecoli bacteremia. Sepsis improved. Some urinary complaints, but UA and UCx neg. Will check CT abd/pelvis to eval for GI/ source. Stop vanc. Cont zosyn for now. Will follow, thank you, d/w Dr. Longoria (3) Acute kidney injury: (4) Pancytopenia: HPI Consult Data Date of Consult: 11/25/21 HPI Narrative Reason for Consultation: bacteremia HPI Narrative: ALIZA OSEI, is a 81 M with h/o cirrhosis and CLL, presented 11/23 with sudden onset of fever, chills, shakes. No sick contacts, no recent travel, has had covid vaccine. No focal symptoms other than several weeks/months of intermittent burning dysuria and urgency. No rash, no n/v/d. Some dark stools, but was told by heme that this is expected from one of his meds. Came to ED, admitted to icu with neutropenic fever. Now bcx with ecoli. Feeling better this AM. Full ROS performed and neg except as noted above. FOR[facility]LY [facility], [facility] Medical History BPH (benign prostatic hyperplasia) CLL (chronic lymphocytic leukemia) Diarrhea Essential hypertension Generalized weakness GERD (gastroesophageal reflux disease) Hyperlipemia Mixed hyperlipidemia VALERIE (obstructive sleep apnea) Osteoarthritis Paroxysmal atrial fibrillation Splenomegaly Thoracic aortic aneurysm without rupture Thrombocytopenia Type 2 diabetes mellitus Home Medications glimepiride 2 mg tablet (Amaryl) 4 mg PO DAILY 03/25/15 [History Last Taken 02/26/17] metformin 1,000 mg tablet 1,000 mg PO BIDCM 03/25/15 [History Last Taken 02/26/17] rosuvastatin 20 mg tablet 20 mg PO QHS 03/25/15 [History Last Taken 02/26/17] losartan 100 mg tablet 50 mg PO DAILY 02/20/17 [History Last Taken 02/26/17] sitagliptin 50 mg tablet (Januvia) 50 mg PO DAILY 02/20/17 [History Last Taken 02/26/17] hydromorphone 2 mg tablet 2 mg PO Q3H PRN Pain/Inflammation 03/09/19 [History Last Taken Unknown] trazodone 50 mg tablet 50 mg PO QHS 03/09/19 [History Last Taken Unknown] Bifidobacterium infantis 4 mg capsule (Align) 4 mg PO DAILY 04/17/19 [History Last Taken Unknown] allopurinol 300 mg tablet 300 mg PO DAILY 07/01/20 [History Last Taken Unknown] furosemide 20 mg tablet 20 mg PO DAILY 07/01/20 [History Last Taken Unknown] gabapentin 100 mg capsule 300 mg PO TIDCM 07/01/20 [History Last Taken Unknown] pantoprazole 40 mg tablet,delayed release 40 mg PO BID 07/01/20 [History Last Taken Unknown] polysaccharide iron complex 150 mg iron capsule (Ferrex) 150 mg PO BID 07/01/20 [History Last Taken Unknown] spironolactone 25 mg tablet 25 mg PO DAILY 07/01/20 [History Last Taken Unknown] baclofen 10 mg tablet 5 mg PO TID 12/01/20 [History Last Taken Unknown] acetaminophen 500 mg tablet 500 mg PO Q6H PRN Pain (Scale Score 1-3) 01/01/21 [History Last Taken Unknown] ropinirole 0.5 mg tablet 0.5 mg PO QHS 07/14/21 [History Last Taken Unknown] Allergy/AdvReac Type Severity Reaction Status Date / Time acetaminophen [From Vicodin] Allergy Rash Verified 11/23/21 01:58 cefazolin sodium [From Ancef] Allergy Rash Verified 07/14/21 13:07 clindamycin Allergy Chest Verified 07/14/21 13:07 tightness hydrocodone bitartrate Allergy Rash Verified 07/14/21 13:07 [From Vicodin] Family History Father Parkinson disease Brother Heart disease Diabetes Sister Atrial fibrillation Breast cancer Surgical History History of colonoscopy (~2018) History of hip replacement Social History Smoking Status: Former smoker alcohol intake: never substance use type: does not use caffeine: Yes Type: coffee Number of servings: 2 Physical Exam Const alert, oriented x3 and no apparent distress General Appearance: cooperative HEENT normocephalic and head/scalp atraumatic Eyes PERRL and EOMs intact bilaterally Neck supple and No nodes Resp normal air movement and clear to auscultation bilaterally Cardio regular rate, regular rhythm and no murmurs GI soft to palpation, non-tender and non-distended Extremity no clubbing, cyanosis or edema Skin no rashes or lesions noted Neuro CN's II-XII intact bilaterally Lab / Micro Data Attestation: I reviewed the patient's lab results. Result Diagrams: 11/25/21 04:46 11/25/21 04:46 Labs: Laboratory Results - last 24 hr 11/23/21 02:20: Diff Path Review Reviewed 11/23/21 02:20: Immature Plt Fraction 4.8 11/24/21 05:00: Diff Path Review Reviewed 11/24/21 06:50: Crossmatch See Detail 11/24/21 12:20: POC Glucose 207 H 11/24/21 14:00: Hgb 7.9 L, Hct 25.1 L 11/24/21 16:35: POC Glucose 224 H 11/24/21 21:20: POC Glucose 212 H 11/25/21 04:46: WBC 2.3 L, RBC 2.77 L, Hgb 8.1 L, Hct 25.6 L, MCV 92.4, MCH 29.2, MCHC 31.6 L, RDW Std Deviation 51.8 H, RDW Coeff of Trell 15.3 H, Plt Count 37 L*, MPV 10.5, Immature Gran % (Auto) 0.900, Neut % (Auto) 65.4, Lymph % (Aut o) 16.0 L, [place] % (Auto) 14.3 H, Eos % (Auto) 3.0, Baso % (Auto) 0.4, Absolute Neuts (auto) 1.5 L, Absolute Lymphs (auto) 0.37 L, Nucleated RBC % 0, Diff Path Review Reviewed, Platelet Estimate MKD DEC, Anisocytosis 1+ 11/25/21 04:46: Sodium 143, Potassium 3.8, Chloride 114 H, Carbon Dioxide 24.0, Anion Gap 5, BUN 16, Creatinine 1.10, Estim Creat Clear Calc 52.68, Est GFR (MDRD) Af Amer 83, Est GFR (MDRD) Non-Af 69, BUN/Creatinine Ratio 14.5, Glucose 187 H, Calcium 8.1 L, Total Bilirubin 0.80, AST 24, ALT 24, Alkaline Phosphatase 60, Total Protein 4.9 L, Albumin 2.2 L, Globulin 2.7, Albumin/Globulin Ratio 0.8 L 11/25/21 04:46: Phosphorus 2.5, Magnesium 2.1 11/25/21 08:31: POC Glucose 173 H Micro: Microbiology 11/23/21 03:30 Blood Culture (Wb) - Right Forearm Blood Culture - Preliminary Escherichia coli 11/23/21 02:20 Blood Culture (Wb) - Right Forearm Blood Culture - Prelimin yohana No growth in 48 hours. 11/23/21 03:05 Urine, Clean Catch Urine Culture - Final Mixed Gram Pos & Gram Neg Org Rhythm Strip Rhythm Strip: Sinus Rhythm Rate: 88 Ectopy: None Radiology Impression KUB X-Ray 11/24/21 13:53 IMPRESSION: No acute findings. Electronically Signed: Uli Stanton MD at 17:55 EDT ,
[2021-11-25 12:25] LABS: Bedside Glucose 203 mg/dL (74-106)
[2021-11-25] MEDS: HYDROmorphone 2 MG TABLET PO (15:12)
--- NOTE | 2021-11-25 16:34 | PN.HOSP_ITS ---
Subjective Subjective Patient was seen and examined today in the ICU, I talked briefly with critical care about his care. Critical care had infectious diseases see the patient today in consultation, CT of the abdomen and pelvis was ordered which showed a possible mass in the second portion of duodenum, there is also noted to be esophageal varices, evidence of cirrhosis, and evidence of gallstones. I talked with Dr. Levy today, he is going to see the patient in consultation and performed an EGD. Also talked with the patient's who was in the room this afternoon and I went over these things with the patient and the patient's . Patient's blood culture grew out E. coli-susceptible to several antibiotics. Infectious diseases adjusted the patient's antibiotics today. Objective Data Objective Data Vital Signs: Vital Signs Temp Pulse Resp BP Pulse Ox O2 Del Method O2 Flow Rate 98.4 F 66 19 H 135/39 H 98 Room Air 2 11/25/21 15:00 11/25/21 15:02 11/25/21 15:00 11/25/21 15:00 11/25/21 15:00 11/25/21 15:00 11/23/21 11:00 Oxygen Flow Rate (L/min) 2 Oxygen Delivery Method Room Air Weight: 86.818 kg Body Mass Index (BMI) 29.1 Intake & Output: Intake and Output for Last 24 Hours 11/23/21 11/24/21 11/25/21 23:59 23:59 23:59 Intake Total 6044.02 / 6044.02 2375.00 / 2575.00 2575 / 2575 Output Total 1350 / 1350 Balance 4694.02 / 4694.02 2375.00 / 2575.00 2575 / 2575 Lab / Micro Data Result Diagrams: 11/25/21 04:46 11/25/21 04:46 Labs: Laboratory Results - last 24 hr 11/24/21 16:35: POC Glucose 224 H 11/24/21 21:20: POC Glucose 212 H 11/25/21 04:46: WBC 2.3 L, RBC 2.77 L, Hgb 8.1 L, Hct 25.6 L, MCV 92.4, MCH 29.2, MCHC 31.6 L, RDW Std Deviation 51.8 H, RDW Coeff of Trell 15.3 H, Plt Count 37 L*, MPV 10.5, Immature Gran % (Auto) 0.900, Neut % (Auto) 65.4, Lymph % (Auto) 16.0 L, [place] % (Auto) 14.3 H, Eos % (Auto) 3.0, Baso % (Auto) 0.4, Absolute Neuts (auto) 1.5 L, Absolute Lymphs (auto) 0.37 L, Nucleated RBC % 0, Diff Path Review Reviewed, Platelet Estimate MKD DEC, Anisocytosis 1+ 11/25/21 04:46: Sodium 143, Potassium 3.8, Chloride 114 H, Carbon Dioxide 24.0, Anion Gap 5, BUN 16, Creatinine 1.10, Estim Creat Clear Calc 52.68, Est GFR (MDRD) Af Amer 83, Est GFR (MDRD) Non-Af 69, BUN/Creatinine Ratio 14.5, Glucose 187 H, Calcium 8.1 L, Total Bilirubin 0.80, AST 24, ALT 24, Alkaline Phosphatase 60, Total Protein 4.9 L, Albumin 2.2 L, Globulin 2.7, Albumin/Globulin Ratio 0.8 L 11/25/21 04:46: Phosphorus 2.5, Magnesium 2.1 11/25/21 08:31: POC Glucose 173 H 11/25/21 11:52: POC Glucose 203 H Micro: Microbiology 11/23/21 03:30 Blood Culture (Wb) - Right Forearm Blood Culture - Preliminary Escherichia coli 11/23/21 02:20 Blood Culture (Wb) - Right Forearm Blood Culture - Preliminary No growth in 48 hours. 11/23/21 03:05 Urine, Clean Catch Urine Culture - Final Mixed Gram Pos & Gram Neg Org 11/23/21 02:43 Nasal Secretion SARS-CoV-2 & FLU Antigen (Rapid) - Final Radiography Diagnostic Testing: Radiology Impression KUB X-Ray 11/24/21 13:53 IMPRESSION: No acute findings. Electronically Signed: Uli Stanton MD at 17:55 EDT , Abdomen/Pelvis CT 11/25/21 10:37 IMPRESSION: Splenomegaly. Perihepatic and perisplenic fluid as well as fluid in the paracolic gutters. Multiple small gallstones. Esophageal varices with varices seen in the region of the splenic hilum and gastroepiploic ligament. Heterogeneous appearance of the distal stomach and duodenum as described with possible mass in the second portion of the duodenum. Small bilateral pleural effusions with bibasilar atelectasis. Electronically Signed: Theron Whitehead MD at 13:51 EDT , Rhythm Strip Rhythm Strip: Sinus Rhythm Rate: 88 Ectopy: None Physical Exam Narrative alert, oriented x3 and no apparent distress General Appearance: cooperative, well kempt and well developed Orientation / Consciousness: awake, oriented to person, oriented to place and oriented to time HEENT normocephalic, head/scalp atraumatic and moist oral mucous membranes Eyes PERRL, EOMs intact bilaterally and conjunctivae normal Neck supple, no JVD and thyroid normal General: trachea midline Resp normal respiratory effort, no retractions, no use of accessory muscles and clear to auscultation bilaterally Auscultation: Negative for rales, rhonchi or wheezes Cardio regular rate, regular rhythm, S1 normal heart sound, S2 normal heart sound, no murmurs, no rub and no gallops GI normal to inspection, nondistended, normoactive bowel sounds, soft to palpation and non-tender GI Narrative: Patient has mild abdominal distention, patient has no abdominal tenderness on palpation, there is no rebound abdominal tenderness. Extremity no clubbing, cyanosis or edema Skin no rashes or lesions noted General Skin Exam: no breakdown Neuro oriented x3, CN's II-XII intact bilaterally, moves all extremities, no focal motor deficits and no sensory deficits noted Sensorium / Orientation: awake, alert, oriented to person, oriented to place and oriented to time Speech: speech normal Psych affect normal Assessment & Plan Assessment/Plan (1) Pancytopenia: PLAN: Plan #1.? E. coli sepsis-actual origin of the infection unknown at this time, patient will remain on antibiotic coverage for now, critical care is participating in his care.? The etiology of the gram-negative sepsis is unknown at this time, it is felt he could have originated from the GI tract. Gastroenterology will see the patient tomorrow, infectious diseases is now participating in his care. 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
[2021-11-25 17:21] LABS: Bedside Glucose 245 mg/dL (74-106)
--- NOTE | 2021-11-25 17:44 | CON.PCM_ITS ---
Assessment & Plan Assessment/Plan (1) Pancytopenia: PLAN: Pancytopenia possibly secondary to sepsis in the setting of cirrhosis. He is being seen by infectious disease (2) E coli bacteremia: PLAN: Working diagnosis is that it is possibly secondary to abnormality in the duodenum . (3) Diarrhea: QUALIFIERS: Diarrhea type: unspecified type Qualified Code(s): R19.7 - Diarrhea, unspecified PLAN: Diarrhea possibly secondary to GI bleed as he did see some black stools which she attributed to medicines that he was taking. This will correlate with abnormality seen on the CT scan which could also lead to E. coli bacteremia. Recommend to check stools for enteric pathogens fecal leukocytes and if there was a negative C. difficile. (4) Cirrhosis: PLAN: He does have some ascites that seen on imaging but grossly is not showing any signs of GI bleeding, encephalopathy and is not having any kidney failure along with significant ascites to go with decompensated liver disease. HPI Consult Data Date of Consult: 11/25/21 HPI Narrative Reason for Consultation: abnormal ct scan HPI Narrative: ALIZA OSEI, is a 81 M who presents via EMS secondary to fever, chills and weakness.? He has a past medical history of [place] cirrhosis. He is not on he reportedly felt fine when he went to bed last night but woke up with fever.? He has not taken anything for his temperature.? He has no complaints of pain.? Has had no vomiting or diarrhea.? He does have a history of CLL, not on treatment the last 2 years.? did state that his oncologist mentioned anemia and was recently started on iron infusions. He denies any sick contacts, recent travel and he had covid vaccine.? No focal symptoms other than several weeks/months of intermittent burning dysuria and urgency.? No rash, no n/v/d.? Some dark stools, but was told by heme that this is expected from one of his meds.? Came to ED, admitted to icu with neutropenic fever.? Now bcx with ecoli.? Feeling better this AM. CT scan of the abdomen pelvis that shown a diffuse contour abnormality of the liver consistent with cirrhotic changes.? There is evidence of esophageal varices extending to the region of the splenic hilum and the gastroepiploic ligament.? The portal vein is patent.? There are multiple small gallstones.? There is moderate splenomegaly.? There is diffuse atrophy of the pancreas.. An perisplenic fluid.? Fluid is also seen in the para colic gutters. There is diffuse gastric wall thickening worse along the greater curvature. Heterogeneous appearance and thickening of the distal stomach.? Findings suggestive of a 2.5 cm x 2.3 cm soft tissue density in the second portion of the duodenum.? There is evidence of thickening of the third and fourth portions of the duodenum with increased markings in the surrounding fat. Normal small intestine.? There are multiple colonic diverticula consistent with diverticulosis.? There is non-visualization of the appendix. [facility] Medical History BPH (benign prostatic hyperplasia) CLL (chronic lymphocytic leukemia) Diarrhea Essential hypertension Generalized weakness GERD (gastroesophageal reflux disease) Hyperlipemia Mixed hyperlipidemia VALERIE (obstructive sleep apnea) Osteoarthritis Paroxysmal atrial fibrillation Splenomegaly Thoracic aortic aneurysm without rupture Thrombocytopenia Type 2 diabetes mellitus Home Medications glimepiride 2 mg tablet (Amaryl) 4 mg PO DAILY 03/25/15 [History Last Taken 02/26/17] metformin 1,000 mg tablet 1,000 mg PO BIDCM 03/25/15 [History Last Taken 02/26/17] rosuvastatin 20 mg tablet 20 mg PO QHS 03/25/15 [History Last Taken 02/26/17] losartan 100 mg tablet 50 mg PO DAILY 02/20/17 [History Last Taken 02/26/17] sitagliptin 50 mg tablet (Januvia) 50 mg PO DAILY 02/20/17 [History Last Taken 02/26/17] hydromorphone 2 mg tablet 2 mg PO Q3H PRN Pain/Inflammation 03/09/19 [History Last Taken Unknown] trazodone 50 mg tablet 50 mg PO QHS 03/09/19 [History Last Taken Unknown] Bifidobacterium infantis 4 mg capsule (Align) 4 mg PO DAILY 04/17/19 [History Last Taken Unknown] allopurinol 300 mg tablet 300 mg PO DAILY 07/01/20 [History Last Taken Unknown] furosemide 20 mg tablet 20 mg PO DAILY 07/01/20 [History Last Taken Unknown] gabapentin 100 mg capsule 300 mg PO TIDCM 07/01/20 [History Last Taken Unknown] pantoprazole 40 mg tablet,delayed release 40 mg PO BID 07/01/20 [History Last Taken Unknown] polysaccharide iron complex 150 mg iron capsule (Ferrex) 150 mg PO BID 07/01/20 [History Last Taken Unknown] spironolactone 25 mg tablet 25 mg PO DAILY 07/01/20 [History Last Taken Unknown] baclofen 10 mg tablet 5 mg PO TID 12/01/20 [History Last Taken Unknown] acetaminophen 500 mg tablet 500 mg PO Q6H PRN Pain (Scale Score 1-3) 01/01/21 [History Last Taken Unknown] ropinirole 0.5 mg tablet 0.5 mg PO QHS 07/14/21 [History Last Taken Unknown] Allergy/AdvReac Type Severity Reaction Status Date / Time acetaminophen [From Vicodin] Allergy Rash Verified 11/23/21 01:58 cefazolin sodium [From Ancef] Allergy Rash Verified 07/14/21 13:07 clindamycin Allergy Chest Verified 07/14/21 13:07 tightness hydrocodone bitartrate Allergy Rash Verified 07/14/21 13:07 [From Vicodin] Family History Father Parkinson disease Brother Heart disease Diabetes Sister Atrial fibrillation Breast cancer Surgical History History of colonoscopy (~2018) History of hip replacement Social History Smoking Status: Former smoker alcohol intake: never substance use type: does not use caffeine: Yes Type: coffee Number of servings: 2 ROS ROS Narrative Pertinent positives and pertinent negatives as noted in HPI. All other systems were reviewed and are negative. Physical Exam Narrative alert, oriented x3 and no apparent distress General Appearance: cooperative, well kempt and well developed Orientation / Consciousness: awake, oriented to person, oriented to place and oriented to time HEENT normocephalic, head/scalp atraumatic and moist oral mucous membranes Eyes PERRL, EOMs intact bilaterally and conjunctivae normal Neck supple, no JVD and thyroid normal General: trachea midline Resp normal respiratory effort, no retractions, no use of accessory muscles and clear to auscultation bilaterally Auscultation: Negative for rales, rhonchi or wheezes Cardio regular rate, regular rhythm, S1 normal heart sound, S2 normal heart sound, no murmurs, no rub and no gallops GI normal to inspection, nondistended, normoactive bowel sounds, soft to palpation and non-tender GI Narrative: Patient has mild abdominal distention, patient has no abdominal tenderness on palpation, there is no rebound abdominal tenderness. Extremity no clubbing, cyanosis or edema Skin no rashes or lesions noted General Skin Exam: no breakdown Neuro oriented x3, CN's II-XII intact bilaterally, moves all extremities, no focal motor deficits and no sensory deficits noted Sensorium / Orientation: awake, alert, oriented to person, oriented to place and oriented to time Speech: speech normal Psych affect normal Lab / Micro Data Result Diagrams: 11/25/21 04:46 11/25/21 04:46 Labs: Laboratory Results - last 24 hr 11/24/21 21:20: POC Glucose 212 H 11/25/21 04:46: WBC 2.3 L, RBC 2.77 L, Hgb 8.1 L, Hct 25.6 L, MCV 92.4, MCH 29.2, MCHC 31.6 L, RDW Std Deviation 51.8 H, RDW Coeff of Trell 15.3 H, Plt Count 37 L*, MPV 10.5, Immature Gran % (Auto) 0.900, Neut % (Auto) 65.4, Lymph % (Auto ) 16.0 L, [place] % (Auto) 14.3 H, Eos % (Auto) 3.0, Baso % (Auto) 0.4, Absolute Neuts (auto) 1.5 L, Absolute Lymphs (auto) 0.37 L, Nucleated RBC % 0, Diff Path Review Reviewed, Platelet Estimate MKD DEC, Anisocytosis 1+ 11/25/21 04:46: Sodium 143, Potassium 3.8, Chloride 114 H, Carbon Dioxide 24.0, Anion Gap 5, BUN 16, Creatinine 1.10, Estim Creat Clear Calc 52.68, Est GFR (MDRD) Af Amer 83, Est GFR (MDRD) Non-Af 69, BUN/Creatinine Ratio 14.5, Glucose 187 H, Calcium 8.1 L, Total Bilirubin 0.80, AST 24, ALT 24, Alkaline Phosphatase 60, Total Protein 4.9 L, Albumin 2.2 L, Globulin 2.7, Albumin/Globulin Ratio 0.8 L 11/25/21 04:46: Phosphorus 2.5, Magnesium 2.1 07/26/22 08:31: POC Glucose 173 H 11/25/21 11:52: POC Glucose 203 H 11/25/21 16:50: POC Glucose 245 H Micro: Microbiology 11/23/21 03:30 Blood Culture (Wb) - Right Forearm Blood Culture - Preliminary Escherichia coli 11/23/21 02:20 Blood Culture (Wb) - Right Forearm Blood Culture - Preliminary No growth in 48 hours. Rhythm Strip Rhythm Strip: Sinus Rhythm Rate: 88 Ectopy: None Radiology Impression KUB X-Ray 11/24/21 13:53 IMPRESSION: No acute findings. Electronically Signed: Uli Stanton MD at 17:55 EDT , Abdomen/Pelvis CT 11/25/21 10:37 IMPRESSION: Splenomegaly. Perihepatic and perisplenic fluid as well as fluid in the paracolic gutters. Multiple small gallstones. Esophageal varices with varices seen in the region of the splenic hilum and gastroepiploic ligament. Heterogeneous appearance of the distal stomach and duodenum as described with possible mass in the second portion of the duodenum. Small bilateral pleural effusions with bibasilar atelectasis. Electronically Signed: Theron Whitehead MD at 13:51 EDT , Charges/Coding Visit Charges Inpatient E&M: 05011 Init Hosp L2
[2021-11-25] MEDS: Acetaminophen 325 MG Tablet 650 MG PO (21:01)
[2021-11-25] MEDS: traZODone 50 MG Tablet PO (21:06)
[2021-11-25] MEDS: Atorvastatin Calcium 40 MG Tablet PO (21:06)
[2021-11-25] MEDS: Pramipexole Di-HCl 0.25 MG Tablet PO (21:22)
[2021-11-25 21:41] LABS: Bedside Glucose 230 mg/dL (74-106)
[2021-11-26] VITALS (29 sets, daily range): BP systolic 84–129; BP diastolic 34–70; PULSE 39–72; RESP 14–21; TEMP 36.2–37; O2SAT 94–99
[2021-11-26 04:22] LABS: Absolute Lymphocyte Count 0.27 X10^3/uL (0.83-4.51); Absolute Neutrophil Count 1.3 X10^3/uL (2.0-7.7); Basophil# 0.01 X10^3/uL; Basophil% 0.6 % (0-1); Eosinophil# 0.05 X10^3/uL; Eosinophils% 2.8 % (0-5); Hematocrit 23.9 % (40-54); Hemoglobin 7.5 g/dL (13.0-16.5); Lymphocyte # 0.27 X10^3/ul (0.83-4.51); Lymphocyte % 15.1 % (19-41); Mean Corp Hgb Conc 31.4 g/dL (32-36); Mean Corpuscular Hgb 29.3 pg (27.0-32.0); Mean Corpuscular Volume 93.4 fL (80-94); Mean Platelet Vol. 10.9 fl (6.2-12.0); Monocyte# 0.18 X10^3/uL; Monocyte% 10.1 % (0-10); NRBC Flagged by Analyzer 0 % (0-5); Neutrophil # 1.27 X10^3/uL (2.7-7.7); Neutrophil % 70.8 % (47-70); POSITIVE COUNT YES; POSITIVE DIFFERENTIAL YES; Platelet Count 36 K/mm3 (150-450); RBC Distribution Width CV 15.3 % (11.6-14.6); RBC Distribution Width SD 51.8 fl (35.1-43.9); Red Blood Count 2.56 M/mm3 (4.6-6.2); White Blood Count 1.8 K/mm3 (4.4-11.0)
[2021-11-26 04:25] LABS: ALB/GLOB Ratio 0.9 RATIO (0.9-2.4); AST(SGOT) 19 U/L (15-37); Alanine Aminotransfer ALT/SGPT 21 U/L (16-61); Albumin, Serum 2.1 g/dL (3.2-5.0); Alkaline Phosphatase 58 U/L (45-117); Anion Gap 6 (5-15); BUN 10 mg/dL (7-18); BUN/Creat Ratio 11.4 RATIO (10-20); Calcium,Total 7.2 mg/dL (8.5-10.1); Chloride 115 mmol/L (98-107); Creatinine, Serum 0.88 mg/dL (0.70-1.30); Differential Indicated SCAN CRITERIA MET; EST Glomerular Filtration Rate 89 mL/min (>60); Est Glom Filt Rate - Afr Amer 108 mL/min (>60); Estimated Creatinine Clearance 65.85 ml/min; Globulin 2.4 g/dL (2.2-4.2); Glucose 147 mg/dL (74-106); Potassium 3.3 mmol/L (3.5-5.1); Protein, Total 4.5 g/dL (6.4-8.2); Sodium Level 143 mmol/L (136-145)
[2021-11-26 05:05] LABS: Differential Comment SCANNED; Platelet Estimate MKD DEC (ADEQ)
--- NOTE | 2021-11-26 06:00 | PCM.PN.INT ---
Assessment & Plan Assessment/Plan (1) Sepsis: PLAN: Plan RECOMMENDATIONS: 1. Continue antibiotics per ID recommendations. 2. Vasopressor support, if needed, to maintain a mean arterial pressure at or above 65 mmHg. 3. Continue to monitor H&H daily. Transfuse if hemoglobin drops below 7 g/dL. 4. Continue PPI therapy twice daily as ordered. 5. Encourage incentive spirometer use and mobilize patient as tolerated. 6. Proceed with EGD per gastroenterology recommendations. 7. Potassium repletion as ordered. IMPRESSIONS: 1. Gram-negative sepsis The patient appears to have gram-negative bacteremia of unclear source. Urine analysis was certainly not suggestive of UTI. Therefore, an intra-abdominal source is a possibility. CT imaging of the abdomen revealed a possible duodenal mass, for which gastroenterology is following, with tentative plans for EGD. Plan to continue current supportive measures including antimicrobials per ID recommendations. Vasopressor support can be utilized, if needed, to maintain hemodynamic stability. 2. Acute kidney injury Resolved. Prerenal in etiology in the setting of #1. Creatinine has improved with volume expansion. Continue to monitor urine output for now. No current indication for renal replacement therapy. 3. Pancytopenia The patient's baseline anemia and thrombocytopenia have worsened, likely secondary to #1. Continue to monitor blood counts daily. Transfuse if hemoglobin drops below 7 g/dL. 4. History of cirrhosis and esophageal varices/diabetes mellitus/BPH/CLL in remission Complicates care, management, recovery and prognosis. Continue to hold home Lasix and losartan, given tenuous hemodynamics. This note was generated with [employer] dictation software. It may contain incorrect words, spelling, and punctuation that were not noted in checking the note before signing. Subjective Subjective The patient was seen and examined at the bedside this morning. Events from the last 24 hours have been reviewed. The patient is currently afebrile, hemodynamically stable and maintaining appropriate oxygen saturations on room air. The patient is documented to be overall net +10.7 L for the hospitalization. Hemoglobin and platelet count are stable this morning. Potassium is low at 3.3. The patient did have low blood pressures overnight while sleeping, but was never placed back on vasopressor support. CT imaging of the abdomen completed yesterday revealed findings concerning for a potential mass lesion in the second portion of the duodenum. The patient was then seen in consultation by gastroenterology with tentative plans for EGD today. Objective Data Objective Data The patient's most recent lab work, culture data and imaging studies have all been personally reviewed. Surface echocardiogram from August 2021 demonstrated normal LV size and function with an ejection fraction of 65%. Right ventricular systolic pressure was estimated to be 32 mmHg. Blood culture dated November 23 was positive for E. coli. Rapid COVID and influenza testing were negative. Vital Signs: Vital Signs Temp Pulse Resp BP Pulse Ox O2 Del Method O2 Flow Rate 98.3 F 55 L 20 H 95/40 L 95 Room Air 2 11/26/21 04:00 11/26/21 05:00 11/26/21 05:00 11/26/21 05:00 11/26/21 05:00 11/26/21 05:00 11/23/21 11:00 Oxygen Flow Rate (L/min) 2 Oxygen Delivery Method Room Air Weight: 194 lb 11.2 oz Body Mass Index (BMI) 29.1 Intake & Output: Intake and Output for Last 24 Hours 11/24/21 11/25/21 11/26/21 23:59 23:59 23:59 Intake Total 2375.00 / 2575.00 3625 / 3625 50 / 50 Balance 2375.00 / 2575.00 3625 / 3625 50 / 50 Lab / Micro Data Attestation: I reviewed the patient's lab results. Result Diagrams: 11/26/21 03:55 11/26/21 03:55 Labs: Laboratory Results - last 24 hr 11/25/21 04:46: Diff Path Review Reviewed 11/25/21 08:31: POC Glucose 173 H 11/25/21 11:52: POC Glucose 203 H 11/25/21 16:50: POC Glucose 245 H 11/25/21 21:11: POC Glucose 230 H 11/26/21 03:55: WBC 1.8 L, RBC 2.56 L, Hgb 7.5 L, Hct 23.9 L, MCV 93.4, MCH 29.3, MCHC 31.4 L, RDW Std Deviation 51.8 H, RDW Coeff of Trell 15.3 H, Plt Count 36 L*, MPV 10.9, Immature Gran % (Auto) 0.600, Neut % (Auto) 70.8 H, Lymph % (Auto) 15.1 L, [place] % (Auto) 10.1 H, Eos % (Auto) 2.8, Baso % (Auto) 0.6, Absolute Neuts (auto) 1.3 L, Absolute Lymphs (auto) 0.27 L, Nucleated RBC % 0, Differential Comment SCANNED, Diff Path Review August foll, Platelet Estimate MKD 11/26/21 03:55: Sodium 143, Potassium 3.3 L, Chloride 115 H, Carbon Dioxide 22.0, Anion Gap 6, BUN 10, Creatinine 0.88, Estim Creat Clear Calc 65.85, Est GFR (MDRD) Af Amer 108, Est GFR (MDRD) Non-Af 89, BUN/Creatinine Ratio 11.4, Glucose 147 H, Calcium 7.2 L, Total Bilirubin 0.70, AST 19, ALT 21, Alkaline Phosphatase 58, Total Protein 4.5 L, Albumin 2.1 L, Globulin 2.4, Albumin/Globulin Ratio 0.9 Micro: Microbiology 11/23/21 03:30 Blood Culture (Wb) - Right Forearm Blood Culture - Preliminary Escherichia coli 11/23/21 02:20 Blood Culture (Wb) - Right Forearm Blood Culture - Preliminary No growth in 48 hours. 11/23/21 03:05 Urine, Clean Catch Urine Culture - Final Mixed Gram Pos & Gram Neg Org 11/23/21 02:43 Nasal Secretion SARS-CoV-2 & FLU Antigen (Rapid) - Final Radiography Diagnostic Testing: Radiology Impression Abdomen/Pelvis CT 11/25/21 10:37 IMPRESSION: Splenomegaly. Perihepatic and perisplenic fluid as well as fluid in the paracolic gutters. Multiple small gallstones. Esophageal varices with varices seen in the region of the splenic hilum and gastroepiploic ligament. Heterogeneous appearance of the distal stomach and duodenum as described with possible mass in the second portion of the duodenum. Small bilateral pleural effusions with bibasilar atelectasis. Electronically Signed: Theron Whitehead MD at 13:51 EDT , Rhythm Strip Rhythm Strip: Sinus Rhythm Rate: 88 Ectopy: None Physical Exam Const alert and no apparent distress General Appearance: cooperative HEENT normocephalic and head/scalp atraumatic Eyes PERRL, EOMs intact bilaterally and conjunctivae normal Neck supple General: trachea midline Chest inspection of chest normal Resp normal respiratory effort Auscultation: Negative for rales, rhonchi or wheezes Cardio regular rhythm Rate: bradycardia GI normal to inspection, nondistended, normoactive bowel sounds Extremity no clubbing, cyanosis or edema Skin no rashes or lesions noted Neuro CN's II-XII intact bilaterally, moves all extremities and no focal motor deficits Psych Mood & Affect: flat affect Charges/Coding Visit Charges Inpatient E&M: 68143 Subs Hosp L3
--- NOTE | 2021-11-26 06:35 | NURSING ---
took pt down to endo on portable monitor, notified that the pt went to endo
--- NOTE | 2021-11-26 07:00 | EGD_PTH ---
PATIENT: ALIZA OSEI LOC: [facility] U#:[id number] AGE/SX: 81/M ROOM: [facility] RE11/23/[address]: Dr. Baldemar Coffey DO : 1940 BED: 1 DIS: 11/27/2021 SPEC #: [id number] RECD: 11/26/21 10:54 STATUS: DENIZ XIAO #: [id number] ARCADIO: 11/26/21 07:[address]: Ra Camhsaan DEPT: SURGICAL PATHOLOGY RECD BY: Hodan Hodgson ENTERED: 11/26/21 11:24 SP TYPE: EGD BIOPSY OT DR: MD Dr. Ta Britt MD Dr. Jeffrey Burkey, MD Dr. Mark Tereletsky, DO Dr. Nicholas F Kotsonis, MD Dr. Robert Leininger, MD Tissues: Duodenum, NOS Procedures: Surgery Specimen Level IV HEADER OPERATION: EGD (TEMITOPE) PRE-OP DIAGNOSIS: Pancytopenia TISSUE SUBMITTED: Duodenum biopsy MICROSCOPIC DIAGNOSIS Duodenum, biopsy: Fragments of duodenal mucosa with mild nonspecific chronic inflammation, mild Nella gland hyperplasia and congestion. See comment. ELIZABETH:lenny 11/27/2021 COMMENT Correlation with clinical, endoscopic findings and appropriate follow up are necessary. MICROSCOPIC DESCRIPTION Slides are reviewed. GROSS DESCRIPTION Received in fixative is one container labeled with the patient's name and designated duodenum biopsy. The specimen consists of two irregular fragments of light vega soft tissue that in aggregate measure 0.7 x 0.3 x 0.1 cm. The specimen is totally submitted in one cassette. / ELIZABETH:lenny 11/26/2021 :5 CPT: 73801
--- NOTE | 2021-11-26 07:24 | OP.EGD_ITS ---
Patient Name: Lalito Pinto Procedure Date: 11/26/2021 7:00 AM Date of : 1940 Age: 81 Procedure: Upper GI endoscopy Indications: Epigastric abdominal pain Providers: Amadou Levy DO Medicines: Monitored Anesthesia Care Patient Profile: This is a 81 year old male. Refer to note in patient chart for documentation of history and physical. Patient has symptoms. The symptoms first began 01,. He is status post EGD for treatment of bleeding within the past six months. Complications: No immediate complications. Procedure: Pre-Anesthesia Assessment: - Prior to the procedure, a History and Physical was performed, and patient medications and allergies were reviewed. The patient is competent. The risks and benefits of the procedure and the sedation options and risks were discussed with the patient. All questions were answered and informed consent was obtained. Patient identification and proposed procedure were verified by the physician in the pre-procedure area. Mental Status Examination: alert and oriented. Airway Examination: normal oropharyngeal airway and neck mobility. Respiratory Examination: clear to auscultation. CV Examination: normal. Prophylactic Antibiotics: The patient does not require prophylactic antibiotics. Prior Anticoagulants: The patient has taken no previous anticoagulant or antiplatelet agents. ASA Grade Assessment: II - A patient with mild systemic disease. After reviewing the risks and benefits, the patient was deemed in satisfactory condition to undergo the procedure. The anesthesia plan was to use moderate sedation / analgesia (conscious sedation). Immediately prior to administration of medications, the patient was re-assessed for adequacy to receive sedatives. The heart rate, respiratory rate, oxygen saturations, blood pressure, adequacy of pulmonary ventilation, and response to care were monitored throughout the procedure. The physical status of the patient was re-assessed after the procedure. After obtaining informed consent, the endoscope was passed under direct vision. Throughout the procedure, the patient's blood pressure, pulse, and oxygen saturations were monitored continuously. The Colonoscope was introduced through the mouth, and advanced to the second part of duodenum. The upper GI endoscopy was accomplished without difficulty. The patient tolerated the procedure well. Scope In: 7:09:06 AM Scope Out: 7:14:37 AM Total Procedure Duration Time 0 hours 5 minutes 31 seconds Findings: Four columns of non-bleeding grade III varices were found in the proximal esophagus, in the mid esophagus and in the distal esophagus,. They were 8 mm in largest diameter. No stigmata of recent bleeding were evident and no red allen signs were present. Stigmata of prior treatment were evident. Scarring from prior treatment was visible. Type 2 gastroesophageal varices (GOV2, esophageal varices which extend along the fundus) with no bleeding were found in the cardia and in the gastric fundus. There were no stigmata of recent bleeding. They were 5 mm in largest diameter. Patchy moderate inflammation characterized by granularity was found in the duodenal bulb and in the first portion of the duodenum. Biopsies were taken with a cold forceps for histology. Verification of patient identification for the specimen was done. Estimated blood loss was minimal. Impression: - Non-bleeding grade III esophageal varices. - Type 2 gastroesophageal varices (GOV2, esophageal varices which extend along the fundus), without bleeding. - Duodenitis. Biopsied. Recommendation: - [facility]. - Resume previous diet. - Continue present medications. - Await pathology results. Procedure Code(s): --- Professional --- 53206, Esophagogastroduodenoscopy, flexible, transoral; with biopsy, single or multiple CPT copyright 2017 [employer]. All rights reserved. The codes documented in this report are preliminary and upon faculty support coordinator review may be revised to meet current compliance requirements. Amadou Levy DO 11/26/2021 7:24:27 AM This report has been signed electronically. Number of Addenda: 1 Note Initiated On: 11/26/2021 7:00 AM Addendum Number: 1 Addendum Date: 02/04/2022 6:04:27 AM MAC was used as sedation for this procedure. Amadou Levy DO 02/04/2022 6:04:33 AM This report has been signed electronically.
--- NOTE | 2021-11-26 07:27 | OP.CCLET_ITS ---
02/04/2022 Kervin Choi MD Re : Upper GI endoscopy procedure for Lalito Pinto Dear Dr. Choi This procedure was performed on Friday, November 26, 2021. My impressions and recommendations are as follows: Impressions : - Non-bleeding grade III esophageal varices. - Type 2 gastroesophageal varices (GOV2, esophageal varices which extend along the fundus), without bleeding. - Duodenitis. Biopsied. Recommendations : - [facility]. - Resume previous diet. - Continue present medications. - Await pathology results. My findings are described in the full procedure note, which is enclosed. If I can be of further assistance, please feel free to contact me at . Sincerely, Amaduo Levy, 11/26/2021 7:24:27 AM This report has been signed electronically.
[2021-11-26] MEDS: Potassium Chloride 10mEq/100mL 10 MEQ/100 ML IV.SOLN. 100 MEQ IV BOLUS ×4 (08:22→11:43)
[2021-11-26] MEDS: Iron Polysaccharide Complex 150 MG CAPSULE PO ×2 (08:52→22:15)
[2021-11-26] MEDS: Pantoprazole Sodium 40 MG Tablet PO ×2 (08:52→22:15)
[2021-11-26] MEDS: Allopurinol 300 MG Tablet PO (08:53)
[2021-11-26] MEDS: LINAGLIPTIN 5 MG TABLET PO (08:53)
[2021-11-26] MEDS: Gabapentin 100 MG Capsule 200 MG PO ×3 (08:56→16:28)
[2021-11-26 09:15] LABS: Bedside Glucose 148 mg/dL (74-106)
[2021-11-26 10:58] LABS: Pathologist Review Reviewed
[2021-11-26] MEDS: Insulin Lispro 100 UNIT/ML INSULN.PEN SC ×3 (11:49→22:15)
[2021-11-26 12:11] LABS: Bedside Glucose 231 mg/dL (74-106)
--- NOTE | 2021-11-26 13:23 | PCM.PN.ID ---
Physical Exam Narrative Feeling better, no abd pain, no fever Const alert and no apparent distress Resp Resp Narrative: Mild L base crackles Cardio regular rate and regular rhythm GI soft to palpation, non-tender and non-distended Skin no rashes or lesions noted ID ID: Route of nutrition/ use of supplements: [] Nutritional Intake: [] IV Site: [] Sarah Catheter: [] Assessment & Plan Assessment/Plan (1) Sepsis: (2) E coli bacteremia: PLAN: ecoli bacteremia. Sepsis improved. CT showed duodenitis, GI consulted, EGD with bx done today. Cont zosyn for now. Will follow (3) Acute kidney injury: (4) Pancytopenia:
[2021-11-26] MEDS: Baclofen 10 MG Tablet 5 MG PO ×2 (14:29→22:28)
[2021-11-26 16:51] LABS: Bedside Glucose 249 mg/dL (74-106)
[2021-11-26] MEDS: HYDROmorphone 2 MG TABLET PO (17:33)
--- NOTE | 2021-11-26 18:55 | PN.HOSP_ITS ---
Subjective Subjective Patient was seen and examined today, he underwent an EGD today which showed esophageal varices, there was also some duodenitis present and biopsies were obtained. I talked his who was present in his room at the time my examination today, I think patient is stable enough to be transferred to PCU, I have elected to give him 1 unit of packed red blood cells as it is being held and his blood count today was a hemoglobin of 7.5. Patient remains pancytopenic. Objective Data Objective Data Vital Signs: Vital Signs Temp Pulse Resp BP Pulse Ox O2 Del Method O2 Flow Rate 97.9 F 68 18 117/51 L 98 Room Air 2 11/26/21 16:21 11/26/21 16:21 11/26/21 16:21 11/26/21 16:21 11/26/21 16:21 11/26/21 16:21 11/23/21 11:00 Oxygen Flow Rate (L/min) 2 Oxygen Delivery Method Room Air Weight: 88.314 kg Body Mass Index (BMI) 29.1 Intake & Output: Intake and Output for Last 24 Hours 11/24/21 11/25/21 11/26/21 23:59 23:59 23:59 Intake Total 2375.00 / 2575.00 3625 / 3625 2280.00 / 2280.00 Balance 2375.00 / 2575.00 3625 / 3625 2280.00 / 2280.00 Lab / Micro Data Result Diagrams: 11/26/21 03:55 11/26/21 03:55 Labs: Laboratory Results - last 24 hr 11/24/21 06:50: Crossmatch See Detail 11/25/21 21:11: POC Glucose 230 H 11/26/21 03:55: WBC 1.8 L, RBC 2.56 L, Hgb 7.5 L, Hct 23.9 L, MCV 93.4, MCH 29.3, MCHC 31.4 L, RDW Std Deviation 51.8 H, RDW Coeff of Trell 15.3 H, Plt Count 36 L*, MPV 10.9, Immature Gran % (Auto) 0.600, Neut % (Auto) 70.8 H, Lymph % (Auto) 15.1 L, [place] % (Auto) 10.1 H, Eos % (Auto) 2.8, Baso % (Auto) 0.6, Absolute Neuts (auto) 1.3 L, Absolute Lymphs (auto) 0.27 L, Nucleated RBC % 0, Differential Comment SCANNED, Diff Path Review Reviewed, Platelet Estimate MKD 11/26/21 03:55: Sodium 143, Potassium 3.3 L, Chloride 115 H, Carbon Dioxide 22.0, Anion Gap 6, BUN 10, Creatinine 0.88, Estim Creat Clear Calc 65.85, Est GFR (MDRD) Af Amer 108, Est GFR (MDRD) Non-Af 89, BUN/Creatinine Ratio 11.4, Glucose 147 H, Calcium 7.2 L, Total Bilirubin 0.70, AST 19, ALT 21, Alkaline Phosphatase 58, Total Protein 4.5 L, Albumin 2.1 L, Globulin 2.4, Albumin/Globulin Ratio 0.9 11/26/21 08:50: POC Glucose 148 H 11/26/21 11:47: POC Glucose 231 H 11/26/21 16:20: POC Glucose 249 H Micro: Microbiology 11/23/21 03:30 Blood Culture (Wb) - Right Forearm Blood Culture - Preliminary Escherichia coli 11/23/21 02:20 Blood Culture (Wb) - Right Forearm Blood Culture - Preliminary No growth in 48 hours. 11/23/21 03:05 Urine, Clean Catch Urine Culture - Final Mixed Gram Pos & Gram Neg Org 11/23/21 02:43 Nasal Secretion SARS-CoV-2 & FLU Antigen (Rapid) - Final Rhythm Strip Rhythm Strip: Sinus Rhythm Rate: 88 Ectopy: None Physical Exam Narrative alert, oriented x3 and no apparent distress General Appearance: cooperative, well kempt and well developed Orientation / Consciousness: awake, oriented to person, oriented to place and oriented to time HEENT normocephalic, head/scalp atraumatic and moist oral mucous membranes Eyes PERRL, EOMs intact bilaterally and conjunctivae normal Neck supple, no JVD and thyroid normal General: trachea midline Resp normal respiratory effort, no retractions, no use of accessory muscles and clear to auscultation bilaterally Auscultation: Negative for rales, rhonchi or wheezes Cardio regular rate, regular rhythm, S1 normal heart sound, S2 normal heart sound, no murmurs, no rub and no gallops GI normal to inspection, nondistended, normoactive bowel sounds, soft to palpation and non-tender GI Narrative: Patient has mild abdominal distention, patient has no abdominal tenderness on palpation, there is no rebound abdominal tenderness. Extremity no clubbing, cyanosis or edema Skin no rashes or lesions noted General Skin Exam: no breakdown Neuro oriented x3, CN's II-XII intact bilaterally, moves all extremities, no focal motor deficits and no sensory deficits noted Sensorium / Orientation: awake, alert, oriented to person, oriented to place and oriented to time Speech: speech normal Psych affect normal Const alert, oriented x3 and no apparent distress General Appearance: cooperative, well kempt and well developed Orientation / Consciousness: awake, oriented to person, oriented to place and oriented to time HEENT normocephalic, head/scalp atraumatic and moist oral mucous membranes Eyes PERRL, EOMs intact bilaterally and conjunctivae normal Neck supple, no JVD and thyroid normal General: trachea midline Resp normal respiratory effort, no retractions, no use of accessory muscles and clear to auscultation bilaterally Auscultation: Negative for rales, rhonchi or wheezes Cardio regular rate, regular rhythm, S1 normal heart sound, S2 normal heart sound, no murmurs, no rub and no gallops GI normal to inspection, nondistended, normoactive bowel sounds, soft to palpation and non-tender GI Narrative: Patient has mild abdominal distention, patient has no abdominal tenderness on palpation, there is no rebound abdominal tenderness. Extremity no clubbing, cyanosis or edema Skin no rashes or lesions noted General Skin Exam: no breakdown Neuro oriented x3, CN's II-XII intact bilaterally, moves all extremities, no focal motor deficits and no sensory deficits noted Sensorium / Orientation: awake, alert, oriented to person, oriented to place and oriented to time Speech: speech normal Psych affect normal Assessment & Plan Assessment/Plan (1) Pancytopenia: PLAN: Plan #1.? E. coli sepsis-actual origin of the infection unknown at this time, patient will remain on antibiotic coverage for now, critical care is participating in his care.? The etiology of the gram-negative sepsis is unknown at this time, infectious diseases is participating in his care, no obvious pathology was detected on the EGD today by gastroenterology to explain the patient's E. coli sepsis.. 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
[2021-11-26] MEDS: traZODone 50 MG Tablet PO (22:13)
[2021-11-26] MEDS: Atorvastatin Calcium 40 MG Tablet PO (22:14)
[2021-11-26] MEDS: Pramipexole Di-HCl 0.25 MG Tablet PO (22:14)
[2021-11-26] MEDS: Acetaminophen 325 MG Tablet 650 MG PO (22:14)
[2021-11-27] VITALS (7 sets, daily range): BP systolic 101–125; BP diastolic 42–61; PULSE 58–72; RESP 16–18; TEMP 36.1–36.4; O2SAT 97–100
[2021-11-27 00:06] LABS: Bedside Glucose 233 mg/dL (74-106)
[2021-11-27 04:23] LABS: Absolute Lymphocyte Count 0.36 X10^3/uL (0.83-4.51); Absolute Neutrophil Count 1.6 X10^3/uL (2.0-7.7); Basophil# 0.02 X10^3/uL; Basophil% 0.9 % (0-1); Eosinophil# 0.07 X10^3/uL; Hematocrit 28.6 % (40-54); Hemoglobin 9.1 g/dL (13.0-16.5); Lymphocyte # 0.36 X10^3/ul (0.83-4.51); Lymphocyte % 15.5 % (19-41); Mean Corp Hgb Conc 31.8 g/dL (32-36); Mean Corpuscular Volume 91.1 fL (80-94); Monocyte# 0.27 X10^3/uL; Monocyte% 11.6 % (0-10); NRBC Flagged by Analyzer 0 % (0-5); Neutrophil # 1.56 X10^3/uL (2.7-7.7); Neutrophil % 67.3 % (47-70); POSITIVE COUNT YES; POSITIVE DIFFERENTIAL YES; Platelet Count 42 K/mm3 (150-450); RBC Distribution Width CV 15.6 % (11.6-14.6); RBC Distribution Width SD 51.9 fl (35.1-43.9); Red Blood Count 3.14 M/mm3 (4.6-6.2); White Blood Count 2.3 K/mm3 (4.4-11.0)
[2021-11-27 04:27] LABS: Differential Indicated SCAN CRITERIA MET
--- NOTE | 2021-11-27 04:32 | NURSING ---
Pts primary rn aware of plt level of 42 at this time.
[2021-11-27 05:13] LABS: Anisocytosis 1+; Platelet Estimate MKD DEC (ADEQ)
[2021-11-27] MEDS: 0.9% Saline Lock 10 ML Syringe IV (05:40)
[2021-11-27] MEDS: Baclofen 10 MG Tablet 5 MG PO ×2 (05:41→14:51)
[2021-11-27] MEDS: Insulin Lispro 100 UNIT/ML INSULN.PEN SC ×2 (06:49→16:50)
[2021-11-27 07:11] LABS: Bedside Glucose 162 mg/dL (74-106)
[2021-11-27] MEDS: Iron Polysaccharide Complex 150 MG CAPSULE PO (08:09)
[2021-11-27] MEDS: Pantoprazole Sodium 40 MG Tablet PO (08:09)
[2021-11-27] MEDS: Allopurinol 300 MG Tablet PO (08:10)
[2021-11-27] MEDS: LINAGLIPTIN 5 MG TABLET PO (08:11)
[2021-11-27] MEDS: Gabapentin 100 MG Capsule 200 MG PO ×2 (08:18→11:22)
[2021-11-27] MEDS: HYDROmorphone 2 MG TABLET PO (08:30)
--- NOTE | 2021-11-27 10:15 | PCM.PN.INT ---
Assessment & Plan Assessment/Plan (1) Sepsis: PLAN: Plan RECOMMENDATIONS: 1. Continue antibiotics per ID recommendations. 2. Continue to monitor H&H daily. Transfuse if hemoglobin drops below 7 g/dL. 3. Continue PPI therapy twice daily as ordered. 4. Encourage incentive spirometer use and mobilize patient as tolerated. 5. Given the patient's lack of ICU or pulmonary needs, will sign off. Please call with any additional questions. IMPRESSIONS: 1. Gram-negative sepsis Improving. The patient appears to have gram-negative bacteremia of unclear source. Urine analysis was certainly not suggestive of UTI. Therefore, an intra-abdominal source is a possibility. Plan to continue current supportive measures including antimicrobials per ID recommendations. 2. Acute kidney injury Resolved. Prerenal in etiology in the setting of #1. Creatinine has improved with volume expansion. Continue to monitor urine output for now. No current indication for renal replacement therapy. 3. Pancytopenia The patient's baseline anemia and thrombocytopenia have worsened, likely secondary to #1. Continue to monitor blood counts daily. Transfuse if hemoglobin drops below 7 g/dL. 4. History of cirrhosis and esophageal varices/diabetes mellitus/BPH/CLL in remission Complicates care, management, recovery and prognosis. Continue to hold home Lasix and losartan, given tenuous hemodynamics. This note was generated with [employer] dictation software. It may contain incorrect words, spelling, and punctuation that were not noted in checking the note before signing. Subjective Subjective The patient was seen and examined at the bedside this morning. Events from the last 24 hours have been reviewed. The patient is currently afebrile, hemodynamically stable and maintaining appropriate oxygen saturations on room air. The patient is documented to be overall net +13 L for the hospitalization. Blood counts are stable this morning. Endoscopic evaluation yesterday revealed esophageal varices and duodenitis which was biopsied. Objective Data Objective Data The patient's most recent lab work, culture data and imaging studies have all been personally reviewed. Surface echocardiogram from August 2021 demonstrated normal LV size and function with an ejection fraction of 65%. Right ventricular systolic pressure was estimated to be 32 mmHg. Blood culture dated November 23 was positive for E. coli. Rapid COVID and influenza testing were negative. Vital Signs: Vital Signs Temp Pulse Resp BP Pulse Ox O2 Del Method O2 Flow Rate 96.9 F L 72 18 125/42 H 97 Room Air 2 11/27/21 08:05 11/27/21 08:05 11/27/21 08:05 11/27/21 08:05 11/27/21 08:05 11/27/21 08:05 11/23/21 11:00 Oxygen Flow Rate (L/min) 2 Oxygen Delivery Method Room Air Weight: 196 lb 13.965 oz Body Mass Index (BMI) 29.1 Intake & Output: Intake and Output for Last 24 Hours 11/25/21 11/26/21 11/27/21 23:59 23:59 23:59 Intake Total 3625 / 3625 2330.00 / 2330.00 50 / 50 Balance 3625 / 3625 2330.00 / 2330.00 50 / 50 Lab / Micro Data Attestation: I reviewed the patient's lab results. Result Diagrams: 11/27/21 04:11 11/26/21 03:55 Labs: Laboratory Results - last 24 hr 11/24/21 06:50: Crossmatch See Detail 11/26/21 03:55: Diff Path Review Reviewed 11/26/21 11:47: POC Glucose 231 H 11/26/21 16:20: POC Glucose 249 H 11/26/21 21:36: POC Glucose 233 H 11/27/21 04:11: WBC 2.3 L, RBC 3.14 L, Hgb 9.1 L, Hct 28.6 L, MCV 91.1, MCH 29.0, MCHC 31.8 L, RDW Std Deviation 51.9 H, RDW Coeff of Trell 15.6 H, Plt Count 42 L*, MPV 11.0, Immature Gran % (Auto) 1.700 H, Neut % (Auto) 67.3, Lymph % (Auto) 15.5 L, [place] % (Auto) 11.6 H, Eos % (Auto) 3.0, Baso % (Auto) 0.9, Absolute Neuts (auto) 1.6 L, Absolute Lymphs (auto) 0.36 L, Nucleated RBC % 0, Diff Path Review May , Platelet Estimate MKD DEC, Anisocytosis 1+ 11/27/21 06:47: POC Glucose 162 H Micro: Microbiology 11/23/21 03:30 Blood Culture (Wb) - Right Forearm Blood Culture - Preliminary Escherichia coli 11/23/21 02:20 Blood Culture (Wb) - Right Forearm Blood Culture - Preliminary No growth in 48 hours. 11/23/21 03:05 Urine, Clean Catch Urine Culture - Final Mixed Gram Pos & Gram Neg Org 11/23/21 02:43 Nasal Secretion SARS-CoV-2 & FLU Antigen (Rapid) - Final Radiography Diagnostic Testing: Radiology Impression Abdomen/Pelvis CT 11/25/21 10:37 IMPRESSION: Splenomegaly. Perihepatic and perisplenic fluid as well as fluid in the paracolic gutters. Multiple small gallstones. Esophageal varices with varices seen in the region of the splenic hilum and gastroepiploic ligament. Heterogeneous appearance of the distal stomach and duodenum as described with possible mass in the second portion of the duodenum. Small bilateral pleural effusions with bibasilar atelectasis. Electronically Signed: Theron Whitehead MD at 13:51 EDT Reading Location ID and State: [id number] / [place] , Service support , Rhythm Strip Rhythm Strip: Sinus Rhythm Rate: 88 Ectopy: None Physical Exam Const alert and no apparent distress General Appearance: cooperative HEENT normocephalic and head/scalp atraumatic Eyes PERRL, EOMs intact bilaterally and conjunctivae normal Neck supple General: trachea midline Chest inspection of chest normal Resp normal respiratory effort Auscultation: Negative for rales, rhonchi or wheezes Cardio regular rhythm Rate: bradycardia GI normal to inspection, nondistended, normoactive bowel sounds Extremity no clubbing, cyanosis or edema Skin no rashes or lesions noted Neuro CN's II-XII intact bilaterally, moves all extremities and no focal motor deficits Psych Mood & Affect: flat affect Charges/Coding Visit Charges Inpatient E&M: 53462 Subs Hosp L2
--- NOTE | 2021-11-27 10:46 | PCM.PN.ID ---
Physical Exam Narrative Feeling better, no fever, no abd pain Const alert and no apparent distress Resp normal air movement and clear to auscultation bilaterally Cardio regular rate and regular rhythm GI soft to palpation, non-tender and non-distended Skin no rashes or lesions noted ID ID: Route of nutrition/ use of supplements: [] Nutritional Intake: [] IV Site: [] Sarah Catheter: [] Assessment & Plan Assessment/Plan (1) Sepsis: (2) E coli bacteremia: PLAN: ecoli bacteremia. Sepsis improved. CT showed duodenitis, GI consulted, EGD with bx done 11/26. Narrow abx to ceftriaxone, plan on omnicef 300mg bid for 5 more days at discharge. Will follow (3) Acute kidney injury: (4) Pancytopenia:
[2021-11-27 13:25] LABS: Pathologist Review Reviewed
--- NOTE | 2021-11-27 15:38 | DCINST_ITS ---
Discharge Instructions Diet Discharge Diet: 1800 Calorie Control Diet Activity Discharge Activity: Return to Normal Activity Weight Bearing Status: Full weight bearing Follow Up Care Test Results: Test results from this visit will be discussed in further detail at your follow- up appointment, if applicable. Discharge Plan Admission Admit Date/Time: 11/23/21 04:23 Primary Reason for Your Visit: e.coli blood infection Attending Provider: Baldemar Coffey Primary Care Provider: Kervin Choi Consulting Providers: Ta Savage ; Nathanael De Leon Robert ; Chidi Powell Discharge Orders/Prescriptions Prescriptions: New cefdinir 300 mg capsule 300 mg PO BID Qty: 10 0RF Rx Instructions: start on 11/28/21 Continued Align 4 mg capsule 4 mg PO DAILY pantoprazole 40 mg tablet,delayed release (DR/EC) 40 mg PO BID furosemide 20 mg tablet 20 mg PO DAILY allopurinol 300 mg tablet 300 mg PO DAILY polysaccharide iron complex [Ferrex 150] 150 mg iron capsule 150 mg PO BID Rx Instructions: avoid dairy/calcium-containing products and/or antacids for at least 2 hrs before and after dose acetaminophen 500 mg tablet 500 mg PO Q6H PRN (Reason: Pain (Scale Score 1-3)) ropinirole 0.5 mg tablet 0.5 mg PO QHS Rx Instructions: administer 1-3 hours before bedtime glimepiride [Amaryl] 2 MG tablet 4 mg PO DAILY Label Comments: BLOOD SUGAR metformin 1,000 MG tablet 1,000 mg PO BIDCM Label Comments: BLOOD SUGAR rosuvastatin 20 MG tablet 20 mg PO QHS Label Comments: CHOLESTEROL Januvia 50 MG tablet 50 mg PO DAILY trazodone 50 MG tablet 50 mg PO QHS hydromorphone 2 MG tablet 2 mg PO Q3H PRN (Reason: Pain/Inflammation) gabapentin 100 mg capsule 300 mg PO TIDCM baclofen 10 mg tablet 5 mg PO TID Changed spironolactone 25 mg tablet 12.5 mg PO DAILY Qty: 1 0RF Discontinued losartan 100 MG tablet 50 mg PO DAILY Referrals / Follow Up: Kervin Choi MD [Primary Care Provider] - Within 2 Weeks Amadou Levy DO [Med Staff - Active Staff] - See Referral Note (in 3 weeks) Disposition Disposition (needs filled in before D/C Order can be placed): Home, Self Care
--- NOTE | 2021-11-27 15:51 | DS.PCM_ITS ---
Providers Date of Admission: 11/23/21 Date of Discharge: 11/27/21 Primary Care Physician: Dr. Kervin Choi MD Consultations 11/23/21 06:46 Consult: W[employer] / Pulmonary Medicine Routine Consulting Provider: Chidi Powell Reason for Consult: Neutropenic fever EMERGENT Consult: No Notified: Yes Date Notified: 11/23/21 Time Notified: 06:47 Method of Notification: Text 11/25/21 06:29 Consult: Infectious Disease Routine Consulting Provider: Tee Lino Reason for Consult: Neutropenic Fever/Gram negative spesis EMERGENT Consult: No Notified: Yes Date Notified: 11/25/21 Time Notified: 07:31 Method of Notification: Answering Service Comments:: Assist with antimicrobial management and duration of tx 11/25/21 16:45 Consult: Gastroenterology Routine Consulting Provider: Emily Gastroenterelly Reason for Consult: duodenal mass EMERGENT Consult: No Notified: Yes Date Notified: 11/25/21 Time Notified: 16:46 Method of Notification: Verbal Reason For Visit: NEUTROPENIC FEVER Diagnosis Discharge Diagnosis (1) Sepsis: Status: Acute Code(s): A41.9 - Sepsis, unspecified organism Plan #1.? E. 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-complicates care, recovery, and prognosis #5 pancytopenia-secondary to cirrhosis, complicates care recovery and prognosis, monitor labs #6 chronic lymphocytic leukemia-complicates care recovery and prognosis #7 type 2 diabetes-patient will be maintained on sliding scale insulin per fingerstick blood sugars, patient is currently on Tradjenta #8 essential hypertension-patient's blood pressure medications are being held at this time #9 hyperlipidemia-patient is on Lipitor at this time #10 acute blood loss anemia requiring blood transfusion-possibly from duodenitis #11 acute duodenitis Medications at Discharge Home Medications glimepiride 2 mg tablet (Amaryl) 4 mg PO DAILY 03/25/15 metformin 1,000 mg tablet 1,000 mg PO BIDCM 03/25/15 rosuvastatin 20 mg tablet 20 mg PO QHS 11/23/15 sitagliptin 50 mg tablet (Januvia) 50 mg PO DAILY 02/20/17 hydromorphone 2 mg tablet 2 mg PO Q3H PRN Pain/Inflammation 03/09/19 trazodone 50 mg tablet 50 mg PO QHS 03/09/19 Bifidobacterium infantis 4 mg capsule (Align) 4 mg PO DAILY 04/17/19 allopurinol 300 mg tablet 300 mg PO DAILY 07/01/20 furosemide 20 mg tablet 20 mg PO DAILY 07/01/20 gabapentin 100 mg capsule 300 mg PO TIDCM 07/01/20 pantoprazole 40 mg tablet,delayed release 40 mg PO BID 07/01/20 polysaccharide iron complex 150 mg iron capsule (Ferrex) 150 mg PO BID 07/01/20 baclofen 10 mg tablet 5 mg PO TID 12/01/20 acetaminophen 500 mg tablet 500 mg PO Q6H PRN Pain (Scale Score 1-3) 01/01/21 ropinirole 0.5 mg tablet 0.5 mg PO QHS 07/14/21 cefdinir 300 mg capsule 300 mg PO BID #10 caps 11/27/21 spironolactone 25 mg tablet 12.5 mg PO DAILY #1 TAB 11/27/21 Hospital Course Operations None Procedures PICC line placement Summary of Care Provided Minutes Spent on Discharge: 33 Hospital Course: 81-year-old white male was seen in the emergency room at [facility] after being brought in by squad secondary to complaints of fever. Patient had a past history of chronic lymphocytic leukemia, he does have a history of nonalcoholic liver cirrhosis. Lab obtained in the emergency room showed the patient to be pancytopenic, total white blood cell count was 1300, hemoglobin was 8.8, platelet count was 42,000. Creatinine was elevated at 1.7, BUN was 32, and urinalysis was unremarkable. Chest x-ray showed no acute disease. Patient was noted to be tachycardic and was felt to be septic, he was given IV Zosyn and vancomycin and was given a fluid bolus. Patient was admitted to ICU, he was seen in consultation by critical care, IV antibiotics were continued and patient was felt to have sepsis-he did not require pressor support however. Blood cultures ultimately grew out E. coli, patient was seen in consultation by infectious diseases and gastroenterology. Patient required transfusion of packed red blood cells due to anemia, the source of the anemia was not fully explained but the patient did have duodenitis on an EGD performed by gastroenterology. Patient's condition gradually improved, he was moved to PCU and stabilized enough to be discharged home. On 11/27/2021, patient was seen and examined: On examination he appeared in good health and spirits. Vital signs as documented. Skin warm and dry and without overt rashes. Neck without JVD, neck was supple, trachea midline, thyroid was normal. Lungs clear bilaterally, normal air movement was noted. Heart exam notable for regular rhythm, normal sounds and absence of murmurs, rubs or gallops. Abdomen-moderate abdominal distention was noted to be present. Bowel sounds are present Extremities nonedematous, no cyanosis was noted, no clubbing was noted. Neuro: Cranial nerves II through XII are grossly intact, no focal motor deficits were noted, sensation to light touch and pinprick intact, motor exam 5/5 throughout. Psych: Patient is alert and oriented x3, he does not paige ear anxious or depressed, he does not appear agitated. Patient appears stable for discharge home on 11/27/2021. Weight / BMI Weight Weight: 89.3 kg Body Mass Index (BMI) 29.1 ABG / Lab / Microbiology Data Result Diagrams: 11/27/21 04:11 11/26/21 03:55 Laboratory: Laboratory Results - last 24 hr 11/26/21 16:20: POC Glucose 249 H 11/26/21 21:36: POC Glucose 233 H 11/27/21 04:11: WBC 2.3 L, RBC 3.14 L, Hgb 9.1 L, Hct 28.6 L, MCV 91.1, MCH 29.0, MCHC 31.8 L, RDW Std Deviation 51.9 H, RDW Coeff of Trell 15.6 H, Plt Count 42 L*, MPV 11.0, Immature Gran % (Auto) 1.700 H, Neut % (Auto) 67.3, Lymph % (Auto) 15.5 L, [place] % (Auto) 11.6 H, Eos % (Auto) 3.0, Baso % (Auto) 0.9, Absolute Neuts (auto) 1.6 L, Absolute Lymphs (auto) 0.36 L, Nucleated RBC % 0, Diff Path Review Reviewed, Platelet Estimate MKD DEC, Anisocytosis 1+ 11/27/21 06:47: POC Glucose 162 H Microbiology: Microbiology 11/23/21 03:30 Blood Culture (Wb) - Right Forearm Blood Culture - Preliminary Escherichia coli 11/23/21 02:20 Blood Culture (Wb) - Right Forearm Blood Culture - Preliminary No growth in 48 hours. 11/23/21 03:05 Urine, Clean Catch Urine Culture - Final Mixed Gram Pos & Gram Neg Org 11/23/21 02:43 Nasal Secretion SARS-CoV-2 & FLU Antigen (Rapid) - Final D/C Instructions Discharge Diet: 1800 Calorie Control Diet Weight Bearing Status: Full weight bearing Meaningful Use Info Meaningful Use Diagnoses (Choose all that apply): None applicable Discharge Plan Admission Admit Date/Time: 11/23/21 04:23 Primary Reason for Your Visit: e.coli blood infection Attending Provider: Baldemar Coffey Primary Care Provider: Kervin Choi Consulting Providers: Ta Savage ; Nathanael De Leon ; Tee Lino ; Chidi Powell Discharge Orders/Prescriptions Prescriptions: New cefdinir 300 mg capsule 300 mg PO BID Qty: 10 0RF Rx Instructions: start on 11/28/21 Continued Align 4 mg capsule 4 mg PO DAILY pantoprazole 40 mg tablet,delayed release (DR/EC) 40 mg PO BID furosemide 20 mg tablet 20 mg PO DAILY allopurinol 300 mg tablet 300 mg PO DAILY polysaccharide iron complex [Ferrex 150] 150 mg iron capsule 150 mg PO BID Rx Instructions: avoid dairy/calcium-containing products and/or antacids for at least 2 hrs before and after dose acetaminophen 500 mg tablet 500 mg PO Q6H PRN (Reason: Pain (Scale Score 1-3)) ropinirole 0.5 mg tablet 0.5 mg PO QHS Rx Instructions: administer 1-3 hours before bedtime glimepiride [Amaryl] 2 MG tablet 4 mg PO DAILY Label Comments: BLOOD SUGAR metformin 1,000 MG tablet 1,000 mg PO BIDCM Label Comments: BLOOD SUGAR rosuvastatin 20 MG tablet 20 mg PO QHS Label Comments: CHOLESTEROL Januvia 50 MG tablet 50 mg PO DAILY trazodone 50 MG tablet 50 mg PO QHS hydromorphone 2 MG tablet 2 mg PO Q3H PRN (Reason: Pain/Inflammation) gabapentin 100 mg capsule 300 mg PO TIDCM baclofen 10 mg tablet 5 mg PO TID Changed spironolactone 25 mg tablet 12.5 mg PO DAILY Qty: 1 0RF Discontinued losartan 100 MG tablet 50 mg PO DAILY Referrals / Follow Up: Kervin Choi MD [Primary Care Provider] - 12/09/21 8:35 am Amadou Levy DO [Med Staff - Active Staff] - 12/29/21 2:15 pm (in 3 weeks) Disposition Disposition (needs filled in before D/C Order can be placed): Home, Self Care Charges/Coding Visit Charges Inpatient E&M: 86366 Disch Hosp
--- NOTE | 2021-11-27 16:39 | PCM.PROGNOTE ---
Subjective Subjective Patient underwent an EGD yesterday the patient was discovered to have esophageal, gastric varices. There was also some granulation that was biopsied. Objective Data Objective Data Vital Signs: Vital Signs Temp Pulse Resp BP Pulse Ox O2 Del Method O2 Flow Rate 97.3 F L 67 18 107/45 L 100 Room Air 2 11/27/21 14:05 11/27/21 14:05 11/27/21 14:05 11/27/21 14:05 11/27/21 14:05 11/27/21 14:05 11/23/21 11:00 Oxygen Flow Rate (L/min) 2 Oxygen Delivery Method Room Air Weight: 196 lb 13.965 oz Body Mass Index (BMI) 29.1 Intake & Output: Intake and Output for Last 24 Hours 11/25/21 11/26/21 11/27/21 23:59 23:59 23:59 Intake Total 3625 / 3625 2330.00 / 2330.00 150 / 150 Balance 3625 / 3625 2330.00 / 2330.00 150 / 150 Lab / Micro Data Result Diagrams: 11/27/21 04:11 11/26/21 03:55 Labs: Laboratory Results - last 24 hr 11/26/21 16:20: POC Glucose 249 H 11/26/21 21:36: POC Glucose 233 H 11/27/21 04:11: WBC 2.3 L, RBC 3.14 L, Hgb 9.1 L, Hct 28.6 L, MCV 91.1, MCH 29.0, MCHC 31.8 L, RDW Std Deviation 51.9 H, RDW Coeff of Trell 15.6 H, Plt Count 42 L*, MPV 11.0, Immature Gran % (Auto) 1.700 H, Neut % (Auto) 67.3, Lymph % (Auto) 15.5 L, [place] % (Auto) 11.6 H, Eos % (Auto) 3.0, Baso % (Auto) 0.9, Absolute Neuts (auto) 1.6 L, Absolute Lymphs (auto) 0.36 L, Nucleated RBC % 0, Diff Path Review Reviewed, Platelet Estimate MKD DEC, Anisocytosis 1+ 11/27/21 06:47: POC Glucose 162 H Micro: Microbiology 11/23/21 03:30 Blood Culture (Wb) - Right Forearm Blood Culture - Preliminary Escherichia coli 11/23/21 02:20 Blood Culture (Wb) - Right Forearm Blood Culture - Preliminary No growth in 48 hours. 11/23/21 03:05 Urine, Clean Catch Urine Culture - Final Mixed Gram Pos & Gram Neg Org 11/23/21 02:43 Nasal Secretion SARS-CoV-2 & FLU Antigen (Rapid) - Final Rhythm Strip Rhythm Strip: Sinus Rhythm Rate: 88 Ectopy: None Physical Exam Narrative Feeling better, no fever, no abd pain Const alert and no apparent distress Resp normal air movement and clear to auscultation bilaterally Cardio regular rate and regular rhythm GI soft to palpation, non-tender and non-distended Skin no rashes or lesions noted Assessment & Plan Assessment/Plan (1) Cirrhosis: PLAN: Patient has cirrhosis at this time without any signs of decompensation. He does have an increase water burn since being in the hospital. He has been off of diuretic therapy secondary to hypotension. I am okay with him going back on his diuretic therapy with close follow-up. (2) Pancytopenia: PLAN: Count has been stable but his platelet count did drop down to 42,000. This will need to be closely followed up on in the near future if he is discharged. (3) E coli bacteremia: PLAN: I do not have a source for his bacteremia at this time. He will need to continue antibiotics. I will discussed a course of antibiotics with infectious disease Charges/Coding Visit Charges Inpatient E&M: 50082 Subs Hosp L2
[2021-11-27 17:45] LABS: Bedside Glucose 250 mg/dL (74-106)
== END 2021-11-27 18:14 | disposition home or self-care (01) | DRG 872 ==
LOC: ED 03:24 → ICU 06:25 → PCU 11-26 16:11
PROVIDERS: Family Medicine; Internal Medicine Critical Care Medicine; Internal Medicine Gastroenterology; Admitting Provider Hospitalist; Emergency Provider Emergency Medicine; PCP Family Medicine; Visit Provider Internal Medicine
PROC: 0DJ08ZZ Inspection of Upper Intestinal Tract, Via Natural or Artificial Opening Endoscopic (ICD-10-PCS; CPT 43235; principal; 2021-11-26 06:55)
DX: A41.51 Sepsis due to Escherichia coli [E. coli] (principal); D61.818 Other pancytopenia; I47.2 Ventricular tachycardia; I85.10 Secondary esophageal varices without bleeding; N17.9 Acute kidney failure, unspecified; C91.11 Chronic lymphocytic leukemia of B-cell type in remission; D69.6 Thrombocytopenia, unspecified; D70.9 Neutropenia, unspecified; E11.65 Type 2 diabetes mellitus with hyperglycemia; I71.2 Thoracic aortic aneurysm, without rupture; I48.0 Paroxysmal atrial fibrillation; K75.81 Nonalcoholic steatohepatitis (NASH); K21.9 Gastro-esophageal reflux disease without esophagitis; D50.9 Iron deficiency anemia, unspecified; E78.5 Hyperlipidemia, unspecified; I10 Essential (primary) hypertension; G47.33 Obstructive sleep apnea (adult) (pediatric); K76.0 Fatty (change of) liver, not elsewhere classified; K29.80 Duodenitis without bleeding; I86.4 Gastric varices; N40.0 Benign prostatic hyperplasia without lower urinary tract symptoms; Z79.899 Other long term (current) drug therapy; Z79.84 Long term (current) use of oral hypoglycemic drugs; Z87.891 Personal history of nicotine dependence; Z87.19 Personal history of other diseases of the digestive system
CPT/HCPCS: 36415; 36569; 71045; 74018; 74177; 80048; 80053; 81001; 82728; 82962; 83540; 83550; 83605; 83735; 84100; 85014; 85018; 85025; 85045; 85610; 85730; 86850; 86900; 86901; 86920; 86922; 87040; 87077; 87086; 87088; 87186; 87428; 88305; 93005; 97802; 97803; 99285; J7030; J7040; J7050; P9016; A4216; J0696; J2405

== ENCOUNTER 2021-12-01 11:50 | Emergency (ER) | payer MEDICARE, OTHER, SELFPAY ==
[2021-12-01 11:51] VITALS: BP 137/55; PULSE 80; RESP 14; TEMP 36.3; O2SAT 100; BMI 29.0
--- NOTE | 2021-12-01 12:19 | EDS_ITS ---
HPI History of Present Illness Chief Complaint: Abd Pain Narrative Narrative: Patient presents with abdominal distention, he has a history of cirrhosis, he has obstruction and he has abdominal distention. He was released from the hospital after having sepsis, he feels much better from that regard but he does not think his abdominal swelling has improved much since being discharged. His abdominal swelling was worse yesterday and its improved today. He has absolutely no abdominal pain other than slight discomfort from the swelling. No fevers or chills, he does have some lower extremity edema which is also chronic and has not changed. [facility] Medical History BPH (benign prostatic hyperplasia) CLL (chronic lymphocytic leukemia) Diarrhea Essential hypertension Generalized weakness GERD (gastroesophageal reflux disease) Hyperlipemia Mixed hyperlipidemia VALERIE (obstructive sleep apnea) Osteoarthritis Paroxysmal atrial fibrillation Splenomegaly Thoracic aortic aneurysm without rupture Thrombocytopenia Type 2 diabetes mellitus Home Medications glimepiride 2 mg tablet (Amaryl) 4 mg PO DAILY 03/25/15 [History Last Taken 02/26/17] metformin 1,000 mg tablet 1,000 mg PO BIDCM 03/25/15 [History Last Taken 02/26/17] rosuvastatin 20 mg tablet 20 mg PO QHS 03/25/15 [History Last Taken 02/26/17] sitagliptin 50 mg tablet (Januvia) 50 mg PO DAILY 02/20/17 [History Last Taken 02/26/17] hydromorphone 2 mg tablet 2 mg PO Q3H PRN Pain/Inflammation 03/09/19 [History Last Taken Unknown] trazodone 50 mg tablet 50 mg PO QHS 03/09/19 [History Last Taken Unknown] Bifidobacterium infantis 4 mg capsule (Align) 4 mg PO DAILY 04/17/19 [History Last Taken Unknown] allopurinol 300 mg tablet 300 mg PO DAILY 07/01/20 [History Last Taken Unknown] furosemide 20 mg tablet 20 mg PO DAILY 07/01/20 [History Last Taken Unknown] gabapentin 100 mg capsule 300 mg PO TIDCM 07/01/20 [History Last Taken Unknown] pantoprazole 40 mg tablet,delayed release 40 mg PO BID 07/01/20 [History Last Taken Unknown] polysaccharide iron complex 150 mg iron capsule (Ferrex) 150 mg PO BID 07/01/20 [History Last Taken Unknown] baclofen 10 mg tablet 5 mg PO TID 12/01/20 [History Last Taken Unknown] acetaminophen 500 mg tablet 500 mg PO Q6H PRN Pain (Scale Score 1-3) 01/01/21 [History Last Taken Unknown] cefdinir 300 mg capsule 300 mg PO BID #10 caps 11/27/21 [Rx Last Taken Unknown] spironolactone 25 mg tablet 12.5 mg PO DAILY #1 TAB 11/27/21 [Rx Last Taken Unknown] Allergy/AdvReac Type Severity Reaction Status Date / Time acetaminophen [From Vicodin] Allergy Rash Verified 12/01/21 11:53 cefazolin sodium [From Ancef] Allergy Rash Verified 12/01/21 11:53 clindamycin Allergy Chest Verified 12/01/21 11:53 tightness hydrocodone bitartrate Allergy Rash Verified 12/01/21 11:53 [From Vicodin] Family History Father Parkinson disease Brother Heart disease Diabetes Sister Atrial fibrillation Breast cancer Surgical History History of colonoscopy (~2018) History of hip replacement Social History Smoking Status: Former smoker alcohol intake: never substance use type: does not use caffeine: Yes Type: coffee Number of servings: 2 ROS ROS ED ROS Narrative Past medical history: Reviewed in the EMR Medications: Reviewed in the EMR Social history: Lives with his Review of systems: All systems negative except as indicated General: No fever Eyes: No visual changes ENT: No upper airway congestion, normal voice Neck: No neck pain Cardiovascular: No chest pain Respiratory: No shortness of breath or cough Gastrointestinal: As in HPI, otherwise no diarrhea or constipation no nausea or vomiting. Genitourinary: No dysuria Musculoskeletal: Denies myalgias no difficulty with ambulation Skin: No rash Neurological: No memory loss, confusion or any focal weakness Psych: No recent behavioral changes Hematologic: No easy bleeding or easy bruising EXAM Physical Exam Narrative Exam Narrative: Physical exam General: Well nourished, Well developed, No Acute Distress Head: Normocephalic, Atraumatic Eyes: Conjunctiva not pale ENT: Moist mucous membranes Neck: Supple, Nontender, No lymphadenopathy Cardiovascular: Regular rate, Regular rhythm Respiratory: No distress, CTA bilaterally Abdomen: Soft, slightly distended abdomen with no obvious fluid wave. No tenderness is present. Back: Nontender, Normal Inspection. Negative for: CVA tenderness Extremities: Nontender, bilateral symmetric lower extremity edema Skin: Normal color, No rash Neurological: Alert, oriented x3, he is not confused, Normal Strength, Normal Sensation Psychological: Normal affect Const Vital Signs: 12/01/21 11:51 Temperature 97.4 F L Temperature Source Temporal Pulse Rate 80 Respiratory Rate 14 Blood Pressure 137/55 H Blood Pressure Mean 82 Pulse Ox 100 Oxygen Delivery Method Room Air MDM MDM Lab Data Labs: Laboratory Results - last 24 hr 12/01/21 12/01/21 12:30 12:30 WBC Cancelled Corrected WBC Cancelled RBC Cancelled Hgb Cancelled Hct Cancelled MCV Cancelled MCH Cancelled MCHC Cancelled RDW Std Deviation Cancelled RDW Coeff of Trell Cancelled Plt Count Cancelled MPV Cancelled Immature Gran % (Auto) Cancelled Neut % (Auto) Cancelled Lymph % (Auto) Cancelled [place] % (Auto) Cancelled Eos % (Auto) Cancelled Baso % (Auto) Cancelled Absolute Neuts (auto) Cancelled Absolute Lymphs (auto) Cancelled Total Counted Cancelled Neutrophils % (Manual) Cancelled Band Neutrophils % Cancelled Lymphocytes % (Manual) Cancelled Monocytes % (Manual) Cancelled Eosinophils % (Manual) Cancelled Basophils % (Manual) Cancelled Metamyelocytes % Cancelled Myelocytes % Cancelled Promyelocytes % Cancelled Blast Cells % Cancelled Plasma Cell % (Manual) Cancelled Other Cells % Cancelled Nucleated RBC % Cancelled Nucleated RBCs/100 WBC Cancelled Differential Comment Cancelled Diff Path Review Cancelled Hypersegmented Neuts Cancelled Atypical Lymphocytes Cancelled Reactive Lymphocytes Cancelled Smudge Cells Cancelled Toxic Granulation Cancelled Toxic Vacuolation Cancelled Dohle Bodies Cancelled Nini Rods Cancelled Platelet Estimate Cancelled Plt Morphology Comment Cancelled RBC Morphology Cancelled Polychromasia Cancelled Hypochromasia Cancelled Poikilocytosis Cancelled Basophilic Stippling Cancelled Anisocytosis Cancelled Microcytosis Cancelled Macrocytosis Cancelled Spherocytes Cancelled Sickle Cells Cancelled Target Cells Cancelled Tear Drop Cells Cancelled Ovalocytes Cancelled Stomatocytes Cancelled [place] Bodies Cancelled [place] Cells Cancelled Bite Cells Cancelled Crenated Cell Cancelled Acanthocytes (Spur) Cancelled Rouleaux Cancelled Schistocytes Cancelled Sodium 138 Potassium 4.1 Chloride 107 Carbon Dioxide 25.0 Anion Gap 6 BUN 13 Creatinine 1.11 Estim Creat Clear Calc 52.21 Est GFR (MDRD) Af Amer 82 Est GFR (MDRD) Non-Af 68 BUN/Creatinine Ratio 11.7 Glucose 190 H Calcium 8.6 Total Bilirubin 1.10 H Direct Bilirubin 0.28 AST 35 ALT 21 Alkaline Phosphatase 82 Total Protein 6.1 L Albumin 2.7 L Globulin 3.4 Lipase 108 Treatment and Re-Evaluation Narrative: I did a bedside ultrasound, there is very minimal ascites mostly pockets of fluid but no be confluent amount of ascites. I do not believe this is amiable to drainage. Otherwise patient's work-up is unremarkable. I will give him IV Lasix other than that he is to continue his Lasix and Aldactone. Meaning changes he is to return. Discharge Plan Triage Chief Complaint: Abd Pain ED Provider: Rock Menchaca Dx/Rx/DC Orders Clinical Impression: Cirrhosis, Anasarca Instructions: ED Cirrhosis Prescriptions: No Action Align 4 mg capsule 4 mg PO DAILY pantoprazole 40 mg tablet,delayed release (DR/EC) 40 mg PO BID furosemide 20 mg tablet 20 mg PO DAILY allopurinol 300 mg tablet 300 mg PO DAILY polysaccharide iron complex [Ferrex 150] 150 mg iron capsule 150 mg PO BID Rx Instructions: avoid dairy/calcium-containing products and/or antacids for at least 2 hrs before and after dose acetaminophen 500 mg tablet 500 mg PO Q6H PRN (Reason: Pain (Scale Score 1-3)) glimepiride [Amaryl] 2 MG tablet 4 mg PO DAILY Label Comments: BLOOD SUGAR metformin 1,000 MG tablet 1,000 mg PO BIDCM Label Comments: BLOOD SUGAR rosuvastatin 20 MG tablet 20 mg PO QHS Label Comments: CHOLESTEROL Januvia 50 MG tablet 50 mg PO DAILY trazodone 50 MG tablet 50 mg PO QHS hydromorphone 2 MG tablet 2 mg PO Q3H PRN (Reason: Pain/Inflammation) gabapentin 100 mg capsule 300 mg PO TIDCM baclofen 10 mg tablet 5 mg PO TID cefdinir 300 mg capsule 300 mg PO BID Qty: 10 0RF Rx Instructions: start on 11/28/21 spironolactone 25 mg tablet 12.5 mg PO DAILY Qty: 1 0RF Primary Care Provider: Kervin Choi Referrals: Kervin Choi MD [Primary Care Provider] - Friend,DO Amadou [Med Staff - Active Staff] - 3-5 Days Disposition Disposition: Home, Self Care
[2021-12-01 12:54] LABS: AST(SGOT) 35 U/L (15-37); Alanine Aminotransfer ALT/SGPT 21 U/L (16-61); Albumin, Serum 2.7 g/dL (3.2-5.0); Alkaline Phosphatase 82 U/L (45-117); Anion Gap 6 (5-15); BUN 13 mg/dL (7-18); BUN/Creat Ratio 11.7 RATIO (10-20); Bilirubin, Direct 0.28 mg/dL (0.00-0.30); Calcium,Total 8.6 mg/dL (8.5-10.1); Chloride 107 mmol/L (98-107); Creatinine, Serum 1.11 mg/dL (0.70-1.30); EST Glomerular Filtration Rate 68 mL/min (>60); Est Glom Filt Rate - Afr Amer 82 mL/min (>60); Estimated Creatinine Clearance 52.21 ml/min; Globulin 3.4 g/dL (2.2-4.2); Glucose 190 mg/dL (74-106); Lipase 108 U/L (73-393); Potassium 4.1 mmol/L (3.5-5.1); Protein, Total 6.1 g/dL (6.4-8.2); Sodium Level 138 mmol/L (136-145)
[2021-12-01] MEDS: Furosemide 40 MG/4 ML Vial IV (13:44)
[2021-12-01 13:58] VITALS: BP 131/74; PULSE 78
== END 2021-12-01 13:58 | disposition home or self-care (01) ==
PROVIDERS: Emergency Provider Emergency Medicine; PCP Family Medicine; Visit Provider Emergency Medicine
DX: R60.1 Generalized edema (principal); K74.60 Unspecified cirrhosis of liver; I71.2 Thoracic aortic aneurysm, without rupture; I48.0 Paroxysmal atrial fibrillation; E11.9 Type 2 diabetes mellitus without complications; N40.0 Benign prostatic hyperplasia without lower urinary tract symptoms; Z85.6 Personal history of leukemia; I10 Essential (primary) hypertension; K21.9 Gastro-esophageal reflux disease without esophagitis; E78.5 Hyperlipidemia, unspecified; G47.33 Obstructive sleep apnea (adult) (pediatric); M19.90 Unspecified osteoarthritis, unspecified site; Z79.84 Long term (current) use of oral hypoglycemic drugs; Z79.899 Other long term (current) drug therapy; Z87.891 Personal history of nicotine dependence
CPT/HCPCS: 80048; 80076; 83690; 96374; 99283; A4216; J1940

== ENCOUNTER 2022-01-09 10:21 | Emergency (ER) | payer MEDICARE, OTHER, SELFPAY ==
[2022-01-09 10:22] VITALS: BP 135/58; PULSE 73; RESP 16; TEMP 36.3; O2SAT 100; BMI 26.7
--- NOTE | 2022-01-09 10:45 | EDS_ITS ---
HPI History of Present Illness Chief Complaint: Nosebleed Informant: patient Onset/Context/Timing Onset: Today Context: Sudden Onset Timing: Continuous Quality: Mild bleeding Location: Left nares Worsened by: Nothing Relieved by: Nothing Narrative Narrative: Patient presents with epistaxis that began today. Patient states he has a history of CLL and thrombocytopenia. Patient had his left nares cauterized yesterday by Dr. Mascorro. Patient states that today it started bleeding again from the left nares. Patient states that it seemed to slow down at this time. Patient states nothing makes it better nothing makes it worse. Patient denies any trauma or injury. Patient denies any bleeding into his nasopharynx. [facility] Medical History BPH (benign prostatic hyperplasia) CLL (chronic lymphocytic leukemia) Diarrhea Essential hypertension Generalized weakness GERD (gastroesophageal reflux disease) Hyperlipemia Mixed hyperlipidemia VALERIE (obstructive sleep apnea) Osteoarthritis Paroxysmal atrial fibrillation Splenomegaly Thoracic aortic aneurysm without rupture Thrombocytopenia Type 2 diabetes mellitus Home Medications glimepiride 2 mg tablet (Amaryl) 4 mg PO DAILY 03/25/15 [History Last Taken 02/26/17] metformin 1,000 mg tablet 1,000 mg PO BIDCM 03/25/15 [History Last Taken 02/26/17] rosuvastatin 20 mg tablet 20 mg PO QHS 03/25/15 [History Last Taken 02/26/17] sitagliptin 50 mg tablet (Januvia) 50 mg PO DAILY 02/20/17 [History Last Taken 02/26/17] hydromorphone 2 mg tablet 2 mg PO Q3H PRN Pain/Inflammation 03/09/19 [History Last Taken Unknown] trazodone 50 mg tablet 50 mg PO QHS 03/09/19 [History Last Taken Unknown] Bifidobacterium infantis 4 mg capsule (Align) 4 mg PO DAILY 04/17/19 [History Last Taken Unknown] allopurinol 300 mg tablet 300 mg PO DAILY 07/01/20 [History Last Taken Unknown] furosemide 20 mg tablet 20 mg PO DAILY 07/01/20 [History Last Taken Unknown] gabapentin 100 mg capsule 300 mg PO TIDCM 07/01/20 [History Last Taken Unknown] pantoprazole 40 mg tablet,delayed release 40 mg PO BID 07/01/20 [History Last Taken Unknown] polysaccharide iron complex 150 mg iron capsule (Ferrex) 150 mg PO BID 07/01/20 [History Last Taken Unknown] baclofen 10 mg tablet 5 mg PO TID 12/01/20 [History Last Taken Unknown] acetaminophen 500 mg tablet 500 mg PO Q6H PRN Pain (Scale Score 1-3) 01/01/21 [History Last Taken Unknown] cefdinir 300 mg capsule 300 mg PO BID #10 caps 11/27/21 [Rx Last Taken Unknown] spironolactone 25 mg tablet 12.5 mg PO DAILY #1 TAB 11/27/21 [Rx Last Taken Unknown] Allergy/AdvReac Type Severity Reaction Status Date / Time acetaminophen [From Vicodin] Allergy Rash Verified 12/01/21 11:53 cefazolin sodium [From Ancef] Allergy Rash Verified 12/01/21 11:53 clindamycin Allergy Chest Verified 12/01/21 11:53 tightness hydrocodone bitartrate Allergy Rash Verified 12/01/21 11:53 [From Vicodin] Family History Father Parkinson disease Brother Heart disease Diabetes Sister Atrial fibrillation Breast cancer Surgical History History of colonoscopy (~2018) History of hip replacement Social History Smoking Status: Former smoker alcohol intake: never substance use type: does not use caffeine: Yes Type: coffee Number of servings: 2 ROS ROS ED Constitutional Constitutional ED: Denies chills or fever(s) Eyes Eyes: Denies blurry vision or change in vision ENT ENT ED: Denies rhinorrhea or sore throat Cardiovascular Cardiovascular: Denies chest pain or palpitations Respiratory/Chest Respiratory/Chest: Denies cough or dyspnea Gastrointestinal Gastrointestinal: Denies nausea or vomiting Genitourinary Genitourinary ED: Denies dysuria or hematuria Musculoskeletal Musculoskeletal: Denies back pain or neck pain Integumentary Denies abscess or rash Neurologic Neurologic: Denies headache(s) or weakness Allergic/Immunologic Allergic/Immunologic ED: Denies mouth swelling or urticaria EXAM Physical Exam Const Vital Signs: 01/09/22 10:22 Temperature 97.3 F L Temperature Source Temporal Pulse Rate 73 Respiratory Rate 16 Blood Pressure 135/58 H Blood Pressure Mean 83 Pulse Ox 100 Oxygen Delivery Method Room Air Positive well nourished and well developed General Appearance ED: well developed and NAD HEENT Reports moist mucous membranes HEENT Narrative: There is some mild bleeding from the left anterior nasal septum. There is some areas that were cauterized yesterday. There are some bleeding around the sites. There is no septal deviation or septal hematoma. Oropharynx is clear. Airway is patent. There is no posterior epistaxis. Eyes PERRL and EOMs intact bilaterally Neck supple and no JVD Neuro oriented x3, CN's II-XII intact bilaterally and no sensory deficits noted Sensorium / Orientation: alert Motor Exam: strength 5/5 throughout Psych mental status grossly normal MDM MDM MDM Narrative Medical decision making narrative: The bleeding sites in the left nares were cauterized with silver nitrate. Patient tolerated the procedure well. Bacitracin ointment was applied to the nares. Patient was instructed to follow-up with Dr. Mascorro in 3 to 5 days. Patient understood and was agreeable with the plan. All questions were answered. Discharge Plan Triage Chief Complaint: Nosebleed ED Provider: Jamin Rios Dx/Rx/DC Orders Clinical Impression: Anterior epistaxis, Pancytopenia Instructions: ED Epistaxis (Adult) Prescriptions: No Action Align 4 mg capsule 4 mg PO DAILY pantoprazole 40 mg tablet,delayed release (DR/EC) 40 mg PO BID furosemide 20 mg tablet 20 mg PO DAILY allopurinol 300 mg tablet 300 mg PO DAILY polysaccharide iron complex [Ferrex 150] 150 mg iron capsule 150 mg PO BID Rx Instructions: avoid dairy/calcium-containing products and/or antacids for at least 2 hrs before and after dose acetaminophen 500 mg tablet 500 mg PO Q6H PRN (Reason: Pain (Scale Score 1-3)) glimepiride [Amaryl] 2 MG tablet 4 mg PO DAILY Label Comments: BLOOD SUGAR metformin 1,000 MG tablet 1,000 mg PO BIDCM Label Comments: BLOOD SUGAR rosuvastatin 20 MG tablet 20 mg PO QHS Label Comments: CHOLESTEROL Januvia 50 MG tablet 50 mg PO DAILY trazodone 50 MG tablet 50 mg PO QHS hydromorphone 2 MG tablet 2 mg PO Q3H PRN (Reason: Pain/Inflammation) gabapentin 100 mg capsule 300 mg PO TIDCM baclofen 10 mg tablet 5 mg PO TID cefdinir 300 mg capsule 300 mg PO BID Qty: 10 0RF Rx Instructions: start on 11/28/21 spironolactone 25 mg tablet 12.5 mg PO DAILY Qty: 1 0RF Primary Care Provider: Kervin Choi Referrals: Miguel Mascorro MD [Med Staff - Courtesy Staff] - 3-5 Days Kervin Choi MD [Primary Care Provider] - 5-7 Days Disposition Disposition: Home, Self Care
[2022-01-09] MEDS: Silver Nitrate (BKC) 1 EACH TOPICAL (10:52)
== END 2022-01-09 11:14 | disposition home or self-care (01) ==
LOC: ED 10:56
PROVIDERS: Emergency Provider Emergency Medicine; PCP Family Medicine; Visit Provider Emergency Medicine
DX: R04.0 Epistaxis (principal); C91.10 Chronic lymphocytic leukemia of B-cell type not having achieved remission; D61.818 Other pancytopenia; I71.2 Thoracic aortic aneurysm, without rupture; I48.0 Paroxysmal atrial fibrillation; D69.6 Thrombocytopenia, unspecified; E11.9 Type 2 diabetes mellitus without complications; N40.0 Benign prostatic hyperplasia without lower urinary tract symptoms; I10 Essential (primary) hypertension; K21.9 Gastro-esophageal reflux disease without esophagitis; E78.5 Hyperlipidemia, unspecified; G47.33 Obstructive sleep apnea (adult) (pediatric); Z79.84 Long term (current) use of oral hypoglycemic drugs; Z79.01 Long term (current) use of anticoagulants; Z79.899 Other long term (current) drug therapy; Z87.891 Personal history of nicotine dependence
CPT/HCPCS: 30901; 99282

== ENCOUNTER → 2022-01-15 | Outpatient (CLI) | payer MEDICARE, OTHER, SELFPAY ==
[2022-01-15 17:45] LABS: Erythrocyte Sedimentation Rate 10 mm/hr (0-20)
[2022-01-15 17:48] LABS: Absolute Lymphocyte Count 0.38 X10^3/uL (0.83-4.51); Basophil# 0.01 X10^3/uL; Basophil% 0.4 % (0-1); Eosinophil# 0.06 X10^3/uL; Eosinophils% 2.2 % (0-5); Hematocrit 35.6 % (40-54); Hemoglobin 11.2 g/dL (13.0-16.5); Lymphocyte # 0.38 X10^3/ul (0.83-4.51); Lymphocyte % 13.9 % (19-41); Mean Corp Hgb Conc 31.5 g/dL (32-36); Mean Corpuscular Hgb 29.6 pg (27.0-32.0); Mean Corpuscular Volume 94.2 fL (80-94); Mean Platelet Vol. 10.9 fl (6.2-12.0); Monocyte# 0.25 X10^3/uL; Monocyte% 9.1 % (0-10); NRBC Flagged by Analyzer 0 % (0-5); Neutrophil # 2.02 X10^3/uL (2.7-7.7); Neutrophil % 73.7 % (47-70); POSITIVE COUNT YES; POSITIVE DIFFERENTIAL YES; RBC Distribution Width CV 17.2 % (11.6-14.6); RBC Distribution Width SD 59.9 fl (35.1-43.9); Red Blood Count 3.78 M/mm3 (4.6-6.2)
[2022-01-15 18:06] LABS: Differential Indicated SCAN CRITERIA MET; Platelet Count 41 K/mm3 (150-450); White Blood Count 2.7 K/mm3 (4.4-11.0)
[2022-01-15 18:09] LABS: Differential Comment SCANNED; Platelet Estimate MKD DEC (ADEQ)
[2022-01-15 18:12] LABS: ALB/GLOB Ratio 0.9 RATIO (0.9-2.4); AST(SGOT) 27 U/L (15-37); Alanine Aminotransfer ALT/SGPT 23 U/L (16-61); Albumin, Serum 3.2 g/dL (3.2-5.0); Alkaline Phosphatase 93 U/L (45-117); Anion Gap 10 (5-15); BUN 14 mg/dL (7-18); BUN/Creat Ratio 12.6 RATIO (10-20); CRP 4.08 mg/L (0.0-3.0); Calcium,Total 8.7 mg/dL (8.5-10.1); Chloride 104 mmol/L (98-107); Creatinine, Serum 1.11 mg/dL (0.70-1.30); EST Glomerular Filtration Rate 68 mL/min (>60); Est Glom Filt Rate - Afr Amer 82 mL/min (>60); Globulin 3.5 g/dL (2.2-4.2); Glucose 208 mg/dL (74-106); LDH 185 U/L (87-241); Potassium 4.1 mmol/L (3.5-5.1); Protein, Total 6.7 g/dL (6.4-8.2); Sodium Level 139 mmol/L (136-145)
[2022-01-19 09:01] LABS: Pathologist Review Reviewed
[2022-01-19 14:08] LABS: Anti-Centromere B Ab <0.2 AI (0.0-0.9); Anti-Chromatin <0.2 AI (0.0-0.9); Anti-Jo <0.2 AI (0.0-0.9); Anti-Scleroderma-70 AB <0.2 AI (0.0-0.9); RNP Ab <0.2 AI (0.0-0.9); SJOGREN'S Anti-SS-A test < 0.2 AI (0.0-0.9); SJOGREN'S Anti-SS-B test < 0.2 AI (0.0-0.9); Smith Ab <0.2 AI (0.0-0.9)
[2022-01-19 21:07] LABS: Endomysial Antibody IgA Negative (Negative)
[2022-01-20 15:09] LABS: Immunoglobulin A 359 mg/dL (61-437); t-Transglutaminase IgA <2 U/mL (0-3)
[2022-01-20 16:35] LABS: Anti-dsDNA Ab <1 IU/mL (0-9)
[2022-01-22 17:07] LABS: Albumin 3.4 g/dL (2.9-4.4); Alpha-1-Globulins 0.3 g/dL (0.0-0.4); Alpha-2-Globulins 0.6 g/dL (0.4-1.0); Cytoplasmic Ab (C-ANCA) <1:20 titer (Neg:<1:20); Gamma Globulin 1.1 g/dL (0.4-1.8); Immunoglobulin A 351 mg/dL (61-437); Immunoglobulin E 154 IU/mL (6-495); Immunoglobulin G 959 mg/dL (603-1613); Immunoglobulin M 152 mg/dL (15-143); PROEL- TOTAL PROTEIN 6.3 g/dL (6.0-8.5)
[2022-01-23 20:24] LABS: AFP, Tumor Marker 1.6 ng/mL (0.0-8.4); Perinuclear Ab (P-ANCA) <1:20 titer (Neg:<1:20)
== END | disposition home or self-care (01) ==
PROVIDERS: PCP Family Medicine; Referring Provider Internal Medicine Gastroenterology; Visit Provider Internal Medicine Gastroenterology
DX: K74.60 Unspecified cirrhosis of liver (principal); K12.0 Recurrent oral aphthae
CPT/HCPCS: 36415; 80053; 82105; 82140; 82784; 82785; 83516; 83615; 84165; 85025; 85652; 86140; 86225; 86235; 86255; 86256; 86334

== ENCOUNTER → 2022-01-16 | Outpatient (CLI) | payer MEDICARE, OTHER, SELFPAY ==
[2022-01-21 08:23] LABS: Calprotectin, Stool 290 ug/g (0-120)
== END | disposition home or self-care (01) ==
LOC: MTLAB 13:39
PROVIDERS: PCP Family Medicine; Referring Provider Internal Medicine Gastroenterology; Visit Provider Internal Medicine Gastroenterology
DX: K12.0 Recurrent oral aphthae (principal)
CPT/HCPCS: 83630; 83993

== ENCOUNTER 2022-03-02 08:06 | Inpatient (IN) | payer MEDICARE, OTHER, SELFPAY ==
[2022-03-02] VITALS (29 sets, daily range): BP systolic 85–161; BP diastolic 46–61; PULSE 90–121; RESP 11–22; TEMP 36.2–36.9; O2SAT 96–100; BMI 26.6; BMI 25.0
--- NOTE | 2022-03-02 08:56 | ED.VIS.GI ---
HPI HPI - GI History of Present Illness Chief Complaint: GI Bleed Informant: patient Nausea/Vomiting/Emesis GI Symptom: Negative for Nausea or Vomiting Diarrhea/Melena/Hematochezia GI Symptom: Positive for Hematochezia; Negative for Diarrhea or Melena Associated Symptoms Associated Symptoms: Negative for Dysuria, Frequency, Hematuria or Urgency Narrative Narrative: Patient having rectal bleeding that started yesterday. Started mild, but then this morning he had a larger amount of blood. He has had no abdominal pain, nausea, vomiting. 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 He has been thrombocytopenic as a result. He is on no anticoagulant medications, and no antiplatelets. He has had no near syncopal episodes, he has felt weak. No chest pain or dyspnea. He does have a history of diverticulosis. [facility] Medical History (Updated 03/02/22 @ 09:[address] Mazin Valentino MD) Aphthous ulcer BPH (benign prostatic hyperplasia) Cirrhosis CLL (chronic lymphocytic leukemia) Diarrhea Essential hypertension Generalized weakness GERD (gastroesophageal reflux disease) Hyperlipemia Mixed hyperlipidemia VALERIE (obstructive sleep apnea) Osteoarthritis Pancytopenia Paroxysmal atrial fibrillation Splenomegaly Thoracic aortic aneurysm without rupture Thrombocytopenia Type 2 diabetes mellitus Home Medications metformin 1,000 mg tablet 1,000 mg PO BIDCM DIABETES 03/25/15 [History Last Taken 03/01/22] rosuvastatin 20 mg tablet 20 mg PO QHS CHOLESTEROL 03/25/15 [History Last Taken 03/01/22] sitagliptin phosphate 50 mg tablet (Januvia) 50 mg PO DAILY DIABETES 02/20/17 [History Last Taken 03/01/22] hydromorphone 2 mg tablet 2 mg PO Q3H PRN Pain/Inflammation 03/09/19 [History Last Taken Unknown] Bifidobacterium infantis 4 mg capsule (Align) 4 mg PO DAILY PROBIOTIC 04/17/19 [History Last Taken 03/01/22] allopurinol 300 mg tablet 300 mg PO DAILY GOUT 07/01/20 [History Last Taken 03/01/22] furosemide 20 mg tablet 20 mg PO DAILY EDEMA 07/01/20 [History Last Taken 03/01/22] pantoprazole 40 mg tablet,delayed release 40 mg PO BID GERD 07/01/20 [History Last Taken 03/01/22] polysaccharide iron complex 150 mg iron capsule (Ferrex) 150 mg PO BID SUPPLEMENT 07/01/20 [History Last Taken 03/01/22] baclofen 10 mg tablet 5 mg PO TID MUSCLE SPAMS 12/01/20 [History Last Taken 03/01/22] acetaminophen 500 mg tablet 500 mg PO Q6H PRN Pain 01/01/21 [History Last Taken Unknown] spironolactone 25 mg tablet 25 mg PO DAILY 01/15/22 [History Last Taken 03/01/22] gabapentin 300 mg capsule 300 mg PO TID NERVE PAIN 03/02/22 [History Last Taken 03/01/22] glimepiride 4 mg tablet 4 mg PO DAILY DIABETES 03/02/22 [History Last Taken 03/01/22] trazodone 100 mg tablet 100 mg PO QHS SLEEP 03/02/22 [History Last Taken 03/01/22] Allergy/AdvReac Type Severity Reaction Status Date / Time acetaminophen [From Vicodin] Allergy Rash Verified 03/02/22 08:08 cefazolin sodium [From Ancef] Allergy Rash Verified 03/02/22 08:08 clindamycin Allergy Chest Verified 03/02/22 08:08 tightness hydrocodone bitartrate Allergy Rash Verified 03/02/22 08:08 [From Vicodin] Family History Father Parkinson disease Brother Heart disease Diabetes Sister Atrial fibrillation Breast cancer Surgical History History of colonoscopy (~2018) History of hip replacement Social History Smoking Status: Former smoker alcohol intake: never substance use type: does not use caffeine: Yes Type: coffee Number of servings: 2 ROS ROS ED Constitutional Constitutional ED: Reports malaise; Denies chills or fever(s) Eyes Eyes: Denies change in vision or diplopia ENT ENT ED: Denies rhinorrhea or sore throat Cardiovascular Cardiovascular: Denies chest pain or palpitations Respiratory/Chest Respiratory/Chest: Denies cough or dyspnea Gastrointestinal Gastrointestinal: Reports hematochezia; Denies abdominal pain, diarrhea, melena, nausea or vomiting Genitourinary Genitourinary ED: Denies dysuria or hematuria Musculoskeletal Musculoskeletal: Denies back pain or neck pain Integumentary Denies abscess or rash Neurologic Neurologic: Denies headache(s), paresthesias or weakness Psychiatric Psychiatric: Denies anxiety or suicidal thoughts EXAM Physical Exam Const Vital Signs: 03/02/22 08:06 Temperature 97.2 F L Temperature Source Temporal Pulse Rate 90 Respiratory Rate 18 Blood Pressure 134/53 H Blood Pressure Mean 80 Pulse Ox 98 Oxygen Delivery Method Room Air Positive well nourished and well developed General Appearance ED: well developed and NAD HEENT Reports moist mucous membranes normocephalic and atraumatic Eyes PERRL and EOMs intact bilaterally Neck full ROM and supple Resp normal respiratory effort and clear to auscultation bilaterally Effort and Inspection: able to speak in complete sentences Cardio regular rate, regular rhythm and no murmurs GI non-tender and non-distended GI Narrative: On digital rectal exam, there is trace amount of blood present, no active bleeding or pooling. No tenderness. No hemorrhoids. Auscultation: normoactive bowel sounds Palpation: soft Back/Spine no CVA tenderness General Back: other FROM Extremity normal to inspection General Extremety ED: Negative for edema, pulses abnormal or tenderness General Extremity: Negative for edema or pulses abnormal Neuro oriented x3, CN's II-XII intact bilaterally and no sensory deficits noted Sensorium / Orientation: awake and alert Motor Exam: strength 5/5 throughout Skin no rashes or lesions noted and no wounds MDM MDM MDM Narrative Medical decision making narrative: Compared with 1.5 months ago, the patient's hemoglobin is down 2 g. His vital signs are normal. He was given IV fluids, his platelets are low at 86,000 but not low enough to require transfusion at this time. With a history of diverticulosis, this certainly could be a diverticular bleed. He does not require emergent intervention, however I think he should be admitted for further evaluation. Discussed with hospitalist and GI DrAurelio Friend. Lab Data Attestation: I reviewed the patient's lab results. Labs: Laboratory Results - last 24 hr 03/02/22 03/02/22 03/02/22 09:07 09:07 09:07 WBC 10.6 RBC 2.89 L Hgb 9.3 L Hct 27.0 L MCV 93.4 MCH 32.2 H MCHC 34.4 RDW Std Deviation 56.9 H RDW Coeff of Trell 16.6 H Plt Count 86 L MPV 10.4 Immature Gran % (Auto) 0.600 Neut % (Auto) 65.6 Lymph % (Auto) 24.3 [place] % (Auto) 7.4 Eos % (Auto) 1.6 Baso % (Auto) 0.5 Absolute Neuts (auto) 6.9 Absolute Lymphs (auto) 2.57 Nucleated RBC % 0 PT 15.9 H INR 1.3 APTT 28.5 Sodium 141 Potassium 4.2 Chloride 104 Carbon Dioxide 25.0 Anion Gap 12 BUN 23 H Creatinine 1.12 Estim Creat Clear Calc 50.89 Est GFR (MDRD) Af Amer 81 Est GFR (MDRD) Non-Af 67 BUN/Creatinine Ratio 20.5 H Glucose 193 H Calcium 8.6 Total Bilirubin 1.20 H AST 25 ALT 20 Alkaline Phosphatase 66 Total Protein 5.5 L Albumin 2.7 L Globulin 2.8 Albumin/Globulin Ratio 1.0 Discharge Plan Dx/Rx/DC Orders Clinical Impression: Acute lower gastrointestinal bleeding, Diverticulosis, Thrombocytopenia Disposition Disposition: Acute Care [facility]
[2022-03-02] MEDS: 0.9% Normal Saline 1,000 ML 200 ML IV (09:11)
[2022-03-02 09:24] LABS: Absolute Lymphocyte Count 2.57 X10^3/uL (0.83-4.51); Absolute Neutrophil Count 6.9 X10^3/uL (2.0-7.7); Basophil# 0.05 X10^3/uL; Basophil% 0.5 % (0-1); Eosinophil# 0.17 X10^3/uL; Eosinophils% 1.6 % (0-5); Hemoglobin 9.3 g/dL (13.0-16.5); Lymphocyte # 2.57 X10^3/ul (0.83-4.51); Lymphocyte % 24.3 % (19-41); Mean Corp Hgb Conc 34.4 g/dL (32-36); Mean Corpuscular Hgb 32.2 pg (27.0-32.0); Mean Corpuscular Volume 93.4 fL (80-94); Mean Platelet Vol. 10.4 fl (6.2-12.0); Monocyte# 0.78 X10^3/uL; Monocyte% 7.4 % (0-10); NRBC Flagged by Analyzer 0 % (0-5); Neutrophil # 6.93 X10^3/uL (2.7-7.7); Neutrophil % 65.6 % (47-70); POSITIVE COUNT YES; Platelet Count 86 K/mm3 (150-450); RBC Distribution Width CV 16.6 % (11.6-14.6); RBC Distribution Width SD 56.9 fl (35.1-43.9); Red Blood Count 2.89 M/mm3 (4.6-6.2); White Blood Count 10.6 K/mm3 (4.4-11.0)
[2022-03-02 09:31] LABS: Partial Thromboplast Time 28.5 Seconds (24.1-36.2)
[2022-03-02 09:38] LABS: AST(SGOT) 25 U/L (15-37); Alanine Aminotransfer ALT/SGPT 20 U/L (16-61); Albumin, Serum 2.7 g/dL (3.2-5.0); Alkaline Phosphatase 66 U/L (45-117); Anion Gap 12 (5-15); BUN 23 mg/dL (7-18); BUN/Creat Ratio 20.5 RATIO (10-20); Calcium,Total 8.6 mg/dL (8.5-10.1); Chloride 104 mmol/L (98-107); Creatinine, Serum 1.12 mg/dL (0.70-1.30); EST Glomerular Filtration Rate 67 mL/min (>60); Est Glom Filt Rate - Afr Amer 81 mL/min (>60); Estimated Creatinine Clearance 50.89 ml/min; Globulin 2.8 g/dL (2.2-4.2); Glucose 193 mg/dL (74-106); Potassium 4.2 mmol/L (3.5-5.1); Protein, Total 5.5 g/dL (6.4-8.2); Sodium Level 141 mmol/L (136-145)
--- NOTE | 2022-03-02 10:02 | NURSING ---
DR WALLY DILL
--- NOTE | 2022-03-02 10:03 | PCM.HP.STD ---
HPI - General General Date of Admission: 03/02/22 Date of Service: 03/02/22 Chief Complaint: Bleeding per rectum HPI Narrative ALIZA OSEI, is a 82 M with past medical history significant for diabetes mellitus type 2, history of chronic lymphocytic leukemia currently in remission, chronic thrombocytopenia, splenomegaly and chemo induced cirrhosis of the liver who presents bleeding per rectum. Patient symptoms started a day prior to his admission. He did notice loose bowel movement which was maroon-colored. Patient also did experience profound generalized weakness. Presented to the emergency department the following day in view of persistent nature of his symptoms.Hemoglobin in the emergency department was found to be 9.3. He had a platelet count of 86. Patient was typed and screened [facility] evaluation and management REPLACED BY [facility] Medical History Aphthous ulcer BPH (benign prostatic hyperplasia) Cirrhosis CLL (chronic lymphocytic leukemia) Diarrhea Essential hypertension Generalized weakness GERD (gastroesophageal reflux disease) Hyperlipemia Mixed hyperlipidemia VALERIE (obstructive sleep apnea) Osteoarthritis Pancytopenia Paroxysmal atrial fibrillation Splenomegaly Thoracic aortic aneurysm without rupture Thrombocytopenia Type 2 diabetes mellitus Home Medications metformin 1,000 mg tablet 1,000 mg PO BIDCM DIABETES 03/25/15 [History Last Taken 03/01/22] rosuvastatin 20 mg tablet 20 mg PO QHS CHOLESTEROL 03/25/15 [History Last Taken 03/01/22] sitagliptin phosphate 50 mg tablet (Januvia) 50 mg PO DAILY DIABETES 02/20/17 [History Last Taken 03/01/22] hydromorphone 2 mg tablet 2 mg PO Q3H PRN Pain/Inflammation 03/09/19 [History Last Taken Unknown] Bifidobacterium infantis 4 mg capsule (Align) 4 mg PO DAILY PROBIOTIC 04/17/19 [History Last Taken 03/01/22] allopurinol 300 mg tablet 300 mg PO DAILY GOUT 07/01/20 [History Last Taken 03/01/22] furosemide 20 mg tablet 20 mg PO DAILY EDEMA 07/01/20 [History Last Taken 03/01/22] pantoprazole 40 mg tablet,delayed release 40 mg PO BID GERD 07/01/20 [History Last Taken 03/01/22] polysaccharide iron complex 150 mg iron capsule (Ferrex) 150 mg PO BID SUPPLEMENT 07/01/20 [History Last Taken 03/01/22] baclofen 10 mg tablet 5 mg PO TID MUSCLE SPAMS 12/01/20 [History Last Taken 03/01/22] acetaminophen 500 mg tablet 500 mg PO Q6H PRN Pain 01/01/21 [History Last Taken Unknown] spironolactone 25 mg tablet 25 mg PO DAILY 01/15/22 [History Last Taken 03/01/22] gabapentin 300 mg capsule 300 mg PO TID NERVE PAIN 03/02/22 [History Last Taken 03/01/22] glimepiride 4 mg tablet 4 mg PO DAILY DIABETES 03/02/22 [History Last Taken 03/01/22] trazodone 100 mg tablet 100 mg PO QHS SLEEP 03/02/22 [History Last Taken 03/01/22] Allergy/AdvReac Type Severity Reaction Status Date / Time acetaminophen [From Vicodin] Allergy Rash Verified 03/02/22 08:08 cefazolin sodium [From Ancef] Allergy Rash Verified 03/02/22 08:08 clindamycin Allergy Chest Verified 03/02/22 08:08 tightness hydrocodone bitartrate Allergy Rash Verified 03/02/22 08:08 [From Vicodin] Family History Father Parkinson disease Brother Heart disease Diabetes Sister Atrial fibrillation Breast cancer Surgical History History of colonoscopy (~2018) History of hip replacement Social History Smoking Status: Former smoker alcohol intake: never substance use type: does not use caffeine: Yes Type: coffee Number of servings: 2 ROS ROS Narrative GENERAL: Fatigue HEENT: denies headache, sinus congestion, RESPIRATORY: denies cough, sputum production, CARDIAC: denies chest pain, palpitations, orthopnea, GASTROINTESTINAL: abdominal pain, melena, GENITOURINARY: denies dysuria, urgency, frequency, EXTREMITY: denies swelling MUSCULOSKELETAL: denies current joint pain or tenderness NEUROLOGIC: denies focal numbness, weakness, tingling HEMATOLOGIC: denies easy bruising and/or hemorrhage INTEGUMENT: denies rashes PSYCHIATRIC: denies suicidal or homicidal ideation Vital Signs Vital Signs Vital Signs: 03/02/22 08:06 Temperature 97.2 F L Temperature Source Temporal Pulse Rate 90 Respiratory Rate 18 Blood Pressure 134/53 H Blood Pressure Mean 80 Pulse Ox 98 Oxygen Delivery Method Room Air Weight Weight: 79.379 kg Body Mass Index (BMI) 26.6 Physical Exam Narrative GENERAL: Frail looking HEENT: Atraumatic; normocephalic EYES; icteric with pallor of the conjunctiva NECK; supple, normal thyroid, RESPIRATORY: Diminished to auscultation CARDIOVASCULAR: Regular S1 S2, GI: soft, normoactive bowel sounds, : No Renal angle tenderness; EXTREMITIES: No edema, no clubbing, MUSCULOSKELETAL: no muscle wasting NEURO: Awake; no lateralizing signs. SKIN: No Rash PSYCH; Flat affect Results Lab / Micro Data Result Diagrams: 03/02/22 09:07 03/02/22 09:07 Labs: Laboratory Results - last 24 hr 03/02/22 09:07: WBC 10.6, RBC 2.89 L, Hgb 9.3 L, Hct 27.0 L, MCV 93.4, MCH 32.2 H, MCHC 34.4, RDW Std Deviation 56.9 H, RDW Coeff of Trell 16.6 H, Plt Count 86 L, MPV 10.4, Immature Gran % (Auto) 0.600, Neut % (Auto) 65.6, Lymph % (Auto) 24.3, [place] % (Auto) 7.4, Eos % (Auto) 1.6, Baso % (Auto) 0.5, Absolute Neuts (auto) 6.9, Absolute Lymphs (auto) 2.57, Nucleated RBC % 0 03/02/22 09:07: APTT 28.5 03/02/22 09:07: Sodium 141, Potassium 4.2, Chloride 104, Carbon Dioxide 25.0, Anion Gap 12, BUN 23 H, Creatinine 1.12, Estim Creat Clear Calc 50.89, Est GFR (MDRD) Af Amer 81, Est GFR (MDRD) Non-Af 67, BUN/Creatinine Ratio 20.5 H, Glucose 193 H, Calcium 8.6, Total Bilirubin 1.20 H, AST 25, ALT 20, Alkaline Phosphatase 66, Total Protein 5.5 L, Albumin 2.7 L, Globulin 2.8, Albumin/Globulin Ratio 1.0 Assessment & Plan Assessment/Plan (1) Acute lower gastrointestinal bleeding: (2) Diverticulosis: (3) Thrombocytopenia: PLAN: Plan Patient is an 82 M with past medical history significant for diabetes mellitus type 2, history of chronic lymphocytic leukemia currently in remission, chronic thrombocytopenia, splenomegaly and chemo induced cirrhosis of the liver who presents bleeding per rectum 1. Acute GI bleed ? Lower GI bleed versus upper GI bleed. Patient has history of diverticulosis also has history of chemo induced cirrhosis of the liver with thrombocytopenia presenting with bleeding per rectum. Patient has been admitted to a monitored bed started on Protonix drip H&H ordered every 4 consultation placed to GI Case discussed with Dr. Levy 2. Anemia ? Secondary to acute blood loss anemia from above management as discussed above 3.? Essential hypertension ?Patient antihypertensives and diuretics placed on hold.? Patient was relatively hypotensive in the ED with systolic blood pressure in the 90s resuscitated with IV fluids with subsequent monitoring of vitals 3.? Chronic lymphocytic leukemia ?Currently in remission 4.? Diabetes mellitus type II -patient's oral hypoglycemics held. Placed on long acting insulin, Accu-Cheks a.c. and at bedtime and covered with sliding scale insulin 5.? Cirrhosis of the liver ?Apparently chemo induced.? Patient has stigmata of portal hypertension with splenomegaly and gastric and splenic and esophageal varices as noted on CT of the abdomen.? Will avoid potential hepatotoxic medications and monitor patient's progress with daily CMP's 6.? Thrombocytopenia ?Secondary to cirrhosis of the liver monitoring with daily CBCs 7.? Dyslipidemia -Patient is on statin therapy, continued at home dose 8.? DVT prophylaxis ?Avoided the use of chemoprophylaxis in view of patient's significant thrombocytopenia he wasPlaced on bilateral SCDs Advance planning;? did discuss with the patient and family () regarding advanced directives as well as CODE STATUS.? Did explain the various scenarios involved ( FULL CODE, DNR CCA, DNR CCA with no intubation, and DNR CC and what each meant) patient elected to full code with CPR and intubation if needed.? Order was placed.? Time spent on discussion 18 minutes. Charges/Coding Visit Charges Inpatient E&M: 61432 Init Hosp L3 Procedures Hospitalists Procedures: 38571 Advncd Care Plan 30 Min
--- NOTE | 2022-03-02 10:07 | NURSING ---
MED SURG KITTOE OBS LOWER GI BLEED
[2022-03-02 10:14] LABS: International Normalized Ratio 1.3; Prothrombin Time (Protime)PT. 15.9 SECONDS (11.7-14.9)
--- NOTE | 2022-03-02 11:02 | ED.RN ---
THIS RN NOTIFIED DR LO OF PATIENTS' NEAR SYNCOPAL EPISODE WHILE GETTING UP TO BATHROOM WITH INCREASED ABD PAIN AND LARGE AMOUNT OF DARK RED STOOL. PATIENT STATUS TO BE CHANGED TO PCU AND SUPERVISOR PHOTOCOMPOSITION ALSO NOTIFIED
--- NOTE | 2022-03-02 11:23 | ED.RN ---
PATIENT HAD ANOTHER EPISODE OF DARK RED STOOLS IN BEDPAN, SECOND EPISODE WITHIN 20 MINUTES. COMPLAINS OF LOWER ABD PAIN AND PRESSURE. HEART RATE NOTED TO INCREASE TO 120'S FROM 100'S. BLOOD PRESSURE LABILE IN LOW 100'S. CHARGE NURSE NOTIFIED TO ATTEMPT CONTACT WITH DR. LO AND PCU REGARDING PATIENT STATUS.
--- NOTE | 2022-03-02 11:37 | NURSING ---
CV ICU 201
--- NOTE | 2022-03-02 11:43 | ED.RN ---
REPORT CALLED TO RIG SITE ENGINEER
[2022-03-02 12:58] LABS: Hematocrit 19.7 % (40-54); Hemoglobin 6.7 g/dL (13.0-16.5)
[2022-03-02] MEDS: HYDROmorphone 2 MG TABLET PO (13:27)
[2022-03-02] MEDS: 0.9% Normal Saline 1,000 ML 75 ML IV (14:19)
[2022-03-02] MEDS: Gabapentin 300 MG Capsule PO ×2 (14:57→22:38)
[2022-03-02] MEDS: Baclofen 10 MG Tablet 5 MG PO ×2 (14:57→22:37)
[2022-03-02 16:56] LABS: Bedside Glucose 217 mg/dL (74-106)
--- NOTE | 2022-03-02 17:31 | CT_ITS ---
We are attempting to reach an attending provider to discuss findings. An addendum with communication details will be sent when the communication is complete. INDICATION: GI bleed EXAMINATION: CTA abdomen and pelvis - TECHNIQUE: Routine abdominal CT angiogram protocol was performed with IV contrast. MIP images provided. A radiation dose optimization technique was used for this scan. IV Contrast dosage and agent: 100 cc [id number] COMPARISON: 11/25/2021, 02/22/2017 CT abdomen and pelvis FINDINGS: Lung bases: Trace left pleural effusion. Liver: Cirrhotic appearance with heterogenous enhancement pattern including 1.3 cm strongly enhancing focus in the right lobe laterally. Gallbladder: Multiple calcified gallstones, no inflammatory gallbladder wall changes or abnormal distention. Spleen: Stable hepatomegaly. Adrenal gland: Normal. Kidneys: Stable left cortical cyst. No hydronephrosis bilaterally. Pancreas:Stable 1.3 cm exophytic cystic lesion head of the pancreas. Bowel gas pattern: Nonobstructive. Stomach: Nonspecific gastric wall thickening in noted with multiple areas of brisk contrast enhancement, possible extravasation in the gastric fundus without significant pooling of extravasated contrast. Diffuse high attenuation of contents in both small bowel and large bowel, likely hemorrhagic contents. Appendix: Appendix not identified. No inflammatory changes along the cecum present. Free air: None. Free fluid: Scattered ascites in the abdomen and pelvis. Pelvis: Pelvic organs: No mass lesion noted. Bone survey: No aggressive bony lesions. No acute fractures. Right hip prosthesis. Adenopathy: No significant pathologic adenopathy detected. Vascular: Multiple upper abdominal varices. Atherosclerotic changes of the aorta and major branches without hemodynamically significant stenosis or aortic aneurysm. CT/CT ANGIO ABD&PEL W/O&W/DYE IMPRESSION: Findings suspicious for gastritis in the gastric fundus with possible hemorrhagic source with multiple small foci of probable contrast extravasation. Diffuse hemorrhagic contents in both small and large bowel. Electronically Signed: López Alvarez MD at 0:41 EDT ,
--- NOTE | 2022-03-02 18:10 | PCM.CONS.GEN ---
Assessment & Plan Assessment/Plan (1) Acute lower gastrointestinal bleeding: PLAN: The differential diagnosis for his lower GI bleed could be diverticular bleed, arteriovenous malformations in the colon or small bowel, upper GI bleed with rapid transit. Recommend CT angiography to see if there is any active bleeding in the small bowel. If it is he may need to be transferred for deep enteroscopy. If there is no sign of active bleeding on the CT angiography then he will likely need an upper and lower endoscopy to try to locate the source of the GI bleeding. (2) Thrombocytopenia: PLAN: At this time he does not need any platelet transfusions. We will repeat his CBC every 6 hours and monitor his platelet count along with his hemoglobin (3) Cirrhosis: PLAN: . His meld is 12 and he is a child [employer] class [employer]. 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 He has no history of encephalopathy. I recommend to check ammonia level since he is having bleeding and that can cause hyperammonia anemia. Recommend check his INR. I would not give vitamin K at this time. Check a CBC every 6 hours and transfuse for hematocrit less than 30% or hemoglobin less than 7. (4) Arteriovenous malformation: HPI Consult Data Date of Consult: 03/02/22 HPI Narrative Reason for Consultation: GI bleed HPI Narrative: ALIZA OSEI, is a 82 M who presents to the ED after having multiple episodes of GI bleeding. Patient says that he initially was not feeling well on Wednesday 2 days ago and developed some nausea vomiting abdominal pain. The next day on Wednesday he started feeling little bit better. However this morning he started having a lot of diarrhea and that progressed to bloody diarrhea. In the ED he was hypotensive and had 5 episodes of bloody diarrhea. His hemoglobin had gone down from 12.5-6.6. He did have an elevated BUN/creatinine ratio of 20:1 0.3. At this time his blood pressure is stable at 115/70 with a heart rate ranging from 90-1 10. He is received 1 unit of packed red blood cells and is waiting on another. Also in the ED noted his INR was 1.3. He has a past medical history of nonalcoholic steatohepatitis with cirrhosis and history of esophageal varices with intermittent diarrhea. On his last upper endoscopy he was discovered to have multiple grade 1 esophageal varices. It was the first time that I had seen him. He typically was following up with a research manager in [place]. Due to the fact that he had multiple esophageal varices without gastric varices I recommended TIPS procedure. He saw the interventional radiologist down to [facility] and they elected not to do TIPS. Also because he has been having diarrhea we got a capsule endoscopy which had shown some possible aphthous ulcers throughout the small bowel and multiple small AVMs with possible bleeding stigmata and 1 AVM in the jejunum. He also has a of CLL not on treatment and thrombocytopenia secondary to cirrhosis. [facility] Medical History (Updated 03/02/22 @ 18:[address] Tobar Friend, DO) Aphthous ulcer BPH (benign prostatic hyperplasia) Cirrhosis CLL (chronic lymphocytic leukemia) Diarrhea Essential hypertension Generalized weakness GERD (gastroesophageal reflux disease) Hyperlipemia Mixed hyperlipidemia VALERIE (obstructive sleep apnea) Osteoarthritis Pancytopenia Paroxysmal atrial fibrillation Splenomegaly Thoracic aortic aneurysm without rupture Thrombocytopenia Type 2 diabetes mellitus Home Medications metformin 1,000 mg tablet 1,000 mg PO BIDCM DIABETES 03/25/15 [History Last Taken 03/01/22] rosuvastatin 20 mg tablet 20 mg PO QHS CHOLESTEROL 03/25/15 [History Last Taken 03/01/22] sitagliptin phosphate 50 mg tablet (Januvia) 50 mg PO DAILY DIABETES 02/20/17 [History Last Taken 03/01/22] hydromorphone 2 mg tablet 2 mg PO Q3H PRN Pain/Inflammation 03/09/19 [History Last Taken Unknown] Bifidobacterium infantis 4 mg capsule (Align) 4 mg PO DAILY PROBIOTIC 04/17/19 [History Last Taken 03/01/22] allopurinol 300 mg tablet 300 mg PO DAILY GOUT 07/01/20 [History Last Taken 03/01/22] furosemide 20 mg tablet 20 mg PO DAILY EDEMA 07/01/20 [History Last Taken 03/01/22] pantoprazole 40 mg tablet,delayed release 40 mg PO BID GERD 07/01/20 [History Last Taken 03/01/22] polysaccharide iron complex 150 mg iron capsule (Ferrex) 150 mg PO BID SUPPLEMENT 07/01/20 [History Last Taken 03/01/22] baclofen 10 mg tablet 5 mg PO TID MUSCLE SPAMS 12/01/20 [History Last Taken 03/01/22] acetaminophen 500 mg tablet 500 mg PO Q6H PRN Pain 01/01/21 [History Last Taken Unknown] spironolactone 25 mg tablet 25 mg PO DAILY 01/15/22 [History Last Taken 03/01/22] gabapentin 300 mg capsule 300 mg PO TID NERVE PAIN 03/02/22 [History Last Taken 03/01/22] glimepiride 4 mg tablet 4 mg PO DAILY DIABETES 03/02/22 [History Last Taken 03/01/22] trazodone 100 mg tablet 100 mg PO QHS SLEEP 03/02/22 [History Last Taken 03/01/22] Allergy/AdvReac Type Severity Reaction Status Date / Time acetaminophen [From Vicodin] Allergy Rash Verified 03/02/22 08:08 cefazolin sodium [From Ancef] Allergy Rash Verified 03/02/22 08:08 clindamycin Allergy Chest Verified 03/02/22 08:08 tightness hydrocodone bitartrate Allergy Rash Verified 03/02/22 08:08 [From Vicodin] Family History Father Parkinson disease Brother Heart disease Diabetes Sister Atrial fibrillation Breast cancer Surgical History History of colonoscopy (~2018) History of hip replacement Social History Smoking Status: Former smoker alcohol intake: never substance use type: does not use caffeine: Yes Type: coffee Number of servings: 2 ROS ROS Narrative GENERAL: Fatigue HEENT: denies headache, sinus congestion, RESPIRATORY: denies cough, sputum production, CARDIAC: denies chest pain, palpitations, orthopnea, GASTROINTESTINAL: abdominal pain, melena, GENITOURINARY: denies dysuria, urgency, frequency, EXTREMITY: denies swelling MUSCULOSKELETAL: denies current joint pain or tenderness NEUROLOGIC: denies focal numbness, weakness, tingling HEMATOLOGIC: denies easy bruising and/or hemorrhage INTEGUMENT: denies rashes PSYCHIATRIC: denies suicidal or homicidal ideation Physical Exam Narrative GENERAL: Frail looking HEENT: Atraumatic; normocephalic EYES; icteric with pallor of the conjunctiva NECK; supple, normal thyroid, RESPIRATORY: Diminished to auscultation CARDIOVASCULAR: Regular S1 S2, GI: soft, normoactive bowel sounds, : No Renal angle tenderness; EXTREMITIES: No edema, no clubbing, MUSCULOSKELETAL: no muscle wasting NEURO: Awake; no lateralizing signs. SKIN: No Rash PSYCH; Flat affect Lab / Micro Data Result Diagrams: 03/02/22 12:50 03/02/22 09:07 Labs: Laboratory Results - last 24 hr 03/02/22 09:07: WBC 10.6, RBC 2.89 L, Hgb 9.3 L, Hct 27.0 L, MCV 93.4, MCH 32.2 H, MCHC 34.4, RDW Std Deviation 56.9 H, RDW Coeff of Trell 16.6 H, Plt Count 86 L, MPV 10.4, Immature Gran % (Auto) 0.600, Neut % (Auto) 65.6, Lymph % (Auto) 24.3, [place] % (Auto) 7.4, Eos % (Auto) 1.6, Baso % (Auto) 0.5, Absolute Neuts (auto) 6.9, Absolute Lymphs (auto) 2.57, Nucleated RBC % 0 03/02/22 09:07: PT 15.9 H, INR 1.3, APTT 28.5 03/02/22 09:07: Sodium 141, Potassium 4.2, Chloride 104, Carbon Dioxide 25.0, Anion Gap 12, BUN 23 H, Creatinine 1.12, Estim Creat Clear Calc 50.89, Est GFR (MDRD) Af Amer 81, Est GFR (MDRD) Non-Af 67, BUN/Creatinine Ratio 20.5 H, Glucose 193 H, Calcium 8.6, Total Bilirubin 1.20 H, AST 25, ALT 20, Alkaline Phosphatase 66, Total Protein 5.5 L, Albumin 2.7 L, Globulin 2.8, Albumin/Globulin Ratio 1.0 03/02/22 09:07: Blood Type A POSITIVE, Antibody Screen NEGATIVE 03/02/22 09:07: Crossmatch See Detail 03/02/22 12:50: Hgb 6.7 L, Hct 19.7 L 03/02/22 16:34: POC Glucose 217 H Charges/Coding Visit Charges Inpatient E&M: 89253 Init Hosp L3
[2022-03-02] MEDS: traZODone 100 MG Tablet PO (22:38)
[2022-03-02] MEDS: Atorvastatin Calcium 40 MG Tablet PO (22:38)
[2022-03-02] MEDS: Insulin Lispro 100 UNIT/ML INSULN.PEN SC (22:49)
[2022-03-02 23:25] LABS: Bedside Glucose 238 mg/dL (74-106)
[2022-03-02 23:53] LABS: Hematocrit 25.9 % (40-54)
[2022-03-03] VITALS (31 sets, daily range): BP systolic 106–155; BP diastolic 41–90; PULSE 81–106; RESP 12–21; TEMP 36.5–37.1; O2SAT 93–98
[2022-03-03] MEDS: levoFLOXacin IV 500 MG/100 ML BAG 100 MG IV (02:55)
[2022-03-03 03:05] LABS: International Normalized Ratio 1.3; Prothrombin Time (Protime)PT. 16.2 SECONDS (11.7-14.9)
[2022-03-03 03:23] LABS: AST(SGOT) 33 U/L (15-37); Alanine Aminotransfer ALT/SGPT 21 U/L (16-61); Albumin, Serum 2.1 g/dL (3.2-5.0); Alkaline Phosphatase 50 U/L (45-117); Anion Gap 9 (5-15); BUN 24 mg/dL (7-18); BUN/Creat Ratio 28.6 RATIO (10-20); Bilirubin, Direct 0.35 mg/dL (0.00-0.30); Calcium,Total 6.5 mg/dL (8.5-10.1); Chloride 115 mmol/L (98-107); Creatinine, Serum 0.84 mg/dL (0.70-1.30); EST Glomerular Filtration Rate 94 mL/min (>60); Est Glom Filt Rate - Afr Amer 113 mL/min (>60); Estimated Creatinine Clearance 67.86 ml/min; Glucose 251 mg/dL (74-106); Magnesium 1.7 mg/dL (1.6-2.6); Potassium 4.3 mmol/L (3.5-5.1); Protein, Total 4.1 g/dL (6.4-8.2); Sodium Level 144 mmol/L (136-145)
[2022-03-03 04:04] LABS: Absolute Lymphocyte Count 0.54 X10^3/uL (0.83-4.51); Absolute Neutrophil Count 8.5 X10^3/uL (2.0-7.7); Basophil# 0.02 X10^3/uL; Basophil% 0.2 % (0-1); Eosinophil# 0.02 X10^3/uL; Eosinophils% 0.2 % (0-5); Hematocrit 21.4 % (40-54); Hemoglobin 7.1 g/dL (13.0-16.5); Lymphocyte # 0.54 X10^3/ul (0.83-4.51); Lymphocyte % 5.5 % (19-41); Mean Corp Hgb Conc 33.2 g/dL (32-36); Mean Corpuscular Hgb 31.1 pg (27.0-32.0); Mean Corpuscular Volume 93.9 fL (80-94); Mean Platelet Vol. 10.5 fl (6.2-12.0); Monocyte# 0.68 X10^3/uL; Monocyte% 6.9 % (0-10); NRBC Flagged by Analyzer 0 % (0-5); Neutrophil # 8.49 X10^3/uL (2.7-7.7); Neutrophil % 86.7 % (47-70); POSITIVE COUNT YES; POSITIVE DIFFERENTIAL YES; Platelet Count 40 K/mm3 (150-450); RBC Distribution Width CV 17.4 % (11.6-14.6); RBC Distribution Width SD 58.4 fl (35.1-43.9); Red Blood Count 2.28 M/mm3 (4.6-6.2); White Blood Count 9.8 K/mm3 (4.4-11.0)
[2022-03-03 04:05] LABS: Differential Indicated SCAN CRITERIA MET
[2022-03-03] MEDS: 0.9% Normal Saline 1,000 ML 75 ML IV ×2 (04:39→12:36)
[2022-03-03 05:03] LABS: Anisocytosis 1+; Platelet Estimate MKD DEC (ADEQ)
[2022-03-03 05:04] LABS: Burr Cells 1+; Ovalocyte RARE
[2022-03-03] MEDS: Baclofen 10 MG Tablet 5 MG PO ×3 (06:58→21:57)
[2022-03-03] MEDS: Gabapentin 300 MG Capsule PO ×3 (06:59→21:57)
[2022-03-03] MEDS: Insulin Lispro 100 UNIT/ML INSULN.PEN SC ×4 (07:03→22:02)
--- NOTE | 2022-03-03 07:25 | PN.HOSP_ITS ---
Subjective Subjective Patient was transferred to the intensive care unit after becoming hypotensive following 2 large maroon bowel movement. He did have subsequent drop in his hemoglobin level. Patient was transfused with 2 unit PRBC started on octreotide drip patient was seen in consultation by Dr. Levy. Case has been discussed wi th him this AM. Plan is for patient to be transferred to [facility] to be evaluated by GI for possible TIPS Objective Data Objective Data Vital Signs: Vital Signs Temp Pulse Resp BP Pulse Ox O2 Del Method 98.3 F 88 18 124/58 H 96 Room Air 03/03/22 06:27 03/03/22 06:27 03/03/22 06:27 03/03/22 06:27 03/03/22 06:27 03/03/22 06:27 Oxygen Delivery Method Room Air Weight: 74.5 kg Body Mass Index (BMI) 25.0 Intake & Output: Intake and Output for Last 24 Hours 03/01/22 03/02/22 03/03/22 23:59 23:59 23:59 Intake Total 1186 / 1186 1500 / 1500 Balance 1186 / 1186 1500 / 1500 Lab / Micro Data Result Diagrams: 03/03/22 03:45 03/03/22 02:46 Labs: Laboratory Results - last 24 hr 03/02/22 09:07: WBC 10.6, RBC 2.89 L, Hgb 9.3 L, Hct 27.0 L, MCV 93.4, MCH 32.2 H, MCHC 34.4, RDW Std Deviation 56.9 H, RDW Coeff of Trell 16.6 H, Plt Count 86 L, MPV 10.4, Immature Gran % (Auto) 0.600, Neut % (Auto) 65.6, Lymph % (Auto) 24.3, Green % (Auto) 7.4, Eos % (Auto) 1.6, Baso % (Auto) 0.5, Absolute Neuts (auto) 6.9, Absolute Lymphs (auto) 2.57, Nucleated RBC % 0 03/02/22 09:07: PT 15.9 H, INR 1.3, APTT 28.5 03/02/22 09:07: Sodium 141, Potassium 4.2, Chloride 104, Carbon Dioxide 25.0, An ion Gap 12, BUN 23 H, Creatinine 1.12, Estim Creat Clear Calc 50.89, Est GFR (MDRD) Af Amer 81, Est GFR (MDRD) Non-Af 67, BUN/Creatinine Ratio 20.5 H, Glucose 193 H, Calcium 8.6, Total Bilirubin 1.20 H, AST 25, ALT 20, Alkaline Phosphatase 66, Total Protein 5.5 L, Albumin 2.7 L, Globulin 2.8, Albumin/Globulin Ratio 1.0 03/02/22 09:07: Blood Type A POSITIVE, Antibody Screen NEGATIVE 03/02/22 09:07: Crossmatch See Detail 03/02/22 09:07: Crossmatch See Detail 03/02/22 12:50: Hgb 6.7 L, Hct 19.7 L 03/02/22 16:34: POC Glucose 217 H 03/02/22 22:41: POC Glucose 238 H 03/02/22 23:10: Hgb 9.0 L, Hct 25.9 L 03/03/22 02:46: WBC Cancelled, Corrected WBC Cancelled, RBC Cancelled, Hgb Cancelled, Hct Cancelled, MCV Cancelled, MCH Cancelled, MCHC Cancelled, RDW Std Deviation Cancelled, RDW Coeff of Trell Cancelled, Plt Count Cancelled, MPV Cancel led, Immature Gran % (Auto) Cancelled, Neut % (Auto) Cancelled, Lymph % (Auto) Cancelled, Green % (Auto) Cancelled, Eos % (Auto) Cancelled, Baso % (Auto) Cancelled, Absolute Neuts (auto) Cancelled, Absolute Lymphs (auto) Cancelled, Total Counted Cancelled, Neutrophils % (Manual) Cancelled, Band Neutrophils % Cancelled, Lymphocytes % (Manual) Cancelled, Monocytes % (Manual) Cancelled, Eosinophils % (Manual) Cancelled, Basophils % (Manual) Cancelled, Metamyelocytes % Cancelled, Myelocytes % Cancelled, Promyelocytes % Cancelled, Blast Cells % Cancelled, Plasma Cell % (Manual) Cancelled, Other Cells % Cancelled, Nucleated RBC % Cancelled, Nucleated RBCs/100 WBC Cancelled, Differential Comment Can celled, Diff Path Review Cancelled, Hypersegmented Neuts Cancelled, Atypical Lymphocytes Cancelled, Reactive Lymphocytes Cancelled, Smudge Cells Cancelled, Toxic Granulation Cancelled, Toxic Vacuolation Cancelled, Dohle Bodies Cancelled, Nini Rods Cancelled, Platelet Estimate Cancelled, Plt Morphology Comment Cancelled, RBC Morphology Cancelled, Polychromasia Cancelled, Hypochromasia Cancelled, Poikilocytosis Cancelled, Basophilic Stippling Cancelled, Anisocytosis Cancelled, Microcytosis Cancelled, Macrocytosis Cancelled, Spherocytes Cancelled, Sickle Cells Cancelled, Target Cells Cancelled, Tear Drop Cells Cancelled, Ovalocytes Cancelled, Stomatocytes Cancelled, [place] Bodies Cancelled, [place] Cells Cancelled, Bite Cells Cancelled, Crenated Cell Cancelled, Acanthocytes (Spur) Cancelled, Rouleaux Cancelled, Schistocytes Cancelled 03/03/22 02:46: PT 16.2 H, INR 1.3 03/03/22 02:46: Sodium 144, Potassium 4.3, Chloride 115 H, Carbon Dioxide 20.0 L , Anion Gap 9, BUN 24 H, Creatinine 0.84, Estim Creat Clear Calc 67.86, Est GFR (MDRD) Af Amer 113, Est GFR (MDRD) Non-Af 94, BUN/Creatinine Ratio 28.6 H, Glucose 251 H, Calcium 6.5 L*, Phosphorus 3.0, Magnesium 1.7, Total Bilirubin 3.80 H, Direct Bilirubin 0.35 H, AST 33, ALT 21, Alkaline Phosphatase 50, Total Protein 4.1 L, Albumin 2.1 L, Globulin 2.0 L 03/03/22 03:45: WBC 9.8, RBC 2.28 L, Hgb 7.1 L, Hct 21.4 L, MCV 93.9, MCH 31.1, MCHC 33.2, RDW Std Deviation 58.4 H, RDW Coeff of Trell 17.4 H, Plt Count 40 L*, MPV 10.5, Immature Gran % (Auto) 0.500, Neut % (Auto) 86.7 H, Lymph % (Auto) 5.5 L, Green % (Auto) 6.9, Eos % (Auto) 0.2, Baso % (Auto) 0.2, Absolute Neuts (auto) 8.5 H, Absolute Lymphs (auto) 0.54 L, Nucleated RBC % 0, Diff Path Review May foll, Platelet Estimate MKD DEC, Anisocytosis 1+, Ovalocytes RARE, [place] Cells 1+ Radiography Diagnostic Testing: Radiology Impression Abdomen/Pelvis CTA 03/02/22 17:31 IMPRESSION: Findings suspicious for gastritis in the gastric fundus with possible hemorrhagic source with multiple small foci of probable contrast extravasation. Diffuse hemorrhagic contents in both small and large bowel. Electronically Signed: López Alvarez MD at 0:41 EDT , ADDENDUM: 03/03/22 0101 IMPRESSION: Findings suspicious for gastritis in the gastric fundus with possible hemorrhagic source with multiple small foci of probable contrast extravasation. Diffuse hemorrhagic contents in both small and large bowel. N.B. : The above Results were Read Back by López Alvarez MD to MD Adalgisa, and understanding confirmed on 03/03/2022 00:54:41 (ET). Electronically Signed: López Alvarez MD at 0:41 EDT , Physical Exam Narrative GENERAL: Frail looking HEENT: Atraumatic; normocephalic EYES; icteric with pallor of the conjunctiva NECK; supple, normal thyroid, RESPIRATORY: Diminished to auscultation CARDIOVASCULAR: Regular S1 S2, GI: soft, normoactive bowel sounds, : No Renal angle tenderness; EXTREMITIES: No edema, no clubbing, MUSCULOSKELETAL: no muscle wasting NEURO: Awake; no lateralizing signs. SKIN: No Rash PSYCH; Flat affect Assessment & Plan Assessment/Plan (1) Acute lower gastrointestinal bleeding: (2) Diverticulosis: (3) Thrombocytopenia: PLAN: Plan Patient is an 82 M with past medical history significant for diabetes mellitus type 2, history of chronic lymphocytic leukemia currently in remission, chronic thrombocytopenia, splenomegaly and chemo induced cirrhosis of the liver who presents bleeding per rectum 1. Acute GI bleed ? Lower GI bleed versus upper GI bleed. Patient has history of diverticulosis also has history of chemo induced cirrhosis of the liver with thrombocytopenia presenting with bleeding per rectum. Patient has been admitted to a monitored bed started on Protonix drip H&H ordered every 4 consultation placed to GI Case discussed with Dr. Levy -03/03/2022; Patient was transferred to the intensive care unit after becoming hypotensive following 2 large maroon bowel movement. He did have subsequent drop in his hemoglobin level. Patient was transfused with 2 unit PRBC started on octreotide drip patient was seen in consultation by Dr. Levy. Case has be en discussed with him this AM. Plan is for patient to be transferred to [facility] to be evaluated by GI for possible TIPS 2. Anemia ? Secondary to acute blood loss anemia from above management as discussed above ? 03/03/2022; patient was transfused with 2 unit PRBC 3.? Essential hypertension ?Patient antihypertensives and diuretics placed on hold.? Patient was relatively hypotensive in the ED with systolic blood pressure in the 90s resuscitated with IV fluids with subsequent monitoring of vitals 3.? Chronic lymphocytic leukemia ?Currently in remission 4.? Diabetes mellitus type II -patient's oral hypoglycemics held. Placed on long acting insulin, Accu-Cheks a.c. and at bedtime and covered with sliding scale insulin 5.? Cirrhosis of the liver ?Apparently chemo induced.? Patient has stigmata of portal hypertension with splenomegaly and gastric and splenic and esophageal varices as noted on CT of the abdomen.? Will avoid potential hepatotoxic medications and monitor patient's progress with daily CMP's 6.? Thrombocytopenia ?Secondary to cirrhosis of the liver monitoring with daily CBCs 7.? Dyslipidemia -Patient is on statin therapy, continued at home dose 8.? DVT prophylaxis ?Avoided the use of chemoprophylaxis in view of patient's significant thrombocytopenia he wasPlaced on bilateral SCDs Charges/Coding Visit Charges Inpatient E&M: 09740 [facility] Hosp L3
[2022-03-03 07:26] LABS: Bedside Glucose 260 mg/dL (74-106)
[2022-03-03 11:52] LABS: Hematocrit 27.7 % (40-54); Hemoglobin 9.9 g/dL (13.0-16.5); POSITIVE COUNT YES
[2022-03-03] MEDS: Iron Polysaccharide Complex 150 MG CAPSULE PO ×2 (11:58→16:26)
[2022-03-03] MEDS: Allopurinol 300 MG Tablet PO (11:59)
[2022-03-03 12:20] LABS: Bedside Glucose 233 mg/dL (74-106)
[2022-03-03 16:45] LABS: Bedside Glucose 199 mg/dL (74-106)
--- NOTE | 2022-03-03 17:11 | PCM.PROGNOTE ---
Subjective Subjective Patient has not had any bleeding for the last several hours. He denies any nausea. He does want to eat anything because he has difficulty urinating. Objective Data Objective Data Vital Signs: Vital Signs Temp Pulse Resp BP Pulse Ox O2 Del Method 97.9 F 89 17 142/55 H 97 Room Air 03/03/22 16:00 03/03/22 17:00 03/03/22 17:00 03/03/22 17:00 03/03/22 17:00 03/03/22 17:00 Oxygen Delivery Method Room Air Weight: 164 lb 3.91 oz Body Mass Index (BMI) 25.0 Intake & Output: Intake and Output for Last 24 Hours 03/01/22 03/02/22 03/03/22 23:59 23:59 23:59 Intake Total 1186 / 1186 2819.50 / 2819.50 Balance 1186 / 1186 2819.50 / 2819.50 Medical Nutrition Assessment Dietitian: Malnutrition Criteria Met Start: 03/03/22 09:48 Freq: Status: Active Protocol: Document 03/03/22 09:48 AG (Rec: 03/03/22 09:48 AG [id number]) Nutrition Malnutrition Evidence of Malnutrition Exists Yes Malnutrition (severe): Chronic Evidenced By Suboptimal Energy Intake ( Severe),Weight Loss (Severe) Clinical Problem Chronic Disease or Condition Related Malnutrition Etiology chronic, severe malnutrition related to inadequate energy intake Signs/Symptoms as evidenced by unintentional 32.7#/17% wt loss x 4 months, estimated PO intake meeting < 75% of estimated energy needs > 3 months Status Active Problem Recommendation Dietitian Recommendations/Changes continue transitional diet; recommend sodium restricted diet and ensure plus high protein 120mL 4x/day w/ medpass as medically appropriate. Lab / Micro Data Result Diagrams: 03/03/22 11:40 03/03/22 02:46 Labs: Laboratory Results - last 24 hr 03/02/22 09:07: Crossmatch See Detail 03/02/22 09:07: Crossmatch See Detail 03/02/22 22:41: POC Glucose 238 H 03/02/22 23:10: Hgb 9.0 L, Hct 25.9 L 03/03/22 02:46: WBC Cancelled, Corrected WBC Cancelled, RBC Cancelled, Hgb Cancelled, Hct Cancelled, MCV Cancelled, MCH Cancelled, MCHC Cancelled, RDW Std Deviation Cancelled, RDW Coeff of Trell Cancelled, Plt Count Cancelled, MPV Cancelled, Immature Gran % (Auto) Cancelled, Neut % (Auto) Cancelled, Lymph % (Auto) Cancelled, [place] % (Auto) Cancelled, Eos % (Auto) Cancelled, Baso % (Auto) Cancelled, Absolute Neuts (auto) Cancelled, Absolute Lymphs (auto) Cancelled, Total Counted Cancelled, Neutrophils % (Manual) Cancelled, Band Neutrophils % Cancelled, Lymphocytes % (Manual) Cancelled, Monocytes % (Manual) Cancelled, Eosinophils % (Manual) Cancelled, Basophils % (Manual) Cancelled, Metamyelocytes % Cancelled, Myelocytes % Cancelled, Promyelocytes % Cancelled, Blast Cells % Cancelled, Plasma Cell % (Manual) Cancelled, Other Cells % Cancelled, Nucleated RBC % Cancelled, Nucleated RBCs/100 WBC Cancelled, Differential Comment Cancelled, Diff Path Review Cancelled, Hypersegmented Neuts Cancelled, Atypical Lymphocytes Cancelled, Reactive Lymphocytes Cancelled, Smudge Cells Cancelled, Toxic Granulation Cancelled, Toxic Vacuolation Cancelled, Dohle Bodies Cancelled, Nini Rods Cancelled, Platelet Estimate Cancelled, Plt Morphology Comment Cancelled, RBC Morphology Cancelled, Polychromasia Cancelled, Hypochromasia Cancelled, Poikilocytosis Cancelled, Basophilic Stippling Cancelled, Anisocytosis Cancelled, Microcytosis Cancelled, Macrocytosis Cancelled, Spherocytes Cancelled, Sickle Cells Cancelled, Target Cells Cancelled, Tear Drop Cells Cancelled, Ovalocytes Cancelled, Stomatocytes Cancelled, [place] Bodies Cancelled, Florentin Cells Cancelled, Bite Cells Cancelled, Crenated Cell Cancelled, Acanthocytes (Spur) Cancelled, Rouleaux Cancelled, Schistocytes Cancelled 03/03/22 02:46: PT 16.2 H, INR 1.3 03/03/22 02:46: Sodium 144, Potassium 4.3, Chloride 115 H, Carbon Dioxide 20.0 L, Anion Gap 9, BUN 24 H, Creatinine 0.84, Estim Creat Clear Calc 67.86, Est GFR (MDRD) Af Amer 113, Est GFR (MDRD) Non-Af 94, BUN/Creatinine Ratio 28.6 H, Glucose 251 H, Calcium 6.5 L*, Phosphorus 3.0, Magnesium 1.7, Total Bilirubin 3.80 H, Direct Bilirubin 0.35 H, AST 33, ALT 21, Alkaline Phosphatase 50, Total Protein 4.1 L, Albumin 2.1 L, Globulin 2.0 L 03/03/22 03:45: WBC 9.8, RBC 2.28 L, Hgb 7.1 L, Hct 21.4 L, MCV 93.9, MCH 31.1, MCHC 33.2, RDW Std Deviation 58.4 H, RDW Coeff of Trell 17.4 H, Plt Count 40 L*, MPV 10.5, Immature Gran % (Auto) 0.500, Neut % (Auto) 86.7 H, Lymph % (Auto) 5.5 L, [place] % (Auto) 6.9, Eos % (Auto) 0.2, Baso % (Auto) 0.2, Absolute Neuts (auto) 8.5 H, Absolute Lymphs (auto) 0.54 L, Nucleated RBC % 0, Diff Path Review May foll, Platelet Estimate MKD DEC, Anisocytosis 1+, Ovalocytes RARE, [place] Cells 1+ 03/03/22 07:02: POC Glucose 260 H 03/03/22 11:40: Hgb 9.9 L, Hct 27.7 L 03/03/22 11:56: POC Glucose 233 H 03/03/22 16:25: POC Glucose 199 H Radiography Diagnostic Testing: Radiology Impression Abdomen/Pelvis CTA 03/02/22 17:31 IMPRESSION: Findings suspicious for gastritis in the gastric fundus with possible hemorrhagic source with multiple small foci of probable contrast extravasation. Diffuse hemorrhagic contents in both small and large bowel. Electronically Signed: López Alvarez MD at 0:41 EDT , ADDENDUM: 03/03/22 010 IMPRESSION: Findings suspicious for gastritis in the gastric fundus with possible hemorrhagic source with multiple small foci of probable contrast extravasation. Diffuse hemorrhagic contents in both small and large bowel. N.B. : The above Results were Read Back by López Alvarez MD to MD Adalgisa, and understanding confirmed on 03/03/2022 00:54:41 (ET). Electronically Signed: López Alvarez MD at 0:41 EDT , Physical Exam Narrative GENERAL: Frail looking HEENT: Atraumatic; normocephalic EYES; icteric with pallor of the conjunctiva NECK; supple, normal thyroid, RESPIRATORY: Diminished to auscultation CARDIOVASCULAR: Regular S1 S2, GI: soft, normoactive bowel sounds, ascites : No Renal angle tenderness; EXTREMITIES: No edema, no clubbing, MUSCULOSKELETAL: no muscle wasting NEURO: Awake; no lateralizing signs. SKIN: No Rash PSYCH; Flat affect Assessment & Plan Assessment/Plan (1) Acute lower gastrointestinal bleeding: PLAN: He had multiple bleeding sources seen on CT angio with hemorrhage in the stomach, small bowel and colon. Likely secondary to angiodysplasias versus variceal bleed. He should be transferred for emergent TIPS procedure. I have him on a PPI drip, octreotide and he was given IV antibiotics which will be continued. (2) Cirrhosis: PLAN: Cirrhosis currently with a meld of 16 and child Sheikh score of C complicated by acute GI bleed without encephalopathy, gross ascites, renal failure. (3) Thrombocytopenia: PLAN: Severe thrombocytopenia secondary to cirrhosis. His last platelet count was 40,000. We will have to monitor his platelet count and if he gets below 30,000 and he starts to rebleed then we will need to transfuse platelets. Charges/Coding Visit Charges Inpatient E&M: 36393 Subs Hosp L3
[2022-03-03] MEDS: Atorvastatin Calcium 40 MG Tablet PO (21:57)
[2022-03-03] MEDS: traZODone 100 MG Tablet PO (21:57)
[2022-03-03 22:25] LABS: Bedside Glucose 194 mg/dL (74-106)
[2022-03-04] VITALS (20 sets, daily range): BP systolic 111–136; BP diastolic 48–61; PULSE 64–85; RESP 13–21; TEMP 36.6–37.1; O2SAT 92–99
[2022-03-04 00:11] LABS: Absolute Lymphocyte Count 0.95 X10^3/uL (0.83-4.51); Absolute Neutrophil Count 5.5 X10^3/uL (2.0-7.7); Basophil# 0.03 X10^3/uL; Basophil% 0.4 % (0-1); Eosinophil# 0.12 X10^3/uL; Eosinophils% 1.6 % (0-5); Hematocrit 25.1 % (40-54); Hemoglobin 8.8 g/dL (13.0-16.5); Lymphocyte # 0.95 X10^3/ul (0.83-4.51); Lymphocyte % 12.9 % (19-41); Mean Corp Hgb Conc 35.1 g/dL (32-36); Mean Corpuscular Hgb 30.6 pg (27.0-32.0); Mean Corpuscular Volume 87.2 fL (80-94); Mean Platelet Vol. 9.7 fl (6.2-12.0); Monocyte# 0.63 X10^3/uL; Monocyte% 8.6 % (0-10); NRBC Flagged by Analyzer 0.3 % (0-5); Neutrophil # 5.48 X10^3/uL (2.7-7.7); Neutrophil % 74.7 % (47-70); POSITIVE COUNT YES; Platelet Count 45 K/mm3 (150-450); RBC Distribution Width SD 58.4 fl (35.1-43.9); Red Blood Count 2.88 M/mm3 (4.6-6.2); White Blood Count 7.3 K/mm3 (4.4-11.0)
[2022-03-04 00:15] LABS: Differential Indicated SCAN CRITERIA MET
[2022-03-04 00:36] LABS: Anisocytosis 2+; Platelet Estimate MKD DEC (ADEQ)
[2022-03-04 00:37] LABS: Polychromasia 1+
[2022-03-04 00:39] LABS: AST(SGOT) 27 U/L (15-37); Alanine Aminotransfer ALT/SGPT 24 U/L (16-61); Albumin, Serum 2.2 g/dL (3.2-5.0); Alkaline Phosphatase 51 U/L (45-117); Anion Gap 5 (5-15); BUN 25 mg/dL (7-18); BUN/Creat Ratio 26.3 RATIO (10-20); Calcium,Total 7.3 mg/dL (8.5-10.1); Chloride 111 mmol/L (98-107); Creatinine, Serum 0.95 mg/dL (0.70-1.30); EST Glomerular Filtration Rate 81 mL/min (>60); Est Glom Filt Rate - Afr Amer 98 mL/min (>60); Globulin 2.3 g/dL (2.2-4.2); Glucose 200 mg/dL (74-106); Phosphorus 1.9 mg/dL (2.5-4.9); Potassium 4.4 mmol/L (3.5-5.1); Protein, Total 4.5 g/dL (6.4-8.2); Sodium Level 141 mmol/L (136-145); Thyroid Stim Hormone (TSH) 0.11 uIU/mL (0.358-3.74)
--- NOTE | 2022-03-04 02:01 | PCM.HOSP.N ---
Hospitalist Note This patient was having some increased confusion. CBC and BMP obtained along with ammonia level. Ammonia level found to be elevated at 80. Lactulose initiated 20 mg 3 times daily. First dose was at the time of notification approximately 2 AM.
[2022-03-04] MEDS: 0.9% Normal Saline 1,000 ML 75 ML IV ×2 (02:02→13:50)
[2022-03-04 02:26] LABS: T4 Free Direct 1.21 ng/dL (0.76-1.46)
[2022-03-04] MEDS: Lactulose 20 GM/30 ML UDC PO ×2 (03:23→04:27)
[2022-03-04 04:11] LABS: Allen Test Positive; Base Excess -1 mmol/L (-2 to +2); Bicarbonate 23.3 mmol/L (22-26); Blood Gas Specimen Type ART; FI02 21; PO2 73 mmHG (75-100); SITE L Radial; SO2 95 % (95-99); Total Carbon Dioxide 24 mmol/L; pCO2 33.6 mmHg (35-45); pH 7.45 (7.35-7.45)
[2022-03-04] MEDS: Gabapentin 300 MG Capsule PO (05:29)
[2022-03-04] MEDS: Baclofen 10 MG Tablet 5 MG PO (05:29)
[2022-03-04] MEDS: Insulin Lispro 100 UNIT/ML INSULN.PEN SC ×2 (06:00→11:20)
--- NOTE | 2022-03-04 07:13 | PCM.PN.HOSP ---
Subjective Subjective Was reported to be delirious during the night ammonia level came back at 80 started on lactulose Objective Data Objective Data Vital Signs: Vital Signs Temp Pulse Resp BP Pulse Ox O2 Del Method 98.8 F 77 15 136/54 H 94 Room Air 03/04/22 04:00 03/04/22 07:00 03/04/22 07:00 03/04/22 07:00 03/04/22 07:00 03/04/22 07:00 Oxygen Delivery Method Room Air Weight: 80.3 kg Body Mass Index (BMI) 25.0 Intake & Output: Intake and Output for Last 24 Hours 03/02/22 03/03/22 03/04/22 23:59 23:59 23:59 Intake Total 1186 / 1186 3397.50 / 3397.50 1000 / 1000 Output Total 485 / 485 Balance 1186 / 1186 3397.50 / 3287.50 515 / 515 Medical Nutrition Assessment Dietitian: Malnutrition Criteria Met Start: 03/03/22 09:48 Freq: Status: Active Protocol: Document 03/03/22 09:48 AG (Rec: 03/03/22 09:48 AG [id number]) Nutrition Malnutrition Evidence of Malnutrition Exists Yes Malnutrition (severe): Chronic Evidenced By Suboptimal Energy Intake ( Severe),Weight Loss (Severe) Clinical Problem Chronic Disease or Condition Related Malnutrition Etiology chronic, severe malnutrition related to inadequate energy intake Signs/Symptoms as evidenced by unintentional 32.7#/17% wt loss x 4 months, estimated PO intake meeting < 75% of estimated energy needs > 3 months Status Active Problem Recommendation Dietitian Recommendations/Changes continue transitional diet; recommend sodium restricted diet and ensure plus high protein 120mL 4x/day w/ medpass as medically appropriate. Lab / Micro Data Result Diagrams: 03/03/22 23:55 03/03/22 23:55 Labs: Laboratory Results - last 24 hr 03/02/22 09:07: Crossmatch See Detail 03/03/22 07:02: POC Glucose 260 H 03/03/22 11:40: Hgb 9.9 L, Hct 27.7 L 03/03/22 11:56: POC Glucose 233 H 03/03/22 16:25: POC Glucose 199 H 03/03/22 22:02: POC Glucose 194 H 03/03/22 23:55: WBC 7.3, RBC 2.88 L, Hgb 8.8 L, Hct 25.1 L, MCV 87.2 D, MCH 30.6, MCHC 35.1 D, RDW Std Deviation 58.4 H, RDW Coeff of Trell 19.0 H, Plt Count 45 L*, MPV 9.7, Immature Gran % (Auto) 1.800 H, Neut % (Auto) 74.7 H, Lymph % (Auto) 12.9 L, [place] % (Auto) 8.6, Eos % (Auto) 1.6, Baso % (Auto) 0.4, Absolute Neuts (auto) 5.5, Absolute Lymphs (auto) 0.95, Nucleated RBC % 0.3, Diff Path Review August, Platelet Estimate MKD DEC, Polychromasia 1+, Anisocytosis 2+ 03/03/22 23:55: Sodium 141, Potassium 4.4, Chloride 111 H, Carbon Dioxide 25.0, Anion Gap 5, BUN 25 H, Creatinine 0.95, Estim Creat Clear Calc 60.00, Est GFR (MDRD) Af Amer 98, Est GFR (MDRD) Non-Af 81, BUN/Creatinine Ratio 26.3 H, Glucose 200 H, Calcium 7.3 L, Phosphorus 1.9 L, Magnesium 2.0, Total Bilirubin 2.30 H, AST 27, ALT 24, Alkaline Phosphatase 51, Total Protein 4.5 L, Albumin 2.2 L, Globulin 2.3, Albumin/Globulin Ratio 1.0, TSH 0.11 L 03/03/22 23:55: Ammonia 80.0 H 03/03/22 23:55: Free T4 1.21 ABG Data ABG results: ABG 03/04/22 04:02 Specimen Type ART Sample Site L Radial pH 7.45 Bicarbonate Actual 23.3 Total CO2 24 Base Excess -1 O2 Saturation 95 O2 % 21 ABG pCO2 33.6 L ABG pO2 73 L Pipo Test Positive Physical Exam Narrative GENERAL: Frail looking, sleepy but arousable HEENT: Atraumatic; normocephalic EYES; icteric with pallor of the conjunctiva NECK; supple, normal thyroid, RESPIRATORY: Diminished to auscultation CARDIOVASCULAR: Regular S1 S2, GI: soft, normoactive bowel sounds, : No Renal angle tenderness; EXTREMITIES: No edema, no clubbing, MUSCULOSKELETAL: no muscle wasting NEURO: Awake; no lateralizing signs. SKIN: No Rash PSYCH; Flat affect Assessment & Plan Assessment/Plan (1) Acute lower gastrointestinal bleeding: (2) Diverticulosis: (3) Thrombocytopenia: PLAN: Plan Patient is an 82 M with past medical history significant for diabetes mellitus type 2, history of chronic lymphocytic leukemia currently in remission, chronic thrombocytopenia, splenomegaly and chemo induced cirrhosis of the liver who presents bleeding per rectum 1. Acute GI bleed ? Lower GI bleed versus upper GI bleed. Patient has history of diverticulosis also has history of chemo induced cirrhosis of the liver with thrombocytopenia presenting with bleeding per rectum. Patient has been admitted to a monitored bed started on Protonix drip H&H ordered every 4 consultation placed to GI Case discussed with Dr. Levy -03/03/2022; Patient was transferred to the intensive care unit after becoming hypotensive following 2 large maroon bowel movement. He did have subsequent drop in his hemoglobin level. Patient was transfused with 2 unit PRBC started on octreotide drip patient was seen in consultation by Dr. Levy. Case has been discussed with him this AM. Plan is for patient to be transferred to [facility] to be evaluated by GI for possible TIPS ? 03/04/2022; patient was accepted for transfer at [facility] [place] 2. Anemia ? Secondary to acute blood loss anemia from above management as discussed above ? 03/03/2022; patient was transfused with 2 unit PRBC ? 03/04/2022 to additional unit transfused the day prior patient hemoglobin up to 8.8 3. Acute hepatic encephalopathy ? 03/04/2022 patient ammonia level was 80 patient started on lactulose 4.? Diabetes mellitus type II -patient's oral hypoglycemics held. Placed on long acting insulin, Accu-Cheks a.c. and at bedtime and covered with sliding scale insulin 5.? Cirrhosis of the liver ?Apparently chemo induced.? Patient has stigmata of portal hypertension with splenomegaly and gastric and splenic and esophageal varices as noted on CT of the abdomen.? Will avoid potential hepatotoxic medications and monitor patient's progress with daily CMP's 6.? Thrombocytopenia ?Secondary to cirrhosis of the liver monitoring with daily CBCs ? 03/04/2022 patient platelet count low at 45 7.? Dyslipidemia -Patient is on statin therapy, continued at home dose 8.? Essential hypertension ?Patient antihypertensives and diuretics placed on hold.? Patient was relatively hypotensive in the ED with systolic blood pressure in the 90s resuscitated with IV fluids with subsequent monitoring of vitals 9.? Chronic lymphocytic leukemia ?Currently in remission 10. DVT prophylaxis ?Avoided the use of chemoprophylaxis in view of patient's significant thrombocytopenia he wasPlaced on bilateral SCDs 11. Severe protein calorie malnutrition ? 03/04/2022 as evidenced by suboptimal energy intake and severe weight loss this is secondary to patient underlying chronic liver disease. Recommendation as per dietitian Charges/Coding Visit Charges Inpatient E&M: 40477 Subs Hosp L3
--- NOTE | 2022-03-04 07:45 | NURSING ---
[facility] ICU environmental planner called [facility] to see about a bed for this patient. Patient has a bed but we need to be more patient while they attempt to discharge patients at this time.
[2022-03-04 09:53] LABS: Pathologist Review Reviewed
[2022-03-04 11:40] LABS: Bedside Glucose 181 mg/dL (74-106)
--- NOTE | 2022-03-04 14:35 | PCM.DC.SUM ---
Providers Date of Admission: 03/02/22 Date of Discharge: 03/04/22 Primary Care Physician: Dr. Kervin Choi MD Consultations 03/02/22 12:25 Consult: Gastroenterology Routine Consulting Provider: [facility] Reason for Consult: Gi Bleed EMERGENT Consult: Yes MD Notified: Yes Date Notified: 03/02/22 Time Notified: 11:09 Method of Notification: Verbal Reason For Visit: LOWER GI BLEED Diagnosis Discharge Diagnosis (1) Acute lower gastrointestinal bleeding: Status: Acute Code(s): K92.2 - Gastrointestinal hemorrhage, unspecified (2) Diverticulosis: Status: Acute Code(s): K57.90 - Diverticulosis of intestine, part unspecified, without perforation or abscess without bleeding (3) Thrombocytopenia: Status: Acute Code(s): D69.6 - Thrombocytopenia, unspecified Plan Patient is an 82 M with past medical history significant for diabetes mellitus type 2, history of chronic lymphocytic leukemia currently in remission, chronic thrombocytopenia, splenomegaly and chemo induced cirrhosis of the liver who presents bleeding per rectum 1. Acute GI bleed ? Lower GI bleed versus upper GI bleed. Patient has history of diverticulosis also has history of chemo induced cirrhosis of the liver with thrombocytopenia presenting with bleeding per rectum. Patient has been admitted to a monitored bed started on Protonix drip H&H ordered every 4 consultation placed to GI Case discussed with Dr. Levy -03/03/2022; Patient was transferred to the intensive care unit after becoming hypotensive following 2 large maroon bowel movement. He did have subsequent drop in his hemoglobin level. Patient was transfused with 2 unit PRBC started on octreotide drip patient was seen in consultation by Dr. Levy. Case has been discussed with him this AM. Plan is for patient to be transferred to [facility] to be evaluated by GI for possible TIPS ? 03/04/2022; patient was accepted for transfer at [facility] 2. Anemia ? Secondary to acute blood loss anemia from above management as discussed above ? 03/03/2022; patient was transfused with 2 unit PRBC ? 03/04/2022 to additional unit transfused the day prior patient hemoglobin up to 8.8 3. Acute hepatic encephalopathy ? 03/04/2022 patient ammonia level was 80 patient started on lactulose 4.? Diabetes mellitus type II -patient's oral hypoglycemics held. Placed on long acting insulin, Accu-Cheks a.c. and at bedtime and covered with sliding scale insulin 5.? Cirrhosis of the liver ?Apparently chemo induced.? Patient has stigmata of portal hypertension with splenomegaly and gastric and splenic and esophageal varices as noted on CT of the abdomen.? Will avoid potential hepatotoxic medications and monitor patient's progress with daily CMP's 6.? Thrombocytopenia ?Secondary to cirrhosis of the liver monitoring with daily CBCs ? 03/04/2022 patient platelet count low at 45 7.? Dyslipidemia -Patient is on statin therapy, continued at home dose 8.? Essential hypertension ?Patient antihypertensives and diuretics placed on hold.? Patient was relatively hypotensive in the ED with systolic blood pressure in the 90s resuscitated with IV fluids with subsequent monitoring of vitals 9.? Chronic lymphocytic leukemia ?Currently in remission 10. DVT prophylaxis ?Avoided the use of chemoprophylaxis in view of patient's significant thrombocytopenia he wasPlaced on bilateral SCDs 11. Severe protein calorie malnutrition ? 03/04/2022 as evidenced by suboptimal energy intake and severe weight loss this is secondary to patient underlying chronic liver disease. Recommendation as per dietitian Medications at Discharge Home Medications metformin 1,000 mg tablet 1,000 mg PO BIDCM DIABETES 03/25/15 rosuvastatin 20 mg tablet 20 mg PO QHS CHOLESTEROL 03/25/15 sitagliptin phosphate 50 mg tablet (Januvia) 50 mg PO DAILY DIABETES 02/20/17 hydromorphone 2 mg tablet 2 mg PO Q3H PRN Pain/Inflammation 03/09/19 Bifidobacterium infantis 4 mg capsule (Align) 4 mg PO DAILY PROBIOTIC 04/17/19 allopurinol 300 mg tablet 300 mg PO DAILY GOUT 07/01/20 furosemide 20 mg tablet 20 mg PO DAILY EDEMA 07/01/20 pantoprazole 40 mg tablet,delayed release 40 mg PO BID GERD 07/01/20 polysaccharide iron complex 150 mg iron capsule (Ferrex) 150 mg PO BID SUPPLEMENT 07/01/20 baclofen 10 mg tablet 5 mg PO TID MUSCLE SPAMS 12/01/20 acetaminophen 500 mg tablet 500 mg PO Q6H PRN Pain 01/01/21 spironolactone 25 mg tablet 25 mg PO DAILY 01/15/22 gabapentin 300 mg capsule 300 mg PO TID NERVE PAIN 03/02/22 glimepiride 4 mg tablet 4 mg PO DAILY DIABETES 03/02/22 trazodone 100 mg tablet 100 mg PO QHS SLEEP 03/02/22 lactulose 20 gram/30 mL oral solution 20 g (30 mL) PO 4X/DAY #0 mL 03/04/22 pantoprazole 40 mg intravenous solution 80 mg continuous IV infusion Q10H #0 ea 03/04/22 Hospital Course Summary of Care Provided Minutes Spent on Discharge: 45 Physical Exam Narrative GENERAL: Frail looking, sleepy but arousable HEENT: Atraumatic; normocephalic EYES; icteric with pallor of the conjunctiva NECK; supple, normal thyroid, RESPIRATORY: Diminished to auscultation CARDIOVASCULAR: Regular S1 S2, GI: soft, normoactive bowel sounds, : No Renal angle tenderness; EXTREMITIES: No edema, no clubbing, MUSCULOSKELETAL: no muscle wasting NEURO: Awake; no lateralizing signs. SKIN: No Rash PSYCH; Flat affect Medical Records Data Medical Nutrition Assessment Dietitian: Malnutrition Criteria Met Start: 03/03/22 09:48 Freq: Status: Active Protocol: Document 03/03/22 09:48 (Rec: 03/03/22 09:48 [id number]) Nutrition Malnutrition Evidence of Malnutrition Exists Yes Malnutrition (severe): Chronic Evidenced By Suboptimal Energy Intake ( Severe),Weight Loss (Severe) Clinical Problem Chronic Disease or Condition Related Malnutrition Etiology chronic, severe malnutrition related to inadequate energy intake Signs/Symptoms as evidenced by unintentional 32.7#/17% wt loss x 4 months, estimated PO intake meeting < 75% of estimated energy needs > 3 months Status Active Problem Recommendation Dietitian Recommendations/Changes continue transitional diet; recommend sodium restricted diet and ensure plus high protein 120mL 4x/day w/ medpass as medically appropriate. Weight / BMI Weight Weight: 80.3 kg Body Mass Index (BMI) 25.0 ABG / Lab / Microbiology Data Result Diagrams: 03/03/22 23:55 03/03/22 23:55 Laboratory: Laboratory Results - last 24 hr 03/03/22 03:45: Diff Path Review Reviewed 03/03/22 16:25: POC Glucose 199 H 03/03/22 22:02: POC Glucose 194 H 03/03/22 23:55: WBC 7.3, RBC 2.88 L, Hgb 8.8 L, Hct 25.1 L, MCV 87.2 D, MCH 30.6, MCHC 35.1 D, RDW Std Deviation 58.4 H, RDW Coeff of Trell 19.0 H, Plt Count 45 L*, MPV 9.7, Immature Gran % (Auto) 1.800 H, Neut % (Auto) 74.7 H, Lymph % (Auto) 12.9 L, [place] % (Auto) 8.6, Eos % (Auto) 1.6, Baso % (Auto) 0.4, Absolute Neuts (auto) 5.5, Absolute Lymphs (auto) 0.95, Nucleated RBC % 0.3, Diff Path Review August foll, Platelet Estimate MKD DEC, Polychromasia 1+, Anisocytosis 2+ 03/03/22 23:55: Sodium 141, Potassium 4.4, Chloride 111 H, Carbon Dioxide 25.0, Anion Gap 5, BUN 25 H, Creatinine 0.95, Estim Creat Clear Calc 60.00, Est GFR (MDRD) Af Amer 98, Est GFR (MDRD) Non-Af 81, BUN/Creatinine Ratio 26.3 H, Glucose 200 H, Calcium 7.3 L, Phosphorus 1.9 L, Magnesium 2.0, Total Bilirubin 2.30 H, AST 27, ALT 24, Alkaline Phosphatase 51, Total Protein 4.5 L, Albumin 2.2 L, Globulin 2.3, Albumin/Globulin Ratio 1.0, TSH 0.11 L 03/03/22 23:55: Ammonia 80.0 H 03/03/22 23:55: Free T4 1.21 03/04/22 11:19: POC Glucose 181 H Microbiology: Microbiology 03/04/22 10:27 Nasal Secretion SARS-CoV-2 Antigen (Rapid) - Final ABG: ABG 03/04/22 04:02 Specimen Type ART Sample Site L Radial pH 7.45 Bicarbonate Actual 23.3 Total CO2 24 Base Excess -1 O2 Saturation 95 O2 % 21 ABG pCO2 33.6 L ABG pO2 73 L Pipo Test Positive D/C Instructions Discharge Diet: 1800 Calorie Control Diet Discharge Activity: Return to Normal Activity Call your doctor if you observe: Fever of 101 or Higher, Shortness of breath, Fainting spells and Chest pain Meaningful Use Info Meaningful Use Diagnoses (Choose all that apply): None applicable Discharge Plan Admission Admit Date/Time: 03/02/22 11:11 Attending Provider: Willian Rojo Primary Care Provider: Kervin Choi Discharge Orders/Prescriptions Prescriptions: New lactulose 20 gram/30 mL Solution 20 g PO 4X/DAY Qty: 0 0RF pantoprazole 40 mg Recon Soln 80 mg continuous IV infusion Q10H Qty: 0 0RF Continued Align 4 mg capsule 4 mg PO DAILY pantoprazole 40 mg tablet,delayed release (DR/EC) 40 mg PO BID furosemide 20 mg tablet 20 mg PO DAILY allopurinol 300 mg tablet 300 mg PO DAILY polysaccharide iron complex [Ferrex 150] 150 mg iron capsule 150 mg PO BID Rx Instructions: avoid dairy/calcium-containing products and/or antacids for at least 2 hrs before and after dose acetaminophen 500 mg tablet 500 mg PO Q6H PRN (Reason: Pain) spironolactone 25 mg tablet 25 mg PO DAILY metformin 1,000 MG tablet 1,000 mg PO BIDCM Label Comments: BLOOD SUGAR rosuvastatin 20 MG tablet 20 mg PO QHS Label Comments: CHOLESTEROL Januvia 50 MG tablet 50 mg PO DAILY hydromorphone 2 MG tablet 2 mg PO Q3H PRN (Reason: Pain/Inflammation) baclofen 10 mg tablet 5 mg PO TID glimepiride 4 mg tablet 4 mg PO DAILY gabapentin 300 mg capsule 300 mg PO TID Label Comments: TAKE 1 CAPSULE BY MOUTH THREE TIMES DAILY trazodone 100 mg tablet 100 mg PO QHS Referrals / Follow Up: Kervin Choi MD [Primary Care Provider] - Within 2 Weeks Amadou Levy DO [Med Staff - Active Staff] - Within 1 Month Disposition Disposition (needs filled in before D/C Order can be placed): Acute Care Hospital Charges/Coding Visit Charges Inpatient E&M: 09407 Disch Hosp
--- NOTE | 2022-03-04 14:59 | NURSING ---
Report given to Physicians ambulance staff.
[2022-03-04 16:06] LABS: Bedside Glucose 180 mg/dL (74-106)
[2022-03-05 10:00] LABS: Pathologist Review Reviewed
== END 2022-03-04 15:08 | disposition short-term general hospital (02) | DRG 377 ==
LOC: ED 10:07 → PCU 11:12 → ICU 03-03 08:32
PROVIDERS: Internal Medicine; Admitting Provider Internal Medicine; Emergency Provider Emergency Medicine; PCP Family Medicine; Visit Provider Internal Medicine
DX: K55.21 Angiodysplasia of colon with hemorrhage (principal); E43 Unspecified severe protein-calorie malnutrition; K76.6 Portal hypertension; D62 Acute posthemorrhagic anemia; C91.10 Chronic lymphocytic leukemia of B-cell type not having achieved remission; I85.01 Esophageal varices with bleeding; K76.82 Hepatic encephalopathy; D69.6 Thrombocytopenia, unspecified; K74.69 Other cirrhosis of liver; E11.9 Type 2 diabetes mellitus without complications; I48.0 Paroxysmal atrial fibrillation; I10 Essential (primary) hypertension; E78.2 Mixed hyperlipidemia; K21.9 Gastro-esophageal reflux disease without esophagitis; I95.9 Hypotension, unspecified; K57.91 Diverticulosis of intestine, part unspecified, without perforation or abscess with bleeding; Z87.19 Personal history of other diseases of the digestive system; Z79.84 Long term (current) use of oral hypoglycemic drugs; Z87.891 Personal history of nicotine dependence; T45.1X5A Adverse effect of antineoplastic and immunosuppressive drugs, initial encounter; Z68.25 Body mass index [BMI] 25.0-25.9, adult; Z79.899 Other long term (current) drug therapy; N40.0 Benign prostatic hyperplasia without lower urinary tract symptoms
CPT/HCPCS: 36569; 36600; 74174; 80048; 80053; 80076; 82140; 82803; 82962; 83735; 84100; 84439; 84443; 85014; 85018; 85025; 85610; 85730; 86644; 86850; 86900; 86901; 86920; 87426; 99284; J7030; P9016; Q9967; A4216; J3490

== ENCOUNTER 2022-03-25 12:56 | Outpatient (CLI) | payer MEDICARE, OTHER, SELFPAY ==
--- NOTE | 2022-03-25 13:00 | US_ITS ---
PROCEDURE: Ultrasound guided paracentesis. DATE OF EXAMINATION: 03/25/2022. INDICATION: Male, 82 years old. Ascites. PHYSICIAN: Pradeep Vickers DO TECHNIQUE: The risks, benefits, and alternatives to the procedure were explained to the patient. The specific risks of bleeding, infection, and damage to bowel were detailed and accepted. Witnessed informed consent was obtained. The abdomen was ultrasonographically surveyed. An appropriate pocket of fluid was identified at the right lower quadrant. The skin were cleaned and prepped in the usual sterile fashion. Using ultrasound guidance, the peritoneal cavity was accessed with a 5-Ukrainian paracentesis needle/catheter system. The trocar was removed. A total of 3790 ml of clear straw-colored ascites fluid were removed from the peritoneal cavity. The catheter was removed and a sterile dressing was applied. The procedure was well tolerated. The patient was discharged in stable condition. US/Paracentesis with US IMPRESSION: Ultrasound guided therapeutic paracentesis. Electronically Signed: Pradeep Vickers, at 15:35 EST ,
[2022-03-25] MEDS: Lidocaine 2% (20 ml mdv) 20 ML Vial INFILT (13:26)
[2022-03-25 13:31] VITALS: BP 129/52; BP 135/54; BP 136/50; BP 141/59; BP 142/56; BP 146/60; PULSE 90; PULSE 91; PULSE 94; PULSE 95; PULSE 98; PULSE 99; RESP 16; RESP 18; TEMP 36.8; O2SAT 93; O2SAT 95; O2SAT 97; O2SAT 99
[2022-03-25 14:59] LABS: Erythrocyte Sedimentation Rate 11 mm/hr (0-20)
[2022-03-25 15:03] LABS: Absolute Lymphocyte Count 0.52 X10^3/uL (0.83-4.51); Absolute Neutrophil Count 2.8 X10^3/uL (2.0-7.7); Basophil# 0.02 X10^3/uL; Basophil% 0.5 % (0-1); Eosinophil# 0.04 X10^3/uL; Eosinophils% 1.1 % (0-5); Hematocrit 31.3 % (40-54); Hemoglobin 9.9 g/dL (13.0-16.5); Lymphocyte # 0.52 X10^3/ul (0.83-4.51); Mean Corp Hgb Conc 31.6 g/dL (32-36); Mean Corpuscular Hgb 29.5 pg (27.0-32.0); Mean Corpuscular Volume 93.2 fL (80-94); Mean Platelet Vol. 9.4 fl (6.2-12.0); Monocyte# 0.32 X10^3/uL; Monocyte% 8.6 % (0-10); NRBC Flagged by Analyzer 0 % (0-5); Neutrophil % 75.3 % (47-70); POSITIVE COUNT YES; POSITIVE DIFFERENTIAL YES; POSITIVE MORPHOLOGY YES; Platelet Count 60 K/mm3 (150-450); RBC Distribution Width CV 19.9 % (11.6-14.6); RBC Distribution Width SD 67.4 fl (35.1-43.9); Red Blood Count 3.36 M/mm3 (4.6-6.2); White Blood Count 3.7 K/mm3 (4.4-11.0)
[2022-03-25 15:05] LABS: ALB/GLOB Ratio 0.7 RATIO (0.9-2.4); AST(SGOT) 32 U/L (15-37); Alanine Aminotransfer ALT/SGPT 22 U/L (16-61); Albumin, Serum 2.3 g/dL (3.2-5.0); Alkaline Phosphatase 120 U/L (45-117); Anion Gap 9 (5-15); BUN 5 mg/dL (7-18); Calcium,Total 8.5 mg/dL (8.5-10.1); Chloride 99 mmol/L (98-107); EST Glomerular Filtration Rate 77 mL/min (>60); Est Glom Filt Rate - Afr Amer 93 mL/min (>60); Globulin 3.1 g/dL (2.2-4.2); Glucose 184 mg/dL (74-106); LDH 267 U/L (87-241); Potassium 3.1 mmol/L (3.5-5.1); Protein, Total 5.4 g/dL (6.4-8.2); Sodium Level 140 mmol/L (136-145)
[2022-03-25 15:06] LABS: Differential Indicated SCAN CRITERIA MET
[2022-03-25 15:07] LABS: International Normalized Ratio 1.3; Prothrombin Time (Protime)PT. 16.1 SECONDS (11.7-14.9)
[2022-03-25 15:30] LABS: Anisocytosis 2+; Differential Comment SCANNED
[2022-03-27 13:26] LABS: Pathologist Review Reviewed
== END 2022-03-25 23:59 | disposition home or self-care (01) ==
PROVIDERS: PCP Family Medicine; Referring Provider Internal Medicine Gastroenterology; Visit Provider Internal Medicine Gastroenterology
DX: K74.60 Unspecified cirrhosis of liver (principal)
CPT/HCPCS: 49083; 36415; 80053; 82140; 83615; 85025; 85610; 85652; 86140

== ENCOUNTER 2022-03-31 17:04 | Inpatient (IN) | payer MEDICARE, OTHER, SELFPAY ==
[2022-03-31] VITALS (8 sets, daily range): BP systolic 118–131; BP diastolic 51–61; PULSE 81–105; RESP 10–18; TEMP 36.7; O2SAT 95–98; BMI 28.4; BMI 28.2
--- NOTE | 2022-03-31 17:46 | RAD_ITS ---
STUDY: X-RAY CHEST REASON FOR EXAM: Male, 82 years old. weakness TECHNIQUE: AP portable COMPARISON: 11/23/2021 FINDINGS: Mild right lower lobe atelectasis or infiltrate.. Blunted left costophrenic angle possibly representing small effusion. Borderline cardiomegaly. Normal mediastinum and leticia. Normal visualized pulmonary arteries. Mildly calcified aortic arch and descending thoracic aorta. Dorsal spine and shoulders demonstrate degenerative change. Normal visualized ribs, and clavicles. There is no demonstrated abnormality of the visualized soft tissue structures of the upper abdomen. RAD/Chest 1 View (Portable) IMPRESSION: Mild right lower lobe atelectasis or infiltrate. Possible small left pleural effusion. Electronically Signed: Kervin Mortensen MD at 18:07 EST ,
[2022-03-31 17:59] LABS: Absolute Lymphocyte Count 0.78 X10^3/uL (0.83-4.51); Absolute Neutrophil Count 3.3 X10^3/uL (2.0-7.7); Basophil# 0.02 X10^3/uL; Basophil% 0.4 % (0-1); Eosinophil# 0.09 X10^3/uL; Eosinophils% 1.9 % (0-5); Hematocrit 32.2 % (40-54); Hemoglobin 10.3 g/dL (13.0-16.5); Lymphocyte # 0.78 X10^3/ul (0.83-4.51); Lymphocyte % 16.7 % (19-41); Mean Corpuscular Hgb 29.5 pg (27.0-32.0); Mean Corpuscular Volume 92.3 fL (80-94); Mean Platelet Vol. 10.9 fl (6.2-12.0); Monocyte# 0.43 X10^3/uL; Monocyte% 9.2 % (0-10); NRBC Flagged by Analyzer 0 % (0-5); Neutrophil # 3.32 X10^3/uL (2.7-7.7); Neutrophil % 71.4 % (47-70); POSITIVE COUNT YES; POSITIVE MORPHOLOGY YES; Platelet Count 61 K/mm3 (150-450); RBC Distribution Width CV 19.3 % (11.6-14.6); RBC Distribution Width SD 65.1 fl (35.1-43.9); Red Blood Count 3.49 M/mm3 (4.6-6.2); White Blood Count 4.7 K/mm3 (4.4-11.0)
[2022-03-31 18:10] LABS: Differential Indicated SCAN CRITERIA MET
[2022-03-31 18:15] LABS: Partial Thromboplast Time 33.6 Seconds (24.1-36.2)
[2022-03-31 18:16] LABS: AST(SGOT) 44 U/L (15-37); Alanine Aminotransfer ALT/SGPT 24 U/L (16-61); Albumin, Serum 2.2 g/dL (3.2-5.0); Alkaline Phosphatase 124 U/L (45-117); BUN 6 mg/dL (7-18); BUN/Creat Ratio 6.1 RATIO (10-20); Bilirubin, Direct 0.57 mg/dL (0.00-0.30); Calcium,Total 8.7 mg/dL (8.5-10.1); Creatinine, Serum 0.98 mg/dL (0.70-1.30); EST Glomerular Filtration Rate 78 mL/min (>60); Est Glom Filt Rate - Afr Amer 95 mL/min (>60); Estimated Creatinine Clearance 58.16 ml/min; Globulin 3.5 g/dL (2.2-4.2); Glucose 160 mg/dL (74-106); Protein, Total 5.7 g/dL (6.4-8.2); Sodium Level 138 mmol/L (136-145)
[2022-03-31 18:17] LABS: Anion Gap 11 (5-15); Chloride 98 mmol/L (98-107); Potassium 3.6 mmol/L (3.5-5.1)
[2022-03-31 18:22] LABS: International Normalized Ratio 1.4; Prothrombin Time (Protime)PT. 16.4 SECONDS (11.7-14.9)
[2022-03-31 18:27] LABS: Lactic Acid 7.8 mmol/L (0.4-1.9)
--- NOTE | 2022-03-31 18:28 | EX.ED.DYSGE1 ---
HPI History of Present Illness Chief Complaint: Edema Informant: patient and family Narrative Narrative: Patient is an 82-year-old male with complex medical history including cirrhosis of the liver (chemo induced) with portal hypertension status post TIPS procedure on 03/13 at [facility] [place] as well as hepatic encephalopathy, anemia, thrombocytopenia, hypertension, CLL and type 2 diabetes mellitus. He is presenting with generalized weakness and increased confusion. Patient last had a paracentesis on Wednesday, 3 days ago and had 3.7 L removed. He is scheduled for another paracentesis this Wednesday. Family notes has been more weak over the past 2 days. Has had nausea but no vomiting. Denies any report of black or blood in the stool. No report of any falls or head injuries. Has had a scrape on his left ankle with increased redness over the past week. Was concerned that he could have cellulitis. Was supposed to have a virtual appointment with Dr. Brown, his PCP, however patient was sleeping at that time and the Internet was not working at the house. I also spoke with his GI doctor, Dr. Levy, who recommend he come to the ER. No report of any fevers. No other complaints at this time. [facility] Medical History (Updated 04/01/22 @ 00:[address] Lorin Dempsey, DO) Anemia Aphthous ulcer BPH (benign prostatic hyperplasia) Cancer Cirrhosis CLL (chronic lymphocytic leukemia) Diarrhea Essential hypertension Former smoker Generalized weakness GERD (gastroesophageal reflux disease) Hyperlipemia Mixed hyperlipidemia VALERIE (obstructive sleep apnea) Osteoarthritis Pancytopenia Paroxysmal atrial fibrillation Splenomegaly Thoracic aortic aneurysm without rupture Thrombocytopenia Type 2 diabetes mellitus Home Medications metformin 1,000 mg tablet 1,000 mg PO BIDCM DIABETES 03/25/15 [History Last Taken 03/31/22] sitagliptin phosphate 50 mg tablet (Januvia) 50 mg PO DAILY DIABETES 02/20/17 [History Last Taken 03/31/22] hydromorphone 2 mg tablet 2 mg PO Q3H PRN Pain/Inflammation 03/09/19 [History Last Taken 03/31/22] Bifidobacterium infantis 4 mg capsule (Align) 4 mg PO DAILY PROBIOTIC 04/17/19 [History Last Taken 03/31/22] furosemide 20 mg tablet 20 mg PO DAILY EDEMA 07/01/20 [History Last Taken 03/31/22] pantoprazole 40 mg tablet,delayed release 40 mg PO 0600,1600 GERD 07/01/20 [History Last Taken 03/31/22] polysaccharide iron complex 150 mg iron capsule (Ferrex) 150 mg PO BID SUPPLEMENT 07/01/20 [History Last Taken 03/31/22] baclofen 10 mg tablet 5 mg PO TID MUSCLE SPAMS 12/01/20 [History Last Taken 03/31/22] acetaminophen 500 mg tablet 500 mg PO Q6H PRN Pain 01/01/21 [History Last Taken Unknown] spironolactone 25 mg tablet 25 mg PO DAILY 01/15/22 [History Last Taken 03/31/22] gabapentin 300 mg capsule 300 mg PO TID NERVE PAIN 03/02/22 [History Last Taken 03/31/22] glimepiride 4 mg tablet 4 mg PO DAILY DIABETES 03/02/22 [History Last Taken 03/31/22] lactulose 10 gram/15 mL oral solution (Constulose) 30 ml PO TID 03/31/22 [History Last Taken 03/31/22] ondansetron HCl 4 mg tablet 4 mg PO Q8H NAUSEA/VOMITING 03/31/22 [History Last Taken 03/30/22] rifaximin 550 mg tablet 550 mg PO BID 03/31/22 [History Last Taken 03/31/22] trazodone 50 mg tablet 50 mg PO QHS SLEEP 03/31/22 [History Last Taken 03/30/22] Allergy/AdvReac Type Severity Reaction Status Date / Time cefazolin sodium [From Ancef] Allergy Rash Verified 03/31/22 17:14 clindamycin Allergy Chest Verified 03/31/22 17:14 tightness hydrocodone bitartrate Allergy Rash Verified 03/31/22 17:14 [From Vicodin] Family History Father Parkinson disease Brother Heart disease Diabetes Sister Atrial fibrillation Breast cancer Surgical History History of colonoscopy (~2018) History of hip replacement Social History Smoking Status: Former smoker alcohol intake: never substance use type: does not use caffeine: Yes Type: coffee Number of servings: 2 ROS ROS ED Constitutional Constitutional ED: Reports chills; Denies fever(s) Eyes Eyes: Denies blurry vision ENT ENT ED: Denies rhinorrhea or sore throat Cardiovascular Cardiovascular: Denies chest pain or palpitations Respiratory/Chest Respiratory/Chest: Reports dyspnea on exertion; Denies cough Gastrointestinal Gastrointestinal: Reports constipation and other Details: Abdominal distention ; Denies abdominal pain, diarrhea, melena, nausea or vomiting Genitourinary Genitourinary ED: Denies dysuria Musculoskeletal Musculoskeletal: Denies arthralgias or myalgias Integumentary Reports rash Neurologic Neurologic: Reports weakness; Denies headache(s) Psychiatric Psychiatric: Denies anxiety Hematologic/Lymphatic Hematologic/Lymphatic: Reports easy bruising EXAM Physical Exam Const Vital Signs: 03/31/22 17:05 03/31/22 17:15 03/31/22 17:37 Temperature 98.1 F Temperature Source Oral Pulse Rate 95 Respiratory Rate 10 L Respiratory Effort Normal Non-Labored Respiratory Pattern Normal Blood Pressure 131/59 H Blood Pressure Mean 83 Pulse Ox 95 Oxygen Delivery Method Room Air Room Air 03/31/22 18:51 03/31/22 20:00 03/31/22 20:53 Temperature 98.1 F Temperature Source Oral Pulse Rate 105 H 81 81 Respiratory Rate 16 10 L 10 L Respiratory Effort Respiratory Pattern Blood Pressure 121/61 H 118/57 L 118/57 L Blood Pressure Mean 81 77 77 Pulse Ox 98 95 95 Oxygen Delivery Method Room Air Room Air Room Air 03/31/22 22:00 Temperature Temperature Source Pulse Rate Respiratory Rate Respiratory Effort Respiratory Pattern Blood Pressure Blood Pressure Mean Pulse Ox 95 Oxygen Delivery Method Room Air Positive well developed Constitutional Narrative: Chronically ill-appearing General Appearance ED: well developed and NAD; Negative for pallor HEENT Reports dry mucous membranes Negative for trauma Mouth ED: Yes dry mucous membranes Mouth: dry mucous membranes Eyes PERRL and EOMs intact bilaterally General Eye ED: Negative for pale conjunctiva or scleral icterus Neck supple Neck Narrative: No meningeal signs Chest Wall inspection of chest normal and palpation of chest normal Resp normal respiratory effort and clear to auscultation bilaterally Cardio regular rate, regular rhythm and no murmurs GI non-tender GI Narrative: Distended abdomen with positive fluid wave. No peritoneal signs Palpation: Negative for tender or guarding Extremity General Extremety ED: Yes edema; Negative for tenderness General Extremity: edema Neuro Neuro Narrative: Positive asterixis Sensorium / Orientation: alert and orientation impaired Psych mental status grossly normal Skin Skin Narrative: Erythema and warmth along the medial left ankle as well as the distal left moody. No petechia appreciated. No associated fluctuance or drainage. General Skin Exam: Negative for jaundice or pallor MDM MDM MDM Narrative Medical decision making narrative: Patient is a complex patient presenting with increased weakness and confusion. He has recurrent ascites as well as a new rash on his left lower extremity. The rash is consistent with cellulitis. I am concerned that patient is encephalopathic as well and he has asterixis on exam. He is been having constipation despite reportedly being compliant with his lactulose. His ammonia is elevated at 71 and patient's lactate is significantly elevated 7.8. He does have some baseline elevation associated with his liver disease but not usually this high. Patient has an improving anemia with a hemoglobin of 10.3 and no leukocytosis. BMP largely unremarkable and his total bilirubin is 1.5 with no significant transaminitis. Chest x-ray shows mild right lower lobe atelectasis or infiltrate with possible small left pleural effusion. Patient does not have any hypoxia or respiratory symptoms have a low suspicion for pneumonia. Case is discussed with GI on-call, Dr. Levy, who recommends giving him a full 30 cc/kg fluid bolus given his significant lactic acidosis and normal renal function and states that he can do a paracentesis sooner than Wednesday if needed because of the IV fluid bolus. Patient started on broad-spectrum antibiotics, vancomycin and Levaquin to cover for skin as well as possible SBP. He is given lactulose in the emergency room. Will be admitted for further treatment. Family is agreeable this plan of care. Patient remained hemodynamically stable in the emergency room Lab Data Attestation: I reviewed the patient's lab results. Labs: Laboratory Results - last 24 hr 03/31/22 03/31/22 03/31/22 17:45 17:45 17:45 WBC 4.7 RBC 3.49 L Hgb 10.3 L Hct 32.2 L MCV 92.3 MCH 29.5 MCHC 32.0 RDW Std Deviation 65.1 H RDW Coeff of Trell 19.3 H Plt Count 61 L MPV 10.9 Immature Gran % (Auto) 0.400 Neut % (Auto) 71.4 H Lymph % (Auto) 16.7 L Lipscomb % (Auto) 9.2 Eos % (Auto) 1.9 Baso % (Auto) 0.4 Absolute Neuts (auto) 3.3 Absolute Lymphs (auto) 0.78 L Nucleated RBC % 0 Differential Comment SCANNED Anisocytosis 1+ PT 16.4 H INR 1.4 APTT 33.6 Sodium 138 Potassium 3.6 Chloride 98 Carbon Dioxide 29.0 Anion Gap 11 BUN 6 L Creatinine 0.98 Estim Creat Clear Calc 58.16 Est GFR (MDRD) Af Amer 95 Est GFR (MDRD) Non-Af 78 BUN/Creatinine Ratio 6.1 L Glucose 160 H Lactic Acid Calcium 8.7 Total Bilirubin 1.50 H Direct Bilirubin 0.57 H AST 44 H ALT 24 Alkaline Phosphatase 124 H Ammonia Total Protein 5.7 L Albumin 2.2 L Globulin 3.5 Urine Color Urine Clarity Urine pH Ur Specific Beaver Urine Protein Urine Glucose (UA) Urine Ketones Urine Occult Blood Urine Nitrite Urine Bilirubin Urine Urobilinogen Ur Leukocyte Esterase Urine RBC Urine WBC Ur Squamous Epith Cells Urine Bacteria Urine Mucus 03/31/22 03/31/22 03/31/22 17:45 17:45 20:33 WBC RBC Hgb Hct MCV MCH MCHC RDW Std Deviation RDW Coeff of Trell Plt Count MPV Immature Gran % (Auto) Neut % (Auto) Lymph % (Auto) Lipscomb % (Auto) Eos % (Auto) Baso % (Auto) Absolute Neuts (auto) Absolute Lymphs (auto) Nucleated RBC % Differential Comment Anisocytosis PT INR APTT Sodium Potassium Chloride Carbon Dioxide Anion Gap BUN Creatinine Estim Creat Clear Calc Est GFR (MDRD) Af Amer Est GFR (MDRD) Non-Af BUN/Creatinine Ratio Glucose Lactic Acid 7.8 H* Calcium Total Bilirubin Direct Bilirubin AST ALT Alkaline Phosphatase Ammonia 71.0 H Total Protein Albumin Globulin Urine Color Yellow Urine Clarity Clear Urine pH 6.5 Ur Specific Beaver 1.015 Urine Protein Negative Urine Glucose (UA) Normal Urine Ketones 5 H Urine Occult Blood 10 H Urine Nitrite Negative Urine Bilirubin Negative Urine Urobilinogen Normal Ur Leukocyte Esterase 25 H Urine RBC 0 SEEN Urine WBC 0-5 SEEN Ur Squamous Epith Cells 0 SEEN Urine Bacteria 0 SEEN Urine Mucus 0 SEEN Radiography Diagnostic Testing: Clinical Impression(s) from Imaging Studies Chest X-Ray 03/31/22 17:46 IMPRESSION: Mild right lower lobe atelectasis or infiltrate. Possible small left pleural effusion. Electronically Signed: Kervin Mortensen MD at 18:07 EST , Rhythm Strip Rhythm Strip: Sinus Rhythm Rate: 93 Ectopy: None EKG Initial EKG: Attestation: I personally reviewed and interpreted this EKG as follows: Interpretation: Sinus Rhythm Comments: Normal sinus rhythm at a rate of 93 beats per minutes Left axis deviation Incomplete right bundle branch block Prolonged QTC at [address] segments Discharge Plan Dx/Rx/DC Orders Clinical Impression: Generalized weakness, Hepatic encephalopathy, Cellulitis of left leg, Acidosis, lactic Disposition Disposition: Acute Care Hospital [facility] Discharge Date/Time: 03/31/22 22:27
[2022-03-31 18:31] LABS: Anisocytosis 1+; Differential Comment SCANNED
[2022-03-31] MEDS: Lactated Ringers 1,000 ML 999 ML IV ×2 (20:04→22:23)
[2022-03-31] MEDS: Lactulose 20 GM/30 ML UDC PO (20:08)
[2022-03-31] MEDS: levoFLOXacin IV 500 MG/100 ML BAG 100 MG IV (20:28)
[2022-03-31 20:37] LABS: Bacteria 0 SEEN /hpf (None Seen); Mucous, Urine 0 SEEN /hpf (<or=2+); Red Blood Cells-Urine 0 SEEN /hpf (0-5); Squamous Epithelial Cells - UA 0 SEEN /hpf (0-5)
[2022-03-31 20:40] LABS: Color, Urine Yellow (Yellow); Glucose, Dipstick Normal (Normal); Ketone-Dipstick 5 mg/dl (Negative); Leukocyte Esterase-Dipstick 25 /ul (Negative); Nitrite-Dipstick Negative (Negative); Occult Blood-Urine 10 /ul (Negative); Protein-Dipstick Negative (Negative); Specific Gravity, Urine 1.015 (1.002-1.030); Urine Bilirubin Dipstick Negative (Negative); Urine Clarity Clear (Clear); Urine Urobilinogen Normal (Normal); Urine pH 6.5 (5.0 - 8.0)
[2022-03-31 20:46] LABS: White Blood Cells 0-5 SEEN /hpf (0-5)
[2022-03-31 21:51] LABS: Reflex Lactate? Y
--- NOTE | 2022-03-31 22:07 | PCM.HP.STD ---
HPI - General General Date of Admission: 03/31/22 Date of Service: 03/31/22 Chief Complaint: Lethargy HPI Narrative ALIZA OSEI, is a 82 M with a significant history paroxysmal A. 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 Associated with his symptoms is weakness, malaise, nausea, and anorexia. Also there is a red rash on patient's left leg. Patient had TIPS procedure at [facility] about 2 and a half ago weeks ago. FORMERLY [facility] Medical History Anemia Aphthous ulcer BPH (benign prostatic hyperplasia) Cancer Cirrhosis CLL (chronic lymphocytic leukemia) Diarrhea Essential hypertension Former smoker Generalized weakness GERD (gastroesophageal reflux disease) Hyperlipemia Mixed hyperlipidemia VALERIE (obstructive sleep apnea) Osteoarthritis Pancytopenia Paroxysmal atrial fibrillation Splenomegaly Thoracic aortic aneurysm without rupture Thrombocytopenia Type 2 diabetes mellitus Home Medications metformin 1,000 mg tablet 1,000 mg PO BIDCM DIABETES 03/25/15 [History Last Taken 03/31/22] sitagliptin phosphate 50 mg tablet (Januvia) 50 mg PO DAILY DIABETES 02/20/17 [History Last Taken 03/31/22] hydromorphone 2 mg tablet 2 mg PO Q3H PRN Pain/Inflammation 03/09/19 [History Last Taken 03/31/22] Bifidobacterium infantis 4 mg capsule (Align) 4 mg PO DAILY PROBIOTIC 04/17/19 [History Last Taken 03/31/22] furosemide 20 mg tablet 20 mg PO DAILY EDEMA 07/01/20 [History Last Taken 03/31/22] pantoprazole 40 mg tablet,delayed release 40 mg PO 0600,1600 GERD 07/01/20 [History Last Taken 03/31/22] polysaccharide iron complex 150 mg iron capsule (Ferrex) 150 mg PO BID SUPPLEMENT 07/01/20 [History Last Taken 03/31/22] baclofen 10 mg tablet 5 mg PO TID MUSCLE SPAMS 12/01/20 [History Last Taken 03/31/22] acetaminophen 500 mg tablet 500 mg PO Q6H PRN Pain 01/01/21 [History Last Taken Unknown] spironolactone 25 mg tablet 25 mg PO DAILY 01/15/22 [History Last Taken 03/31/22] gabapentin 300 mg capsule 300 mg PO TID NERVE PAIN 03/02/22 [History Last Taken 03/31/22] glimepiride 4 mg tablet 4 mg PO DAILY DIABETES 03/02/22 [History Last Taken 03/31/22] lactulose 10 gram/15 mL oral solution (Constulose) 30 ml PO TID 03/31/22 [History Last Taken 03/31/22] ondansetron HCl 4 mg tablet 4 mg PO Q8H NAUSEA/VOMITING 03/31/22 [History Last Taken 03/30/22] rifaximin 550 mg tablet 550 mg PO BID 03/31/22 [History Last Taken 03/31/22] trazodone 50 mg tablet 50 mg PO QHS SLEEP 03/31/22 [History Last Taken 03/30/22] Allergy/AdvReac Type Severity Reaction Status Date / Time cefazolin sodium [From Ancef] Allergy Rash Verified 03/31/22 17:14 clindamycin Allergy Chest Verified 03/31/22 17:14 tightness hydrocodone bitartrate Allergy Rash Verified 03/31/22 17:14 [From Vicodin] Family History Father Parkinson disease Brother Heart disease Diabetes Sister Atrial fibrillation Breast cancer Surgical History History of colonoscopy (~2017) History of hip replacement Social History Smoking Status: Former smoker alcohol intake: never substance use type: does not use caffeine: Yes Type: coffee Number of servings: 2 ROS ROS Narrative Pertinent positives and pertinent negatives as noted in HPI. All other systems were reviewed and are negative Vital Signs Vital Signs Vital Signs: 03/31/22 17:05 03/31/22 17:15 03/31/22 17:37 Temperature 98.1 F Temperature Source Oral Pulse Rate 95 Respiratory Rate 10 L Respiratory Effort Normal Non-Labored Respiratory Pattern Normal Blood Pressure 131/59 H Blood Pressure Mean 83 Pulse Ox 95 Oxygen Delivery Method Room Air Room Air 03/31/22 18:51 03/31/22 20:00 03/31/22 20:53 Temperature 98.1 F Temperature Source Oral Pulse Rate 105 H 81 81 Respiratory Rate 16 10 L 10 L Respiratory Effort Respiratory Pattern Blood Pressure 121/61 H 118/57 L 118/57 L Blood Pressure Mean 81 77 77 Pulse Ox 98 95 95 Oxygen Delivery Method Room Air Room Air Room Air Weight Weight: 84.9 kg Body Mass Index (BMI) 28.4 Physical Exam Narrative Physical exam: General: Well-nourished, well-developed. Head: Normocephalic, atraumatic, no tenderness Eyes: Vision is grossly intact. EOMI ENT, no trauma, moist mucous membranes, no rhinorrhea Neck: Nontender, full range of motion. CVS: Regular rate and rhythm. S1-S2 present. No murmur, gallop or rub. Respiratory : Mild diffused rales, chest wall nontender. Abdomen: Soft, nontender, nondistended, normal bowel sounds, no masses : Deferred Back: Nontender, no CVA tenderness. Extremities: 3+ edema bilateral legs. Petechiae rash on left leg. Skin: Mildly jaundiced; no trauma Neuro: Alert, cranial nerves II through XII grossly intact. Psychiatry: Patient's hardly talked. Normal mood. Results Lab / Micro Data Result Diagrams: 03/31/22 17:45 03/31/22 17:45 Labs: Laboratory Results - last 24 hr 03/31/22 17:45: WBC 4.7, RBC 3.49 L, Hgb 10.3 L, Hct 32.2 L, MCV 92.3, MCH 29.5, MCHC 32.0, RDW Std Deviation 65.1 H, RDW Coeff of Trell 19.3 H, Plt Count 61 L, MPV 10.9, Immature Gran % (Auto) 0.400, Neut % (Auto) 71.4 H, Lymph % (Auto) 16.7 L, [place] % (Auto) 9.2, Eos % (Auto) 1.9, Baso % (Auto) 0.4, Absolute Neuts (auto) 3.3, Absolute Lymphs (auto) 0.78 L, Nucleated RBC % 0, Differential Comment SCANNED, Anisocytosis 1+ 03/31/22 17:45: PT 16.4 H, INR 1.4, APTT 33.6 03/31/22 17:45: Sodium 138, Potassium 3.6, Chloride 98, Carbon Dioxide 29.0, Anion Gap 11, BUN 6 L, Creatinine 0.98, Estim Creat Clear Calc 58.16, Est GFR (MDRD) Af Amer 95, Est GFR (MDRD) Non-Af 78, BUN/Creatinine Ratio 6.1 L, Glucose 160 H, Calcium 8.7, Total Bilirubin 1.50 H, Direct Bilirubin 0.57 H, AST 44 H, ALT 24, Alkaline Phosphatase 124 H, Total Protein 5.7 L, Albumin 2.2 L, Globulin 3.5 03/31/22 17:45: Ammonia 71.0 H 03/31/22 17:45: Lactic Acid 7.8 H* 03/31/22 20:33: Urine Color Yellow, Urine Clarity Clear, Urine pH 6.5, Ur Specific [place] 1.015, Urine Protein Negative, Urine Glucose (UA) Normal, Urine Ketones 5 H, Urine Occult Blood 10 H, Urine Nitrite Negative, Urine Bilirubin Negative, Urine Urobilinogen Normal, Ur Leukocyte Esterase 25 H, Urine RBC 0 SEEN, Urine WBC 0-5 SEEN, Ur Squamous Epith Cells 0 SEEN, Urine Bacteria 0 SEEN, Urine Mucus 0 SEEN Radiology Impression Chest X-Ray 03/31/22 17:46 IMPRESSION: Mild right lower lobe atelectasis or infiltrate. Possible small left pleural effusion. Electronically Signed: Kervin Mortensen MD at 18:07 EST Reading Location ID and State: [address] [place] [address] , Service support , Assessment & Plan Assessment/Plan (1) Hepatic encephalopathy: (2) Cellulitis: (3) Spontaneous bacterial peritonitis: (4) Diabetes: PLAN: Plan Acute on chronic hepatic encephalopathy Ammonia level on presentation was 71, trend. Will escalate home lactulose. Rifaximin continued. De-escalate home regimen of baclofen and Neurontin. Rule out SBP with a ascitic fluid gram stain and culture. Paracentesis ordered. Starts prophylactically on ciprofloxacin since patient has allergy to cephalosporins. Left lower leg cellulitis CBC showed normal white count of 4.7. Trend CBC Vancomycin started at the emergency department and continued. Lactic acidosis 30 mL/kg bolus IV fluids was ordered at the emergency department. Patient does not meet SIRS criteria for sepsis. Different diagnoses include a poor clearance from liver; and metformin use. Trend. Diabetes mellitus Patient with hyperglycemia on presentation Glimepiride and Januvia continued. Metformin held. Accu-Chek with correction scale insulin ordered. DVT prophylaxis: SCDs ordered. Of note patient has a history of a GI bleed and chronic osteopenia and is a current date of chemical prophylaxis. Charges/Coding Visit Charges Inpatient E&M: 84022 Init Hosp L3
[2022-03-31 23:32] LABS: Lactic Acid 6.3 mmol/L (0.4-1.9)
[2022-03-31] MEDS: rifAXIMin 550 MG Tablet PO (23:59)
[2022-03-31] MEDS: Gabapentin 100 MG Capsule PO (23:59)
[2022-03-31] MEDS: Baclofen 10 MG Tablet 5 MG PO (23:59)
[2022-04-01] VITALS (12 sets, daily range): BP systolic 115–133; BP diastolic 43–57; PULSE 74–99; RESP 14–18; TEMP 36.7–36.9; O2SAT 94–98
[2022-04-01] MEDS: Lactated Ringers 1,000 ML 999 ML IV
--- NOTE | 2022-04-01 00:03 | PCM.RX.CS ---
Consult Pharmacy has been consulted to manage selected antiobiotic: Vancomycin Type of Consult: New start Suspected Infection: Skin/Soft tissue Prior Doses of Antibiotics Received/Current Regimen: Medications Vancomycin HCl 1,750 mg/ (Sodium Chloride) 535 mls @ 250 mls/hr IV Q24H INGRID Discontinued Medications Vancomycin HCl 1,250 mg/ (Sodium Chloride) 275 mls @ 167 mls/hr IV X1 ONE Stop: 03/31/22 21:41 Last Admin: 03/31/22 21:39 Dose: 167 mls/hr Labs: Sodium 138 mmol/L (136-145) 03/31/22 17:45 Potassium 3.6 mmol/L (3.5-5.1) 03/31/22 17:45 Chloride 98 mmol/L (98-107) 03/31/22 17:45 Carbon Dioxide 29.0 mmol/L (21.0-32.0) 03/31/22 17:45 Anion Gap 11 (5-15) 03/31/22 17:45 BUN 6 mg/dL (7-18) L 03/31/22 17:45 Creatinine 0.98 mg/dL (0.70-1.30) 03/31/22 17:45 Est GFR (MDRD) Af Amer 95 mL/min (>60) 03/31/22 17:45 Est GFR (MDRD) Non-Af 78 mL/min (>60) 03/31/22 17:45 BUN/Creatinine Ratio 6.1 RATIO (10-20) L 03/31/22 17:45 Glucose 160 mg/dL (74-106) H 03/31/22 17:45 Weight used for dosin.5 kg Estimated Creatinine Clearance: 58 Goal Trough: 10-15 mcg/mL Pharmacy Plan for Drug Dosing: Pharmacy Service will continue to monitor and adjust dosing as required. Follow-Up Labs: Trough Vancomycin Labs to be done on [date and time ordered]: 04/02/22 @2100
[2022-04-01 01:46] LABS: Bedside Glucose 137 mg/dL (74-106)
[2022-04-01] MEDS: Gabapentin 100 MG Capsule PO ×3 (05:17→21:45)
[2022-04-01] MEDS: Lactulose 20 GM/30 ML UDC 30 GM PO ×5 (05:17→21:40)
[2022-04-01] MEDS: Pantoprazole Sodium 40 MG Tablet PO (05:17)
[2022-04-01 05:29] LABS: Absolute Lymphocyte Count 0.49 X10^3/uL (0.83-4.51); Absolute Neutrophil Count 1.8 X10^3/uL (2.0-7.7); Basophil# 0.03 X10^3/uL; Basophil% 1.1 % (0-1); Eosinophil# 0.08 X10^3/uL; Eosinophils% 2.9 % (0-5); Hematocrit 29.4 % (40-54); Hemoglobin 9.4 g/dL (13.0-16.5); Lymphocyte # 0.49 X10^3/ul (0.83-4.51); Lymphocyte % 17.5 % (19-41); Mean Corpuscular Hgb 29.6 pg (27.0-32.0); Mean Corpuscular Volume 92.5 fL (80-94); Mean Platelet Vol. 9.8 fl (6.2-12.0); Monocyte# 0.39 X10^3/uL; Monocyte% 13.9 % (0-10); NRBC Flagged by Analyzer 1.1 % (0-5); Neutrophil % 64.2 % (47-70); POSITIVE COUNT YES; POSITIVE DIFFERENTIAL YES; Platelet Count 47 K/mm3 (150-450); RBC Distribution Width CV 18.9 % (11.6-14.6); RBC Distribution Width SD 64.5 fl (35.1-43.9); Red Blood Count 3.18 M/mm3 (4.6-6.2); White Blood Count 2.8 K/mm3 (4.4-11.0)
[2022-04-01 05:45] LABS: Differential Indicated SCAN CRITERIA MET
[2022-04-01 06:00] LABS: ALB/GLOB Ratio 0.6 RATIO (0.9-2.4); AST(SGOT) 32 U/L (15-37); Alanine Aminotransfer ALT/SGPT 20 U/L (16-61); Albumin, Serum 1.7 g/dL (3.2-5.0); Alkaline Phosphatase 98 U/L (45-117); Anion Gap 6 (5-15); BUN 5 mg/dL (7-18); BUN/Creat Ratio 7.7 RATIO (10-20); Calcium,Total 8.1 mg/dL (8.5-10.1); Chloride 101 mmol/L (98-107); Creatinine, Serum 0.65 mg/dL (0.70-1.30); EST Glomerular Filtration Rate 125 mL/min (>60); Est Glom Filt Rate - Afr Amer 151 mL/min (>60); Globulin 2.8 g/dL (2.2-4.2); Glucose 101 mg/dL (74-106); Potassium 3.2 mmol/L (3.5-5.1); Protein, Total 4.5 g/dL (6.4-8.2); Sodium Level 139 mmol/L (136-145)
[2022-04-01 06:13] LABS: Anisocytosis 1+; Platelet Estimate MKD DEC (ADEQ)
[2022-04-01 06:45] LABS: Bedside Glucose 95 mg/dL (74-106)
[2022-04-01] MEDS: Glimepiride 4 MG Tablet PO (08:21)
[2022-04-01] MEDS: metroNIDAZOLE 500 MG Tablet PO ×3 (08:22→21:45)
[2022-04-01] MEDS: Allopurinol 300 MG Tablet PO (08:22)
[2022-04-01] MEDS: Baclofen 10 MG Tablet 5 MG PO ×2 (08:23→16:52)
[2022-04-01] MEDS: Acetaminophen 500 MG Tablet PO (08:30)
[2022-04-01] MEDS: Spironolactone 25 MG Tablet PO (09:45)
[2022-04-01] MEDS: Iron Polysaccharide Complex 150 MG CAPSULE PO ×3 (09:46→21:46)
[2022-04-01] MEDS: rifAXIMin 550 MG Tablet PO ×2 (09:46→21:46)
[2022-04-01] MEDS: Furosemide 20 MG Tablet PO (09:47)
[2022-04-01] MEDS: LINAGLIPTIN 5 MG TABLET PO (09:48)
[2022-04-01] MEDS: Ensure Plus High Protein 120 ML LIQUID PO ×4 (09:51→21:39)
[2022-04-01] MEDS: HYDROmorphone 2 MG TABLET PO (10:26)
--- NOTE | 2022-04-01 11:10 | CON.PCM_ITS ---
Assessment & Plan Assessment/Plan (1) Encephalopathy: PLAN: ?Neomycin is commonly combined with erythromycin or metronidazole as part of Vel and Daisy's bowel preparation a day before surgery to decrease the likelihood of surgical site infection. I will increase his lactulose to 30 cc every 4 hours along with put him on Xifaxan 550 mg 3 times a day. (2) S/P TIPS (transjugular intrahepatic portosystemic shunt): PLAN: Transjugular intrahepatic portosystemic shunts provide effective long- term symptom control and may prolong transplant-free survival in portal hypertension-driven recurrent ascites and variceal bleeding. He had very bad variceal bleed when he was at our institution approximately a month ago. 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 This required him to undergo emergent TIPS procedure. He did not have encephalopathy prior to him undergoing a TIPS procedure and now he comes in with worsening fever and lethargy and weakness likely secondary to hyperammonemia. He has been having more muscle wasting since the procedure was performed and that is consistent with a diagnosis of sarcopenia. Sarcopenia is independently associated with the development of post-TIPSS HE in cirrhotic patients, improving the nutritional status of TIPSS candidates may help to prevent post- TIPSS HE ?Currently, there are no specific guideline recommendations for nutritional advice in patients with TIPSS. However, recommendations should be given in accordance with guidelines for secondary prevention after a bout of Hepatic Encephalopathy, long catabolic periods should be avoided and the ingestion of a late-night snack is recommended. (3) Thrombocytopenia: PLAN: His platelet count has been persistently well secondary to liver disease, splenic sequestration and direct marrow toxicity. (4) Cirrhosis: PLAN: He is a child Sheikh class B with a current low meld of 10. Unfortunately he has decompensated significantly after undergoing TIPS procedure for severe GI bleeding. Hopefully will be able to stabilize him from a decompensation standpoint. (5) Sarcopenia: PLAN: Patient is only 1 mg/kg of body weight. I would like this to all 0.25 mg/kg body weight of protein and titrate to 1 mg/kg of body weight. Level to improve patient's total body protein and hopefully muscle mass. He should get a nutrition consult. (6) Portal vein thrombosis: PLAN: He had an evaluation of his TIPS that showed worsening portal vein thrombosis. He should get a hematology consult to see if he needs anticoagulation. HPI Consult Data Date of Consult: 04/01/22 HPI Narrative Reason for Consultation: Decompensated liver disease HPI Narrative: ALIZA OSEI, is a 82 M who presents to the ER with a complex medical history i ncluding cirrhosis of the liver (chemo induced) with portal hypertension status post TIPS procedure on 03/13 at [facility] as well as hepatic encephalopathy, anemia, thrombocytopenia, hypertension, CLL and type 2 diabetes mellitus.? He is presenting with generalized weakness and increased confusion.? Patient last had a paracentesis on Wednesday, 3 days ago and had 3.7 L removed.? He is scheduled for another paracentesis this Wednesday.? Family notes has been more weak over the past 2 days.? Has had nausea but no vomiting.? Denies any report of black or blood in the stool.? No report of any falls or head injuries.? Has had a scrape on his left ankle with increased redness over the past week.? Was concerned that he could have cellulitis.? Was supposed to have a virtual appointment with Dr. Brown, his PCP, however patient was sleeping at that time and the Internet was not working at the house.? I also spoke with his GI doctor, Dr. Levy, who recommend he come to the ER.? No report of any fevers.? No other complaints at this time. He was scheduled to have a follow-up ultrasound to look at the TIPS patency 2 days ago. The results of the ultrasound of the TIPS graft is not available. [facility] Medical History Anemia Aphthous ulcer BPH (benign prostatic hyperplasia) Cancer Cirrhosis CLL (chronic lymphocytic leukemia) Diarrhea Essential hypertension Former smoker Generalized weakness GERD (gastroesophageal reflux disease) Hyperlipemia Mixed hyperlipidemia VALERIE (obstructive sleep apnea) Osteoarthritis Pancytopenia Paroxysmal atrial fibrillation Splenomegaly Thoracic aortic aneurysm without rupture Thrombocytopenia Type 2 diabetes mellitus Home Medications metformin 1,000 mg tablet 1,000 mg PO BIDCM DIABETES 03/25/15 [History Last Taken 03/31/22] sitagliptin phosphate 50 mg tablet (Januvia) 50 mg PO DAILY DIABETES 02/20/17 [History Last Taken 03/31/22] hydromorphone 2 mg tablet 2 mg PO Q3H PRN Pain/Inflammation 03/09/19 [History Last Taken 03/31/22] Bifidobacterium infantis 4 mg capsule (Align) 4 mg PO DAILY PROBIOTIC 04/17/19 [History Last Taken 03/31/22] furosemide 20 mg tablet 20 mg PO DAILY EDEMA 07/01/20 [History Last Taken 03/31/22] pantoprazole 40 mg tablet,delayed release 40 mg PO 0600,1600 GERD 07/01/20 [History Last Taken 03/31/22] polysaccharide iron complex 150 mg iron capsule (Ferrex) 150 mg PO BID SUPPLEMENT 07/01/20 [History Last Taken 03/31/22] baclofen 10 mg tablet 5 mg PO TID MUSCLE SPAMS 12/01/20 [History Last Taken 03/31/22] acetaminophen 500 mg tablet 500 mg PO Q6H PRN Pain 01/01/21 [History Last Taken Unknown] spironolactone 25 mg tablet 25 mg PO DAILY 01/15/22 [History Last Taken 03/31/22] gabapentin 300 mg capsule 300 mg PO TID NERVE PAIN 03/02/22 [History Last Taken 03/31/22] glimepiride 4 mg tablet 4 mg PO DAILY DIABETES 03/02/22 [History Last Taken 03/31/22] lactulose 10 gram/15 mL oral solution (Constulose) 30 ml PO TID 03/31/22 [History Last Taken 03/31/22] ondansetron HCl 4 mg tablet 4 mg PO Q8H NAUSEA/VOMITING 03/31/22 [History Last Taken 03/30/22] rifaximin 550 mg tablet 550 mg PO BID 03/31/22 [History Last Taken 03/31/22] trazodone 50 mg tablet 50 mg PO QHS SLEEP 03/31/22 [History Last Taken 03/30/22] Allergy/AdvReac Type Severity Reaction Status Date / Time cefazolin sodium [From Ancef] Allergy Rash Verified 03/31/22 17:14 clindamycin Allergy Chest Verified 03/31/22 17:14 tightness hydrocodone bitartrate Allergy Rash Verified 03/31/22 17:14 [From Vicodin] Family History Father Parkinson disease Brother Heart disease Diabetes Sister Atrial fibrillation Breast cancer Surgical History History of colonoscopy (~2018) History of hip replacement Social History Smoking Status: Former smoker alcohol intake: never substance use type: does not use caffeine: Yes Type: coffee Number of servings: 2 ROS ROS Narrative Pertinent positives and pertinent negatives as noted in HPI. All other systems were reviewed and are negative Physical Exam Narrative Physical exam: General: Well-nourished, well-developed. Head: Normocephalic, atraumatic, no tenderness Eyes: Vision is grossly intact. EOMI ENT, no trauma, moist mucous membranes, no rhinorrhea Neck: Nontender, full range of motion. CVS: Regular rate and rhythm. S1-S2 present. No murmur, gallop or rub. Respiratory : Mild diffused rales, chest wall nontender. Abdomen: Soft, nontender, nondistended, normal bowel sounds, no masses : Deferred Back: Nontender, no CVA tenderness. Extremities: 3+ edema bilateral legs. Petechiae rash on left leg. Skin: Mildly jaundiced; no trauma Neuro: Alert, cranial nerves II through XII grossly intact. Psychiatry: Patient's hardly talked. Normal mood. Lab / Micro Data Result Diagrams: 04/01/22 04:38 04/01/22 04:38 Labs: Laboratory Results - last 24 hr 03/31/22 17:45: WBC 4.7, RBC 3.49 L, Hgb 10.3 L, Hct 32.2 L, MCV 92.3, MCH 29.5, MCHC 32.0, RDW Std Deviation 65.1 H, RDW Coeff of Trell 19.3 H, Plt Count 61 L, MPV 10.9, Immature Gran % (Auto) 0.400, Neut % (Auto) 71.4 H, Lymph % (Auto) 16.7 L, [place] % (Auto) 9.2, Eos % (Auto) 1.9, Baso % (Auto) 0.4, Absolute Neuts (auto) 3.3, Absolute Lymphs (auto) 0.78 L, Nucleated RBC % 0, Differential Comment SCANNED, Anisocytosis 1+ 03/31/22 17:45: PT 16.4 H, INR 1.4, APTT 33.6 03/31/22 17:45: Sodium 138, Potassium 3.6, Chloride 98, Carbon Dioxide 29.0, Anion Gap 11, BUN 6 L, Creatinine 0.98, Estim Creat Clear Calc 58.16, Est GFR (MDRD) Af Amer 95, Est GFR (MDRD) Non-Af 78, BUN/Creatinine Ratio 6.1 L, Glucose 160 H, Calcium 8.7, Total Bilirubin 1.50 H, Direct Bilirubin 0.57 H, AST 44 H, ALT 24, Alkaline Phosphatase 124 H, Total Protein 5.7 L, Albumin 2.2 L, Globulin 3.5 03/31/22 17:45: Ammonia 71.0 H 03/31/22 17:45: Lactic Acid 7.8 H* 03/31/22 20:33: Urine Color Yellow, Urine Clarity Clear, Urine pH 6.5, Ur Specific [place] 1.015, Urine Protein Negative, Urine Glucose (UA) Normal, Urine Ketones 5 H, Urine Occult Blood 10 H, Urine Nitrite Negative, Urine Bilirubin Negative, Urine Urobilinogen Normal, Ur Leukocyte Esterase 25 H, Urine RBC 0 SEEN, Urine WBC 0-5 SEEN, Ur Squamous Epith Cells 0 SEEN, Urine Bacteria 0 SEEN, Urine Mucus 0 SEEN 03/31/22 22:42: POC Glucose 137 H 03/31/22 22:50: Lactic Acid 6.3 H* 04/01/22 04:38: WBC 2.8 L, RBC 3.18 L, Hgb 9.4 L, Hct 29.4 L, MCV 92.5, MCH 29.6, MCHC 32.0, RDW Std Deviation 64.5 H, RDW Coeff of Trell 18.9 H, Plt Count 47 L*, MPV 9.8, Immature Gran % (Auto) 0.400, Neut % (Auto) 64.2, Lymph % (Auto) 17.5 L, [place] % (Auto) 13.9 H, Eos % (Auto) 2.9, Baso % (Auto) 1.1 H, Absolute Neuts (auto) 1.8 L, Absolute Lymphs (auto) 0.49 L, Nucleated RBC % 1.1, Diff Path Review August foll, Platelet Estimate MKD DEC, Anisocytosis 1+ 04/01/22 04:38: Sodium 139, Potassium 3.2 L, Chloride 101, Carbon Dioxide 32.0, Anion Gap 6, BUN 5 L, Creatinine 0.65 L, Estim Creat Clear Calc 57.00, Est GFR (MDRD) Af Amer 151, Est GFR (MDRD) Non-Af 125, BUN/Creatinine Ratio 7.7 L, Glucose 101, Calcium 8.1 L, Total Bilirubin 1.10 H, AST 32, ALT 20, Alkaline Phosphatase 98, Total Protein 4.5 L, Albumin 1.7 L, Globulin 2.8, Albumin/Globulin Ratio 0.6 L 04/01/22 06:19: Ammonia 88.0 H 04/01/22 06:23: POC Glucose 95 Rhythm Strip Rhythm Strip: Sinus Rhythm Rate: 93 Ectopy: None Radiology Impression Chest X-Ray 03/31/22 17:46 IMPRESSION: Mild right lower lobe atelectasis or infiltrate. Possible small left pleural effusion. Electronically Signed: Kervin Mortensen MD at 18:07 EST Reading Location ID and State: [address] [place] [address] , Service support , Charges/Coding Visit Charges Inpatient E&M: 40100 Init Hosp L3
[2022-04-01] MEDS: Metoclopramide 10 MG/2 ML Vial 5 MG IV ×3 (11:35→23:06)
[2022-04-01] MEDS: 0.9% Saline Lock 10 ML Syringe IV ×3 (11:35→23:07)
[2022-04-01] MEDS: Insulin Lispro 100 UNIT/ML INSULN.PEN SC ×3 (11:57→21:47)
--- NOTE | 2022-04-01 12:08 | CHAPLAIN ---
Type of Pastoral Visit _x__ Initial Visit ___ Follow-up Visit ___ On-call Visit ___ General Patient Visit ___ Spiritual Assessment ___ Family Conference ___ Bereavement ___ Rapid Response ___ Code Blue ___ Other (describe below) Pastoral Care Referral From ___ Patient _x__ Family ___ Nurse ___ Physician ___ [employer] Punch Press Operator ___ Prestidigitator ___ Other (describe below) Sacrament/Intervention _x__ Active listening ___ Anointing ___ Protestant ___ Bereavement ___ Communion ___ Dolores exploration ___ _x__ Life review ___ Prayer ___ Reconciliation ___ Sacrament of Sick _x__ Supportive presence ___ Wedding ___ Other (describe below) Pastoral Comments requested visit by family; patient and spouse are in room and welcoming of visit (which they knew about as requested); pt gives much life review but is hesitant to talk about feelings or illness; spouse is more open to explain the circumstances and to admit the emotional and physical weariness of this; spouse acknowledges that pt came near to previously; offer of presence received but pt refused spiritual care at this time
[2022-04-01 12:23] LABS: Pathologist Review Reviewed
[2022-04-01 12:25] LABS: Bedside Glucose 172 mg/dL (74-106)
--- NOTE | 2022-04-01 12:26 | PCM.PN.HOSP ---
Subjective Subjective Patient was seen and examined today, his was in the room and I talked with her briefly. He is due to have a paracentesis performed today, patient's states that the patient is only been having bowel movements every other day at home-I emphasized that he should be having daily bowel movements because of his risk of hepatic encephalopathy. Patient has a red area on the inner aspect of the left lower leg, it could be cellulitis, I do not think it warrants IV vancomycin usage, I changed the patient over to doxycycline orally today. Objective Data Objective Data Vital Signs: Vital Signs Temp Pulse Resp BP Pulse Ox O2 Del Method 98.1 F 88 15 128/53 H 96 Room Air 04/01/22 11:00 04/01/22 11:00 04/01/22 11:00 04/01/22 11:00 04/01/22 11:00 04/01/22 11:00 Oxygen Delivery Method Room Air Weight: 84.5 kg Body Mass Index (BMI) 28.2 Intake & Output: Intake and Output for Last 24 Hours 03/30/22 03/31/22 04/01/22 23:59 23:59 23:59 Intake Total 2375 / 2375 1360 / 1360 Output Total 250 / 250 Balance 2375 / 2375 1110 / 1110 Lab / Micro Data Result Diagrams: 04/01/22 04:38 04/01/22 04:38 Labs: Laboratory Results - last 24 hr 03/31/22 17:45: WBC 4.7, RBC 3.49 L, Hgb 10.3 L, Hct 32.2 L, MCV 92.3, MCH 29.5, MCHC 32.0, RDW Std Deviation 65.1 H, RDW Coeff of Trell 19.3 H, Plt Count 61 L, MPV 10.9, Immature Gran % (Auto) 0.400, Neut % (Auto) 71.4 H, Lymph % (Auto) 16.7 L, Sutton % (Auto) 9.2, Eos % (Auto) 1.9, Baso % (Auto) 0.4, Absolute Neuts (auto) 3.3, Absolute Lymphs (auto) 0.78 L, Nucleated RBC % 0, Differential Comment SCANNED, Anisocytosis 1+ 03/31/22 17:45: PT 16.4 H, INR 1.4, APTT 33.6 03/31/22 17:45: Sodium 138, Potassium 3.6, Chloride 98, Carbon Dioxide 29.0, Anion Gap 11, BUN 6 L, Creatinine 0.98, Estim Creat Clear Calc 58.16, Est GFR (MDRD) Af Amer 95, Est GFR (MDRD) Non-Af 78, BUN/Creatinine Ratio 6.1 L, Glucose 160 H, Calcium 8.7, Total Bilirubin 1.50 H, Direct Bilirubin 0.57 H, AST 44 H, ALT 24, Alkaline Phosphatase 124 H, Total Protein 5.7 L, Albumin 2.2 L, Globulin 3.5 03/31/22 17:45: Ammonia 71.0 H 03/31/22 17:45: Lactic Acid 7.8 H* 03/31/22 20:33: Urine Color Yellow, Urine Clarity Clear, Urine pH 6.5, Ur Specific [place] 1.015, Urine Protein Negative, Urine Glucose (UA) Normal, Urine Ketones 5 H, Urine Occult Blood 10 H, Urine Nitrite Negative, Urine Bilirubin Negative, Urine Urobilinogen Normal, Ur Leukocyte Esterase 25 H, Urine RBC 0 SEEN, Urine WBC 0-5 SEEN, Ur Squamous Epith Cells 0 SEEN, Urine Bacteria 0 SEEN, Urine Mucus 0 SEEN 03/31/22 22:42: POC Glucose 137 H 03/31/22 22:50: Lactic Acid 6.3 H* 04/01/22 04:38: WBC 2.8 L, RBC 3.18 L, Hgb 9.4 L, Hct 29.4 L, MCV 92.5, MCH 29.6, MCHC 32.0, RDW Std Deviation 64.5 H, RDW Coeff of Trell 18.9 H, Plt Count 47 L*, MPV 9.8, Immature Gran % (Auto) 0.400, Neut % (Auto) 64.2, Lymph % (Auto) 17.5 L, Sutton % (Auto) 13.9 H, Eos % (Auto) 2.9, Baso % (Auto) 1.1 H, Absolute Neuts (auto) 1.8 L, Absolute Lymphs (auto) 0.49 L, Nucleated RBC % 1.1, Diff Path Review Reviewed, Platelet Estimate MKD DEC, Anisocytosis 1+ 04/01/22 04:38: Sodium 139, Potassium 3.2 L, Chloride 101, Carbon Dioxide 32.0, Anion Gap 6, BUN 5 L, Creatinine 0.65 L, Estim Creat Clear Calc 57.00, Est GFR (MDRD) Af Amer 151, Est GFR (MDRD) Non-Af 125, BUN/Creatinine Ratio 7.7 L, Glucose 101, Calcium 8.1 L, Total Bilirubin 1.10 H, AST 32, ALT 20, Alkaline Phosphatase 98, Total Protein 4.5 L, Albumin 1.7 L, Globulin 2.8, Albumin/Globulin Ratio 0.6 L 04/01/22 06:19: Ammonia 88.0 H 04/01/22 06:23: POC Glucose 95 04/01/22 11:51: POC Glucose 172 H Radiography Diagnostic Testing: Radiology Impression Chest X-Ray 03/31/22 17:46 IMPRESSION: Mild right lower lobe atelectasis or infiltrate. Possible small left pleural effusion. Electronically Signed: Kervin Mortensen MD at 18:07 EST Reading Location ID and State: [facility] / [place] , Service support , Rhythm Strip Rhythm Strip: Sinus Rhythm Rate: 93 Ectopy: None Physical Exam Const alert, oriented x3 and no apparent distress General Appearance: cooperative, well kempt and well developed Orientation / Consciousness: awake, oriented to person, oriented to place and oriented to time HEENT normocephalic, head/scalp atraumatic and moist oral mucous membranes Eyes PERRL, EOMs intact bilaterally and conjunctivae normal Neck supple, no JVD, thyroid normal and no carotid bruits General: trachea midline Resp normal respiratory effort, no retractions, no use of accessory muscles and clear to auscultation bilaterally Auscultation: Negative for rales, rhonchi or wheezes Cardio regular rate, regular rhythm, no murmurs, no rub and no gallops GI soft to palpation and non-tender GI Narrative: Patient's abdomen is distended, it is non tender, no rebound abdominal tenderness is noted Extremity Extremity Narrative: There is generalized edema noted over the lower legs bilaterally, there is a reddened area over the inner aspect of the left lower leg that is approximately 7 cm in length by 5 cm in diameter, this area is warm to the touch, there is no discharge noted from the area. Skin Skin Narrative: There is an area of rash noted on the inner aspect of the patient's left lower leg as outlined above Neuro oriented x3, CN's II-XII intact bilaterally, no focal motor deficits and no sensory deficits noted Sensorium / Orientation: awake and alert Speech: speech normal Psych affect normal Assessment & Plan Assessment/Plan (1) Encephalopathy: PLAN: Plan 1. Acute hepatic encephalopathy-this is improved today, patient has not drowsy, he is able answer simple questions appropriately, I talked to gastroenterology about his care, they have placed the patient on Flagyl, neomycin, and Zithromax. Patient's lactulose was increased. #2 cellulitis of the left lower leg-again I have changed the patient over to doxycycline p.o. #3 pancytopenia secondary to cirrhosis of the liver-complicates care, management, recovery, and prognosis #4 hypokalemia-patient will be given oral potassium supplementation #5 lactic acidosis-etiology unclear, I do not feel the patient is septic, I have stopped the patient's IV Cipro #6 type 2 diabetes-patient's blood sugars will be monitored, sliding scale insulin will be used if needed Charges/Coding Visit Charges Inpatient E&M: 29303 Subs Hosp L2
[2022-04-01] MEDS: Lidocaine 2% (20 ml mdv) 20 ML Vial INFILT (14:00)
--- NOTE | 2022-04-01 14:00 | FLU_PTH ---
PATIENT: ALIZA OSEI LOC: [facility] U#:[id number] AGE/SX: 82/M ROOM: [facility] RE03/31/[address]: Dr. Baldemar Coffey DO : 1940 BED: 1 DIS: 04/02/2022 SPEC #: [id number] RECD: 04/01/22 14:26 STATUS: DENIZ REQ #: [id number] [place]IO: 04/01/22 14:[address]: Ta Savage DEPT: CYTOLOGY RECD BY: Patricia Russell ENTERED: 04/02/22 08:03 SP TYPE: Fluid OTHR DR: MD Dr. Kervin Sharma MD Dr. Mark Tereletsky, DO Dr. Rahsaan Friend, DO Tissues: PARACENTESIS FLUID Procedures: Special Stain Group II Surgery Specimen Level IV Cytospin Fluid Comments: @ Ordering doctor for SSII edited from to DR.JAGYEP Sanford by KARYNA at 04/02/22 1458 @ Ordering doctor for SUIV edited from to DR.JAGYEP Sanford by KARYNA at 04/02/22 145 @ Ordering doctor for CYSPIN edited from to DR.JAGYEP Sanford by KARYNA at 04/02/22 1458 @ Submitting doctor edited from to DR.JAGYEP Sanford by KARYNA at 04/02/22 1458 HEADER OPERATION: Paracentesis PRE-OP DIAGNOSIS: Acute on chronic hepatic encephalopathy TISSUE SUBMITTED: Paracentesis fluid for cytology DIAGNOSIS CYTOLOGY Paracentesis fluid for cytology (cytospin and cell block): Negative for malignant cells. AM:lenny 04/03/2022 CYTOLOGY STUDY Slides are reviewed. CYTOLOGY GROSS Received is 90 ml of hazy yellow fluid labeled with the patient's name and and designated per the requisition as paracentesis. Submitted for cytology preparation including cell block. / lenny 04/02/2022 TC:5 CPT: 18449, 44292
--- NOTE | 2022-04-01 14:09 | CASEMGMT ---
Readmission chart review: 03/02-03/04/22 GI bleed 03/31/22-current Acute on Chronic hepatic encephalopathy Pt was initially admitted
--- NOTE | 2022-04-01 14:11 | CASEMGMT ---
Addendum entered by Yael Tran 04/01/22 14:47: Pt had 2670ml out from paracentesis. Francois SIDDIQUI CM Original Note: Readmission chart review: 03/02-03/04/22 GI bleed 03/31/22-current Acute on Chronic hepatic encephalopathy Pt initially presented to [facility] ED for abd distention and black stools. Pt to be admitted to [facility] for lower GI bleed but then had near syncopal episode with large dark red stool, so admission changed to PCU. Prior to transfer to floor, pt had more bloody stools, tachycardia, and hypotension, so pt admitted to ICU. Pt with a hx of CLL s/p chemotherapy and likely cirrhosis from chemo per notes. GI c/s placed and per Dr. Levy, he has a past medical history of nonalcoholic steatohepatitis with cirrhosis and history of esophageal varices with intermittent diarrhea. On his last upper endoscopy he was discovered to have multiple grade 1 esophageal varices. It was the first time that I had seen him. He typically was following up with a web content director in [place]. Due to the fact that he had multiple esophageal varices without gastric varices I recommended TIPS procedure. He saw the interventional radiologist down to [facility] and they elected not to do TIPS at that time. Per GI recommendation, pt to be transferred to [facility] for a TIPS. Pt was having some confusion prior to transfer and ammonia level checked and it was 80.0. Pt was transferred to [facility] on 03/04/22 for the TIPS. Pt returned to [facility] ED on 03/31/22 for worsening abd distention, weakness, confusion and was admitted to PCU for A on C hepatic encephalopathy. Pt's ammonia initially 71.0 and now 88.0. GI c/s again and increased pt's lactulose dose and changed xifaxin from bid to tid. Pt to have paracentesis. CM to follow for any further discharge planning/needs. Francois SIDDIQUI CM
[2022-04-01 14:47] LABS: Auto B Fluid Analyzer BKGD Ct COUNTS W/IN LIMITS (W/IN LIMITS)
[2022-04-01 14:48] LABS: Appearance/Body Fluid CLEAR; Color/Body Fluid LT YEL; Red Cell Count/Body Fluid 1 /mm3; White Blood Count/Body Fluid 2 /mm3
[2022-04-01] MEDS: Doxycycline 100 MG CAPSULE PO ×2 (14:53→21:46)
[2022-04-01] MEDS: Potassium Chloride Oral Tablet 20 MEQ 40 MEQ PO (14:53)
[2022-04-01 15:48] LABS: Lymphocytes 31 %; Macrophages 28 %; Monocytes 29 %; Neutrophil (Segs) 12 %
[2022-04-01 15:52] LABS: Body Fluid QC Type(s) BF1Q,BF2Q
[2022-04-01 16:06] LABS: Source- Body Fluid PERITONEAL FLUID
[2022-04-01 17:15] LABS: Bedside Glucose 206 mg/dL (74-106)
--- NOTE | 2022-04-01 22:31 | US_ITS ---
PROCEDURE: Ultrasound guided paracentesis. DATE OF EXAMINATION: 04/01/2022. INDICATION: Male, 82 years old. Ascites. PHYSICIAN: Theron Whitehead M.D. TECHNIQUE: The risks, benefits, and alternatives to the procedure were explained to the patient. The specific risks of bleeding, infection, and damage to bowel were detailed and accepted. Witnessed informed consent was obtained. The abdomen was ultrasonographically surveyed. An appropriate pocket of fluid was identified at the right lower quadrant. The skin were cleaned and prepped in the usual sterile fashion. Using ultrasound guidance, the peritoneal cavity was accessed with a 5-Tristanian paracentesis needle/catheter system. The trocar was removed. A total of 2670 ml of migel-colored fluid were removed from the peritoneal cavity. The catheter was removed and a sterile dressing was applied. The procedure was well tolerated. US/Paracentesis with US IMPRESSION: Ultrasound guided paracentesis. Electronically Signed: Theron Whitehead MD at 14:53 EST ,
[2022-04-01 22:45] LABS: Bedside Glucose 216 mg/dL (74-106)
[2022-04-02 02:59] VITALS: PULSE 78
[2022-04-02 03:12] VITALS: BP 120/54; PULSE 82; RESP 18; TEMP 36.5; O2SAT 94
[2022-04-02] MEDS: Lactulose 20 GM/30 ML UDC 30 GM PO ×3 (03:18→11:25)
[2022-04-02] MEDS: Gabapentin 100 MG Capsule PO (06:46)
[2022-04-02] MEDS: metroNIDAZOLE 500 MG Tablet PO (06:46)
[2022-04-02] MEDS: Metoclopramide 10 MG/2 ML Vial 5 MG IV ×2 (06:46→12:06)
[2022-04-02] MEDS: 0.9% Saline Lock 10 ML Syringe IV (06:52)
[2022-04-02 07:15] LABS: Bedside Glucose 144 mg/dL (74-106)
[2022-04-02 07:51] VITALS: PULSE 83
[2022-04-02] MEDS: Glimepiride 4 MG Tablet PO (09:12)
[2022-04-02] MEDS: Baclofen 10 MG Tablet 5 MG PO (09:12)
[2022-04-02 10:00] VITALS: BP 96/54; PULSE 86; RESP 16; TEMP 36.7; O2SAT 97
--- NOTE | 2022-04-02 10:46 | CASEMGMT ---
Addendum entered by Yael Tran 04/02/22 12:12: Call from Miguelina at [facility] and they can accept pt with SOC 04/03/22. Francois SIDDIQUI CM Addendum entered by Yael Tran 04/02/22 11:49: Order placed for PT/OT and pt/ state they would like [facility]. Referral to Miguelina at [facility] and CM to follow. Francois SIDDIQUI CM Original Note: Therapy is recommending [facility]. This RN CM to room to discuss with pt/ and list of [facility] providers including quality and resource use data and consistent with the pt's preferred geographic region, medical needs, and insurance network. CM to follow. Francois SIDDIQUI CM
[2022-04-02] MEDS: Iron Polysaccharide Complex 150 MG CAPSULE PO (11:23)
[2022-04-02] MEDS: Spironolactone 25 MG Tablet PO (11:23)
[2022-04-02] MEDS: Furosemide 20 MG Tablet PO (11:23)
[2022-04-02] MEDS: Ensure Plus High Protein 120 ML LIQUID PO (11:24)
[2022-04-02] MEDS: LINAGLIPTIN 5 MG TABLET PO (11:24)
[2022-04-02] MEDS: rifAXIMin 550 MG Tablet PO (11:24)
[2022-04-02] MEDS: Doxycycline 100 MG CAPSULE PO (11:24)
--- NOTE | 2022-04-02 11:34 | DCINST_ITS ---
Discharge Instructions Diet Discharge Diet: 1800 Calorie Control Diet Activity Discharge Activity: Return to Normal Activity Weight Bearing Status: Full weight bearing Follow Up Care Test Results: Test results from this visit will be discussed in further detail at your follow- up appointment, if applicable. Discharge Plan Admission Admit Date/Time: 03/31/22 22:07 Primary Reason for Your Visit: hepatic encephalopathy Attending Provider: Baldemar Coffey Primary Care Provider: Kervin Choi Consulting Providers: Amadou Levy ; Ta Savage Instructions Additional Instructions / Restrictions: increase Lactulose to 30 gms four times a day You will need to have 4-5 bowel movements per day Discharge Orders/Prescriptions Prescriptions: New doxycycline monohydrate 100 mg Capsule 100 mg PO BID Qty: 10 0RF gabapentin 100 mg Capsule 100 mg PO TID Qty: 90 0RF Continued Align 4 mg capsule 4 mg PO DAILY pantoprazole 40 mg tablet,delayed release (DR/EC) 40 mg PO 0600,1600 furosemide 20 mg tablet 20 mg PO DAILY polysaccharide iron complex [Ferrex 150] 150 mg iron capsule 150 mg PO BID acetaminophen 500 mg tablet 500 mg PO Q6H PRN (Reason: Pain) spironolactone 25 mg tablet 25 mg PO DAILY metformin 1,000 MG tablet 1,000 mg PO BIDCM Label Comments: Januvia 50 MG tablet 50 mg PO DAILY hydromorphone 2 MG tablet 2 mg PO Q3H PRN (Reason: Pain/Inflammation) baclofen 10 mg tablet 5 mg PO TID glimepiride 4 mg tablet 4 mg PO DAILY trazodone 50 mg tablet 50 mg PO QHS lactulose [Constulose] 10 gram/15 mL solution 30 ml PO TID Label Comments: TAKE 30 ML BY MOUTH THREE TIMES DAILY. WATCH FOR SYMPTOMS OF HEPATIC ENCEPHALOPATHY ( SEE DISCHARGE INSTRUCTIONS). IF SYMPTOMS DEVELOP TAKE INS TRUCTED WITH THE GOAL OF 3 TO 4 BOWEL MOVEMENTS DAILY rifaximin 550 mg Tablet 550 mg PO BID ondansetron HCl 4 mg tablet 4 mg PO Q8H Discontinued gabapentin 300 mg capsule 300 mg PO TID Label Comments: TAKE 1 CAPSULE BY MOUTH THREE TIMES DAILY Referrals / Follow Up: Kervin Choi MD [Primary Care Provider] - See Referral Note (in two weeks) Amadou Levy DO [Med Staff - Active Staff] - See Referral Note (as directed) Disposition Disposition (needs filled in before D/C Order can be placed): Home Health Service
--- NOTE | 2022-04-02 11:49 | PCM.DC.SUM ---
Providers Date of Admission: 03/31/22 Date of Discharge: 04/02/22 Primary Care Physician: Dr. 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 Acute hepatic encephalopathy-this is improved today, patient has not drowsy, he is able answer simple questions appropriately, I talked to gastroenterology about his care, they have placed the patient on Flagyl, neomycin, and Zithromax. Patient's lactulose was increased. #2 cellulitis of the left lower leg-again I have changed the patient over to doxycycline p.o. #3 pancytopenia secondary to cirrhosis of the liver-complicates care, management, recovery, and prognosis #4 hypokalemia-patient will be given oral potassium supplementation #5 lactic acidosis-etiology unclear, I do not feel the patient is septic, I have stopped the patient's IV Cipro #6 type 2 diabetes-patient's blood sugars will be monitored, sliding scale insulin will be used if needed #7 portal vein thrombosis Medications at Discharge Home Medications metformin 1,000 mg tablet 1,000 mg PO BIDCM DIABETES 03/25/15 sitagliptin phosphate 50 mg tablet (Januvia) 50 mg PO DAILY DIABETES 02/20/17 hydromorphone 2 mg tablet 2 mg PO Q3H PRN Pain/Inflammation 03/09/19 Bifidobacterium infantis 4 mg capsule (Align) 4 mg PO DAILY PROBIOTIC 04/17/19 furosemide 20 mg tablet 20 mg PO DAILY EDEMA 07/01/20 pantoprazole 40 mg tablet,delayed release 40 mg PO 0600,1600 GERD 07/01/20 polysaccharide iron complex 150 mg iron capsule (Ferrex) 150 mg PO BID SUPPLEMENT 07/01/20 baclofen 10 mg tablet 5 mg PO TID MUSCLE SPAMS 12/01/20 acetaminophen 500 mg tablet 500 mg PO Q6H PRN Pain 01/01/21 spironolactone 25 mg tablet 25 mg PO DAILY 01/15/22 glimepiride 4 mg tablet 4 mg PO DAILY DIABETES 03/02/22 lactulose 10 gram/15 mL oral solution (Constulose) 30 ml PO TID 03/31/22 ondansetron HCl 4 mg tablet 4 mg PO Q8H NAUSEA/VOMITING 03/31/22 rifaximin 550 mg tablet 550 mg PO BID 03/31/22 trazodone 50 mg tablet 50 mg PO QHS SLEEP 03/31/22 doxycycline monohydrate 100 mg capsule 100 mg PO BID #10 caps 04/02/22 gabapentin 100 mg capsule 100 mg PO TID #90 caps 04/02/22 Hospital Course Operations None Procedures Paracentesis Summary of Care Provided Minutes Spent on Discharge: 31 Hospital Course: -year-old white male was seen in the emergency room at [facility] with generalized weakness and increased confusion, patient recently had a TIPS procedure performed on 03/13/2022 due to chronic cirrhosis. Evaluation in the emergency room revealed an elevated ammonia level at 71, patient's lactic acid was elevated at 7.8, patient's white blood cell count was normal, hemoglobin was 10.3, bilirubin was 1.5, gastroenterology was contacted and recommended fluid administration due to the lactic acidosis and the patient was admitted to PCU and given lactulose. Patient underwent a paracentesis with removal of approximately 2700 cc of fluid, patient had a red area on the left lower leg that was felt to be a cellulitis, he was treated with antibiotics. Patient was not felt to be septic, patient did have a portal vein thrombosis but this could not be treated due to the patient's underlying cirrhosis and pancytopenia. On 04/02/2022, patient was seen and examined: On examination he appeared in good health and spirits. Vital signs as documented. Skin warm and dry and without overt rashes. Neck without JVD, neck was supple, trachea midline, thyroid was normal. Lungs clear bilaterally, normal air movement was noted. Heart exam notable for regular rhythm, normal sounds and absence of murmurs, rubs or gallops. Abdomen-mildly distended, nontender.. Bowel sounds are present, abdomen is not distended. Extremities nonedematous, no cyanosis was noted, no clubbing was noted. Neuro: Cranial nerves II through XII are grossly intact, no focal motor deficits were noted, sensation to light touch and pinprick intact, motor exam 5/5 throughout. Psych: Patient is alert and oriented x3, he does not appear anxious or depressed, he does not appear agitated. Patient appears stable for discharge on 04/02/2022 to home. Weight / BMI Weight Weight: 84.5 kg Body Mass Index (BMI) 28.2 ABG / Lab / Microbiology Data Result Diagrams: 04/01/22 04:38 04/01/22 04:38 Laboratory: Laboratory Results - last 24 hr 04/01/22 04:38: Diff Path Review Reviewed 04/01/22 11:51: POC Glucose 172 H 04/01/22 16:49: POC Glucose 206 H 04/01/22 21:29: POC Glucose 216 H 04/01/22 : Fluid Source PERITONEAL FLUID, Fluid Color LT YEL, Fluid Appearance CLEAR, Fluid WBC 2, Fluid RBC 1, Fluid Tot Cell Count Not Reportable, Fluid Neutrophils 12, Fluid Lymphocytes 31, Fluid Monocytes 29, Fluid Macrophages 28, Fl Pathologist Comment May follow, Fluid Comment 2 SEE COMMENT 04/02/22 06:29: Ammonia 28.0 04/02/22 06:46: POC Glucose 144 H Microbiology: Microbiology 03/31/22 19:14 Urine, Clean Catch Urine Culture - Preliminary GPC Poss Enterococcus sp Radiography Diagnostic Testing: Radiology Impression Paracentesis Ultrasound 04/01/22 22:31 IMPRESSION: Ultrasound guided paracentesis. Electronically Signed: Theron Whitehead MD at 14:53 EST , D/C Instructions Discharge Diet: 1800 Calorie Control Diet Weight Bearing Status: Full weight bearing Meaningful Use Info Meaningful Use Diagnoses (Choose all that apply): None applicable Discharge Plan Admission Admit Date/Time: 03/31/22 22:07 Primary Reason for Your Visit: hepatic encephalopathy Attending Provider: Baldemar Coffey Primary Care Provider: Kervin Choi Consulting Providers: Amadou Levy ; Ta Savage Instructions Additional Instructions / Restrictions: increase Lactulose to 30 gms four times a day You will need to have 4-5 bowel movements per day Discharge Orders/Prescriptions Prescriptions: New doxycycline monohydrate 100 mg Capsule 100 mg PO BID Qty: 10 0RF gabapentin 100 mg Capsule 100 mg PO TID Qty: 90 0RF Continued Align 4 mg capsule 4 mg PO DAILY pantoprazole 40 mg tablet,delayed release (DR/EC) 40 mg PO 0600,1600 furosemide 20 mg tablet 20 mg PO DAILY polysaccharide iron complex [Ferrex 150] 150 mg iron capsule 150 mg PO BID acetaminophen 500 mg tablet 500 mg PO Q6H PRN (Reason: Pain) spironolactone 25 mg tablet 25 mg PO DAILY metformin 1,000 MG tablet 1,000 mg PO BIDCM Label Comments: Januvia 50 MG tablet 50 mg PO DAILY hydromorphone 2 MG tablet 2 mg PO Q3H PRN (Reason: Pain/Inflammation) baclofen 10 mg tablet 5 mg PO TID glimepiride 4 mg tablet 4 mg PO DAILY trazodone 50 mg tablet 50 mg PO QHS lactulose [Constulose] 10 gram/15 mL solution 30 ml PO TID Label Comments: TAKE 30 ML BY MOUTH THREE TIMES DAILY. WATCH FOR SYMPTOMS OF HEPATIC ENCEPHALOPATHY ( SEE DISCHARGE INSTRUCTIONS). IF SYMPTOMS DEVELOP TAKE INSTRUCTED WITH THE GOAL OF 3 TO 4 BOWEL MOVEMENTS DAILY rifaximin 550 mg Tablet 550 mg PO BID ondansetron HCl 4 mg tablet 4 mg PO Q8H Discontinued gabapentin 300 mg capsule 300 mg PO TID Label Comments: TAKE 1 CAPSULE BY MOUTH THREE TIMES DAILY Referrals / Follow Up: Amadou Levy DO [Med Staff - Active Staff] - See Referral Note (as directed) YANETH GOODMAN CRNP [Non-Staff] - 04/16/22 11:00 am Disposition Disposition (needs filled in before D/C Order can be placed): Home Health Service Charges/Coding Visit Charges Inpatient E&M: 91534 Disch Hosp
[2022-04-02] MEDS: Insulin Lispro 100 UNIT/ML INSULN.PEN SC (12:06)
[2022-04-02 12:10] LABS: Bedside Glucose 206 mg/dL (74-106)
--- NOTE | 2022-04-02 12:10 | PHA.DC.MC ---
Pharmacy Service has performed discharge medication reconciliation and counseling for this patient. The patient was counseled on the following discharge medications and changes in medications for homegoing were reviewed. 1. DOXYCYCLINE 2. GABAPENTIN - NOTIFIED OF DOSE CHANGE 3. LACTULOSE - NOTIFIED OF DOSE CHANGE The Reason for Use, instructions for use, and potential side effects were reviewed for all new medications. The patient's questions regarding all of their medications were answered. The patient was able to verbally demonstrate an understanding of their discharge medications. Home Medications metformin 1,000 mg tablet 1,000 mg PO BIDCM DIABETES 03/25/15 sitagliptin phosphate 50 mg tablet (Januvia) 50 mg PO DAILY DIABETES 02/20/17 hydromorphone 2 mg tablet 2 mg PO Q3H PRN Pain/Inflammation 03/09/19 Bifidobacterium infantis 4 mg capsule (Align) 4 mg PO DAILY PROBIOTIC 04/17/19 furosemide 20 mg tablet 20 mg PO DAILY EDEMA 07/01/20 pantoprazole 40 mg tablet,delayed release 40 mg PO 0600,1600 GERD 07/01/20 polysaccharide iron complex 150 mg iron capsule (Ferrex) 150 mg PO BID SUPPLEMENT 07/01/20 baclofen 10 mg tablet 5 mg PO TID MUSCLE SPAMS 12/01/20 acetaminophen 500 mg tablet 500 mg PO Q6H PRN Pain 01/01/21 spironolactone 25 mg tablet 25 mg PO DAILY 01/15/22 glimepiride 4 mg tablet 4 mg PO DAILY DIABETES 03/02/22 lactulose 10 gram/15 mL oral solution (Constulose) 30 ml PO TID 03/31/22 ondansetron HCl 4 mg tablet 4 mg PO Q8H NAUSEA/VOMITING 03/31/22 rifaximin 550 mg tablet 550 mg PO BID 03/31/22 trazodone 50 mg tablet 50 mg PO QHS SLEEP 03/31/22 doxycycline monohydrate 100 mg capsule 100 mg PO BID #10 caps 04/02/22 gabapentin 100 mg capsule 100 mg PO TID #90 caps 04/02/22 The patient's discharge medication list was reviewed for discrepancies and discrepancies were resolved.
[2022-04-02 14:22] LABS: Pathologist Comment/Body Fluid Reviewed
[2022-04-03 10:35] LABS: AFP, Tumor Marker < 1.8 ng/mL (0.0-8.4)
== END 2022-04-02 13:21 | disposition home health service (06) | DRG 441 ==
LOC: ED 20:55 → PCU 21:16
PROVIDERS: Internal Medicine Gastroenterology; Admitting Provider Hospitalist; Emergency Provider Emergency Medicine; PCP Family Medicine; Visit Provider Internal Medicine
DX: K76.82 Hepatic encephalopathy (principal); I81 Portal vein thrombosis; K65.2 Spontaneous bacterial peritonitis; D61.818 Other pancytopenia; E87.20 Acidosis, unspecified; R18.8 Other ascites; L03.116 Cellulitis of left lower limb; C91.10 Chronic lymphocytic leukemia of B-cell type not having achieved remission; K74.60 Unspecified cirrhosis of liver; E11.65 Type 2 diabetes mellitus with hyperglycemia; I48.0 Paroxysmal atrial fibrillation; E78.2 Mixed hyperlipidemia; I10 Essential (primary) hypertension; D64.9 Anemia, unspecified; E87.6 Hypokalemia; M62.84 Sarcopenia; G47.33 Obstructive sleep apnea (adult) (pediatric); Z87.891 Personal history of nicotine dependence; Z79.84 Long term (current) use of oral hypoglycemic drugs; Z95.828 Presence of other vascular implants and grafts; Z79.899 Other long term (current) drug therapy; N40.0 Benign prostatic hyperplasia without lower urinary tract symptoms
CPT/HCPCS: 36415; 49083; 71045; 80048; 80053; 80076; 81001; 82105; 82140; 82962; 83605; 85025; 85610; 85730; 87040; 87077; 87086; 87088; 87186; 88108; 88305; 88313; 89050; 93005; 97162; 97166; 97802; 97803; 99285; J7050; J7120; A4216

== ENCOUNTER 2022-04-03 15:51 | Outpatient (CLI) | payer MEDICARE, OTHER, SELFPAY ==
--- NOTE | 2022-04-03 15:55 | CT_ITS ---
INDICATION: GI Bleed. 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 TIPS procedure. stent in hepatic area. poratl vein thrombosis EXAMINATION: CTA abdomen and pelvis - TECHNIQUE: Routine abdominal CT angiogram protocol was performed with IV contrast. MIP images provided. A radiation dose optimization technique was used for this scan. IV Contrast dosage and agent: 81 mL Radiation dose DLP 1081.51 mGy / cm. COMPARISON: March 02, 2022 FINDINGS: Lung bases: Clear Liver: Liver is small. New Portal caval stent. Beam hardening artifact limits sensitivity of patency. Filling defect of the left portal vein noted. Gallbladder: Gallstones are noted. Spleen: Spleen is enlarged. Splenic varices are noted which extend to the greater curvature of the stomach and GE junction. Adrenal gland: Normal. Kidneys: Normal. No hydronephrosis or stone formation. 17 mm simple left renal cortical cyst. No further follow-up required as it appears simple/benign. Pancreas:Normal. Bowel gas pattern: Nonobstructive. 3 x 8 mm radiodense pill within the stomach. No active hemorrhage noted. Small bowel appears somewhat thickened proximally within the jejunum. No pneumatosis is noted. Air-fluid levels are noted throughout the colon. Colonic diverticulosis noted. There is a giant 3 cm diverticulum or abscess noted along the sigmoid colon which appears unchanged. The appendix is not identified. 15 mm hyperdensity noted in the right lower quadrant may represent calcifications. Moderate ascites is noted in the abdomen. Appendix: Normal. Free air: None. Free fluid: Moderate Pelvis: Pelvic organs: No mass lesion noted. Bone survey: Mild levoconvex scoliosis. Total hip arthroplasty on the right. Adenopathy: No significant pathologic adenopathy detected. Other: Diffuse subcutaneous edema in the pelvis. Vascular: Calcified plaque along the aorta and its branches. 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 Portal venous hypertension. New Portal caval stent. Moderate ascites increased. Cirrhosis and splenomegaly again noted. Splenic and gastroesophageal varices again noted. Cholelithiasis. Colonic ileus and/or nonspecific diarrheal disease. No definite evidence of active arterial hemorrhage at this time although sensitivity is limited due to technique. Giant sigmoid diverticulum versus abscess unchanged. Electronically Signed: Butch Chávez MD at 18:26 EST ,
== END 2022-04-03 23:59 | disposition home or self-care (01) ==
LOC: CT 15:53
PROVIDERS: PCP Family Medicine; Visit Provider Internal Medicine Gastroenterology
DX: K92.2 Gastrointestinal hemorrhage, unspecified (principal); K76.6 Portal hypertension; C91.10 Chronic lymphocytic leukemia of B-cell type not having achieved remission; K74.60 Unspecified cirrhosis of liver; N28.1 Cyst of kidney, acquired; K80.20 Calculus of gallbladder without cholecystitis without obstruction; Z96.641 Presence of right artificial hip joint; I81 Portal vein thrombosis; R18.8 Other ascites; R16.1 Splenomegaly, not elsewhere classified; K57.30 Diverticulosis of large intestine without perforation or abscess without bleeding
CPT/HCPCS: 74174; Q9967

== ENCOUNTER → 2022-04-08 | Outpatient (CLI) | payer MEDICARE, OTHER, SELFPAY ==
[2022-04-10 16:36] LABS: Calprotectin, Stool 104 ug/g (0-120)
[2022-04-11 08:08] LABS: Pancreatic Elastase, Fecal 387 (>200)
== END | disposition home or self-care (01) ==
LOC: MTLAB 10:20 → LABSPEC 10:22
PROVIDERS: PCP Family Medicine; Referring Provider Internal Medicine Gastroenterology; Visit Provider Internal Medicine Gastroenterology
DX: K58.9 Irritable bowel syndrome, unspecified (principal); R19.7 Diarrhea, unspecified
CPT/HCPCS: 82653; 83630; 83993; 87177; 87209; 87329; 87493

== ENCOUNTER 2022-04-10 11:33 | Outpatient (CLI) | payer MEDICARE, OTHER, SELFPAY ==
--- NOTE | 2022-04-10 11:37 | US_ITS ---
PROCEDURE: Ultrasound guided paracentesis. DATE OF EXAMINATION: 04/10/2022. INDICATION: Male, 82 years old. Ascites. PHYSICIAN: Theron Whitehead M.D. TECHNIQUE: The risks, benefits, and alternatives to the procedure were explained to the patient. The specific risks of bleeding, infection, and damage to bowel were detailed and accepted. Witnessed informed consent was obtained. The abdomen was ultrasonographically surveyed. An appropriate pocket of fluid was identified at the right lower quadrant. The skin were cleaned and prepped in the usual sterile fashion. Using ultrasound guidance, the peritoneal cavity was accessed with a 5-Nepalese paracentesis needle/catheter system. The trocar was removed. A total of 2450 ml of migel-colored fluid were removed from the peritoneal cavity. The catheter was removed and a sterile dressing was applied. The procedure was well tolerated. US/Paracentesis with US IMPRESSION: Ultrasound guided paracentesis. Electronically Signed: Theron Whitehead MD at 13:05 EST ,
[2022-04-10 12:04] VITALS: BP 126/50; BP 138/60; PULSE 82; PULSE 88; RESP 14; RESP 18; O2SAT 95; O2SAT 98
[2022-04-10] MEDS: Lidocaine 1% (20 ml mdv) 20 ML Vial (12:04)
== END 2022-04-10 23:59 | disposition home or self-care (01) ==
LOC: MRI 11:33 → US 11:34
PROVIDERS: PCP Family Medicine; Visit Provider Internal Medicine Gastroenterology
DX: K74.60 Unspecified cirrhosis of liver (principal)
CPT/HCPCS: 49083

== ENCOUNTER → 2022-04-20 | Outpatient (CLI) | payer MEDICARE, OTHER, SELFPAY ==
--- NOTE | 2022-04-20 12:04 | US_ITS ---
PROCEDURE: Ultrasound guided paracentesis. DATE OF EXAMINATION: 04/20/2022.. INDICATION: Male, 82 years old. Ascites. PHYSICIAN: Theron Whitehead M.D. TECHNIQUE: The risks, benefits, and alternatives to the procedure were explained to the patient. The specific risks of bleeding, infection, and damage to bowel were detailed and accepted. Witnessed informed consent was obtained. The abdomen was ultrasonographically surveyed. An appropriate pocket of fluid was identified at the right lower quadrant. The skin were cleaned and prepped in the usual sterile fashion. Using ultrasound guidance, the peritoneal cavity was accessed with a 5-Yoruba paracentesis needle/catheter system. The trocar was removed. A total of 1100 ml of migel-colored fluid were removed from the peritoneal cavity. The catheter was removed and a sterile dressing was applied. The procedure was well tolerated. US/Paracentesis with US IMPRESSION: Ultrasound guided paracentesis. Electronically Signed: Theron Whitehead MD at 13:10 EST ,
[2022-04-20] MEDS: Lidocaine 1% (20 ml mdv) 20 ML Vial INFILT (12:27)
[2022-04-20 12:55] VITALS: BP 128/50; BP 130/56; BP 135/55; PULSE 90; PULSE 93; RESP 16; TEMP 36.7; O2SAT 93; O2SAT 95; O2SAT 97
== END | disposition home or self-care (01) ==
LOC: US 12:03
PROVIDERS: PCP Family Medicine; Referring Provider Internal Medicine Gastroenterology; Visit Provider Internal Medicine Gastroenterology
DX: K74.60 Unspecified cirrhosis of liver (principal); R18.8 Other ascites
CPT/HCPCS: 49083; A4216